=== PATIENT | male | born 1950 | race Caucasian/White ===

== ENCOUNTER 2016-06-14 18:08 | Emergency (ER) | payer OTHER ==
[~2016-06-14] VITALS: Ht 165.1 cm; Wt 97.0 kg
[~2016-06-14 18:08] MED LIST: ASPI-435 PO; ATOR-24 PO; CHOL100027 PO; DULO60CA44 PO; LINA1TAB PO; LIRA18IN SQ; LOSA100T65 PO; LVMIPEN SQ; METF-384 PO; PANT40TA PO
[2016-06-14 18:10] VITALS: TEMP 36.6; Ht 165.1 cm; Wt 97.0 kg
[2016-06-14] MEDS ORDERED: DIPHTHERIA/TETANUS/PERTUSSIS 0.5 ML SYR/VIAL IM. ONE (18:45)
[2016-06-14] MEDS ORDERED: XYLOCAINE 1%/SOD BICARB 20 ML VIAL INFIL ONE (18:45)
--- NOTE | 2016-06-14 19:03 | DIAGNOSTIC IMAGING REPORT ---
LEFT SECOND FINGER 3 VIEWS. CLINICAL HISTORY: Left second finger injury. FINDINGS: 3 views of the left second finger are obtained. No prior studies are available for comparison at the time of dictation. The skeletal structures appear osteopenic. No fracture is identified. Soft tissue calcification is noted posterior to the head of the second proximal phalanx. Mild arthritic change is noted involving the interphalangeal joints of the second and third digits. Mild soft tissue sinus present in both fingers. Arthritic changes also seen at the first carpometacarpal articulation. No radiodense foreign body is identified. IMPRESSION: 1. Soft tissue swelling with no fracture identified. 2. Osteopenia and arthritic change as above. Electronically signed by: Sarath Polanco M.D. 06/14/2016 7:02 PM Dictated Date/Time: 06/14/2016 6:59 PM
--- NOTE | 2016-06-14 20:09 | EMERGENCY ROOM VISIT NOTE ---
ED Visit Note First contact with patient: 18:26 I saw this patient in conjunction with Gloria Johnson PA-C. I agree with her decision-making and treatment plan.
[2016-06-14] MEDS ORDERED: CEPH500C PO (20:13)
--- NOTE | 2016-06-14 20:13 | EMERGENCY ROOM VISIT NOTE ---
ED Visit Note First contact with patient: 18:26 CHIEF COMPLAINT: Hand laceration HISTORY OF PRESENT ILLNESS: This 65-year-old male patient presents to the emergency department ambulatory after cutting the left hand when he was using a hatchet and holding a piece of wood but he missed the wood and hit his hand. He sustained a laceration in the area of the MCP of the left second finger. The bleeding has stopped. Denies weakness or numbness of the hand or fingers. in. The patient denies any other injuries. The patient's Tetanus shot is not up to date. REVIEW OF SYSTEMS: A 6 system review of systems was completed with positives and pertinent negatives listed in the HPI. ALLERGIES: No known drug allergies MEDICATIONS: See nursing notes PMH: Hyperlipidemia, diabetes, hypertension SOCIAL HISTORY: The patient is a smoker. He lives locally PHYSICAL EXAM: Vital Signs: Reviewed Nurse's notes, vital signs stable. GENERAL : This is a 65-year-old male, in no acute distress, well-developed, well- nourished. SKIN: There is a 3 cm long laceration on the dorsal aspect of the left second finger in the area of the second MCP. The edges gape apart with traction. There is no foreign material in the wound and it looks clean. There is mild bleeding. No deep structures such as tendons, bones, or nerves are seen in the base of the wound on initial inspection. The patient does seem to have some weakness with extension of the left second finger. Capillary refill less than 2 seconds. Normal sensation to light and sharp touch. EMERGENCY DEPARTMENT COURSE: I examined the patient. Using sterile technique the wound was cleaned with Betadine. The area was sterilely draped. 3 ml of 1% buffered lidocaine was used to anesthetize the laceration on the hand. Once the patient was numb, the wound was copiously irrigated under pressure with sterile saline. The wound was explored in a bloodless field after tourniquet was applied. There does appear to be extensor tendon laceration. I cannot see into the joint capsule but cannot confirm that there is no joint involvement. The laceration was repaired using 3 simple interrupted 5-0 nylon sutures with the wound edges being well approximated. The patient tolerated the procedure well. The bleeding stopped. The area was cleaned with sterile saline and dressed with bacitracin ointment and bandage. The patient was given Td immunization. The patient was discharged home in good condition. An x-ray was obtained initially and did not reveal any bony abnormality or foreign body The laceration was repaired as above The patient was placed in a splint He will be placed on Keflex I discussed the case with and he recommends follow-up in the office and agrees with the above treatment The patient should return with any worsening symptoms The patient was also seen and examined by who agrees with the assessment and treatment plan. LEFT SECOND FINGER 3 VIEWS. CLINICAL HISTORY: Left second finger injury. FINDINGS: 3 views of the left second finger are obtained. No prior studies are available for comparison at the time of dictation. The skeletal structures appear osteopenic. No fracture is identified. Soft tissue calcification is noted posterior to the head of the second proximal phalanx. Mild arthritic change is noted involving the interphalangeal joints of the second and third digits. Mild soft tissue sinus present in both fingers. Arthritic changes also seen at the first carpometacarpal articulation. No radiodense foreign body is identified. IMPRESSION: 1. Soft tissue swelling with no fracture identified. 2. Osteopenia and arthritic change as above. DISCHARGE INSTRUCTIONS & TREATMENT: Keep wound clean and dry. Do not allow any crusting or dried blood to accumulate on sutures. If this occurs, use a 1:1 solution of hydrogen peroxide/water on a Q-tip to clean the wound. Use an antibiotic ointment for 3-4 days, then let wound dry. Suture removal in 10-12 days. Return sooner for any signs of infection (increasing redness, swelling, drainage). Ice and elevate for swelling and pain. Keep covered when in sun until sutures removed then SPF 50 or higher for one year. Vitamin E oil if desired two weeks after suture removal for reduction of scar. Keflex every 4 hours for 7 days to help prevent infection Wear the splint until seen by orthopedics Contact orthopedics first thing in the morning to schedule a follow-up appointment for further evaluation and management of the tendon injury Return with any worsening symptoms Problem List Medical Problems: (1) Dizziness Status: Resolved (2) Esophageal Reflux Status: Chronic (3) Hyperlipidemia Nec/Nos Status: Chronic (4) Hypertension Nos Status: Chronic (5) Injury of great toe of left foot Status: Resolved (6) Nausea Status: Resolved (7) Obstructive Sleep Apnea (Adult) (Pediatric) Status: Chronic Surgical Problems: (1) Knee Joint Replacement Status Status: Resolved Current/Historical Medications Scheduled Aspirin (Aspirin 81), 81 MG PO DAILY Atorvastatin (Lipitor), 40 MG PO DAILY Cephalexin Monohydrate (Keflex), 500 MG PO QID Cholecalciferol (Vitamin D 1000 Unit), 2,000 INTER.UNIT PO DAILY Duloxetine Hcl (Cymbalta), 60 MG PO DAILY Insulin Detemir (Levemir Flextouch), Unknown Dose SQ HS Linagliptin (Tradjenta), 5 MG PO DAILY Liraglutide (Victoza), 80 UNITS SQ BID Losartan Potassium (Cozaar), 100 MG PO DAILY Metformin Hcl (Glucophage), 1,000 MG PO BID Pantoprazole Sodium (Protonix), 40 MG PO DAILY Allergies Coded Allergies: No Known Allergies (Verified , 10/18/15) Vital Signs Date Time Temp Pulse Resp B/P Pulse Ox O2 Delivery O2 Flow Rate FiO2 06/14/16 20:25 85 18 152/82 95 06/14/16 18:10 36.6 101 20 173/74 95 Medications Administered Medications (Trade) Dose Ordered Sig/Kun Route Start Time Stop Time Status Last Admin Dose Admin Diphtheria/ Pertussis/Tetanus Vacc (Adacel Inj) 0.5 ml ONCE ONCE IM. 06/14/16 18:45 06/14/16 18:46 DC 06/14/16 18:46 0.5 ML Cephalexin Monohydrate (Keflex 500MG Home Pack) 1 homepack NOW ONCE PO 06/14/16 20:15 06/14/16 20:16 DC 06/14/16 20:15 1 HOMEPACK Departure Information Impression Primary Impression: Finger laceration involving tendon Dispostion Home / Self-Care Condition GOOD Prescriptions Cephalexin Monohydrate (Keflex) 500 Mg Cap 500 MG PO QID for 7 Days, #28 CAP Prov: Nataly Johnson PA-C 06/14/16 Referrals Amarilys Ledesma M.D. (PCP) Mickey Madrid MD Patient Instructions ED Laceration Tendon, My [facility] Additional Instructions Keep wound clean and dry. Do not allow any crusting or dried blood to accumulate on sutures. If this occurs, use a 1:1 solution of hydrogen peroxide/ water on a Q-tip to clean the wound. Use an antibiotic ointment for 3-4 days, then let wound dry. Suture removal in 10-12 days. Return sooner for any signs of infection (increasing redness, swelling, drainage). Ice and elevate for swelling and pain. Keep covered when in sun until sutures removed then SPF 50 or higher for one year. Vitamin E oil if desired two weeks after suture removal for reduction of scar. Keflex every 4 hours for 7 days to help prevent infection Wear the splint until seen by orthopedics Contact orthopedics first thing in the morning to schedule a follow-up appointment for further evaluation and management of the tendon injury Return with any worsening symptoms
[2016-06-14] MEDS ORDERED: CEPHALEXIN 500MG HOME PACK 1 EA BTL PO ONE (20:15)
[2016-06-14 20:25] VITALS: BP 152/82; PULSE 85; O2SAT 95
== END 2016-06-14 20:27 | disposition home or self-care (01) ==
LOC: C.EDB 18:09 → C.EDD 20:27
DX: S66.321A Laceration of extensor muscle, fascia and tendon of left index finger at wrist and hand level, initial encounter (principal); W26.8XXA Contact with other sharp object(s), not elsewhere classified, initial encounter; I10 Essential (primary) hypertension; E11.9 Type 2 diabetes mellitus without complications; E78.5 Hyperlipidemia, unspecified; K21.9 Gastro-esophageal reflux disease without esophagitis; Z23 Encounter for immunization; Z96.659 Presence of unspecified artificial knee joint; Z79.82 Long term (current) use of aspirin; Z79.84 Long term (current) use of oral hypoglycemic drugs; Z79.899 Other long term (current) drug therapy

== ENCOUNTER 2016-07-31 18:50 | Emergency (ER) | payer OTHER ==
[2016-07-31 18:57] VITALS: Ht 165.1 cm
[2016-07-31] MEDS ORDERED: NVLNI SC (20:29)
--- NOTE | 2016-07-31 20:36 | DIAGNOSTIC IMAGING REPORT ---
LEFT HAND MIN 3 VIEWS ROUTINE, LEFT FOREARM 2 VIEWS ROUTINE CLINICAL HISTORY: left hand/arm injury COMPARISON STUDY: None. FINDINGS: Diffuse soft tissue swelling within the left hand. Posterior soft tissues swelling within the forearm. No fracture or dislocation within the visualized osseous structures. Moderate osteoarthritis at the first carpometacarpal joint. Mild osteoarthritis within the DIP and PIP joints. IMPRESSION: Soft tissue swelling within the left hand and left forearm. No acute fracture or dislocation. Electronically signed by: José Luis Ferraro M.D. 07/31/2016 8:35 PM Dictated Date/Time: 07/31/2016 8:31 PM
[2016-07-31] MEDS ORDERED: SEPTRA DS HOME PACK 1 EA VIAL PO ONE (21:00)
[2016-07-31] MEDS ORDERED: CEPHALEXIN 500MG HOME PACK 1 EA BTL PO ONE (21:00)
[2016-07-31] MEDS ORDERED: CEPH500C PO (21:12)
[2016-07-31] MEDS ORDERED: SULF800T23 PO (21:12)
--- NOTE | 2016-07-31 21:12 | EMERGENCY ROOM VISIT NOTE ---
History First contact with patient: 19:46 Chief Complaint: WRIST PAIN Stated Complaint: FALL, L HAND AND WRIST INJURY History of Present Illness The patient is a 65 year old male who presents to the Emergency Room with complaints of left hand and wrist pain after a fall 2 days ago. The patient states that he had a mechanical fall and injured his left arm. He states that he has swelling of the hand and wrist. He also has abrasions to the elbow and wrist. He rates his discomfort a 10/10. He has full range of motion of the elbow and wrist. He denies any weakness or numbness of the left upper extremity. He denies any previous injuries to the wrist, forearm or hand. Review of Systems A complete 10 point review of systems was reviewed with the patient with pertinent positives and negatives as per history of present illness. All else were negative. Past Medical/Surgical History Medical Problems: (1) Dizziness (2) Esophageal Reflux (3) Hyperlipidemia Nec/Nos (4) Hypertension Nos (5) Injury of great toe of left foot (6) Nausea (7) Obstructive Sleep Apnea (Adult) (Pediatric) Surgical Problems: (1) Knee Joint Replacement Status Social History Smoking Status: Current Every Day Smoker Alcohol Use: none Marital Status: Current/Historical Medications Scheduled Aspirin (Aspirin 81), 81 MG PO DAILY Atorvastatin (Lipitor), 40 MG PO DAILY Cephalexin Monohydrate (Keflex), 500 MG PO QID Cholecalciferol (Vitamin D 1000 Unit), 2,000 INTER.UNIT PO DAILY Insulin Human NPH (Novolin N), 120 UNITS SC BID Pantoprazole Sodium (Protonix), 40 MG PO DAILY Sulfa/Trimethoprim (Bactrim Ds 800MG/160MG), 1 TAB PO BID Scheduled PRN Hydrocodone/Acetaminophen 5MG/325MG ([place] 5MG/325MG), 1-2 TABLET PO Q4H PRN for Pain Allergies Coded Allergies: No Known Allergies (Verified , 10/18/15) Physical Exam Vital Signs Date Time Temp Pulse Resp B/P (MAP) Pulse Ox O2 Delivery O2 Flow Rate FiO2 07/31/16 21:45 36.8 107 20 163/96 92 Room Air 07/31/16 21:15 107 163/96 07/31/16 18:57 36.8 117 20 92 Room Air Physical Exam VITALS: Vitals are noted on the nurse's note and reviewed by myself. Vital signs stable. GENERAL: This is a 65-year-old male, in no acute distress, nondiaphoretic, well- developed well-nourished. HEART: Regular rate and rhythm without murmurs gallops or rubs. LUNGS: Clear to auscultation bilaterally without wheezes, rales or rhonchi. MUSCULOSKELETAL: There are abrasions over the left elbow and left wrist. There is moderate edema over the left hand and wrist. There is tenderness to palpation of the left distal wrist and hand. There is mild tenderness to palpation of the left proximal forearm. Full range of motion of the left wrist and elbow. NEURO: Patient was alert and oriented to person place and time. Normal sensation to light and sharp touch. Medical Decision & Procedures ER Provider Diagnostic Interpretation: LEFT HAND MIN 3 VIEWS ROUTINE, LEFT FOREARM 2 VIEWS ROUTINE FINDINGS: Diffuse soft tissue swelling within the left hand. Posterior soft tissues swelling within the forearm. No fracture or dislocation within the visualized osseous structures. Moderate osteoarthritis at the first carpometacarpal joint. Mild osteoarthritis within the DIP and PIP joints. IMPRESSION: Soft tissue swelling within the left hand and left forearm. No acute fracture or dislocation. LEFT HAND MIN 3 VIEWS ROUTINE, LEFT FOREARM 2 VIEWS ROUTINE FINDINGS: Diffuse soft tissue swelling within the left hand. Posterior soft tissues swelling within the forearm. No fracture or dislocation within the visualized osseous structures. Moderate osteoarthritis at the first carpometacarpal joint. Mild osteoarthritis within the DIP and PIP joints. IMPRESSION: Soft tissue swelling within the left hand and left forearm. No acute fracture or dislocation. Medications Administered Medications (Trade) Dose Ordered Sig/Kun Route Start Time Stop Time Status Last Admin Dose Admin Trimethoprim/ Sulfamethoxazole (Sulfameth/ Trimeth Ds 800/ 160MG Home Pack) 1 homepack UD ONCE PO 07/31/16 21:00 07/31/16 21:01 DC 07/31/16 21:09 1 HOMEPACK Cephalexin Monohydrate (Keflex 500MG Home Pack) 1 homepack NOW ONCE PO 07/31/16 21:00 07/31/16 21:01 DC 07/31/16 21:09 1 HOMEPACK Acetaminophen/ Hydrocodone Bitart ([place] 5/325mg Home Pack) 1 homepack UD ONCE PO 07/31/16 21:45 07/31/16 21:46 DC 07/31/16 21:48 1 HOMEPACK Medical Decision Differential diagnosis includes fracture, contusion, sprain, dislocation, cellulitis, among others. The patient is a 65-year-old male who presents today complaining of left wrist swelling and pain after an injury 2 days ago. X-rays were performed of the forearm and hand did not show any acute fractures. The patient does have moderate edema and mild erythema which may be secondary to injury but could represent an early cellulitis. He will be placed on Bactrim and Keflex and was instructed to follow-up with his primary care provider this week for a recheck. He was given a home pack and prescription of [place]. He was instructed to return here for worsening symptoms. The patient was independently evaluated by Dr. Soni, ED attending physician, who agreed with my assessment and treatment plan. Medication reconciliation: I attest that I have personally reviewed the patient 's current medication list. Blood pressure screening: Patient was found to have an elevated blood pressure and was referred to their primary care provider for recheck and further treatment. [place] Drug Monitoring Program Search Results: patient reviewed within database, no issues identified Impression Primary Impression: Cellulitis of upper extremity Departure Information Dispostion Home / Self-Care Condition GOOD Prescriptions Hydrocodone/Acetaminophen 5MG/325MG ([place] 5MG/325MG) Tab 1-2 TABLET PO Q4H Y for Pain, #10 TAB For Initial Treatment Prov: Nadia Mccain PA-C 07/31/16 Sulfa/Trimethoprim (Bactrim Ds 800MG/160MG) Tab 1 TAB PO BID for 9 Days, #18 TAB Prov: Nadia Mccain PA-C 07/31/16 Cephalexin Monohydrate (Keflex) 500 Mg Cap 500 MG PO QID for 9 Days, #36 CAP Prov: Nadia Mccain PA-C 07/31/16 Referrals Amarilys Ledesma M.D. (PCP) Patient Instructions My [facility] Additional Instructions You were prescribed Bactrim to be taken twice daily as prescribed. This is an antibiotic. All antibiotics have the potential to cause diarrhea. Stop this medication and contact a medical provider if you were to develop any significant adverse side effects including: wheezing, shortness of breath, passing out, vomiting, or a diffuse rash. Always take antibiotics as directed and COMPLETE the ENTIRE course regardless of the improvement of your symptoms. You were prescribed Keflex to be taken 4 times daily as prescribed. This is an antibiotic. All antibiotics have the potential to cause diarrhea. Stop this medication and contact a medical provider if you were to develop any significant adverse side effects including: wheezing, shortness of breath, passing out, vomiting, or a diffuse rash. Always take antibiotics as directed and COMPLETE the ENTIRE course regardless of the improvement of your symptoms. For pain control, you can use the following [id number] medicines (if >12 yo): - Regular strength (325mg/tab) Tylenol (acetaminophen) 2 tabs every 4-6 hours as needed. Do not exceed 12 tablets in a 24 hour period. Avoid taking more than 4 grams (4000 mg) of Tylenol per day. This includes any other sources of acetaminophen you may take on a regular basis. - Regular strength (200 mg/tab) Advil (ibuprofen) 1-2 tabs every 4-6 hours as needed. Do not exceed a dose of 3200 mg per day. You should be rechecked by your primary care provider in 2-3 days. Return to the emergency department with worsening swelling, worsening redness, fevers or any other new/concerning symptoms. Problem Qualifiers Primary Impression: Cellulitis of upper extremity Laterality: left Qualified Codes: L03.114 - Cellulitis of left upper limb
--- NOTE | 2016-07-31 21:14 | EMERGENCY ROOM VISIT NOTE ---
ED Visit Note First contact with patient: 19:46 I have personally seen and evaluated the patient with the physician professional nursing assistant. I agree with the diagnostic/management decisions and have personally been involved in these decisions and agree with the diagnosis.
[2016-07-31] MEDS ORDERED: HYDR-5688 PO (21:41)
[2016-07-31 21:45] VITALS: BP 163/96; PULSE 107; TEMP 36.8; O2SAT 92
[2016-07-31] MEDS ORDERED: NORCO 5/325MG HOME PACK PO ONE (21:45)
== END 2016-07-31 21:58 | disposition home or self-care (01) ==
LOC: C.EDB 18:52 → C.EDD 21:58
DX: S69.92XA Unspecified injury of left wrist, hand and finger(s), initial encounter (principal); S50.312A Abrasion of left elbow, initial encounter; S60.812A Abrasion of left wrist, initial encounter; W19.XXXA Unspecified fall, initial encounter; G47.33 Obstructive sleep apnea (adult) (pediatric); F17.210 Nicotine dependence, cigarettes, uncomplicated; M79.89 Other specified soft tissue disorders; M19.042 Primary osteoarthritis, left hand; Z79.899 Other long term (current) drug therapy

== ENCOUNTER 2017-10-22 19:25 | Emergency (ER) | payer OTHER ==
[~2017-10-22] VITALS: Ht 165.1 cm; Wt 104.0 kg
[~2017-10-22 19:25] MED LIST changes: +ADVIN25/60 INH; -DULO60CA44 PO; +EFF/375 PO; +HYZ/10015 PO; +IPRA1AER2 INH; -LINA1TAB PO; -LIRA18IN SQ; -LOSA100T65 PO; -LVMIPEN SQ; +NRN600 PO; +NVLNI SC; +TRMO2580 TOP; +VENL150C2 PO
[2017-10-22 19:33] VITALS: Ht 165.1 cm; Wt 104.0 kg
--- NOTE | 2017-10-22 21:27 | EMERGENCY ROOM VISIT NOTE ---
ED Visit Note First contact with patient: 19:50 The patient was seen and examined with aCrlos Garcias PA-C. I agree with the history, physical and findings. Please see the note for disposition and details.
[2017-10-22] MEDS ORDERED: SEPTRA DS HOME PACK 1 EA VIAL PO ONE (21:30)
[2017-10-22] MEDS ORDERED: FLUC150T PO (21:34)
[2017-10-22] MEDS ORDERED: SULF800T23 PO (21:34)
--- NOTE | 2017-10-22 21:37 | EMERGENCY ROOM VISIT NOTE ---
ED Visit Note First contact with patient: 19:50 CHIEF COMPLAINT: Urinary frequency and burning HISTORY OF PRESENT ILLNESS: This 67-year-old white male has had increased frequency of urination, burning pain with urination, and a feeling of incomplete voiding for the last 2 days. He denies any hematuria. He is passing a small volume of urine with each episode of voiding. He denies back pain, fever, or difficulty moving his bowels at this time. No fevers, chills, sweats , nausea, or vomiting. No treatment yet. He previously had similar symptoms a few weeks ago and was seen by his PCP. His urine was reportedly normal at that time. His symptoms resolved on their own at that time. His accompanies him today. REVIEW OF SYSTEM: HEENT: No dizziness, visual problems, hearing loss, or tinnitus. There is no difficulty swallowing and no oral lesions are present. PULMONARY: No cough, shortness of breath, sputum production or hemoptysis. CARDIOVASCULAR: No chest pain, palpitations, shortness of breath or peripheral edema. GASTROINTESTINAL: No diarrhea, constipation, nausea, vomiting, or abdominal pain. GENITOURINARY: Positive dysuria, frequency, urgency and hematuria. NEUROLOGIC: No weakness, muscle tenderness, epilepsy or history of neurological problems. MUSCULOSKELETAL: No history of joint tenderness/swelling. Positive history of arthralgias. SKIN: No rashes. History of cellulitis. PSYCHIATRIC: Positive history of depression. ENDOCRINE: No history of thyroid disorders, or abnormal hair growth. Positive history of diabetes. Supplemental sheet was reviewed and signed. Previous surgeries: Left total knee arthroplasty, right knee tendon repair Medical history: Significant for diabetes, GERD, cellulitis, elevated lipids, hypertension, depression, and arthritis. Current medications: Reviewed and filed in patient's chart Allergies: NKDA SOCIAL HISTORY: Patient lives at home with his . No tobacco use, no EtOH use. PHYSICAL EXAM: Vital Signs: Temperature 36.4. General: Well-developed, well- nourished, elderly white male, in no acute distress. No obvious discomfort. He is sitting on the bed. Alert and oriented. Skin: Warm and dry with good turgor. No rashes or lesions. No ecchymosis or erythema. The patient is not diaphoretic. No abrasions. Heart: Heart RRR. No MGR. Peripheral pulses are 2 +. lungs: Lungs are clear to auscultation. No crackles rhonchi or wheezing. Good air movement. The patient is able to take a deep breath. Abdomen: Abdomen was inspected, auscultated, and palpated. Obese. Bowel sounds present x 4. Soft, suprapubic discomfort to palpation. No hepato-splenomegaly. No masses noted. No rebound. No CVA tenderness EMERGENCY DEPARTMENT COURSE: UA obtained today shows 3+ glucose, positive protein, positive leukocyte esterase, 3+ blood, epithelials, and yeast. Cultures are pending. DIAGNOSIS: UTI in male patient DISCHARGE INSTRUCTIONS & TREATMENT: Patient was educated regarding today's findings. Conservative care measures were discussed. Maintain hydration. Tylenol and Motrin every 6 hours as needed for discomfort. Patient was prescribed Diflucan 150 mg mg 1 dose, and Bactrim DS b.i.d. x10 days. Home pack was provided. Return to the ED or followup with his PCP if symptoms are not improving over the next 3 days. Return sooner for any fevers or worsening back pain/vomiting. UTI handout was provided. Antibiotics can be tailored once the cultures are known. Patient was seen in conjunction with Dr. Mcclure, who also evaluated the patient and concurred with today's diagnosis and treatment plan. Problem List Medical Problems: (1) Dizziness Status: Resolved (2) Esophageal Reflux Status: Chronic (3) Hyperlipidemia Nec/Nos Status: Chronic (4) Hypertension Nos Status: Chronic (5) Injury of great toe of left foot Status: Resolved (6) Nausea Status: Resolved (7) Obstructive Sleep Apnea (Adult) (Pediatric) Status: Chronic Surgical Problems: (1) Knee Joint Replacement Status Status: Resolved Current/Historical Medications Scheduled Aspirin (Aspirin 81), 81 MG PO DAILY Atorvastatin (Lipitor), 40 MG PO DAILY Cholecalciferol (Vitamin D 1000 Unit), 2,000 INTER.UNIT PO DAILY Fluconazole (Diflucan), 150 MG PO DAILY Gabapentin (Gabapentin), 1 TAB PO DAILY Hctz/Losartan (Hyzaar 25MG/100MG), 1 TAB PO DAILY Insulin Human NPH (Novolin N), 88 UNITS SC QPM Metformin Hcl (Glucophage), 4 TABS PO QPM Pantoprazole Sodium (Protonix), 40 MG PO DAILY Sulfa/Trimethoprim (Bactrim Ds 800MG/160MG), 1 TAB PO BID Triamcinolone Acetonide (Topic (Triamcinolone Acet 0.025%), 1 APPLN TOP BID Venlafaxine Hcl (Effexor), 1 TAB PO BID Venlafaxine Hcl (Effexor Xr), 1 CAP PO DAILY Scheduled PRN Ipratropium-Albuterol (Combivent Respimat), 1 PUFFS INH QID PRN for SOB/Wheezing Allergies Coded Allergies: No Known Allergies (Verified , 10/22/17) Vital Signs Date Time Temp Pulse Resp B/P (MAP) Pulse Ox O2 Delivery O2 Flow Rate FiO2 10/22/17 19:33 36.4 123 18 122/69 97 Room Air Laboratory Results Test 10/22/17 20:00 Urine Color YELLOW Urine Appearance TURBID (CLEAR) Urine pH 5.0 (4.5-7.5) Urine Specific [place] 1.038 (1.000-1.030) Urine Protein 2+ (NEG) Urine Glucose (UA) 3+ (NEG) Urine Ketones NEG (NEG) Urine Occult Blood 3+ (NEG) Urine Nitrite NEG (NEG) Urine Bilirubin NEG (NEG) Urine Urobilinogen NEG (NEG) Urine Leukocyte Esterase MODERATE (NEG) Urine WBC (Auto) >30 /hpf (0-5) Urine Hyaline Casts (Auto) 1-5 /lpf (0-5) Urine Epithelial Cells (Auto) >30 /lpf (0-5) Urine Bacteria (Auto) NEG (NEG) Urine Yeast (Auto) BUDDING (NONE PRSENT) Departure Information Prescriptions Sulfa/Trimethoprim (Bactrim Ds 800MG/160MG) Tab 1 TAB PO BID, #18 TAB Prov: Carlos Garcias,P.A. 10/22/17 Fluconazole (DIFLUCAN) 150 Mg Tab 150 MG PO DAILY, #1 TAB Prov: Carlos Garcias,P.A. 10/22/17 Referrals Amarilys Ledesma MD (PCP) Patient Instructions [facility]
[2017-10-22 21:43] VITALS: BP 122/70; PULSE 99; TEMP 36.4; O2SAT 97
== END 2017-10-22 21:44 | disposition home or self-care (01) ==
LOC: C.EDB 19:27 → C.EDD 21:44
DX: N39.0 Urinary tract infection, site not specified (principal); E11.9 Type 2 diabetes mellitus without complications; I10 Essential (primary) hypertension; E78.5 Hyperlipidemia, unspecified; F32.9 Major depressive disorder, single episode, unspecified; Z79.82 Long term (current) use of aspirin; Z79.84 Long term (current) use of oral hypoglycemic drugs; Z79.4 Long term (current) use of insulin; Z79.899 Other long term (current) drug therapy

== ENCOUNTER 2018-10-05 09:47 | Inpatient (IN) ==
[2018-10-05] MEDS ORDERED: VANCOMYCIN CONSULT ACTIVE PRN (12:12)
[2018-10-05] MEDS ORDERED: PIPERACILL/TAZOBAC CONSULT ACTIVE PRN (12:12)
[2018-10-05] MEDS ORDERED: ALBUTEROL 0.083% NEBU SOLN 3 ML VIAL INH PRN (12:17)
[2018-10-05] MEDS ORDERED: DEXTROSE 50% 50 ML SYRINGE IV PRN (12:26)
[2018-10-05] MEDS ORDERED: GLUCAGON FOR INJ 1 MG VIAL SQ PRN (12:26)
[2018-10-05] MEDS ORDERED: GLUCOSE 40% GEL 15 GM TUBE PO PRN (12:26)
[2018-10-05] MEDS ORDERED: CARBOHYDRATES FOR HYPOGLYCEMIA PO PRN (12:26)
[2018-10-05] MEDS ORDERED: GLUCOSE 10 TABS/TUBE PO PRN (12:26)
[2018-10-05 12:29] LABS: Basophils # (auto) 0.03 K/uL (0-0.2); Basophils % (auto) 0.3 %; Eosinophils # (auto) 0.11 K/uL (0-0.5); Eosinophils % (auto) 1.2 %; Hematocrit (blood only) 37.8 % (42-52); Hemoglobin 12.3 g/dL (14.0-18.0); Immature Granulocytes # (auto) 0.02 K/uL (0.00-0.02); Immature Granulocytes % (auto) 0.2 %; Lymphocytes # (auto) 1.91 K/uL (1.2-3.4); Mean Corpuscular Hemoglobin 24.6 pg (25-34); Mean Corpuscular Hgb Conc 32.5 g/dL (32-36); Mean Corpuscular Volume 75.4 fL (80-100); Mean Platelet Volume 9.4 fL (7.4-10.4); Monocytes # (auto) 0.83 K/uL (0.11-0.59); Monocytes % (auto) 9.1 %; Neutrophils % (auto) 68.2 %; Platelet Count 226 K/uL (130-400); RDW Coefficient of Variation 14.7 % (11.5-14.5); RDW Standard Deviation 40.2 fL (36.4-46.3); Red Blood Count 5.01 M/uL (4.7-6.1)
[2018-10-05 12:37] LABS: Prothrombin Time 10.3 Seconds (9.0-12.0)
[2018-10-05 12:54] LABS: Albumin Level 3.1 gm/dl (3.4-5.0); BUN Creatinine Ratio 16.1 (10-20); Calcium 9.4 mg/dl (8.5-10.1); Creatinine Clr Calc Pharmacy 66.6 ml/min; Est GFR (African American) 113.1; Est GFR (Non-African American) 97.5; Magnesium 1.6 mg/dl (1.8-2.4); Potassium 3.5 mmol/L (3.5-5.1)
[2018-10-05 12:57] LABS: Albumin Globulin Ratio 0.9 (0.9-2); Bilirubin,Total 0.3 mg/dl (0.2-1); Globulin 3.5 gm/dl (2.5-4.0); Total Protein 6.6 gm/dl (6.4-8.2)
[2018-10-05] MEDS: NICOTINE 21 MG/24 HR TDSY TD SCH (13:15)
[2018-10-05] MEDS: INSULIN ASPART 100 UNITS/ML 3 ML PEN SC SCH ×3 (13:18→20:56)
[2018-10-05] MEDS ORDERED: PIPERACILLIN/TAZOBACTAM 4.5 GM in DEXTROSE 5% 100 ML IV ONE (13:30)
[2018-10-05] MEDS ORDERED: VANCOMYCIN HCL 2,000 MG in SODIUM CHLORIDE 0.9% 500 ML IV ONE (13:30)
--- NOTE | 2018-10-05 13:38 | History & Physical Report ---
Date of Service October 05, 2018 Assessment & Plan (1) Infected stasis ulcer of left lower extremity: -Patient directly admitted to [facility] from the wound center -Has chronic left posterior ankle wound for the past 2 years; had revascularization done with some improvement -Follows closely with the wound center, at today's appointment patient was found to have significant erythema of the left lower extremity so was referred for direct admission -Patient does not appear septic -Previous cultures have grown MSSA and Proteus -We will place patient on Vanco and Zosyn for now, adjust per culture results -No signs of osteomyelitis on ankle x-ray -Wound and blood cultures obtained -Wound care consult -ID consult -Noted that patient has been following with Dr. Zayas for possible revascularization; no signs of need for acute intervention at this time, will need to continue close outpatient follow-up (2) DM type 2 (diabetes mellitus, type 2): -Hgb A1c 6.7 09/2018 -Hold home metformin, Tresiba, and Victoza; utilize Lantus and NovoLog per protocol while hospitalized (3) PAD (peripheral artery disease): -Continue aspirin, Plavix, statin (4) Hypertension: -BP controlled, continue losartan/HCTZ (5) ELIZABETH (obstructive sleep apnea): -CPAP as per home settings (6) Tobacco abuse: -Patient counseled regarding tobacco cessation -Agreeable to nicotine patch (7) DVT prophylaxis: -SQ heparin History of Present Illness Chief Complaint: Left ankle wound Primary Care Provider: Amarilys Ledesma MD 68-year-old male who presents as a direct admission from the wound clinic for management of a suspected infected left ankle wound. Patient has had this wound for the past 2 years. Underwent revascularization 05/2017 and has had some improvement in the wound. Patient follows closely with the wound center. Over the past couple of days, patient notes increased burning sensation around the wound. Today he was noted to have erythema extending up to just below the knee. Patient denies fevers and chills. He has not been on antibiotics recently for this wound. He denies chest pain or shortness of breath. No lightheadedness, dizziness, diaphoresis, syncopal events. No abdominal pain, nausea, vomiting, diarrhea. He denies any urinary symptoms. At the time my exam, patient is resting in bed no acute distress. Allergies Allergy/AdvReac Type Severity Reaction Status Date / Time No Known Allergies Allergy Verified 10/05/18 09:16 Home Medications Home Medications Medication Instructions Recorded Confirmed Type aspirin 81 mg tablet,delayed 81 mg PO DAILY 10/26/17 10/05/18 History release atorvastatin 40 mg tablet 40 mg PO DAILY 10/26/17 10/05/18 History cholecalciferol (vitamin D3) 1,000 2,000 units PO DAILY cap 10/26/17 10/05/18 History unit capsule losartan 100 1 tab PO DAILY 10/26/17 10/05/18 History mg-hydrochlorothiazide 25 mg tablet venlafaxine ER 150 mg 150 mg PO DAILY 10/26/17 10/05/18 History capsule,extended release 24 hr albuterol sulfate 2 puff INHALATION Q4H PRN 07/16/18 10/05/18 History albuterol sulfate 2.5 mg INHALATION Q4H PRN 07/16/18 10/05/18 History clopidogrel 75 mg PO DAILY 07/16/18 10/05/18 History gabapentin 1,200 mg PO QPM 07/16/18 10/05/18 History gabapentin 600 mg PO QAM 07/16/18 10/05/18 History insulin degludec [Tresiba 80 unit SUBCUT QPM 07/16/18 10/05/18 History FlexTouch U-200] liraglutide [Victoza 3-Dorian] 1.8 mg SUBCUT DAILY 07/16/18 10/05/18 History metformin 1,000 mg PO BIDM 07/16/18 10/05/18 History omeprazole 40 mg PO QAM 07/16/18 10/05/18 History umeclidinium-vilanterol [Anoro 1 inh INHALATION DAILY 07/16/18 10/05/18 History Ellipta] clotrimazole-betamethasone 1 applic TOPICAL DAILY 10/05/18 10/05/18 History [Lotrisone] finasteride [Proscar] 5 mg PO DAILY 10/05/18 10/05/18 History Past Med/Surg History Medical History Tobacco abuse (Chronic) ELIZABETH (obstructive sleep apnea) (Chronic) Hypertension (Chronic) PAD (peripheral artery disease) (Chronic) DM type 2 (diabetes mellitus, type 2) (Chronic) Surgical History History of total left knee replacement (Chronic) Family History Mother Colon cancer Social History Preferred Language: [place]orese Communication Ability: Effective 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: No Beliefs That Will Affect Care: None Current Living Situation: Spouse current occupational status: disabled Other Information That Helps Us Care for You: No Feels Safe at Home: Yes Safety Concerns: Feels Safe At This Time Smoking Status: Current every day smoker Tobacco Type: cigarettes ; Cigarettes Per Day: 2 packs a day ; Do You Dip or Chew Tobacco: No ; Hx Alcohol Use: No Hx Substance Use: No Review of Systems Review of Systems: ROS per HPI, all other systems reviewed and negative Physical Exam Constitutional: WD/WN, vitals as above Eyes: PERRL, conjunctivae normal, anicteric sclerae ENMT: external ear and nose normal, oropharynx normal Respiratory: normal respiratory effort, lungs clear to auscultation Cardiovascular: Rate/Rhythm: regular rate and regular rhythm Vessels: + abnormal peripheral pulses (Pedal pulses obtained by Doppler) Extremities: no edema Gastrointestinal (Abdomen): normal bowel sounds, soft, nontender, no hepatosplenomegaly Musculoskeletal: no cyanosis or clubbing, extremities motor strength 5/5 Skin: no rashes, warm and dry Wound noted to the left posterior ankle ~ 2- 3cm with yellow slough wound bed; serous seepage noted from left medial ankle; significant erythema involving most of the left lower leg, stopping just below the knee which has been outlined with skin marker Neurologic: PERRL, EOMI, accommodation nl, no face palsy, no dysarthria Psychiatric: A+Ox3, euthymic affect Results & Data Vital Signs (Past 12 Hours) Vital Signs Temp Pulse Resp BP Pulse Ox 10/05/18 11:07 37.1 C 92 H 15 150/76 H 95 Laboratory Results Short CBC 10/05/18 Range/Units 12:04 WBC 9.10 (4.8-10.8) K/uL Hgb 12.3 L (14.0-18.0) g/dL Hct 37.8 L (42-52) % Plt Count 226 (130-400) K/uL BMP 10/05/18 12:04 Sodium 141 Potassium 3.5 Chloride 106 Carbon Dioxide 28 BUN 11 Creatinine 0.69 Glucose 91 Calcium 9.4 Liver Function 10/05/18 Range/Units 12:04 Total Bilirubin 0.3 (0.2-1) mg/dl AST 14 L (15-37) U/L ALT 21 (12-78) U/L Alkaline Phosphatase 113 (45-117) U/L Albumin 3.1 L (3.4-5.0) gm/dl Diagnostic Findings ANKLE X-RAY IMPRESSION: 1. A 3 cm focal skin ulceration along the posterior aspect of the distal lower leg. 2. No evidence for osteomyelitis within the left ankle. 3. Diffuse soft tissue swelling. 4. Postoperative and arthritic changes are again noted. Code Status & VTE Plan Code Status Patient is a full code as per my discussion with him. VTE Prophylaxis Plan VTE Prophylaxis will be ordered: Yes Supervising Physician Co-Signing Physician Notes Attending addendum: Patient is seen and examined, care coordinated with Christie ESTEBAN This 68-year-old male with poorly controlled diabetes, admitted with infected status diabetic ulcer of left lower extremity Wound culture obtained, . antibiotic with IV vancomycin and Zosyn ID eval requested Continue wound care Please refer to further documentation by Christie ESTEBAN for discussion of other chronic issues Denisa Khan MD
--- NOTE | 2018-10-05 14:20 | XRay Report ---
XR ankle LT min 3V routine CLINICAL HISTORY: Left ankle wound and swelling. COMPARISON STUDY: Left tibia/fibula 03/21/2018. FINDINGS: Postoperative changes consistent with tibiotalar and subtalar fusion with orthopedic hardwa re. The hardware appears intact. No erosive/destructive changes to suggest osteomyelitis. No abnormal periprostatic lucency. Advanced degenerative changes within the midfoot. Mild diffuse soft tissue sw elling. There is a 3 cm focal skin ulceration along the posterior aspect of the distal lower leg. Mil d vascular calcifications are present. No acute fracture or dislocation. IMPRESSION: 1. A 3 cm focal skin ulceration along the posterior aspect of the distal lower leg. 2. No evidence for osteomyelitis within the left ankle. 3. Diffuse soft tissue swelling. 4. Postoperative and arthritic changes are again noted. Electronically signed by: José Luis Ferraro M.D. 10/05/2018 2:18 PM
[2018-10-05] MEDS: HEPARIN SOD 5,000 UNIT/0.5 ML VIAL SQ SCH ×2 (14:29→21:13)
--- NOTE | 2018-10-05 14:48 | Pharmacy Report ---
Pharmacy Abx Initial Consult - Date of Service October 05, 2018 - Pharmacy Dosing Scope Date of Consult: 10/05/18 Consultation requested by: Christie Andre Pharmacy is consulted to initiate vancomycin and Zosyn IV dosing therapy, order appropriate labs and adjust drug dose/frequency. - Subjective The patient is a 68 year old M admitted on 10/05/18 10:46 admitted with worsening L ankle infection. - Objective Height: 5 ft 5 in Weight: 101.6 kg Vital Signs (Past 12hrs): Vital Signs Temp Pulse Resp BP Pulse Ox 10/05/18 11:07 37.1 C 92 H 15 150/76 H 95 Lab Results (24hrs): Laboratory Tests (24 Hours) 10/05/18 10/05/18 12:04 12:04 WBC 9.10 Neut # (Auto) 6.20 Creatinine 0.69 Est Cr Clr Drug Dosing 66.6 Micro Results: 10/05/18 12:00 Gram Stain - Pending Leg,Left Wound Culture - Pending 10/05/18 12:13 Aerobic Blood Culture - Pending Blood Anaerobic Blood Culture - Pending 10/05/18 12:04 Aerobic Blood Culture - Pending Blood Anaerobic Blood Culture - Pending - Risk Factors for Resistance * Follows with wound clinic * Antimicrobial use within the last 90 days (per patient he has been on 4-5 recently) - Assessment & Plan Assessment 68 year old M admitted with L ankle wound. Plan vancomycin/Zosyn for treatment of L ankle wound Vancomycin IV * Estimated PK Parameters: Vd 0.65 L/kg, Timbo 0.0874 hr-1, t1/2 7.9 hr * Average concentration (steady state) expected around 12.5 mcg/mL (D/(CL x kaushik)) ... with obesity will probably accumulate to around 15-17 mcg/mL * Loading dose: 2000 mg (20 mg/kg) * Maintenance dose: 1250 mg IV (12.3 mg/kg) every 8 hours * Goal trough level for cellulitis : ~15 mcg/mL * Trough ordered for 10/06/18 prior to third dose... by no means represents steady state HOWEVER do not want accumulation and potential kidney injury. This is just to test where patient's trough will be trending. * A less than traditional dose has been selected due to likelihood of drug accumulation in obese patient. Piperacillin/tazobactam * 4.5 g bolus administered over 30 minutes, then 4.5 g IV extended infusion every 8 hours for CrCl greater than 20 mL/min. * Aggressive dosing selected due to BMI 35 or more. Pharmacy will continue to follow and will adjust dose/frequency as necessary. Thank you.
--- NOTE | 2018-10-05 16:32 | Infectious Disease Consult ---
Date of Consultation October 05, 2018 Assessment & Plan (1) Infected stasis ulcer of left lower extremity: Patient with infected ulceration left lateral ankle, in the setting of severe peripheral arterial disease, cultures pending. For now, vancomycin and Zosyn should provide adequate coverage, will be adjusted once final culture results are available. Would consider further vascular studies and consultation with vascular surgery to help in further management. History of Present Illness Reason for Consultation: Chronic infected left leg wound Attending Physician: Denisa Khan MD History of Present Illness 68-year-old male well-known to me from follow-up at the wound care center, who has had poorly healing left leg wound, previously with positive cultures for methicillin sensitive staph aureus, treated with antibiotics and wound care with apparent healing, last seen in mid August, now presents with several days of progressively worsening pain, swelling, and erythema surrounding left lateral leg ulceration. Was seen in wound care center and referred for admission for further management. Patient complaining of pain in his leg, currently 3 out of 10 in intensity. No fever or chills reported by patient. Has been started empirically on IV vancomycin and Zosyn. Cultures are pending. Allergies Allergy/AdvReac Type Severity Reaction Status Date / Time No Known Allergies Allergy Verified 10/05/18 09:16 Home Medications Home Medications Medication Instructions Recorded Confirmed Type aspirin 81 mg tablet,delayed 81 mg PO DAILY 10/26/17 10/05/18 History release atorvastatin 40 mg tablet 40 mg PO DAILY 10/26/17 10/05/18 History cholecalciferol (vitamin D3) 1,000 2,000 units PO DAILY cap 10/26/17 10/05/18 History unit capsule losartan 100 1 tab PO DAILY 10/26/17 10/05/18 History mg-hydrochlorothiazide 25 mg tablet venlafaxine ER 150 mg 150 mg PO DAILY 10/26/17 10/05/18 History capsule,extended release 24 hr albuterol sulfate 2 puff INHALATION Q4H PRN 07/16/18 10/05/18 History albuterol sulfate 2.5 mg INHALATION Q4H PRN 07/16/18 10/05/18 History clopidogrel 75 mg PO DAILY 07/16/18 10/05/18 History gabapentin 1,200 mg PO QPM 07/16/18 10/05/18 History gabapentin 600 mg PO QAM 07/16/18 10/05/18 History insulin degludec [Tresiba 80 unit SUBCUT QPM 07/16/18 10/05/18 History FlexTouch U-200] liraglutide [Victoza 3-Dorian] 1.8 mg SUBCUT DAILY 07/16/18 10/05/18 History metformin 1,000 mg PO BIDM 07/16/18 10/05/18 History omeprazole 40 mg PO QAM 07/16/18 10/05/18 History umeclidinium-vilanterol [Anoro 1 inh INHALATION DAILY 07/16/18 10/05/18 History Ellipta] clotrimazole-betamethasone 1 applic TOPICAL DAILY 10/05/18 10/05/18 History [Lotrisone] finasteride [Proscar] 5 mg PO DAILY 10/05/18 10/05/18 History Patient History Medical History Tobacco abuse (Chronic) ELIZABETH (obstructive sleep apnea) (Chronic) Hypertension (Chronic) PAD (peripheral artery disease) (Chronic) DM type 2 (diabetes mellitus, type 2) (Chronic) Surgical History History of total left knee replacement (Chronic) Family History Mother Colon cancer Social History Preferred Language: Estonian Communication Ability: Effective Java Architect Required: No Beliefs That Will Affect Care: None Current Living Situation: Spouse current occupational status: disabled Other Information That Helps Us Care for You: No Feels Safe at Home: Yes Safety Concerns: Feels Safe At This Time Smoking Status: Current every day smoker Tobacco Type: cigarettes ; Cigarettes Per Day: 2 packs a day ; Do You Dip or Chew Tobacco: No ; Hx Alcohol Use: No Hx Substance Use: No Review of Systems Review of Systems: All systems reviewed & are unremarkable except as noted in HPI & below Physical Exam Constitutional: WD/WN, vitals as above comfortable; no acute distress Eyes: PERRL, conjunctivae normal, anicteric sclerae ENMT: external ear and nose normal, oropharynx normal Neck: trachea midline, no thyromegaly neck nontender Respiratory: normal respiratory effort, lungs clear to auscultation normal percussion; does not use accessory muscles Cardiovascular: Rate/Rhythm: regular rate and regular rhythm Heart Sounds: normal S1 and normal S2; no gallop, no murmur and no cardiac rub Vessels: no JVD Possible left pedal pulse Gastrointestinal (Abdomen): normal bowel sounds, soft, nontender, no hepatosplenomegaly Musculoskeletal: no cyanosis or clubbing, extremities motor strength 5/5 Spine: thoracic spine normal to inspection and lumbar spine normal to inspection; no cervical spinal tenderness Skin: no rashes, warm and dry + wound (Left lateral leg with surrounding erythema and slight tenderness) Neurologic: patellar DTR's 2+ bilat, sensation intact no focal motor deficits Psychiatric: A+Ox3, euthymic affect Orientation: cooperative Lymphatic: no cervical or axillary lymphadenopathy no inguinal lymphadenopathy Results & Data Vital Signs (Past 12 Hours) Vital Signs Temp Pulse Resp BP BP Pulse Ox 10/05/18 15:04 36.9 C 78 20 134/67 97 10/05/18 11:07 37.1 C 92 H 15 150/76 H 95 Laboratory Results Short CBC 10/05/18 Range/Units 12:04 WBC 9.10 (4.8-10.8) K/uL Hgb 12.3 L (14.0-18.0) g/dL Hct 37.8 L (42-52) % Plt Count 226 (130-400) K/uL BMP 10/05/18 12:04 Sodium 141 Potassium 3.5 Chloride 106 Carbon Dioxide 28 BUN 11 Creatinine 0.69 Glucose 91 Calcium 9.4 Liver Function 10/05/18 Range/Units 12:04 Total Bilirubin 0.3 (0.2-1) mg/dl AST 14 L (15-37) U/L ALT 21 (12-78) U/L Alkaline Phosphatase 113 (45-117) U/L Albumin 3.1 L (3.4-5.0) gm/dl Diagnostic Findings XR ankle LT min 3V routine CLINICAL HISTORY: Left ankle wound and swelling. COMPARISON STUDY: Left tibia/fibula 03/21/2018. FINDINGS: Postoperative changes consistent with tibiotalar and subtalar fusion with orthopedic hardware. The hardware appears intact. No erosive/destructive changes to suggest osteomyelitis. No abnormal periprostatic lucency. Advanced degenerative changes within the midfoot. Mild diffuse soft tissue swelling. There is a 3 cm focal skin ulceration along the posterior aspect of the distal lower leg. Mild vascular calcifications are present. No acute fracture or dislocation. IMPRESSION: 1. A 3 cm focal skin ulceration along the posterior aspect of the distal lower leg. 2. No evidence for osteomyelitis within the left ankle. 3. Diffuse soft tissue swelling. 4. Postoperative and arthritic changes are again noted. PG Care Time/CCT Total # of Minutes Spent Total Time Spent with Patient: Total time spent is greater than 50% in coordination of care (as documented) at patient's floor/unit and/or counseling patient:
[2018-10-05] MEDS: ACETAMINOPHEN 325 MG TAB PO PRN ×2 (17:26→21:13)
[2018-10-05] MEDS: PIPERACILLIN/TAZOBACTAM 4.5 GM in DEXTROSE 5% 100 ML IV SCH (17:52)
[2018-10-05] MEDS ORDERED: INSULIN GLARGINE SOLOSTAR 100 UNITS/ML 3 ML PEN SC SCH (21:00)
[2018-10-05] MEDS: GABAPENTIN 600 MG TAB PO SCH (21:12)
[2018-10-05] MEDS: VANCOMYCIN HCL 1,250 MG in SODIUM CHLORIDE 0.9% 250 ML IV SCH (21:13)
[2018-10-06] MEDS ORDERED: COUGH DROP (SUGAR FREE) LOZ 24 LOZ/1 BOX BUCCAL ONE (00:43)
[2018-10-06] MEDS ORDERED: SODIUM CHLORIDE 0.65% NA SOLN 45 ML (OCEAN) ONE (00:44)
[2018-10-06] MEDS: PIPERACILLIN/TAZOBACTAM 4.5 GM in DEXTROSE 5% 100 ML IV SCH ×3 (02:49→18:10)
[2018-10-06] MEDS ORDERED: VANCOMYCIN TROUGH ONE (05:30)
[2018-10-06] MEDS: VANCOMYCIN HCL 1,250 MG in SODIUM CHLORIDE 0.9% 250 ML IV SCH ×2 (05:45→15:50)
[2018-10-06] MEDS: HEPARIN SOD 5,000 UNIT/0.5 ML VIAL SQ SCH ×3 (05:47→21:41)
[2018-10-06 06:12] LABS: Creatinine Clr Calc Pharmacy 107.7 ml/min; Est GFR (African American) 111.1; Est GFR (Non-African American) 95.9
--- NOTE | 2018-10-06 08:48 | Pharmacy Report ---
Pharmacy Abx Dose Short Note - Date of Service October 06, 2018 - Assessment & Plan Assessment 68 year old M receiving vancomycin and Zosyn for treatment of L ankle wound Day # 2 of antimicrobial therapy. ID consulted and follows with wound clinic as an outpatient as well SCr stable. Blood and leg cultures currently pending. Last wound culture grew MSSA. Plan Vancomycin * Trough level of 13.7 mcg/mL is therapeutic; however, this is prior to steady state so dose will need adjusted * Change to 1250 mg IV every 10 hours * Goal trough level for skin/skin structure infection : 10 to 15 mcg/mL * Recheck of trough level ordered for: 10/07/18 prior to the 1200 dose to monitor closely for accumulation in the setting of elevated BMI Pharmacy will continue to follow and will adjust dose/frequency as necessary. Thank you.
[2018-10-06] MEDS ORDERED: PNEUMOCOCCAL ADMINISTRATION CHARGE ONE (09:00)
[2018-10-06] MEDS ORDERED: PNEUMOCOCCAL POLYSACCHARIDES 25 MCG/0.5 ML VIAL/SYR IM ONE (09:00)
[2018-10-06] MEDS: INSULIN ASPART 100 UNITS/ML 3 ML PEN SC SCH ×4 (09:02→21:38)
[2018-10-06] MEDS: GABAPENTIN 600 MG TAB PO SCH ×2 (09:07→20:20)
[2018-10-06] MEDS: NICOTINE 21 MG/24 HR TDSY TD SCH (09:09)
[2018-10-06] MEDS: PANTOprazole 40 MG TAB PO SCH (09:09)
[2018-10-06] MEDS: LOSARTAN/HCTZ 50/12.5MG TAB PO SCH (09:09)
[2018-10-06] MEDS: ATORVASTATIN 40 MG TAB PO SCH (09:09)
[2018-10-06] MEDS: ASPIRIN 81 MG ECTAB PO SCH (09:09)
[2018-10-06] MEDS: VENLAFAXINE HCL XR 150 MG CAPXR PO SCH (09:09)
[2018-10-06] MEDS: FINASTERIDE 5 MG TAB PO SCH (09:09)
[2018-10-06] MEDS: CHOLECALCIFEROL 1,000 UNITS TAB PO SCH (09:09)
[2018-10-06] MEDS: CLOPIDOGREL BISULFATE 75 MG TAB PO SCH (09:10)
[2018-10-06] MEDS: ACETAMINOPHEN 325 MG TAB PO PRN (09:27)
--- NOTE | 2018-10-06 19:23 | Hospitalist Progress Note ---
Date of Service October 06, 2018 Assessment & Plan (1) Infected stasis ulcer of left lower extremity: -History of chronic left posterior ankle wound for the past 2 years; had revascularization done with some improvement -Care center: Patient was found to have significant erythema of the left lower extremity - -Previous cultures have grown MSSA and Proteus -Continue to Vanco and Zosyn -No signs of osteomyelitis on ankle x-ray -Wound and blood cultures obtained -ID and wound care consulted (2) DM type 2 (diabetes mellitus, type 2): -Hgb A1c 6.7 09/2018 -Hold home metformin, Tresiba, and Victoza; utilize Lantus and NovoLog per pr otocol while hospitalized (3) PAD (peripheral artery disease): -Continue aspirin, Plavix, statin (4) Hypertension: -BP controlled, continue losartan/HCTZ (5) ELIZABETH (obstructive sleep apnea): -CPAP as per home settings (6) Tobacco abuse: -Patient counseled regarding tobacco cessation -Agreeable to nicotine patch (7) DVT prophylaxis: -SQ heparin Subjective No fever or chills, has minimum pain on left lower extreme Physical Exam Constitutional: WD/WN, vitals as above comfortable; no acute distress Eyes: PERRL, conjunctivae normal, anicteric sclerae ENMT: external ear and nose normal, oropharynx normal Neck: trachea midline, no thyromegaly neck nontender Respiratory: normal respiratory effort, lungs clear to auscultation normal percussion; does not use accessory muscles Cardiovascular: Rate/Rhythm: regular rate and regular rhythm Heart Sounds: normal S1 and normal S2; no gallop, no murmur and no cardiac rub Vessels: no JVD and + abnormal peripheral pulses (Pedal pulses obtained by Doppler) Extremities: no edema Gastrointestinal (Abdomen): normal bowel sounds, soft, nontender, no hepatosplenomegaly Musculoskeletal: no cyanosis or clubbing, extremities motor strength 5/5 Spine: thoracic spine normal to inspection and lumbar spine normal to inspection; no cervical spinal tenderness Skin: no rashes, warm and dry + wound (Left lateral leg with surrounding erythema and slight tenderness) Neurologic: patellar DTR's 2+ bilat, sensation intact and PERRL, EOMI, accommodation nl, no face palsy, no dysarthria no focal motor deficits Psychiatric: A+Ox3, euthymic affect Orientation: cooperative Lymphatic: no cervical or axillary lymphadenopathy no inguinal lymphadenopathy Results & Data Vital Signs (Past 12 Hours) Vital Signs Temp Pulse Resp BP Pulse Ox 10/06/18 15:12 36.6 C 67 16 123/71 98 10/06/18 09:28 135/63
[2018-10-07] MEDS: PIPERACILLIN/TAZOBACTAM 4.5 GM in DEXTROSE 5% 100 ML IV SCH ×3 (02:03→18:13)
[2018-10-07] MEDS: VANCOMYCIN HCL 1,250 MG in SODIUM CHLORIDE 0.9% 250 ML IV SCH (02:04)
[2018-10-07] MEDS: HEPARIN SOD 5,000 UNIT/0.5 ML VIAL SQ SCH ×3 (05:51→20:46)
[2018-10-07 06:45] LABS: Creatinine Clr Calc Pharmacy 95.7 ml/min; Est GFR (African American) 105.8; Est GFR (Non-African American) 91.3
[2018-10-07] MEDS: VENLAFAXINE HCL XR 150 MG CAPXR PO SCH (09:23)
[2018-10-07] MEDS: ATORVASTATIN 40 MG TAB PO SCH (09:23)
[2018-10-07] MEDS: PANTOprazole 40 MG TAB PO SCH (09:23)
[2018-10-07] MEDS: ASPIRIN 81 MG ECTAB PO SCH (09:23)
[2018-10-07] MEDS: FINASTERIDE 5 MG TAB PO SCH (09:23)
[2018-10-07] MEDS: GABAPENTIN 600 MG TAB PO SCH ×2 (09:23→20:40)
[2018-10-07] MEDS: CHOLECALCIFEROL 1,000 UNITS TAB PO SCH (09:23)
[2018-10-07] MEDS: NICOTINE 21 MG/24 HR TDSY TD SCH (09:24)
[2018-10-07] MEDS: INSULIN ASPART 100 UNITS/ML 3 ML PEN SC SCH ×4 (09:24→20:43)
[2018-10-07] MEDS: LOSARTAN/HCTZ 50/12.5MG TAB PO SCH (09:25)
[2018-10-07] MEDS: ANORO ELLIPTA PO SCH (09:25)
[2018-10-07] MEDS: CLOPIDOGREL BISULFATE 75 MG TAB PO SCH (09:29)
[2018-10-07] MEDS ORDERED: VANCOMYCIN TROUGH ONE (11:30)
--- NOTE | 2018-10-07 19:29 | Hospitalist Progress Note ---
Date of Service October 07, 2018 Assessment & Plan (1) Infected stasis ulcer of left lower extremity: -History of chronic left posterior ankle wound for the past 2 years; had revascularization done with some improvement -Care center: Patient was found to have significant erythema of the left lower extremity - -Wound culture showing staph aureus MSSA -Discussed with Dr. Meadows Patient will be changed to a p.o. Keflex 500 mg twice daily tomorrow Need follow-up with wound clinic after discharge - (2) DM type 2 (diabetes mellitus, type 2): -Hgb A1c 6.7 09/2018 -Hold home metformin, Tresiba, and Victoza; utilize Lantus and NovoLog per protocol while hospitalized Outpatient antidiabetic meds will be resumed on discharge (3) PAD (peripheral artery disease): -Continue aspirin, Plavix, statin She will need follow-up with vascular surgery as an outpatient for assessment left lower extremity circulation (4) Hypertension: -BP controlled, continue losartan/HCTZ (5) ELIZABETH (obstructive sleep apnea): -CPAP as per home settings (6) Tobacco abuse: -Patient counseled regarding tobacco cessation -Agreeable to nicotine patch (7) DVT prophylaxis: -SQ heparin Disposition: Possible discharge home tomorrow Subjective Feels fine, no pain or discomfort in left lower extremity, no fever or chills Months to know when he can be discharged Discussed with Dr. Meadows infectious disease, patient will be continued 24 hours of IV antibiotic We will change to p.o. Keflex tomorrow prior to discharge Physical Exam Constitutional: WD/WN, vitals as above comfortable; no acute distress Eyes: PERRL, conjunctivae normal, anicteric sclerae ENMT: external ear and nose normal, oropharynx normal Neck: trachea midline, no thyromegaly neck nontender Respiratory: normal respiratory effort, lungs clear to auscultation normal percussion; does not use accessory muscles Cardiovascular: Rate/Rhythm: regular rate and regular rhythm Heart Sounds: normal S1 and normal S2; no gallop, no murmur and no cardiac rub Vessels: no JVD and + abnormal peripheral pulses (Pedal pulses obtained by Doppler) Extremities: no edema Gastrointestinal (Abdomen): normal bowel sounds, soft, nontender, no hepatosplenomegaly Musculoskeletal: no cyanosis or clubbing, extremities motor strength 5/5 Spine: thoracic spine normal to inspection and lumbar spine normal to inspection; no cervical spinal tenderness Skin: no rashes, warm and dry + wound (Left lateral leg with surrounding erythema and slight tenderness) Neurologic: patellar DTR's 2+ bilat, sensation intact and PERRL, EOMI, accommodation nl, no face palsy, no dysarthria no focal motor deficits Psychiatric: A+Ox3, euthymic affect Orientation: cooperative Lymphatic: no cervical or axillary lymphadenopathy no inguinal lymphadenopathy Results & Data Vital Signs (Past 12 Hours) Vital Signs Temp Pulse Resp BP Pulse Ox 10/07/18 15:31 36.8 C 74 18 137/67 93
[2018-10-07] MEDS: ACETAMINOPHEN 325 MG TAB PO PRN (20:49)
[2018-10-08] MEDS: PIPERACILLIN/TAZOBACTAM 4.5 GM in DEXTROSE 5% 100 ML IV SCH ×2 (02:15→09:24)
[2018-10-08] MEDS: HEPARIN SOD 5,000 UNIT/0.5 ML VIAL SQ SCH ×2 (05:53→13:36)
[2018-10-08 06:18] LABS: Hematocrit (blood only) 38.8 % (42-52); Hemoglobin 12.5 g/dL (14.0-18.0); Mean Corpuscular Hemoglobin 24.4 pg (25-34); Mean Corpuscular Hgb Conc 32.2 g/dL (32-36); Mean Corpuscular Volume 75.8 fL (80-100); Mean Platelet Volume 9.8 fL (7.4-10.4); Platelet Count 208 K/uL (130-400); RDW Coefficient of Variation 14.3 % (11.5-14.5); RDW Standard Deviation 39.9 fL (36.4-46.3); Red Blood Count 5.12 M/uL (4.7-6.1)
[2018-10-08 06:47] LABS: Est GFR (African American) 108.7; Est GFR (Non-African American) 93.7
[2018-10-08] MEDS: CHOLECALCIFEROL 1,000 UNITS TAB PO SCH (09:20)
[2018-10-08] MEDS: NICOTINE 21 MG/24 HR TDSY TD SCH (09:20)
[2018-10-08] MEDS: VENLAFAXINE HCL XR 150 MG CAPXR PO SCH (09:20)
[2018-10-08] MEDS: GABAPENTIN 600 MG TAB PO SCH (09:20)
[2018-10-08] MEDS: FINASTERIDE 5 MG TAB PO SCH (09:20)
[2018-10-08] MEDS: PANTOprazole 40 MG TAB PO SCH (09:20)
[2018-10-08] MEDS: ANORO ELLIPTA PO SCH (09:20)
[2018-10-08] MEDS: ATORVASTATIN 40 MG TAB PO SCH (09:20)
[2018-10-08] MEDS: ASPIRIN 81 MG ECTAB PO SCH (09:20)
[2018-10-08] MEDS: CLOPIDOGREL BISULFATE 75 MG TAB PO SCH (09:21)
[2018-10-08] MEDS: LOSARTAN/HCTZ 50/12.5MG TAB PO SCH (09:21)
[2018-10-08] MEDS: INSULIN ASPART 100 UNITS/ML 3 ML PEN SC SCH ×2 (09:22→13:36)
--- NOTE | 2018-10-08 11:43 | Infectious Disease Progress Nt ---
Date of Service October 08, 2018 Assessment & Plan (1) Infected stasis ulcer of left lower extremity: Patient with infected ulceration left lateral ankle, in the setting of severe peripheral arterial disease, cultures again growing MSSA. on zosyn, vanco d/c. will change to rocephin for now while hospitalized, can change to po kelfex 500mg po bid for min 21 days upon d/c from hospital. Would consider further vascular studies and consultation with vascular surgery to help in further management. pt ok for d/c when otherwise stable on po abx with plans to resume care with Dr. Meadows at [facility] center upon d/c. will need ongoing wound care followup as well. Subjective pt admitted from wound center with worsening ulcers. Follows with Dr. Meadows at [facility], has been off of abx since mid August. repeat wound cultures grew MSSA (h/o MSSA in the past as well). on zosyn, tolerating well. afebrile. wbc 6.4, x ray negative for osteo. blood cultures remain negative. Results & Data Vital Signs (Past 12 Hours) Vital Signs Temp Pulse Pulse Resp BP Pulse Ox 10/08/18 08:06 36.6 C 70 16 157/77 H 95 10/07/18 23:46 36.6 C 62 18 133/61 96 Laboratory Results Microbiology 10/05/18 12:04 Blood Aerobic Blood Culture - Preliminary No growth in Aerobic bottle after 48 hours. 10/05/18 12:04 Blood Anaerobic Blood Culture - Preliminary No growth in Anaerobic bottle after 48 hours. 10/05/18 12:13 Blood Aerobic Blood Culture - Preliminary No growth in Aerobic bottle after 48 hours. 10/05/18 12:13 Blood Anaerobic Blood Culture - Preliminary No growth in Anaerobic bottle after 48 hours. 10/05/18 12:00 Leg,Left Gram Stain - Final 10/05/18 12:00 Leg,Left Wound Culture - Final Staphylococcus aureus PG Care Time/CCT Total # of Minutes Spent Total Time Spent with Patient: Total time spent is greater than 50% in coordination of care (as documented) at patient's floor/unit and/or counseling patient:
[2018-10-08] MEDS ORDERED: cefTRIAXone SODIUM 2,000 MG in DEXTROSE 5% 50 ML IV SCH (16:00)
[2018-10-08] MEDS: ACETAMINOPHEN 325 MG TAB PO PRN (16:01)
--- NOTE | 2018-10-08 16:16 | Hospitalist Progress Note ---
Date of Service October 08, 2018 Assessment & Plan (1) Infected stasis ulcer of left lower extremity: -History of 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 Meadows Antibiotic changed to a p.o. Keflex 500 mg twice daily -will need 21 days of treatment Appreciate input from wound care nurse Wound care instruction added on discharge papers [facility] wound clinic follow-up scheduled for next Monday Able to be discharged home today (2) DM type 2 (diabetes mellitus, type 2): -Hgb A1c 6.7 09/2018 -Outpatient antidiabetic medications metformin, Tresiba, and Victoza; will be resumed on discharge (3) PAD (peripheral artery disease): -Continue aspirin, Plavix, statin pt will need follow-up with vascular surgery as an outpatient for assessment left lower extremity circulation (4) Hypertension: -BP controlled, continue losartan/HCTZ (5) ELIZABETH (obstructive sleep apnea): -CPAP as per home settings (6) Tobacco abuse: -Patient counseled regarding tobacco cessation -Agreeable to nicotine patch (7) DVT prophylaxis: -SQ heparin Disposition: discharge home today Subjective Patient has been stable, no increased left lower extremity pain discomfort no fever chills Will be discharged today with p.o. Keflex for 3 weeks, outpatient follow-up with wound clinic Physical Exam Constitutional: WD/WN, vitals as above comfortable; no acute distress Eyes: PERRL, conjunctivae normal, anicteric sclerae ENMT: external ear and nose normal, oropharynx normal Neck: trachea midline, no thyromegaly neck nontender Respiratory: normal respiratory effort, lungs clear to auscultation normal percussion; does not use accessory muscles Cardiovascular: Rate/Rhythm: regular rate and regular rhythm Heart Sounds: normal S1 and normal S2; no gallop, no murmur and no cardiac rub Vessels: no JVD and + abnormal peripheral pulses (Pedal pulses obtained by Doppler) Extremities: no edema Gastrointestinal (Abdomen): normal bowel sounds, soft, nontender, no hepatosplenomegaly Musculoskeletal: no cyanosis or clubbing, extremities motor strength 5/5 Spine: thoracic spine normal to inspection and lumbar spine normal to inspection; no cervical spinal tenderness Skin: no rashes, warm and dry + wound (Left lateral leg with surrounding erythema and slight tenderness) Neurologic: patellar DTR's 2+ bilat, sensation intact and PERRL, EOMI, accommodation nl, no face palsy, no dysarthria no focal motor deficits Psychiatric: A+Ox3, euthymic affect Orientation: cooperative Lymphatic: no cervical or axillary lymphadenopathy no inguinal lymphadenopathy Results & Data Vital Signs (Past 12 Hours) Vital Signs Temp Pulse Pulse Resp BP BP Pulse Ox 10/08/18 14:58 37.4 C 77 18 143/63 H 95 10/08/18 08:06 36.6 C 70 16 157/77 H 95
--- NOTE | 2018-10-08 16:37 | Discharge Summary ---
Date of Service October 08, 2018 Admission HPI Per Admitting Provider 68-year-old male who presents as a direct admission from the wound clinic for management of a suspected infected left ankle wound. Patient has had this wound for the past 2 years. Underwent revascularization 05/2017 and has had some improvement in the wound. Patient follows closely with the wound center. Over the past couple of days, patient notes increased burning sensation around the wound. Today he was noted to have erythema extending up to just below the knee. Patient denies fevers and chills. He has not been on antibiotics recently for this wound. He denies chest pain or shortness of breath. No lightheadedness, dizziness, diaphoresis, syncopal events. No abdominal pain, nausea, vomiting, diarrhea. He denies any urinary symptoms. At the time my exam, patient is resting in bed no acute distress. Principal Diagnosis Left Ankle Infected Diabetic Wound Discharge Exam Constitutional WD/WN, vitals as above comfortable; no acute distress Eyes PERRL, conjunctivae normal, anicteric sclerae ENMT external ear and nose normal, oropharynx normal Neck trachea midline, no thyromegaly neck nontender Respiratory normal respiratory effort, lungs clear to auscultation normal percussion; does not use accessory muscles Cardiovascular Rate/Rhythm: regular rate and regular rhythm Heart Sounds: normal S1 and normal S2; no gallop, no murmur and no cardiac rub Vessels: no JVD and + abnormal peripheral pulses (Pedal pulses obtained by Doppler) Extremities: no edema Gastrointestinal (Abdomen) normal bowel sounds, soft, nontender, no hepatosplenomegaly Musculoskeletal no cyanosis or clubbing, extremities motor strength 5/5 Spine: thoracic spine normal to inspection and lumbar spine normal to inspection; no cervical spinal tenderness Skin no rashes, warm and dry + wound (Left lateral leg with surrounding erythema and slight tenderness) Neurologic patellar DTR's 2+ bilat, sensation intact and PERRL, EOMI, accommodation nl, no face palsy, no dysarthria no focal motor deficits Psychiatric A+Ox3, euthymic affect Orientation: cooperative Lymphatic no cervical or axillary lymphadenopathy no inguinal lymphadenopathy Discharge Data Allergies Allergy/AdvReac Type Severity Reaction Status Date / Time No Known Allergies Allergy Verified 10/05/18 09:16 Consultations 10/05/18 11:43 Consult Wound Care Provider Routine 10/05/18 14:44 Consult Infectious Diseases Routine Hospital Course (1) Infected stasis ulcer of left lower extremity: -History of 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 Meadows Antibiotic changed to a p.o. Keflex 500 mg twice daily -will need 21 days of treatment Appreciate input from wound care nurse Wound care instruction added on discharge papers [facility] [address] wound clinic follow-up scheduled for next Monday Able to be discharged home today (2) DM type 2 (diabetes mellitus, type 2): -Hgb A1c 6.7 09/2018 -Outpatient antidiabetic medications metformin, Tresiba, and Victoza; will be resumed on discharge (3) PAD (peripheral artery disease): -Continue aspirin, Plavix, statin pt will need follow-up with vascular surgery as an outpatient for assessment left lower extremity circulation (4) Hypertension: -BP controlled, continue losartan/HCTZ (5) ELIZABETH (obstructive sleep apnea): -CPAP as per home settings (6) Tobacco abuse: -Patient counseled regarding tobacco cessation -Agreeable to nicotine patch (7) DVT prophylaxis: -SQ heparin Disposition: discharge home today Total Time Total Time Spent Total Time Spent (In Minutes): approx 35 mins Total Time Includes: Examination of the Patient, Discharge Planning and Medica tion Reconciliation Discharge Plan Discharge Items Patient Disposition: Home - Self-Care Reason For Visit: LEFT ANKLE WOUND Discharge Diagnosis: Left Ankle Infected Diabetic Wound Discharge Goals: Diagnostic testing and Therapeutic intervention Activity: As commented below Activity Comment: As tolerated Non-emergency contact: Primary Care Provider Call non-emergency contact if: you have any medication questions Follow-up/Referrals: Amarilys Ledesma MD [Primary Care Provider] - 10/16/18 11:05 am Diet: Carb Consistent or DM2 Addtl Provider Instructions: Hospital follow-up:Dr Ledesma on Monday10/16/2018 @ 11:05am Need to follow up with Dr Mickey Zayas for left lower ext peripheral vascular disease Wound clinic follow-up: In a week, office will call with appointment [facility] [address], [address] [place] [address] UP [address] MEADOWS IN 2 WEEKS PLEASE TAKE OVER THE COUNTER PROBIOTICS WHEN TAKING ANTIBIOTIC TO PREVENT DIARRHEA /GI INFECTION ( C DIFF ) Prescriptions: New cephalexin [Keflex] 500 mg capsule 500 mg PO BID 21 Days Qty: 42 RF: 0 Continued aspirin [Adult Low Dose Aspirin] 81 mg tablet,delayed release (DR/EC) 81 mg PO DAILY RF: 0 atorvastatin [Lipitor] 40 mg tablet 40 mg PO DAILY RF: 0 cholecalciferol (vitamin D3) 1,000 unit capsule 2,000 units PO DAILY RF: 0 losartan-hydrochlorothiazide [Hyzaar] 100-25 mg tablet 1 tab PO DAILY RF: 0 venlafaxine [Effexor XR] 150 mg capsule,extended release 24hr 150 mg PO DAILY RF: 0 gabapentin 600 mg tablet 1,200 mg PO QPM RF: 0 gabapentin 600 mg tablet 600 mg PO QAM RF: 0 albuterol sulfate 2.5 mg /3 mL (0.083 %) solution for nebulization 2.5 mg inhalation Q4H PRN (Reason: Wheezing) RF: 0 clopidogrel 75 mg tablet 75 mg PO DAILY RF: 0 omeprazole 40 mg capsule,delayed release(DR/EC) 40 mg PO QAM RF: 0 albuterol sulfate 90 mcg/actuation HFA aerosol inhaler 2 puff inhalation Q4H PRN (Reason: Shortness Of Breath Or Wheezing) RF: 0 metformin 500 mg tablet extended release 24 hr 1,000 mg PO BIDM RF: 0 Victoza 3-Dorian 0.6 mg/0.1 mL (18 mg/3 mL) pen injector 1.8 mg subcut DAILY RF: 0 Tresiba FlexTouch U-200 200 unit/mL (3 mL) insulin pen 80 unit subcut QPM RF: 0 Anoro Ellipta 62.5-25 mcg/actuation blister with device 1 inh inhalation DAILY RF: 0 clotrimazole-betamethasone [Lotrisone] 1-0.05 % Cream 1 applic TOPICAL DAILY RF: 0 finasteride [Proscar] 5 mg Tablet 5 mg PO DAILY RF: 0 Stand-Alone Forms: [facility] Discharge Orders: Discharge Order (Routine); Ordered 10/08/18 Ordered By: Denisa Khan Admission Data Admit Date/Time: 10/05/18 10:46 Attending Provider: Denisa Khan Admit Provider: Denisa Khan Primary Care Provider: Amarilys Ledesma Other Providers: Marcell Wiley ; Augie Meadows Service: Medical
--- NOTE | 2018-10-08 18:02 | Wound Consultation ---
Date of Consultation October 08, 2018 Assessment & Plan (1) Infected stasis ulcer of left lower extremity: No debridement required. Wound will be dressed with aquacel ag . Continue antibiotics per ID. Will see in office in 1 week. Thank you for allowing me to participate in the care of this patient. History of Present Illness Attending Physician: Denisa Khan MD 68 y male known to wound clinic admitted with worsening cellulitis of left ankle in setting of chronic venous stasis ulcer. Patient seen in bed getting IV antibiotics. sitting by bedside. No new complaints. Allergies Allergy/AdvReac Type Severity Reaction Status Date / Time No Known Allergies Allergy Verified 10/05/18 09:16 Home Medications Home Medications Medication Instructions Recorded Confirmed Type aspirin 81 mg tablet,delayed 81 mg PO DAILY 10/26/17 10/05/18 History release atorvastatin 40 mg tablet 40 mg PO DAILY 10/26/17 10/05/18 History cholecalciferol (vitamin D3) 1,000 2,000 units PO DAILY cap 10/26/17 10/05/18 History unit capsule losartan 100 1 tab PO DAILY 10/26/17 10/05/18 History mg-hydrochlorothiazide 25 mg tablet venlafaxine ER 150 mg 150 mg PO DAILY 10/26/17 10/05/18 History capsule,extended release 24 hr Anoro Ellipta 1 inh INHALATION DAILY 07/16/18 10/05/18 History Tresiba FlexTouch U-200 80 unit SUBCUT QPM 07/16/18 10/05/18 History Victoza 3-Dorian 1.8 mg SUBCUT DAILY 07/16/18 10/05/18 History albuterol sulfate 2 puff INHALATION Q4H PRN 07/16/18 10/05/18 History albuterol sulfate 2.5 mg INHALATION Q4H PRN 07/16/18 10/05/18 History clopidogrel 75 mg PO DAILY 07/16/18 10/05/18 History gabapentin 1,200 mg PO QPM 07/16/18 10/05/18 History gabapentin 600 mg PO QAM 07/16/18 10/05/18 History metformin 1,000 mg PO BIDM 07/16/18 10/05/18 History omeprazole 40 mg PO QAM 07/16/18 10/05/18 History clotrimazole-betamethasone 1 applic TOPICAL DAILY 10/05/18 10/05/18 History [Lotrisone] finasteride [Proscar] 5 mg PO DAILY 10/05/18 10/05/18 History cephalexin [Keflex] 500 mg PO BID 21 Days #42 cap 10/08/18 Rx Patient History Medical History Tobacco abuse (Chronic) ELIZABETH (obstructive sleep apnea) (Chronic) Hypertension (Chronic) PAD (peripheral artery disease) (Chronic) DM type 2 (diabetes mellitus, type 2) (Chronic) Surgical History History of total left knee replacement (Chronic) Family History Mother Colon cancer Social History Preferred Language: Nigerian Communication Ability: Effective Mental Health Counselor Required: No Beliefs That Will Affect Care: None Current Living Situation: Spouse current occupational status: disabled Other Information That Helps Us Care for You: No Feels Safe at Home: Yes Safety Concerns: Feels Safe At This Time Smoking Status: Current every day smoker Tobacco Type: cigarettes ; Cigarettes Per Day: 2 packs a day ; Do You Dip or Chew Tobacco: No ; Hx Alcohol Use: No Hx Substance Use: No Review of Systems Review of Systems: All systems reviewed & are unremarkable except as noted in HPI & below Physical Exam Skin: Wound measuring as recorded in nursing documentation. Wound covered in fibrin and slough. Periwound erythema is improving. Neurologic: awake; not confused Psychiatric: A+Ox3, euthymic affect Results & Data Vital Signs (Past 12 Hours) Vital Signs Temp Pulse Pulse Resp BP BP Pulse Ox 10/08/18 16:53 37.4 C 70 77 18 143/63 H 157/77 H 95 10/08/18 14:58 37.4 C 77 18 143/63 H 95 10/08/18 08:06 36.6 C 70 16 157/77 H 95
== END 2018-10-08 18:53 | disposition home or self-care (01) | DRG 638 ==
LOC: SUATTDRO 10:46 → 3N 10:46

== ENCOUNTER 2018-11-16 18:05 | Inpatient (IN) ==
--- NOTE | 2018-11-16 19:01 | XRay Report ---
XR chest 1V portable CLINICAL HISTORY: 68 years-old Male presenting with Chest Pain, swelling and redness in the left lowe r leg. TECHNIQUE: Portable upright AP view of the chest was obtained. COMPARISON: 06/17/2015. FINDINGS: Atherosclerosis of the aortic arch. Cardiac silhouette mildly enlarged. Mild pulmonary vascular promi nence unchanged from prior exam. No focal opacity. No large effusion or pneumothorax. Osseous structu res normal. Upper abdomen normal. IMPRESSION: 1. Mild cardiomegaly. No other convincing evidence of acute cardiopulmonary disease. Electronically signed by: Rj Wills M.D. 11/16/2018 7:00 PM
[2018-11-16] MEDS ORDERED: VANCOMYCIN HCL 2,200 MG in SODIUM CHLORIDE 0.9% 500 ML IV ONE (20:24)
[2018-11-16] MEDS ORDERED: PIPERACILLIN/TAZOBACTAM 4.5 GM/120 ML BAG IV ONE (20:24)
[2018-11-16] MEDS ORDERED: VANCOMYCIN CONSULT ACTIVE PRN ×2 (20:24→22:29)
[2018-11-16 20:39] LABS: Basophils # (auto) 0.02 K/uL (0-0.2); Basophils % (auto) 0.2 %; Eosinophils % (auto) 2.7 %; Hematocrit (blood only) 37.7 % (42-52); Hemoglobin 12.1 g/dL (14.0-18.0); Immature Granulocytes # (auto) 0.04 K/uL (0.00-0.02); Immature Granulocytes % (auto) 0.4 %; Lymphocytes # (auto) 2.12 K/uL (1.2-3.4); Lymphocytes % (auto) 19.3 %; Mean Corpuscular Hemoglobin 24.5 pg (25-34); Mean Corpuscular Hgb Conc 32.1 g/dL (32-36); Mean Corpuscular Volume 76.3 fL (80-100); Mean Platelet Volume 9.4 fL (7.4-10.4); Monocytes # (auto) 1.04 K/uL (0.11-0.59); Monocytes % (auto) 9.5 %; Neutrophils # (auto) 7.46 K/uL (1.4-6.5); Neutrophils % (auto) 67.9 %; Platelet Count 238 K/uL (130-400); RDW Coefficient of Variation 15.4 % (11.5-14.5); RDW Standard Deviation 42.6 fL (36.4-46.3); Red Blood Count 4.94 M/uL (4.7-6.1); White Blood Count 10.98 K/uL (4.8-10.8)
[2018-11-16 20:51] LABS: Prothrombin Time 10.3 Seconds (9.0-12.0)
[2018-11-16 21:06] LABS: Albumin Level 3.2 gm/dl (3.4-5.0); Aspartate Aminotransferase 19 U/L (15-37); BUN Creatinine Ratio 13.5 (10-20); Blood Urea Nitrogen 10 mg/dl (7-18); Carbon Dioxide 28 mmol/L (21-32); Chloride 104 mmol/L (98-107); Est GFR (African American) 109.8; Est GFR (Non-African American) 94.8; Glucose 136 mg/dl (70-99); Lipase 142 U/L (73-393); Potassium 3.3 mmol/L (3.5-5.1); Sodium 139 mmol/L (136-145)
[2018-11-16] MEDS ORDERED: VANCOMYCIN HCL 2,250 MG in SODIUM CHLORIDE 0.9% 500 ML IV STA (21:06)
--- NOTE | 2018-11-16 21:07 | Emergency Department Note ---
Entered by Jess Vasquez acting as a scribe for History of Present Illness General Chief complaint: Swelling/Edema to Extremity Stated complaint: BOTH LEGS SWOLLEN RED AND HOT Time Seen by Provider: 11/16/18 18:10 Source: patient History of Present Illness Onset (ago): day(s) (today) Location: lower extremity (left) Pain Consistency: + other (episode) Quality: + other (swelling) Associated symptoms: + other (left leg redness) The patient is a 68 year old male who presents to the Emergency Room with complaints of an episode of left leg swelling starting today. The patient states that he has been dealing with these scratches on his legs. He states that they have had redness and he has been following his wound care as well as his PCP for them. He states that he saw his PCP today who thought they were healing well. He reports that she placed antibiotic cream on them and sent him home with new bandages. The patient states that this evening he noticed that his legs were starting to swell. He reports that he was concerned so he came to the ED. The patient notes that he had a stent replaced in his leg 3 days ago. He notes that he was told if his leg loses pulses again, that it would have to be removed. Home Medications Home Medications Medication Instructions Recorded Confirmed Type aspirin 81 mg tablet,delayed 81 mg PO DAILY 10/26/17 11/16/18 History release atorvastatin 40 mg tablet 40 mg PO DAILY 10/26/17 11/16/18 History cholecalciferol (vitamin D3) 1,000 2,000 units PO DAILY cap 10/26/17 11/16/18 History unit capsule losartan 100 1 tab PO DAILY 10/26/17 11/16/18 History mg-hydrochlorothiazide 25 mg tablet venlafaxine ER 150 mg 150 mg PO DAILY 10/26/17 11/16/18 History capsule,extended release 24 hr Anoro Ellipta 1 inh INHALATION DAILY 07/16/18 11/16/18 History Tresiba FlexTouch U-200 84 unit SUBCUT QPM 07/16/18 11/16/18 History Victoza 3-Dorian 1.8 mg SUBCUT DAILY 07/16/18 11/16/18 History albuterol sulfate 2 puff INHALATION Q4H PRN 07/16/18 11/16/18 History albuterol sulfate 2.5 mg INHALATION Q4H PRN 07/16/18 11/16/18 History clopidogrel 75 mg PO DAILY 07/16/18 11/16/18 History gabapentin 1,200 mg PO QPM 07/16/18 11/16/18 History gabapentin 600 mg PO QAM 07/16/18 11/16/18 History metformin 1,000 mg PO BIDM 07/16/18 11/16/18 History omeprazole 40 mg PO QAM 07/16/18 11/16/18 History finasteride [Proscar] 5 mg PO DAILY 10/05/18 11/16/18 History cephalexin 500 mg capsule 500 mg PO BID 11/15/18 11/16/18 History acetaminophen [Tylenol Extra 1,000 mg PO Q6H PRN 11/16/18 11/16/18 History Strength] nicotine [Nicoderm CQ] 1 patch TRANSDERMAL DAILY 11/16/18 11/16/18 History oxycodone [Roxicodone] 5 mg PO Q8 PRN 11/16/18 11/16/18 History Allergies Allergy/AdvReac Type Severity Reaction Status Date / Time No Known Allergies Allergy Verified 11/15/18 13:48 Past Med/Surg History Medical History Arterial leg ulcer (Acute) left leg Traumatic wound (Acute) Cellulitis (Resolved) Infected stasis ulcer of left lower extremity Tobacco abuse (Chronic) ELIZABETH (obstructive sleep apnea) (Chronic) Hypertension (Chronic) PAD (peripheral artery disease) (Chronic) DM type 2 (diabetes mellitus, type 2) (Chronic) Surgical History History of total left knee replacement (Chronic) Family History Mother Colon cancer Social History Preferred Language: Thai Communication Ability: Effective Secondary Teacher Required: Yes and No Beliefs That Will Affect Care: None Current Living Situation: Spouse current occupational status: disabled Other Information That Helps Us Care for You: No Feels Safe at Home: Yes Smoking Status: Current every day smoker Tobacco Type: cigarettes ; Cigarettes Per Day: 2 packs a day ; Hx Alcohol Use: No Hx Substance Use: No Review of Systems See HPI for pertinent positives & negatives. and A total of 10 systems reviewed and were otherwise negative Physical Exam Vital Signs Vital Signs - 24 hr 11/16/18 18:07 11/16/18 18:48 Temperature 37.1 C Temperature Source Oral Sepsis Recent Fever Within 48 Hours No Sepsis New/Unexplained Change in Mental Status No Sepsis Action Taken by Nursing No Action Required Pulse Rate 95 H Respiratory Rate 18 Blood Pressure 155/72 H Blood Pressure Mean 99 Pulse Oximetry 92 Oxygen Delivery Method Room Air Room Air GENERAL: Awake, alert, in no distress HENT: Normocephalic, atraumatic. Oropharynx with dry mucous membranes and otherwise unremarkable. EYES: Normal conjunctiva. Sclera non-icteric. NECK: Supple. No nuchal rigidity. FROM. No JVD. RESPIRATORY: Clear to auscultation bilaterally. CARDIAC: Regular rate, normal rhythm. Extremities warm and well perfused. Triphasic dopplerable left DP pulse. ABDOMEN: Soft, non-distended. No tenderness to palpation. No rebound or guardi ng. No masses. RECTAL: Deferred. MUSCULOSKELETAL: Chest examination reveals no tenderness. The back is symmetrical on inspection without obvious abnormality. There is no CVA tenderness to palpation. No joint edema. LOWER EXTREMITIES: Calves are equal size bilaterally and non-tender. Mild edema, erythema, and warmth to the left lower leg with superficial arterial ulcers. No crepitus. Mild edema involving left upper leg without erythema. NEURO: Normal sensorium. No sensory or motor deficits noted. SKIN: No rash or jaundice noted. Course 1830: Past medical records reviewed. The patient was evaluated in room B10. A complete history and physical exam was performed. 1910: I reviewed the patient's records at this time and he had a stent placed in his left popliteal. 2013: I reevaluated the patient and preformed a Doppler of his left foot at this time. He has strong Doppler pedal pulse and triphasic signal. I discussed the test results and the treatment plan with the patient. He verbally agrees and understands. 2026: I discussed the patient's case with Dr. Fernanda Paulson. He will evaluate the patient for further management. Consultations Consultation #1: I discussed the patient's case with Dr. Fernanda Paulson. He will evaluate the patient for further management. Time: 20:27 Administered Medications Heparin Sodium (Porcine) (Heparin Sodium (Porcine)) 5,000 units SQ Q8 PASCUAL Stop: 12/16/18 22:28 Last Admin: 11/17/18 00:39 Dose: 5,000 units Documented by: [id number] Cosigned by: [id number] Insulin Aspart (Novolog Flexpen) 0 units SC ACHS PASCUAL Stop: 12/16/18 22:44 Last Admin: 11/17/18 00:37 Dose: Not Given Documented by: [id number] Cosigned by: [id number] Miscellaneous (Order Awaiting Action) 1 ea N/A QS PASCUAL Stop: 12/17/18 00:00 Last Admin: 11/17/18 00:42 Dose: Not Given Documented by: [id number] Miscellaneous (Remove Nicoderm Patch) 1 ea N/A HS PASCUAL Stop: 12/16/18 22:28 Last Admin: 11/17/18 00:37 Dose: Not Given Documented by: [id number] Pantoprazole Sodium (Protonix) 40 mg PO QAM PASCUAL Stop: 12/17/18 08:59 Last Admin: 11/17/18 00:40 Dose: 40 mg Documented by: [id number] Discontinued Medications Piperacillin Sod/Tazobactam Sod (Zosyn) 4.5 gm in 120 mls @ 235 mls/hr IV NOW ONE Stop: 11/16/18 20:54 Last Admin: 11/16/18 22:19 Dose: 30 mls/hr Documented by: [id number] Vancomycin HCl 2,250 mg/ (Sodium Chloride) 545 mls @ 200 mls/hr IV NOW STA Stop: 11/16/18 23:49 Last Infusion: 11/17/18 01:10 Dose: 0 mls/hr Documented by: [id number] Admin: 11/16/18 22:19 Dose: 200 mls/hr Documented by: [id number] Insulin Glargine (Lantus Solostar Pen) 17 units SC ONE ONE Stop: 11/16/18 23:01 Last Admin: 11/17/18 00:41 Dose: 17 units Documented by: [id number] Cosigned by: [id number] Potassium Chloride (Klor-Con M20) 20 meq PO NOW STA Stop: 11/16/18 22:30 Last Admin: 11/17/18 00:41 Dose: 20 meq Documented by: [id number] Medical Decision Making Differential Diagnosis Differential diagnosis includes etiologies such as cellulitis, abscess, MRSA infection, DVT, necrotizing fasciitis, dermatitis, drug eruption, as well as others were entertained. Medical Records Attestation: I reviewed the patient's medical records. Home Medications Current Medication List: was personally reviewed by me Laboratory Data Attestation: I reviewed the patient's lab results. Result diagrams: 11/16/18 20:07 11/16/18 20:07 Lab Results 11/16/18 11/16/18 11/16/18 Range/Units 20:07 20:07 20:07 WBC 10.98 H (4.8-10.8) K/uL RBC 4.94 (4.7-6.1) M/uL Hgb 12.1 L (14.0-18.0) g/dL Hct 37.7 L (42-52) % MCV 76.3 L (80-100) fL MCH 24.5 L (25-34) pg MCHC 32.1 (32-36) g/dL RDW Std Deviation 42.6 (36.4-46.3) fL RDW Coeff of Carine 15.4 H (11.5-14.5) % Plt Count 238 (130-400) K/uL MPV 9.4 (7.4-10.4) fL Immature Gran % (Auto) 0.4 % Neut % (Auto) 67.9 % Lymph % (Auto) 19.3 % Ralls % (Auto) 9.5 % Eos % (Auto) 2.7 % Baso % (Auto) 0.2 % Immature Gran # (Auto) 0.04 H (0.00-0.02) K/uL Neut # (Auto) 7.46 H (1.4-6.5) K/uL Lymph # (Auto) 2.12 (1.2-3.4) K/uL Ralls # (Auto) 1.04 H (0.11-0.59) K/uL Eos # (Auto) 0.30 (0-0.5) K/uL Baso # (Auto) 0.02 (0-0.2) K/uL PT 10.3 (9.0-12.0) Seconds INR 1.0 (0.9-1.1) Sodium 139 (136-145) mmol/L Potassium 3.3 L (3.5-5.1) mmol/L Chloride 104 (98-107) mmol/L Carbon Dioxide 28 (21-32) mmol/L Anion Gap 7.0 (3-11) BUN 10 (7-18) mg/dl Creatinine 0.74 (0.6-1.4) mg/dl Est Cr Clr Drug Dosing Not Reportable Est GFR ( Amer) 109.8 Est GFR (Non-Af Amer) 94.8 BUN/Creatinine Ratio 13.5 (10-20) Glucose 136 H (70-99) mg/dl Calcium 9.0 (8.5-10.1) mg/dl Total Bilirubin 0.5 (0.2-1) mg/dl AST 19 (15-37) U/L ALT 27 (12-78) U/L Alkaline Phosphatase 107 (45-117) U/L Troponin I < 0.015 (0-0.045) ng/ml Total Protein 6.9 (6.4-8.2) gm/dl Albumin 3.2 L (3.4-5.0) gm/dl Globulin 3.7 (2.5-4.0) gm/dl Albumin/Globulin Ratio 0.9 (0.9-2) Lipase 142 (73-393) U/L Imaging Data Radiologist's Impression: Radiology results as stated below per my review and the radiologist's interpretation: XR chest 1V portable CLINICAL HISTORY: 68 years-old Male presenting with Chest Pain, swelling and redness in the left lower leg. TECHNIQUE: Portable upright AP view of the chest was obtained. COMPARISON: 06/17/2015. FINDINGS: Atherosclerosis of the aortic arch. Cardiac silhouette mildly enlarged. Mild pulmonary vascular prominence unchanged from prior exam. No focal opacity. No large effusion or pneumothorax. Osseous structures normal. Upper abdomen normal. IMPRESSION: 1. Mild cardiomegaly. No other convincing evidence of acute cardiopulmonary disease. Electronically signed by: Rj Wills M.D. 11/16/2018 7:00 PM ECG Data Attestation: I personally reviewed and interpreted this ECG as follows: Indication: other (leg swelling) Rate (beats per minute): 86 Rhythm: normal sinus Findings: + other (left anterior fasicular block, LVH) and + RBBB Comparison ECG Date: from (06/17/2015) Change: no significant change Blood Pressure Blood Pressure Findings: Elevated blood pressure Blood Pressure Disposition: further management by hospitalist MDM Narrative The patient is a pleasant 68 y/o gentleman with a pmhx of PAD, IDDM2, ELIZABETH, HTN, lower extremity arterial ulcers s/p left popliteal stent at [facility] [place] on Monday who presents to the emergency department with worsening left leg swelling this evening after intially having continued improved after his stent and course of Keflex having been seen several times outpatient this week per HPI. On arrival the patient is in NAD, AFVSS. On exam he has mild edema of LLE with mild erythema and warmth of left lower leg, which the patient reports is worse. EKG without overt acute ischemia. CXR negative for acute process. WBC 10.9, nonspecific. H/H 12.1/37.7 approximate to recent values. Platelets wnl. Chemistry without acidosis. LFTs and electrolytes unremarkable. Doppler ordered and pending. Given patient's worsening cellulitis while on antibiotics in the setting of multiple comorbidities, reasonable to admit for IV ABX. Patient is agreeable. Blood cultures drawn prior to Vancomycin and Zosyn. Case was discussed with Dr. Hanson, [facility] hospitalist, who will evaluate the patient for admission. Duplex negative for DVT. Impression & Plan Cellulitis of left leg, Arterial leg ulcer Discharge Plan Visit Data *Final* Discharge Date/Time: 11/16/18 21:58 Chief Complaint: Swelling/Edema to Extremity Stated Complaint: BOTH LEGS SWOLLEN RED AND HOT ED Provider: Lance Montenegro Discharge Problem: Cellulitis of left leg, Arterial leg ulcer Patient Disposition: Admitted As Inpatient Discharge Instructions Interventions: ED Discharge Assessment Last Done: 11/16/18 21:58 The scribe's documentation has been prepared under my direction and personally reviewed by me in its entirety. I confirm that the note above accurately r eflects all work, treatment, procedures, and medical decision making performed by me.
[2018-11-16 21:11] LABS: Alanine Aminotransferase 27 U/L (12-78); Albumin Globulin Ratio 0.9 (0.9-2); Alkaline Phosphatase 107 U/L (45-117); Bilirubin,Total 0.5 mg/dl (0.2-1); Globulin 3.7 gm/dl (2.5-4.0); Total Protein 6.9 gm/dl (6.4-8.2); Troponin I < 0.015 ng/ml (0-0.045)
--- NOTE | 2018-11-16 21:41 | Ultrasound Report ---
US venous doppler LE LT CLINICAL HISTORY: 68 years-old Male presenting with pain swelling recent L popliteal pulse. TECHNIQUE: Real-time grayscale and color and spectral Doppler ultrasound imaging of the veins of the left lower extremity was performed. Compression and augmentation were also utilized. COMPARISON: None. FINDINGS: LEFT: Common femoral vein: Patent. Greater saphenous vein (superficial): Patent. Deep femoral vein: Patent. Femoral vein: Patent. Popliteal vein: Patent. Calf veins: Grossly patent. Limited visualization secondary to subcutaneous edema. Other: None. IMPRESSION: No evidence of deep venous thrombosis. Electronically signed by: Rj Wills M.D. 11/16/2018 9:40 PM
[2018-11-16] MEDS ORDERED: PIPERACILL/TAZOBAC CONSULT ACTIVE PRN (22:29)
[2018-11-16] MEDS ORDERED: VANCOMYCIN HCL 1,000 MG in SODIUM CHLORIDE 0.9% 250 ML IV SCH (22:29)
[2018-11-16] MEDS ORDERED: POLYETHYLENE (MIRALAX) 17 GM PACK PO PRN (22:29)
[2018-11-16] MEDS ORDERED: POTASSIUM CHLORIDE 20 MEQ TABCR PO STA (22:29)
[2018-11-16] MEDS ORDERED: OXYCODONE HCL IR 5 MG TAB (IMMEDIATE RELEASE) PO PRN (22:29)
[2018-11-16] MEDS ORDERED: ONDANSETRON INJ 2 MG/ML 2 ML VIAL IV PRN (22:29)
[2018-11-16] MEDS ORDERED: ACETAMINOPHEN 325 MG TAB PO PRN (22:29)
[2018-11-16] MEDS ORDERED: ALBUTEROL 0.083% NEBU SOLN 3 ML VIAL INH PRN (22:29)
[2018-11-16] MEDS ORDERED: ALBUTEROL HFA 8 GM INHALER INH PRN (22:29)
[2018-11-16] MEDS ORDERED: PHARMACY GLYCEMIC MGMT CONSULT PRN (22:40)
[2018-11-16] MEDS ORDERED: GLUCOSE 40% GEL 15 GM TUBE PO PRN (22:45)
[2018-11-16] MEDS ORDERED: CARBOHYDRATES FOR HYPOGLYCEMIA PO PRN (22:45)
[2018-11-16] MEDS ORDERED: DEXTROSE 50% 50 ML SYRINGE IV PRN (22:45)
[2018-11-16] MEDS ORDERED: GLUCOSE 10 TABS/TUBE PO PRN (22:45)
[2018-11-16] MEDS ORDERED: GLUCAGON FOR INJ 1 MG VIAL SQ PRN (22:45)
[2018-11-16] MEDS ORDERED: INSULIN GLARGINE SOLOSTAR 100 UNITS/ML 3 ML PEN SC ONE (23:00)
--- NOTE | 2018-11-16 23:29 | History and Physical Report ---
DATE OF ADMISSION: 11/16/2018 CHIEF COMPLAINT: Right lower extremity swelling and erythema. HISTORY OF PRESENT ILLNESS: This 68-year-old male with past medical history significant for type 2 diabetes, hyperlipidemia, COPD, lung nodule, obstructive sleep apnea, peripheral artery disease, hypertension, tobacco use disorder, stasis ulcer of left ankle, obesity, comes with left lower extremity swelling and erythema. The patient was here in September with infected stasis ulcer of left lower extremity. At that time, cultures grew MSSA and proteus. He was initially started on vancomycin and Zosyn, seen by ID and they recommended p.o. Keflex for 21 days and he is also following with Vascular Surgery for possible revascularization. He was seen recently at [facility] and had intervention with left SFA and popliteal mechanical thrombectomy, angioplasty and stent placement and had good Doppler signals postoperatively and his pain was improved in left lower extremity and was discharged, but the patient says since today again developed erythema in left lower extremity and also swelling and also having burning sensation in the legs, so he came to the ER. Lower extremity Doppler in the ER had good pulses. His white count was 10.98. Denies any fever, chills. No chest pain. Has some chronic cough, started using nicotine patch now. He gets short of breath when he gets cough. No nausea, no vomiting, no sweating. Has some mild headache, no dizziness, no blurred vision, no earache, no runny nose, no sore throat, no difficulty swallowing. Appetite is good. Sleeps okay. No recent weight gain or weight loss. No abdominal pain. Normal bowel and bladder movements. No black stools or blood in the stools, no hematuria. Ambulates with help of cane. The patient also had left EIA stent and left SFA stents in the past. ALLERGIES: No known drug allergies. PAST MEDICAL HISTORY: As mentioned above. PAST SURGICAL HISTORY: Colonoscopy, femoral-popliteal artery revascularization with stent placement, angioplasty on the left side in May 2017 and 11/13/2018, also in the iliac artery in May 2017 and October 2018, and mechanical thrombectomy on the left lower extremity in 10/2018. MEDICATIONS: The patient is on Tylenol p.r.n., oxycodone 5 mg p.o. q. 8 hours p.r.n., omeprazole 40 mg p.o. daily, Keflex 500 mg p.o. b.i.d., nicotine patch 21 mg daily, Proscar 5 mg p.o. daily, insulin Tresiba 18 units daily, Victoza 1.8mg under the skin daily, vitamin D 2000 units p.o. daily, Lipitor 40 mg p.o. daily, albuterol 1 nebulization every 4 hours p.r.n., Anoro Ellipta 1 puff daily, gabapentin 600 mg in a.m. and 200 mg at nighttime, Plavix 75 mg p.o. daily, losartan/hydrochlorothiazide 100/25 one tablet daily, Effexor XR 150 mg p.o. daily, albuterol 2 puffs every 4 hours p.r.n., metformin 1000 mg p.o. b.i.d., aspirin 81 mg p.o. daily. FAMILY HISTORY: Significant for, mother had colon cancer at age of 48. Uncle has diabetes. SOCIAL HISTORY: , lives with his . Smokes 1pack/day for 57 years. Currently, on nicotine patch. No alcohol use, no drug use. REVIEW OF SYMPTOMS: As per HPI. Rest of review of systems negative. PHYSICAL EXAMINATION: GENERAL: The patient is alert and oriented, not in acute distress, obese. VITAL SIGNS: Temperature 37.1, pulse 94, respiratory rate 18, blood pressure 155/72, oxygen 92% on room air. HEENT: No pallor, no icterus. Pupils equal, round, and reactive to light. Extraocular muscles intact. NECK: No JVD, no neck masses, no carotid bruits. CARDIOVASCULAR: S1, S2 heard, regular rate and rhythm, no murmur, no gallop. RESPIRATORY SYSTEM: Normal AP diameter. No accessory muscle use. No wheezing, no crackles. ABDOMEN: Soft, bowel sounds present, nontender. No distention seen. CENTRAL NERVOUS SYSTEM: Cranial nerves II-XII grossly intact. Nonfocal. EXTREMITIES: Left lower extremity is erythematous from below the knee to the ankle. Superficial ulcers seen on the love and ankle region of left lower extremity and love of right lower extremity. LABORATORY DATA: WBC 10.9, hemoglobin 12.1, hematocrit 37.7, platelets 238. PT 10.3, INR 1.0 Sodium 139, potassium 3.3, chloride 104, bicarbonate 28, BUN 10, creatinine 0.7, serum glucose 136, calcium 9, total bilirubin 0.5, AST 19, ALT 27, alkaline phosphatase 107. Troponin I less than 0.015. Lipase 142. Chest x-ray, mild cardiomegaly, no acute findings seen. EKG: Normal sinus rhythm with a rate of 86, right bundle-branch block, left anterior fascicular block. No significant change from previous EKG. ASSESSMENT AND PLAN: This is a 68-year-old male who presents with recurrent left lower extremity cellulitis. 1. Recurrent left lower extremity cellulitis and infected stasis of the left lower extremity. He was recently in the hospital in September, and discharged on October 15.Cultures grew MSSA, discharged on Keflex 500 mg twice a day for 21 days, still on Keflex now. On 11/13/2018, he again had vascular procedure at [place] with left SFA and popliteal mechanical thrombectomy, angioplasty and stent placement. In the ER, currently, his pulses were okay. Will Follow Doppler to rule out DV. Patient was started on IV Zosyn and IV vancomycin. Follow the cultures. We will consult ID, follow recommendations. If any concern, we will get arterial ultrasound. Monitor on the medical floor. 2. Diabetes. Hold metformin and Victoza. We will continue home insulin degludec and place on insulin sliding scale and consult pharmacy. Follow HbA1c levels. 3. Peripheral artery disease. Continue aspirin, Plavix and statin. recent vascular procedure done as above. Needs followup. 4. Hypertension. Continue losartan/hydrochlorothiazide. We will monitor the blood pressure. 5. Obstructive sleep apnea, on CPAP. 6. Tobacco use. Currently on nicotine patch. 7. Chronic obstructive pulmonary disease. Continue home inhalers, currently stable. 8. Deep venous thrombosis prophylaxis. Heparin subcutaneously. DISPOSITION: Admit to medical floor. Expect to discharge home and follow with family doctor and Vascular Surgery. PT and OT per discharge. Social Service to help with discharge planning. Code status level 1 full code. MTDD
[2018-11-17] MEDS: INSULIN ASPART 100 UNITS/ML 3 ML PEN SC SCH ×6 (00:37→20:39)
[2018-11-17] MEDS: HEPARIN SOD 5,000 UNIT/0.5 ML VIAL SQ SCH ×4 (00:39→20:39)
[2018-11-17] MEDS: PANTOprazole 40 MG TAB PO SCH ×2 (00:40→08:31)
[2018-11-17] MEDS: ANORO ELLIPTA~ORDER AWAITING ACTION SCH ×4 (00:42→22:49)
[2018-11-17] MEDS ORDERED: INSULIN ASPART 100 UNITS/ML 3 ML PEN SC SCH ×2 (02:00→07:30)
[2018-11-17] MEDS: PIPERACILLIN/TAZOBACTAM 4.5 GM in DEXTROSE 5% 100 ML IV SCH ×3 (04:26→20:33)
[2018-11-17 05:52] LABS: Basophils # (auto) 0.03 K/uL (0-0.2); Basophils % (auto) 0.4 %; Eosinophils # (auto) 0.23 K/uL (0-0.5); Eosinophils % (auto) 2.8 %; Hematocrit (blood only) 34.8 % (42-52); Hemoglobin 11.1 g/dL (14.0-18.0); Immature Granulocytes # (auto) 0.03 K/uL (0.00-0.02); Immature Granulocytes % (auto) 0.4 %; Lymphocytes # (auto) 1.51 K/uL (1.2-3.4); Lymphocytes % (auto) 18.2 %; Mean Corpuscular Hemoglobin 24.3 pg (25-34); Mean Corpuscular Hgb Conc 31.9 g/dL (32-36); Mean Corpuscular Volume 76.1 fL (80-100); Mean Platelet Volume 9.6 fL (7.4-10.4); Monocytes % (auto) 10.8 %; Neutrophils # (auto) 5.61 K/uL (1.4-6.5); Neutrophils % (auto) 67.4 %; Platelet Count 204 K/uL (130-400); RDW Coefficient of Variation 15.3 % (11.5-14.5); RDW Standard Deviation 42.3 fL (36.4-46.3); Red Blood Count 4.57 M/uL (4.7-6.1); White Blood Count 8.31 K/uL (4.8-10.8)
[2018-11-17 06:22] LABS: BUN Creatinine Ratio 12.6 (10-20); Creatinine Clr Calc Pharmacy 104.9 ml/min; Est GFR (African American) 109.8; Est GFR (Non-African American) 94.8; Magnesium 1.5 mg/dl (1.8-2.4); Potassium 3.2 mmol/L (3.5-5.1)
--- NOTE | 2018-11-17 07:23 | Hospitalist Progress Note ---
Date of Service November 17, 2018 Assessment & Plan (1) Cellulitis of left leg: (2) Cellulitis: (3) Arterial leg ulcer: (4) Infected stasis ulcer of left lower extremity: (5) PAD (peripheral artery disease): (6) Hypertension: (7) ELIZABETH (obstructive sleep apnea): (8) DM type 2 (diabetes mellitus, type 2): (9) Tobacco abuse: (10) DVT prophylaxis: ASSESSMENT AND PLAN: This is a 68-year-old male who presents with recurrent left lower extremity cellulitis. 1. Recurrent left lower extremity cellulitis and infected stasis of the left lower extremity. He was recently in the hospital in September, but discharged, cultures grew MSSA, discharged on Keflex 500 mg twice a day for 21 days, still on Keflex HIM TECH. On 11/03/2018, he again had vascular procedure at [facility] with left SFA and popliteal mechanical thrombectomy, angioplasty and stent placement. In the ER, currently, his pulses were okay. Doppler to rule out DVT, Patient started on IV Zosyn and IV vancomycin. Follow the cultures. ID to see. 2. Diabetes. Hold metformin and Victoza. insulin sliding scale 3. Peripheral artery disease. Continue aspirin, Plavix and statin. 4. Hypertension. Continue losartan/hydrochlorothiazide. 5. Obstructive sleep apnea, on CPAP. 6. Tobacco use. Currently on nicotine patch. 7. Chronic obstructive pulmonary disease. Continue home inhalers, currently stable. 8. Deep venous thrombosis prophylaxis. Heparin subcutaneously. 9. Obese BMI 37 DISPOSITION: Expect to discharge home and follow with family doctor and Vascular Surgery. PT and OT per discharge. Social Service to help with discharge planning. Code status level 1 full code. ROS-No Headache, No Visual Changes, No Nausea, No Vomiting, No Fever, No Chills, No Neck Pain or Stiffness, No Chest Pain, No Palpitations, No SOB, No SRIVASTAVA, No Cough, No Sputum, No Wheezing, No Abdominal Pain, No Diarrhea, No Hematemesis, No Hemoptysis, No Unexpected Weight Loss, No Flank pain, No Melena, No Hematochezia, No Frequency, No Urgency, No Burning, No Hematuria, No Rashes, No Diaphoresis. Appetite is Normal, c/o sore LLE, notes less swelling, less red Physical Exam Gen-AAO x 3, NAD, Afebrile, obese Head-NCAT, EOMI, PERRLA, Anicteric Sclera, No Posterior Pharyngeal Erythema Neck-Supple, No JVD, No Thyromegaly, No Masses, No LAD, No Bruits Lungs-Clear to Auscultation Bilaterally, No Rales, No Rhonchi, No Wheezing, No Crepitus Chest-No S4, +S1, +S2, No S3, No Murmurs, No Rubs, No Gallops, No Ectopy Abdomen-Soft, Bowel Sounds Present, Non Tender, Non Distended, No Hepatomegaly, No Splenomegaly, No Palpable Masses, No Rebound, No Rigidity, No Guarding Musculoskeletal-Full Range of Motion Bilaterally, No CVAT Extremities-No Cyanosis, No Clubbing, No Edema, +Erythema and ulcers Nuero-Cranial Nerves II-XII grossly intact, Motor WNL, DTRs WNL, Strength WNL, Non Focal Psych-Normal Mood Results & Data Vital Signs (Past 12 Hours) Vital Signs Temp Pulse Resp BP BP Pulse Ox 11/17/18 06:56 37.1 C 77 16 127/57 L 96 11/16/18 22:15 37.1 C 91 H 21 167/75 H 96 11/16/18 21:51 83 138/69 95
[2018-11-17 07:45] LABS: Estimated Average Glucose 154 mg/dl
[2018-11-17] MEDS: VENLAFAXINE HCL XR 150 MG CAPXR PO SCH (08:31)
[2018-11-17] MEDS: FINASTERIDE 5 MG TAB PO SCH (08:31)
[2018-11-17] MEDS: NICOTINE 21 MG/24 HR TDSY TD SCH (08:31)
[2018-11-17] MEDS: LOSARTAN/HCTZ 50/12.5MG TAB PO SCH (08:31)
[2018-11-17] MEDS: CHOLECALCIFEROL 1,000 UNITS TAB PO SCH (08:32)
[2018-11-17] MEDS: ATORVASTATIN 40 MG TAB PO SCH (08:33)
[2018-11-17] MEDS: GABAPENTIN 600 MG TAB PO SCH ×2 (08:33→20:38)
[2018-11-17] MEDS: CLOPIDOGREL BISULFATE 75 MG TAB PO SCH (08:33)
[2018-11-17] MEDS: ASPIRIN 81 MG ECTAB PO SCH (08:33)
--- NOTE | 2018-11-17 08:45 | Pharmacy Report ---
Pharmacy Abx Initial Consult - Date of Service November 17, 2018 - Pharmacy Dosing Scope Date of Consult: 11/16/18 Consultation requested by: Dr. Hanson Pharmacy is consulted to initiate VANCOMYCIN / ZOSYN IV dosing therapy, order appropriate labs and adjust drug dose/frequency. - Subjective The patient is a 68 year old M admitted on 11/16/18 21:13. - Objective Height: 5 ft 5 in Weight: 101.9 kg Vital Signs (Past 12hrs): Vital Signs Temp Pulse Resp BP BP Pulse Ox 11/17/18 06:56 37.1 C 77 16 127/57 L 96 11/16/18 22:15 37.1 C 91 H 21 167/75 H 96 11/16/18 21:51 83 138/69 95 Lab Results (24hrs): Laboratory Tests (24 Hours) 11/17/18 11/17/18 11/16/18 05:03 05:03 20:07 WBC 8.31 Neut # (Auto) 5.61 Creatinine 0.74 0.74 Est Cr Clr Drug Dosing 104.9 Not Reportable 11/16/18 20:07 WBC 10.98 H Neut # (Auto) 7.46 H Creatinine Est Cr Clr Drug Dosing Micro Results: 11/16/18 20:19 Aerobic Blood Culture - Pending Blood Anaerobic Blood Culture - Pending 11/16/18 20:07 Aerobic Blood Culture - Pending Blood Anaerobic Blood Culture - Pending - Risk Factors for Resistance * Hospitalization for 48 hours or more within the past 90 days * Antimicrobial use within the last 90 days: Cephalexin SIGN ARTIST for MSSA from [facility] September admission. - Assessment & Plan Assessment 68 year old M ordered VANCOMYCIN / ZOSYN for recurrent LLE cellulitis. Plan VANCOMYCIN / ZOSYN for treatment of Recurrent LLE cellulitis Vancomycin IV * Estimated PK Parameters: Vd 0.61 L/kg, Timbo 0.091 hr-1, t1/2 ~8 hr * Loading dose: 2250mg (22 mg/kg) * Maintenance dose: 1500mg IV (14 mg/kg) every 10 hours * Goal trough level for SST : 15 to 20 mcg/mL * Trough level ordered for 11/18/18 @ 0500. * Will monitor closely due to obesity (BMI 37.4) Piperacillin/tazobactam * 4.5g bolus administered over 30 minutes, then 4.5g IV extended infusion every 8 hours for CrCl greater than 20 mL/min. * Aggressive dosing selected due to BMI 37.4. Pharmacy will continue to follow and will adjust dose/frequency as necessary. Thank you.
[2018-11-17] MEDS: VANCOMYCIN HCL 1,500 MG in SODIUM CHLORIDE 0.9% 500 ML IV SCH ×2 (08:46→19:04)
--- NOTE | 2018-11-17 10:56 | Pharmacy Report ---
Glycemic Control Consultation - Date of Service November 17, 2018 - Scope Scope: Glycemic Pharmacist consulted by Dr Hanson on 11/16/18 for glycemic control and to write orders per [facility] inpatient glycemic control protocol - Objective Weight: 101.9 kg Accuchecks BSG (last 24hrs): 11/16/18 11/17/18 11/17/18 20:07 00:21 02:07 Glucose 136 H POC Glucose 150 H 156 H 11/17/18 11/17/18 05:03 07:59 Glucose 132 H POC Glucose 135 H Laboratory Data (last 24hrs): 11/16/18 11/17/18 20:07 05:03 Potassium 3.3 L 3.2 L Carbon Dioxide 28 29 Anion Gap 7.0 5.0 Creatinine 0.74 0.74 Est Cr Clr Drug Dosing Not Reportable 104.9 HbA1c: Hemoglobin A1c 7.0 % (4.5-5.6) H 11/17/18 05:03 - Recent Pertinent Medications Outpatient Anti-diabetic Regimen: * Tresiba 80 units nightly + Victoza 1.8 mg SQ daily The patient is currently receiving: * Basal insulin: Lantus 17 units x 1 yesterday evening * Correctional Insulin: Novolog Correction per scale ACHS Goal Range: Low 120 mg/dL - High 150 mg/dL Correction Factor: 25 mg/dL/unit * Prandial insulin: Per carb ratio of 1 unit per 10 grams CHO consumed Risk Factors for Insulin Resistance: * Infection: cellulitis on vancomycin and Zosyn * Diet: heart healthy/T2DM - Assessment & Plan Assessment & Plan: ASSESSMENT: * Mr Braun is a 68 y/o M with a PMH of type 2 diabetes with relatively good control. He is admitted with a LLE cellulitis. He is on vancomycin and Zosyn. While inpatient a couple of weeks ago, the patient went several days without basal insulin and required loose Novolog coverage (CF 60 and CR of 20). * Will start once daily Lantus dosing weight-based as Tresiba 80 units is most likely too aggressive. 80 units is probably not even his TDD while inpatient. Will utilized weight-based stress of 2-3 Novolog at the beginning here and see how this works. This may be too much at this point - may require loosening. * ADA & AACE recommend a goal blood sugar range 140-180 mg/dl for the majority of critically ill & non-critically ill patients. However, more stringent targets may be selected in individual cases. Will utilize more stringent goal of 110-140mg/dl based on patient age & comorbidities. Additionally, tighter glycemic control is warranted to facilitate wound/infection healing. PLAN FOR INPATIENT GLYCEMIC CONTROL: * Basal insulin * Lantus 10-20 units SQ HS * Lantus 10 units if blood sugar less than 120 mg/dL * Lantus 15 units if blood sugar 120-180 mg/L * Lantus 20 units if blood sugar greater than 180 mg/dL * Bolus insulin * NovoLog per scale ACHS or Q6hrs while NPO * Goal Range: Low 110 mg/dL - High 140 mg/dL * Correction Factor: 20 mg/dL/unit * Nutritional / Prandial insulin per carb ratio of 1 unit per 7 grams CHO consumed * Please note that the plan above was derived based on current level of insulin resistance and hospital stress. These recommendations are appropriate for inpatient admission only. Plan of care upon discharge will need to be reassessed to avoid potential outpatient hypo/hyperglycemia. Thank you.
--- NOTE | 2018-11-17 13:46 | Infectious Disease Consult ---
Date of Consultation November 17, 2018 Assessment & Plan (1) Cellulitis of left le yo male with diabetes and PAD with recurrent LLE cellulitis. Appears to be responding to current abx, so would continue with length of IV Rx to be determined by clinical response. Will follow. (2) Arterial leg ulcer: History of Present Illness Reason for Consultation: Recurrent LLE cellulitis Attending Physician: Etienne Lynn DO History of Present Illness Patient well-known to the infectious service for follow-up care center. 68-year-old male with history of diabetes mellitus, peripheral arterial disease, venous stasis disease and recurrent lower extremity cellulitis, has been recently followed for nonhealing ischemic ulcer of his left ankle, being treated with cephalexin. He was seen on at the wound care center and was doing well with no evidence of recurrent infection, but within 24 hours developed progressively worsening left leg swelling, redness, and pain. Associated with low-grade fever. Was admitted to the hospital for left lower extremity cellulitis, and has been started on vancomycin and Zosyn. Blood cultures are negative to date. Patient has shown initial improvement with some decrease and regression of the left leg erythema. Ultrasound without evidence of DVT. Allergies Allergy/AdvReac Type Severity Reaction Status Date / Time No Known Allergies Allergy Verified 11/15/18 13:48 Home Medications Home Medications Medication Instructions Recorded Confirmed Type aspirin 81 mg tablet,delayed 81 mg PO DAILY 10/26/17 11/16/18 History release atorvastatin 40 mg tablet 40 mg PO DAILY 10/26/17 11/16/18 History cholecalciferol (vitamin D3) 1,000 2,000 units PO DAILY cap 10/26/17 11/16/18 History unit capsule losartan 100 1 tab PO DAILY 10/26/17 11/16/18 History mg-hydrochlorothiazide 25 mg tablet venlafaxine ER 150 mg 150 mg PO DAILY 10/26/17 11/16/18 History capsule,extended release 24 hr Anoro Ellipta 1 inh INHALATION DAILY 07/16/18 11/16/18 History Tresiba FlexTouch U-200 84 unit SUBCUT QPM 07/16/18 11/16/18 History Victoza 3-Dorian 1.8 mg SUBCUT DAILY 07/16/18 11/16/18 History albuterol sulfate 2 puff INHALATION Q4H PRN 07/16/18 11/16/18 History albuterol sulfate 2.5 mg INHALATION Q4H PRN 07/16/18 11/16/18 History clopidogrel 75 mg PO DAILY 07/16/18 11/16/18 History gabapentin 1,200 mg PO QPM 07/16/18 11/16/18 History gabapentin 600 mg PO QAM 07/16/18 11/16/18 History metformin 1,000 mg PO BIDM 07/16/18 11/16/18 History omeprazole 40 mg PO QAM 07/16/18 11/16/18 History finasteride [Proscar] 5 mg PO DAILY 10/05/18 11/16/18 History cephalexin 500 mg capsule 500 mg PO BID 11/15/18 11/16/18 History acetaminophen [Tylenol Extra 1,000 mg PO Q6H PRN 11/16/18 11/16/18 History Strength] nicotine [Nicoderm CQ] 1 patch TRANSDERMAL DAILY 11/16/18 11/16/18 History oxycodone [Roxicodone] 5 mg PO Q8 PRN 11/16/18 11/16/18 History Patient History Medical History Arterial leg ulcer (Acute) left leg Traumatic wound (Acute) Cellulitis (Resolved) Infected stasis ulcer of left lower extremity Tobacco abuse (Chronic) ELIZABETH (obstructive sleep apnea) (Chronic) Hypertension (Chronic) PAD (peripheral artery disease) (Chronic) DM type 2 (diabetes mellitus, type 2) (Chronic) Surgical History History of total left knee replacement (Chronic) Family History Mother Colon cancer Social History Preferred Language: Albanian Communication Ability: Effective 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 Beliefs That Will Affect Care: None marital status: Current Living Situation: Spouse current occupational status: disabled Other Information That Helps Us Care for You: No Feels Safe at Home: Yes Smoking Status: Current every day smoker Tobacco Type: cigarettes ; Cigarettes Per Day: 2 packs a day ; Hx Alcohol Use: No Hx Substance Use: No Review of Systems Review of Systems: All systems reviewed & are unremarkable except as noted in HPI & below Physical Exam Constitutional: WD/WN, vitals as above + obese and comfortable; no acute distress Eyes: PERRL, conjunctivae normal, anicteric sclerae ENMT: external ear and nose normal, oropharynx normal Neck: trachea midline, no thyromegaly neck nontender Respiratory: normal respiratory effort, lungs clear to auscultation normal percussion; does not use accessory muscles Cardiovascular: Rate/Rhythm: regular rate and regular rhythm Heart Sounds: normal S1 and normal S2; no gallop, no murmur and no cardiac rub Vessels: normal peripheral pulses; no JVD Gastrointestinal (Abdomen): normal bowel sounds, soft, nontender, no hepatosplenomegaly Musculoskeletal: no cyanosis or clubbing, extremities motor strength 5/5 Spine: thoracic spine normal to inspection and lumbar spine normal to inspection; no cervical spinal tenderness Skin: no rashes, warm and dry normal turgor, + ulcer (left post. ankle) and + erythema (LLE below knee) Neurologic: patellar DTR's 2+ bilat, sensation intact no focal motor deficits Psychiatric: A+Ox3, euthymic affect Orientation: cooperative Lymphatic: no cervical or axillary lymphadenopathy no inguinal lymphadenopathy Results & Data Vital Signs (Past 12 Hours) Vital Signs Temp Pulse Resp BP Pulse Ox 11/17/18 06:56 37.1 C 77 16 127/57 L 96 Laboratory Results Short CBC 11/16/18 11/17/18 Range/Units 20:07 05:03 WBC 10.98 H 8.31 (4.8-10.8) K/uL Hgb 12.1 L 11.1 L (14.0-18.0) g/dL Hct 37.7 L 34.8 L (42-52) % Plt Count 238 204 (130-400) K/uL BMP 11/16/18 11/17/18 20:07 05:03 Sodium 139 141 Potassium 3.3 L 3.2 L Chloride 104 107 Carbon Dioxide 28 29 BUN 10 9 Creatinine 0.74 0.74 Glucose 136 H 132 H Calcium 9.0 8.0 L Cardiac Enzymes 11/16/18 Range/Units 20:07 Troponin I < 0.015 (0-0.045) ng/ml Liver Function 11/16/18 Range/Units 20:07 Total Bilirubin 0.5 (0.2-1) mg/dl AST 19 (15-37) U/L ALT 27 (12-78) U/L Alkaline Phosphatase 107 (45-117) U/L Albumin 3.2 L (3.4-5.0) gm/dl Diagnostic Findings US venous doppler LE LT CLINICAL HISTORY: 68 years-old Male presenting with pain swelling recent L popliteal pulse. TECHNIQUE: Real-time grayscale and color and spectral Doppler ultrasound imaging of the veins of the left lower extremity was performed. Compression and augmentation were also utilized. COMPARISON: None. FINDINGS: LEFT: Common femoral vein: Patent. Greater saphenous vein (superficial): Patent. Deep femoral vein: Patent. Femoral vein: Patent. Popliteal vein: Patent. Calf veins: Grossly patent. Limited visualization secondary to subcutaneous edema. Other: None. IMPRESSION: No evidence of deep venous thrombosis. Electronically signed by: Rj Wills M.D. 11/16/2018 9:40 PM Dictated: 11/16/18 2139 PG Care Time/CCT Total # of Minutes Spent Total Time Spent with Patient: Total time spent is greater than 50% in coordination of care (as documented) at patient's floor/unit and/or counseling patient:
[2018-11-17] MEDS ORDERED: INSULIN DEGLUDEC 80 UNIT SQ SCH (21:00)
[2018-11-17] MEDS ORDERED: INSULIN GLARGINE SOLOSTAR 100 UNITS/ML 3 ML PEN SC SCH (21:00)
[2018-11-18] MEDS ORDERED: VANCOMYCIN TROUGH ONE (04:30)
[2018-11-18] MEDS: PIPERACILLIN/TAZOBACTAM 4.5 GM in DEXTROSE 5% 100 ML IV SCH ×3 (04:32→19:30)
[2018-11-18 04:43] LABS: Hematocrit (blood only) 35.1 % (42-52); Hemoglobin 11.2 g/dL (14.0-18.0); Mean Corpuscular Hemoglobin 24.5 pg (25-34); Mean Corpuscular Hgb Conc 31.9 g/dL (32-36); Mean Corpuscular Volume 76.6 fL (80-100); Mean Platelet Volume 9.2 fL (7.4-10.4); Platelet Count 216 K/uL (130-400); RDW Coefficient of Variation 15.4 % (11.5-14.5); RDW Standard Deviation 42.8 fL (36.4-46.3); Red Blood Count 4.58 M/uL (4.7-6.1); White Blood Count 7.51 K/uL (4.8-10.8)
[2018-11-18 05:15] LABS: Albumin Level 2.7 gm/dl (3.4-5.0); Calcium 8.3 mg/dl (8.5-10.1); Creatinine Clr Calc Pharmacy 103.5 ml/min; Est GFR (African American) 109.2; Est GFR (Non-African American) 94.3; Potassium 3.3 mmol/L (3.5-5.1)
[2018-11-18 05:18] LABS: Albumin Globulin Ratio 0.8 (0.9-2); Bilirubin,Total 0.5 mg/dl (0.2-1); Globulin 3.5 gm/dl (2.5-4.0); Total Protein 6.2 gm/dl (6.4-8.2)
[2018-11-18] MEDS: VANCOMYCIN HCL 1,500 MG in SODIUM CHLORIDE 0.9% 500 ML IV SCH ×2 (05:48→16:45)
[2018-11-18] MEDS: HEPARIN SOD 5,000 UNIT/0.5 ML VIAL SQ SCH ×3 (05:49→20:41)
--- NOTE | 2018-11-18 08:09 | Hospitalist Progress Note ---
Date of Service November 18, 2018 Assessment & Plan (1) Cellulitis of left leg: (2) Cellulitis: (3) Arterial leg ulcer: (4) Infected stasis ulcer of left lower extremity: (5) PAD (peripheral artery disease): (6) Hypertension: (7) ELIZABETH (obstructive sleep apnea): (8) DM type 2 (diabetes mellitus, type 2): (9) Tobacco abuse: (10) DVT prophylaxis: ASSESSMENT AND PLAN: This is a 68-year-old male who presents with recurrent left lower extremity cellulitis. 1. Recurrent left lower extremity cellulitis and infected stasis of the left lower extremity. 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 On 11/03/2018, he again had vascular procedure at [place] with left SFA and popliteal mechanical thrombectomy, angioplasty and stent placement. In the ER, currently, his pulses were okay. Doppler to rule out DVT, Patient on IV Zosyn and IV vancomycin. Follow the cultures. ID on case. 2. Diabetes. Hold metformin and Victoza. insulin sliding scale 3. Peripheral artery disease. Continue aspirin, Plavix and statin. 4. Hypertension. Continue losartan/hydrochlorothiazide. 5. Obstructive sleep apnea, on CPAP. 6. Tobacco use. Currently on nicotine patch. 7. Chronic obstructive pulmonary disease. Continue home inhalers, currently stable. 8. Deep venous thrombosis prophylaxis. Heparin subcutaneously. 9. Obese BMI 37 DISPOSITION: Expect to discharge home and follow with family doctor and Vascular Surgery. PT and OT. Social Service to help with discharge planning. Code status level 1 full code. ROS-No Headache, No Visual Changes, No Nausea, No Vomiting, No Fever, No Chills, No Neck Pain or Stiffness, No Chest Pain, No Palpitations, No SOB, No SRIVASTAVA, No Cough, No Sputum, No Wheezing, No Abdominal Pain, No Diarrhea, No Hematemesis, No Hemoptysis, No Unexpected Weight Loss, No Flank pain, No Melena, No Hematochezia, No Frequency, No Urgency, No Burning, No Hematuria, No Rashes, No Diaphoresis. Appetite is Normal, c/o sore LLE, notes less swelling, less red Physical Exam Gen-AAO x 3, NAD, Afebrile, obese Head-NCAT, EOMI, PERRLA, Anicteric Sclera, No Posterior Pharyngeal Erythema Neck-Supple, No JVD, No Thyromegaly, No Masses, No LAD, No Bruits Lungs-Clear to Auscultation Bilaterally, No Rales, No Rhonchi, No Wheezing, No Crepitus Chest-No S4, +S1, +S2, No S3, No Murmurs, No Rubs, No Gallops, No Ectopy Abdomen-Soft, Bowel Sounds Present, Non Tender, Non Distended, No Hepatomegaly, No Splenomegaly, No Palpable Masses, No Rebound, No Rigidity, No Guarding Musculoskeletal-Full Range of Motion Bilaterally, No CVAT Extremities-No Cyanosis, No Clubbing, No Edema, +Erythema and ulcers, still very red LLE Nuero-Cranial Nerves II-XII grossly intact, Motor WNL, DTRs WNL, Strength WNL, N on Focal Psych-Normal Mood Results & Data Vital Signs (Past 12 Hours) Vital Signs Temp Pulse Resp BP BP Pulse Ox 11/18/18 07:13 37.0 C 68 20 143/64 H 99 11/17/18 23:18 36.7 C 79 20 150/66 H 91 Current Diagnoses Type 2 diabetes mellitus without complications (11/16/18) Obstructive sleep apnea (adult) (pediatric) (11/16/18) Essential (primary) hypertension (11/16/18) Peripheral vascular disease, unspecified (11/16/18) 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 of unspecified site and inflammation (11/16/18) Cellulitis of left lower limb (11/16/18) Cellulitis, unspecified (11/16/18) Non-pressure chronic ulcer of unspecified part of unspecified lower leg with unspecified severity (11/16/18) Non-pressure chronic ulcer of unspecified part of left lower leg with unspecified severity (11/16/18) Encounter for prophylactic measures, unspecified (11/16/18) Tobacco use (11/16/18) Allergies No Known Allergies Allergy (Verified 11/15/18 13:48) Height/Weight/Isolation Height 5 ft 5 in Weight 101.9 kg Chemistry 11/16/18 11/17/18 11/18/18 20:07 05:03 04:33 Sodium 139 141 142 Potassium 3.3 L 3.2 L 3.3 L Chloride 104 107 108 H Carbon Dioxide 28 29 29 Anion Gap 7.0 5.0 5.0 BUN 10 9 9 Creatinine 0.74 0.74 0.75 Glucose 136 H 132 H 118 H Microbiology 11/16/18 20:07 Blood Aerobic Blood Culture - Preliminary No growth in Aerobic bottle after 24 hours. 11/16/18 20:07 Blood Anaerobic Blood Culture - Preliminary No growth in Anaerobic bottle after 24 hours. 11/16/18 20:19 Blood Aerobic Blood Culture - Preliminary No growth in Aerobic bottle after 24 hours. 11/16/18 20:19 Blood Anaerobic Blood Culture - Preliminary No growth in Anaerobic bottle after 24 hours.
[2018-11-18] MEDS: INSULIN ASPART 100 UNITS/ML 3 ML PEN SC SCH ×4 (09:21→20:40)
[2018-11-18] MEDS: ANORO ELLIPTA~ORDER AWAITING ACTION SCH ×2 (09:25→16:45)
[2018-11-18] MEDS: ATORVASTATIN 40 MG TAB PO SCH (09:26)
[2018-11-18] MEDS: VENLAFAXINE HCL XR 150 MG CAPXR PO SCH (09:26)
[2018-11-18] MEDS: CHOLECALCIFEROL 1,000 UNITS TAB PO SCH (09:26)
[2018-11-18] MEDS: CLOPIDOGREL BISULFATE 75 MG TAB PO SCH (09:26)
[2018-11-18] MEDS: FINASTERIDE 5 MG TAB PO SCH (09:27)
[2018-11-18] MEDS: NICOTINE 21 MG/24 HR TDSY TD SCH (09:27)
[2018-11-18] MEDS: GABAPENTIN 600 MG TAB PO SCH ×2 (09:27→20:34)
[2018-11-18] MEDS: LOSARTAN/HCTZ 50/12.5MG TAB PO SCH (09:27)
[2018-11-18] MEDS: ASPIRIN 81 MG ECTAB PO SCH (09:27)
--- NOTE | 2018-11-18 10:52 | Pharmacy Report ---
Pharmacy Abx Dose Short Note - Date of Service November 18, 2018 - Assessment & Plan Assessment 68 year old M receiving Vancomycin/Zosyn for treatment of cellulitis Day # 3 of antimicrobial therapy. * Patient responding to antibiotics per ID note. They will follow. Plan Laboratory Tests 11/18/18 04:33 Vancomycin Trough 12.9 Vancomycin * Trough level of 12.9 mcg/mL is subtherapeutic but will continue with current treatment regimen due to potential of accumulation. * Continue dose of 1500 mg IV every 10 hours * Goal trough level for cellulitis : ~15 mcg/mL * Trough level ordered for: 11/19/18 @ 1030 Pharmacy will continue to follow and will adjust dose/frequency as necessary. Thank you.
--- NOTE | 2018-11-18 19:40 | Infectious Disease Progress Nt ---
Date of Service November 18, 2018 Assessment & Plan (1) Cellulitis of left le yo male with diabetes and PAD with recurrent LLE cellulitis. Appears to be responding to current abx, so would continue with length of IV Rx to be determined by clinical response. Will follow. (2) Arterial leg ulcer: Subjective Patient seen for recurrent left lower extremity cellulitis. Suggest remains afebrile, blood cultures are negative. Left leg slowly improving. No fever. No other new complaints. Review of Systems Review of Systems: All systems reviewed & are unremarkable except as noted in HPI & below Physical Exam Constitutional: WD/WN, vitals as above + obese and comfortable; no acute distress Eyes: PERRL, conjunctivae normal, anicteric sclerae ENMT: external ear and nose normal, oropharynx normal Neck: trachea midline, no thyromegaly neck nontender Respiratory: normal respiratory effort, lungs clear to auscultation normal percussion; does not use accessory muscles Cardiovascular: Rate/Rhythm: regular rate and regular rhythm Heart Sounds: normal S1 and normal S2; no gallop, no murmur and no cardiac rub Vessels: normal peripheral pulses; no JVD Gastrointestinal (Abdomen): normal bowel sounds, soft, nontender, no hepatosplenomegaly Musculoskeletal: no cyanosis or clubbing, extremities motor strength 5/5 Spine: thoracic spine normal to inspection and lumbar spine normal to inspection; no cervical spinal tenderness Skin: no rashes, warm and dry normal turgor, + ulcer (left post. ankle) and + erythema (LLE below knee) Neurologic: patellar DTR's 2+ bilat, sensation intact no focal motor deficits Psychiatric: A+Ox3, euthymic affect Orientation: cooperative Lymphatic: no cervical or axillary lymphadenopathy no inguinal lym phadenopathy Results & Data Vital Signs (Past 12 Hours) Vital Signs Temp Pulse Resp BP Pulse Ox 11/18/18 17:34 37.1 C 84 19 150/64 H 93 Laboratory Results Short CBC 11/18/18 Range/Units 04:33 WBC 7.51 (4.8-10.8) K/uL Hgb 11.2 L (14.0-18.0) g/dL Hct 35.1 L (42-52) % Plt Count 216 (130-400) K/uL BMP 11/18/18 04:33 Sodium 142 Potassium 3.3 L Chloride 108 H Carbon Dioxide 29 BUN 9 Creatinine 0.75 Glucose 118 H Calcium 8.3 L Liver Function 11/18/18 Range/Units 04:33 Total Bilirubin 0.5 (0.2-1) mg/dl AST 18 (15-37) U/L ALT 26 (12-78) U/L Alkaline Phosphatase 95 (45-117) U/L Albumin 2.7 L (3.4-5.0) gm/dl Diagnostic Findings Microbiology 11/16/18 20:07 Blood Aerobic Blood Culture - Preliminary No growth in Aerobic bottle after 24 hours. 11/16/18 20:07 Blood Anaerobic Blood Culture - Preliminary No growth in Anaerobic bottle after 24 hours. 11/16/18 20:19 Blood Aerobic Blood Culture - Preliminary No growth in Aerobic bottle after 24 hours. 11/16/18 20:19 Blood Anaerobic Blood Culture - Preliminary No growth in Anaerobic bottle after 24 hours. PG Care Time/CCT Total # of Minutes Spent Total Time Spent with Patient: Total time spent is greater than 50% in coordination of care (as documented) at patient's floor/unit and/or counseling patient:
[2018-11-18] MEDS: INSULIN GLARGINE SOLOSTAR 100 UNITS/ML 3 ML PEN SC SCH (20:39)
[2018-11-19] MEDS: ANORO ELLIPTA~ORDER AWAITING ACTION SCH ×3 (00:14→16:11)
[2018-11-19] MEDS: VANCOMYCIN HCL 1,500 MG in SODIUM CHLORIDE 0.9% 500 ML IV SCH ×2 (00:40→11:33)
[2018-11-19] MEDS: PIPERACILLIN/TAZOBACTAM 4.5 GM in DEXTROSE 5% 100 ML IV SCH ×2 (03:41→12:40)
[2018-11-19] MEDS: HEPARIN SOD 5,000 UNIT/0.5 ML VIAL SQ SCH ×3 (06:14→22:21)
[2018-11-19 07:01] LABS: Hematocrit (blood only) 37.9 % (42-52); Hemoglobin 11.8 g/dL (14.0-18.0); Mean Corpuscular Hemoglobin 24.2 pg (25-34); Mean Corpuscular Hgb Conc 31.1 g/dL (32-36); Mean Corpuscular Volume 77.7 fL (80-100); Mean Platelet Volume 9.6 fL (7.4-10.4); Platelet Count 241 K/uL (130-400); RDW Coefficient of Variation 15.4 % (11.5-14.5); RDW Standard Deviation 43.2 fL (36.4-46.3); Red Blood Count 4.88 M/uL (4.7-6.1); White Blood Count 6.65 K/uL (4.8-10.8)
[2018-11-19 07:21] LABS: Albumin Level 2.8 gm/dl (3.4-5.0); BUN Creatinine Ratio 13.2 (10-20); Calcium 8.7 mg/dl (8.5-10.1); Creatinine Clr Calc Pharmacy 95.9 ml/min; Est GFR (African American) 105.8; Est GFR (Non-African American) 91.3; Potassium 3.4 mmol/L (3.5-5.1)
[2018-11-19 07:24] LABS: Albumin Globulin Ratio 0.7 (0.9-2); Bilirubin,Total 0.5 mg/dl (0.2-1); Globulin 3.8 gm/dl (2.5-4.0); Total Protein 6.6 gm/dl (6.4-8.2)
--- NOTE | 2018-11-19 08:01 | Hospitalist Progress Note ---
Date of Service November 19, 2018 Assessment & Plan (1) Cellulitis of left leg: (2) Cellulitis: (3) Arterial leg ulcer: (4) Infected stasis ulcer of left lower extremity: (5) PAD (peripheral artery disease): (6) Hypertension: (7) ELIZABETH (obstructive sleep apnea): (8) DM type 2 (diabetes mellitus, type 2): (9) Tobacco abuse: (10) DVT prophylaxis: ASSESSMENT AND PLAN: This is a 68-year-old male who presents with recurrent left lower extremity cellulitis. 1. Recurrent left lower extremity cellulitis and infected stasis of the left lower extremity. 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 On 11/03/2018, he again had vascular procedure at [facility] with left SFA and popliteal mechanical thrombectomy, angioplasty and stent placement. In the ER, currently, his pulses were okay. Doppler to rule out DVT, Patient on IV Zosyn and IV vancomycin. Follow the cultures. ID on case. 2. Diabetes. Hold metformin and Victoza. insulin sliding scale 3. Peripheral artery disease. Continue aspirin, Plavix and statin. 4. Hypertension. Add Norvasc Continue Losartan/HCTZ 5. Obstructive sleep apnea, on CPAP. 6. Tobacco use. Currently on nicotine patch. 7. Chronic obstructive pulmonary disease. Continue home inhalers, currently stable. 8. Deep venous thrombosis prophylaxis. Heparin subcutaneously. 9. Obese BMI 37 DISPOSITION: Expect to discharge home and follow with family doctor and Vascular Surgery. PT and OT. Social Service to help with discharge planning. Code status level 1 full code. US guided peripheral ordered, DC on Abx per ID recommendations Labs checked ROS-No Headache, No Visual Changes, No Nausea, No Vomiting, No Fever, No Chills, No Neck Pain or Stiffness, No Chest Pain, No Palpitations, No SOB, No SRIVASTAVA, No Cough, No Sputum, No Wheezing, No Abdominal Pain, No Diarrhea, No Hematemesis, No Hemoptysis, No Unexpected Weight Loss, No Flank pain, No Melena, No Hematochezia, No Frequency, No Urgency, No Burning, No Hematuria, No Rashes, No Diaphoresis. Appetite is Normal, c/o sore LLE, notes less swelling, less red Physical Exam Gen-AAO x 3, NAD, Afebrile, obese Head-NCAT, EOMI, PERRLA, Anicteric Sclera, No Posterior Pharyngeal Erythema Neck-Supple, No JVD, No Thyromegaly, No Masses, No LAD, No Bruits Lungs-Clear to Auscultation Bilaterally, No Rales, No Rhonchi, No Wheezing, No Crepitus Chest-No S4, +S1, +S2, No S3, No Murmurs, No Rubs, No Gallops, No Ectopy Abdomen-Soft, Bowel Sounds Present, Non Tender, Non Distended, No Hepatomegaly, No Splenomegaly, No Palpable Masses, No Rebound, No Rigidity, No Guarding Musculoskeletal-Full Range of Motion Bilaterally, No CVAT Extremities-No Cyanosis, No Clubbing, No Edema, Less Erythema, vastly improved today Nuero-Cranial Nerves II-XII grossly intact, Motor WNL, DTRs WNL, Strength WNL, Non Focal Psych-Normal Mood Results & Data Vital Signs (Past 12 Hours) Vital Signs Temp Pulse Resp BP BP Pulse Ox 11/19/18 07:33 36.7 C 79 16 170/75 H 95 11/18/18 23:41 36.9 C 69 18 164/68 H 96 Current Diagnoses Type 2 diabetes mellitus without complications (11/16/18) Obstructive sleep apnea (adult) (pediatric) (11/16/18) Essential (primary) hypertension (11/16/18) Peripheral vascular disease, unspecified (11/16/18) 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 of unspecified site and inflammation (11/16/18) Cellulitis of left lower limb (11/16/18) Cellulitis, unspecified (11/16/18) Non-pressure chronic ulcer of unspecified part of unspecified lower leg with unspecified severity (11/16/18) Non-pressure chronic ulcer of unspecified part of left lower leg with unspecified severity (11/16/18) Encounter for prophylactic measures, unspecified (11/16/18) Tobacco use (11/16/18) Allergies No Known Allergies Allergy (Verified 11/15/18 13:48) Height/Weight/Isolation Height 5 ft 5 in Weight 101.9 kg Chemistry 11/18/18 11/19/18 04:33 06:24 Sodium 142 144 Potassium 3.3 L 3.4 L Chloride 108 H 108 H Carbon Dioxide 29 30 Anion Gap 5.0 6.0 BUN 9 11 Creatinine 0.75 0.81 Glucose 118 H 105 H Microbiology 11/16/18 20:07 Blood Aerobic Blood Culture - Preliminary No growth in Aerobic bottle after 48 hours. 11/16/18 20:07 Blood Anaerobic Blood Culture - Preliminary No growth in Anaerobic bottle after 48 hours. 11/16/18 20:19 Blood Aerobic Blood Culture - Preliminary No growth in Aerobic bottle after 48 hours. 11/16/18 20:19 Blood Anaerobic Blood Culture - Preliminary No growth in Anaerobic bottle after 48 hours.
[2018-11-19] MEDS: CHOLECALCIFEROL 1,000 UNITS TAB PO SCH (08:27)
[2018-11-19] MEDS: ASPIRIN 81 MG ECTAB PO SCH (08:27)
[2018-11-19] MEDS: ATORVASTATIN 40 MG TAB PO SCH (08:27)
[2018-11-19] MEDS: PANTOprazole 40 MG TAB PO SCH (08:27)
[2018-11-19] MEDS: VENLAFAXINE HCL XR 150 MG CAPXR PO SCH (08:28)
[2018-11-19] MEDS: FINASTERIDE 5 MG TAB PO SCH (08:28)
[2018-11-19] MEDS: CLOPIDOGREL BISULFATE 75 MG TAB PO SCH (08:28)
[2018-11-19] MEDS: NICOTINE 21 MG/24 HR TDSY TD SCH (08:29)
[2018-11-19] MEDS: GABAPENTIN 600 MG TAB PO SCH ×2 (08:29→20:30)
[2018-11-19] MEDS: INSULIN ASPART 100 UNITS/ML 3 ML PEN SC SCH ×4 (08:33→20:32)
[2018-11-19] MEDS ORDERED: LISINOPRIL 10 MG TAB PO SCH (09:00)
--- NOTE | 2018-11-19 09:16 | Pharmacy Report ---
Pharmacy Glycemic Short Note 2 - Date of Service November 19, 2018 - Glycemic Short BSG Results (Last 24 hours): 11/18/18 11/18/18 11/18/18 11:53 17:28 20:32 Glucose POC Glucose 122 H 127 H 164 H 11/19/18 11/19/18 06:24 08:01 Glucose 105 H POC Glucose 131 H OUTPATIENT ANTIDIABETIC REGIMEN: * Tresiba 80 units nightly * Victoza 1.8 mg SQ daily * Metformin 1000 mg PO BIDM * HbA1c: 7.0% (11/17/18) ASSESSMENT: * Patient continues on Zosyn and vancomycin for treatment of cellulitis * Will continue stringent glycemic targets to facilitate wound healing * BSGs ranging 118-164 mg/dL yesterday * Fasting BSG this AM is 131 mg/dL PLAN FOR INPATIENT GLYCEMIC CONTROL: * Hold outpatient oral diabetes medications * Patient requiring significantly less insulin than outpatient regimen * Basal insulin -fasting BSGs are well-controlled (continue current Lantus regimen) * Lantus 13 units SQ hs * Bolus insulin - will loosen CR slightly * NovoLog per scale ACHS or Q6hrs while NPO * Goal Range: Low 110 mg/dL - High 140 mg/dL * Correction Factor: 20 mg/dL/unit * Nutritional / Prandial insulin per carb ratio of 1 unit per 7 grams CHO consumed - closer to weight/stress of 2 PLAN FOR DISCHARGE: * Home dose of Tresiba is 80 units qpm * Patient requiring significantly less insulin than this while inpatient * Will reassess closer to time of discharge * Appears to have good glycemic control based on A1c of 7%
[2018-11-19] MEDS ORDERED: VANCOMYCIN TROUGH ONE (10:30)
[2018-11-19] MEDS: LOSARTAN/HCTZ 50/12.5MG TAB PO SCH (11:29)
[2018-11-19] MEDS: AMLODIPINE BESYLATE 5 MG TAB PO SCH (11:29)
--- NOTE | 2018-11-19 11:39 | Pharmacy Report ---
Pharmacy Abx Dose Short Note - Date of Service November 19, 2018 - Assessment & Plan Assessment 68 year old M receiving Vancomycin/Zosyn for treatment of cellulitis Day # 4 of antimicrobial therapy. Plan Vancomycin * Trough level came back therapeutic at ~16 mcg/ml (goal ~15 mcg/ml for cellulitis). * Per ID, patient responding to abx's, have not seen patient yet today to evaluate. Case management had documented possible IV abx on discharge, however ID has not made recommendations yet for further antibiotic treatment. Will continue to follow and if plan is to d/c home on vancomycin would consider changing interval to Q12 hr dosing * Renal function remains stable at this time, will continue current vancomycin regimen. Previous level of 12.9 drawn slightly before steady state, expected trough at that time to be slightly higher. Patient does have elevated BMI, therefore increased risk of accumulation with vancomycin. Therefore, will monitor closely and if plan is to continue with vancomycin would consider adjusting to Q12 and rechecking trough Zosyn * 4.5 gm iv q 8 hrs - appropriate for CrCl >20 ml/min - no change Pharmacy will continue to follow and will adjust dose/frequency as necessary. Thank you.
--- NOTE | 2018-11-19 15:24 | Infectious Disease Progress Nt ---
Date of Service November 19, 2018 Assessment & Plan (1) Cellulitis of left le yo male with diabetes and PAD with recurrent LLE cellulitis. Appears to be responding to abx. Will change to IV daptomycin to allow easier outpatient therapy, likely 5-7 more days. Will follow. (2) Arterial leg ulcer: Subjective Patient seen for recurrent left lower extremity cellulitis. Suggest remains afebrile, blood cultures are negative. Left leg slowly improving. No fever. No other new complaints. Review of Systems Review of Systems: All systems reviewed & are unremarkable except as noted in HPI & below Physical Exam Constitutional: WD/WN, vitals as above comfortable; no acute distress Eyes: PERRL, conjunctivae normal, anicteric sclerae ENMT: external ear and nose normal, oropharynx normal Neck: trachea midline, no thyromegaly neck nontender Respiratory: normal respiratory effort, lungs clear to auscultation normal percussion; does not use accessory muscles Cardiovascular: Rate/Rhythm: regular rate and regular rhythm Heart Sounds: normal S1 and normal S2; no gallop, no murmur and no cardiac rub Vessels: normal peripheral pulses; no JVD Gastrointestinal (Abdomen): normal bowel sounds, soft, nontender, no hepatosplenomegaly Musculoskeletal: no cyanosis or clubbing, extremities motor strength 5/5 Spine: thoracic spine normal to inspection and lumbar spine normal to inspection; no cervical spinal tenderness Skin: normal turgor and + erythema (Left leg erythema improving) Neurologic: patellar DTR's 2+ bilat, sensation intact no focal motor deficits Psychiatric: A+Ox3, euthymic affect Orientation: cooperative Lymphatic: no cervical or axillary lymphadenopathy no inguinal lymphadenopathy Results & Data Vital Signs (Past 12 Hours) Vital Signs Temp Pulse Resp BP Pulse Ox 11/19/18 07:33 36.7 C 79 16 170/75 H 95 PG Care Time/CCT Total # of Minutes Spent Total Time Spent with Patient: Total time spent is greater than 50% in coordinat ion of care (as documented) at patient's floor/unit and/or counseling patient:
[2018-11-19] MEDS ORDERED: DAPTOmycin 500 MG VIAL IV SCH (15:30)
[2018-11-19] MEDS: DAPTOmycin 400 MG in SYRINGE 0 ML IV SCH (16:10)
[2018-11-19] MEDS: INSULIN GLARGINE SOLOSTAR 100 UNITS/ML 3 ML PEN SC SCH (20:30)
[2018-11-20] MEDS: ANORO ELLIPTA~ORDER AWAITING ACTION SCH ×2 (00:20→08:24)
[2018-11-20] MEDS: HEPARIN SOD 5,000 UNIT/0.5 ML VIAL SQ SCH ×2 (05:50→13:06)
[2018-11-20 06:23] LABS: Hematocrit (blood only) 35.8 % (42-52); Hemoglobin 11.3 g/dL (14.0-18.0); Mean Corpuscular Hemoglobin 24.1 pg (25-34); Mean Corpuscular Hgb Conc 31.6 g/dL (32-36); Mean Corpuscular Volume 76.3 fL (80-100); Mean Platelet Volume 9.6 fL (7.4-10.4); Platelet Count 229 K/uL (130-400); RDW Coefficient of Variation 15.4 % (11.5-14.5); RDW Standard Deviation 42.5 fL (36.4-46.3); Red Blood Count 4.69 M/uL (4.7-6.1); White Blood Count 6.31 K/uL (4.8-10.8)
[2018-11-20 06:56] LABS: BUN Creatinine Ratio 12.3 (10-20); Calcium 8.9 mg/dl (8.5-10.1); Creatinine Clr Calc Pharmacy 102.2 ml/min; Est GFR (African American) 108.7; Est GFR (Non-African American) 93.7; Potassium 3.4 mmol/L (3.5-5.1)
[2018-11-20] MEDS: LOSARTAN/HCTZ 50/12.5MG TAB PO SCH (08:22)
[2018-11-20] MEDS: FINASTERIDE 5 MG TAB PO SCH (08:22)
[2018-11-20] MEDS: AMLODIPINE BESYLATE 5 MG TAB PO SCH (08:22)
[2018-11-20] MEDS: ASPIRIN 81 MG ECTAB PO SCH (08:23)
[2018-11-20] MEDS: CLOPIDOGREL BISULFATE 75 MG TAB PO SCH (08:23)
[2018-11-20] MEDS: PANTOprazole 40 MG TAB PO SCH (08:23)
[2018-11-20] MEDS: VENLAFAXINE HCL XR 150 MG CAPXR PO SCH (08:23)
[2018-11-20] MEDS: CHOLECALCIFEROL 1,000 UNITS TAB PO SCH (08:23)
[2018-11-20] MEDS: GABAPENTIN 600 MG TAB PO SCH (08:23)
[2018-11-20] MEDS: INSULIN ASPART 100 UNITS/ML 3 ML PEN SC SCH ×2 (08:27→13:06)
[2018-11-20] MEDS: NICOTINE 21 MG/24 HR TDSY TD SCH (08:28)
--- NOTE | 2018-11-20 09:50 | Discharge Summary ---
Date of Service November 20, 2018 Admission HPI Per Admitting Provider 68-year-old male with past medical history significant for type 2 diabetes, hyperlipidemia, COPD, lung nodule, obstructive sleep apnea, peripheral artery disease, hypertension, tobacco use disorder, stasis ulcer of left ankle, obesity, comes with left lower extremity swelling and erythema. The patient was here in September with infected stasis ulcer of left lower extremity. At that time, cultures grew MSSA and proteus. He was initially started on vancomycin and Zosyn, seen by ID and they recommended p.o. Keflex for 21 days and he is also following with Vascular Surgery for possible revascularization. He was seen recently at [facility] and had intervention with left SFA and popliteal mechanical thrombectomy, angioplasty and stent placement and had good Doppler signals postoperatively and his pain was improved in left lower extremity and was discharged, but the patient says since today again developed erythema in left lower extremity and also swelling and also having burning sensation in the legs, so he came to the ER. Lower extremity Doppler in the ER had good pulses. His white count was 10.98. Denies any fever, chills. No chest pain. Has some chronic cough, started using nicotine patch now. He gets short of breath when he gets cough. No nausea, no vomiting, no sweating. Has some mild headache, no dizziness, no blurred vision, no earache, no runny nose, no sore throat, no difficulty swallowing. Appetite is good. Sleeps okay. No recent weight gain or weight loss. No abdominal pain. Normal bowel and bladder movements. No black stools or blood in the stools, no hematuria. Ambulates with help of cane. The patient also had left EIA stent and left SFA stents in the past. Admission Exam Per Admitting Provider 68-year-old male with past medical history significant for type 2 diabetes, hyperlipidemia, COPD, lung nodule, obstructive sleep apnea, peripheral artery disease, hypertension, tobacco use disorder, stasis ulcer of left ankle, obesity, comes with left lower extremity swelling and erythema. The patient was here in September with infected stasis ulcer of left lower extremity. At that time, cultures grew MSSA and proteus. He was initially started on vancomycin and Zosyn, seen by ID and they recommended p.o. Keflex for 21 days and he is also following with Vascular Surgery for possible revascularization. He was seen recently at [facility] and had intervention with left SFA and popliteal mechanical thrombectomy, angioplasty and stent placement and had good Doppler signals postoperatively and his pain was improved in left lower extremity and was discharged, but the patient says since today again developed erythema in left lower extremity and also swelling and also having burning sensation in the legs, so he came to the ER. Lower extremity Doppler in the ER had good pulses. His white count was 10.98. Denies any fever, chills. No chest pain. Has some chronic cough, started using nicotine patch now. He gets short of breath when he gets cough. No nausea, no vomiting, no sweating. Has some mild headache, no dizziness, no blurred vision, no earache, no runny nose, no sore throat, no difficulty swallowing. Appetite is good. Sleeps okay. No recent weight gain or weight loss. No abdominal pain. Normal bowel and bladder movements. No black stools or blood in the stools, no hematuria. Ambulates with help of cane. The patient also had left EIA stent and left SFA stents in the past. Principal Diagnosis (1) Cellulitis of left leg: (2) Cellulitis: (3) Arterial leg ulcer: (4) Infected stasis ulcer of left lower extremity: (5) PAD (peripheral artery disease): (6) Hypertension: (7) ELIZABETH (obstructive sleep apnea): (8) DM type 2 (diabetes mellitus, type 2): (9) Tobacco abuse: Discharge Exam ROS-No Headache, No Visual Changes, No Nausea, No Vomiting, No Fever, No Chills, No Neck Pain or Stiffness, No Chest Pain, No Palpitations, No SOB, No SRIVASTAVA, No Cough, No Sputum, No Wheezing, No Abdominal Pain, No Diarrhea, No Hematemesis, No Hemoptysis, No Unexpected Weight Loss, No Flank pain, No Melena, No Hematochezia, No Frequency, No Urgency, No Burning, No Hematuria, No Rashes, No Diaphoresis. Appetite is Normal, c/o sore LLE, notes less swelling, less red Physical Exam Gen-AAO x 3, NAD, Afebrile, obese Head-NCAT, EOMI, PERRLA, Anicteric Sclera, No Posterior Pharyngeal Erythema Neck-Supple, No JVD, No Thyromegaly, No Masses, No LAD, No Bruits Lungs-Clear to Auscultation Bilaterally, No Rales, No Rhonchi, No Wheezing, No Crepitus Chest-No S4, +S1, +S2, No S3, No Murmurs, No Rubs, No Gallops, No Ectopy Abdomen-Soft, Bowel Sounds Present, Non Tender, Non Distended, No Hepatomegaly, No Splenomegaly, No Palpable Masses, No Rebound, No Rigidity, No Guarding Musculoskeletal-Full Range of Motion Bilaterally, No CVAT Extremities-No Cyanosis, No Clubbing, No Edema, Less Erythema, vastly improved today Nuero-Cranial Nerves II-XII grossly intact, Motor WNL, DTRs WNL, Strength WNL, Non Focal Psych-Normal Mood Discharge Data Allergies Allergy/AdvReac Type Severity Reaction Status Date / Time No Known Allergies Allergy Verified 11/15/18 13:48 Consultations 11/16/18 20:24 ED Decision to Admit Stat 11/16/18 22:29 Consult Case Management - Discharge Planning Routine 11/17/18 08:00 Consult Infectious Diseases Routine Ordered Studies 11/16/18 20:22 US venous doppler LE LT Stat Current Diagnoses Type 2 diabetes mellitus without complications (11/16/18) Obstructive sleep apnea (adult) (pediatric) (11/16/18) Essential (primary) hypertension (11/16/18) Peripheral vascular disease, unspecified (11/16/18) 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 of unspecified site and inflammation (11/16/18) Cellulitis of left lower limb (11/16/18) Cellulitis, unspecified (11/16/18) Non-pressure chronic ulcer of unspecified part of unspecified lower leg with unspecified severity (11/16/18) Non-pressure chronic ulcer of unspecified part of left lower leg with unspecified severity (11/16/18) Encounter for prophylactic measures, unspecified (11/16/18) Tobacco use (11/16/18) Allergies No Known Allergies Allergy (Verified 11/15/18 13:48) Height/Weight/Isolation Height 5 ft 5 in Weight 101.9 kg Chemistry 11/19/18 11/20/18 06:24 06:05 Sodium 144 144 Potassium 3.4 L 3.4 L Chloride 108 H 108 H Carbon Dioxide 30 29 Anion Gap 6.0 7.0 BUN 11 9 Creatinine 0.81 0.76 Glucose 105 H 128 H Microbiology 11/16/18 20:07 Blood Aerobic Blood Culture - Preliminary No growth in Aerobic bottle after 48 hours. 11/16/18 20:07 Blood Anaerobic Blood Culture - Preliminary No growth in Anaerobic bottle after 48 hours. 11/16/18 20:19 Blood Aerobic Blood Culture - Preliminary No growth in Aerobic bottle after 48 hours. 11/16/18 20:19 Blood Anaerobic Blood Culture - Preliminary No growth in Anaerobic bottle after 48 hours. Hospital Course (1) Cellulitis of left leg: (2) Cellulitis: (3) Arterial leg ulcer: (4) Infected stasis ulcer of left lower extremity: (5) PAD (peripheral artery disease): (6) Hypertension: (7) ELIZABETH (obstructive sleep apnea): (8) DM type 2 (diabetes mellitus, type 2): (9) Tobacco abuse: (10) DVT prophylaxis: ASSESSMENT AND PLAN: This is a 68-year-old male who presents with recurrent left lower extremity cellulitis. 1. Recurrent left lower extremity cellulitis and infected stasis of the left lower extremity. 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 On 11/03/2018, he again had vascular procedure at [facility] with left SFA and popliteal mechanical thrombectomy, angioplasty and stent placement. In the ER, currently, his pulses were okay. Doppler to rule out DVT, Patient on IV Zosyn and IV vancomycin. Follow the cultures. ID on case. 2. Diabetes. Hold metformin and Victoza. insulin sliding scale 3. Peripheral artery disease. Continue aspirin, Plavix and statin. 4. Hypertension. Add Norvasc Continue Losartan/HCTZ 5. Obstructive sleep apnea, on CPAP. 6. Tobacco use. Currently on nicotine patch. 7. Chronic obstructive pulmonary disease. Continue home inhalers, currently stable. 8. Obese BMI 37 DISPOSITION: DC home and follow with family doctor and Vascular Surgery. IV Dapto x 7 days at home. US guided peripheral Total Time Total Time Spent Total Time Spent (In Minutes): 45 mins Total Time Includes: Examination of the Patient, Discharge Planning, Medication Reconciliation and Communication With Other Providers Discharge Plan Discharge Items Patient Disposition: Home - Home Health Services Reason For Visit: LEFT LOWER EXTREMITY ERYTHEMA AND SWELLING Discharge Diagnosis: (1) Cellulitis of left leg: (2) Cellulitis: (3) Arterial leg ulcer: (4) Infected stasis ulcer of left lower extremity: (5) PAD (peripheral artery disease): (6) Hypertension: (7) ELIZABETH (obstructive sleep apnea): (8) DM type 2 (diabetes mellitus, type 2): (9) Tobacco abuse: Condition on Discharge: Good Activity: Resume your previous activity Lifting: Gradually increase as tolerated Bathing: No limitations Sexual Activity: When tolerated Exercise/Sports: Gradually increase as tolerated Driving/Machine Use: No limitations Weightbearing: Full weightbearing Non-emergency contact: Primary Care Provider and Surgeon Call non-emergency contact if: you have any medication questions Follow-up/Referrals: Amarilys Ledesma MD [Primary Care Provider] - Augie Meadows MD [Physician] - (call office for appt) Diet: Carb Consistent or DM2 and Heart Healthy Addtl Attending Provider Instructions: Follow up on clinical improvement Follow up with Vascular-[facility] opening Pending Studies at Discharge: No Stand-Alone Forms: My [facility] [id number] Medications and DC Order Prescriptions: New daptomycin 500 mg recon soln 500 mg IV DAILY Qty: 6 RF: 0 amlodipine [Norvasc] 5 mg Tablet 5 mg PO QAM Qty: 30 RF: 0 Continued aspirin [Adult Low Dose Aspirin] 81 mg tablet,delayed release (DR/EC) 81 mg PO DAILY RF: 0 atorvastatin [Lipitor] 40 mg tablet 40 mg PO DAILY RF: 0 cholecalciferol (vitamin D3) 1,000 unit capsule 2,000 units PO DAILY RF: 0 losartan-hydrochlorothiazide [Hyzaar] 100-25 mg tablet 1 tab PO DAILY RF: 0 venlafaxine [Effexor XR] 150 mg capsule,extended release 24hr 150 mg PO DAILY RF: 0 gabapentin 600 mg tablet 1,200 mg PO QPM RF: 0 gabapentin 600 mg tablet 600 mg PO QAM RF: 0 albuterol sulfate 2.5 mg /3 mL (0.083 %) solution for nebulization 2.5 mg inhalation Q4H PRN (Reason: Wheezing) RF: 0 clopidogrel 75 mg tablet 75 mg PO DAILY RF: 0 omeprazole 40 mg capsule,delayed release(DR/EC) 40 mg PO QAM RF: 0 albuterol sulfate 90 mcg/actuation HFA aerosol inhaler 2 puff inhalation Q4H PRN (Reason: Shortness Of Breath Or Wheezing) RF: 0 metformin 500 mg tablet extended release 24 hr 1,000 mg PO BIDM RF: 0 Victoza 3-Dorian 0.6 mg/0.1 mL (18 mg/3 mL) pen injector 1.8 mg subcut DAILY RF: 0 Tresiba FlexTouch U-200 200 unit/mL (3 mL) insulin pen 84 unit subcut QPM RF: 0 Anoro Ellipta 62.5-25 mcg/actuation blister with device 1 inh inhalation DAILY RF: 0 finasteride [Proscar] 5 mg Tablet 5 mg PO DAILY RF: 0 nicotine [Nicoderm CQ] 21 mg/24 hr Patch 24 Hour 1 patch TRANSDERMAL DAILY RF: 0 oxycodone [Roxicodone] 5 mg tablet 5 mg PO Q8 PRN (Reason: Pain) RF: 0 acetaminophen [Tylenol Extra Strength] 500 mg Tablet 1,000 mg PO Q6H PRN (Reason: Pain) RF: 0 Discontinued cephalexin [Keflex] 500 mg capsule 500 mg PO BID RF: 0 Discharge Orders: Discharge Order (Routine); Ordered 11/20/18 Ordered By: Etienne Lynn Admission Data Admit Date/Time: 11/16/18 21:13 Attending Provider: Etienne Lynn Admit Provider: Madan Hanson Primary Care Provider: Amarilys Ledesma Other Providers: Madan Hanson ; Augie Meadows
[2018-11-20] MEDS ORDERED: DAPTOmycin 500 MG in SYRINGE 0 ML IV SCH (12:00)
[2018-11-20] MEDS: DAPTOmycin 400 MG in SYRINGE 0 ML IV SCH (13:56)
--- NOTE | 2018-11-20 15:06 | Infectious Disease Progress Nt ---
Date of Service November 20, 2018 Assessment & Plan (1) Cellulitis of left le yo male with diabetes and PAD with recurrent LLE cellulitis, response to IV antibiotics. To continue IV daptomycin for 7 more days. Will follow as outpatient. (2) Arterial leg ulcer: Subjective Patient seen for recurrent left lower extremity cellulitis. Suggest remains afebrile, blood cultures are negative. Left leg slowly improving. No fever. No other new complaints. Review of Systems Review of Systems: All systems reviewed & are unremarkable except as noted in HPI & below Physical Exam Constitutional: WD/WN, vitals as above + obese and comfortable; no acute distress Eyes: PERRL, conjunctivae normal, anicteric sclerae ENMT: external ear and nose normal, oropharynx normal Neck: trachea midline, no thyromegaly neck nontender Respiratory: normal respiratory effort, lungs clear to auscultation normal percussion; does not use accessory muscles Cardiovascular: Rate/Rhythm: regular rate and regular rhythm Heart Sounds: normal S1 and normal S2; no gallop, no murmur and no cardiac rub Vessels: normal peripheral pulses; no JVD Gastrointestinal (Abdomen): normal bowel sounds, soft, nontender, no hepatosplenomegaly Musculoskeletal: no cyanosis or clubbing, extremities motor strength 5/5 Spine: thoracic spine normal to inspection and lumbar spine normal to inspection; no cervical spinal tenderness Skin: no rashes, warm and dry normal turgor, + ulcer (left post. ankle) and + erythema (Left leg erythema improving) Neurologic: patellar DTR's 2+ bilat, sensation intact no focal motor deficits Psychiatric: A+Ox3, euthymic affect Orientation: cooperative Lymphatic: no cervical or axillary lymphadenopathy no inguinal lymphadenopathy Results & Data Vital Signs (Past 12 Hours) Vital Signs Temp Pulse Resp BP Pulse Ox 11/20/18 14:25 36.8 C 71 18 164/66 H 94 11/20/18 08:26 36.8 C 71 18 164/66 H 94 Laboratory Results Short CBC 11/20/18 Range/Units 06:05 WBC 6.31 (4.8-10.8) K/uL Hgb 11.3 L (14.0-18.0) g/dL Hct 35.8 L (42-52) % Plt Count 229 (130-400) K/uL BMP 11/20/18 06:05 Sodium 144 Potassium 3.4 L Chloride 108 H Carbon Dioxide 29 BUN 9 Creatinine 0.76 Glucose 128 H Calcium 8.9 Cardiac Enzymes 11/20/18 Range/Units 13:49 Total Creatine Kinase 53 (39-308) U/L Diagnostic Findings Microbiology 11/16/18 20:07 Blood Aerobic Blood Culture - Preliminary No growth in Aerobic bottle after 48 hours. 11/16/18 20:07 Blood Anaerobic Blood Culture - Preliminary No growth in Anaerobic bottle after 48 hours. 11/16/18 20:19 Blood Aerobic Blood Culture - Preliminary No growth in Aerobic bottle after 48 hours. 11/16/18 20:19 Blood Anaerobic Blood Culture - Preliminary No growth in Anaerobic bottle after 48 hours. PG Care Time/CCT Total # of Minutes Spent Total Time Spent with Patient: Total time spent is greater than 50% in coordination of care (as documented) at patient's floor/unit and/or counseling patient:
== END 2018-11-20 16:53 | disposition home health service (06) | DRG 300 ==
LOC: ED 18:05 → 4W 21:13

== ENCOUNTER 2021-04-22 07:10 | Observation (INO) ==
[2021-04-22] MEDS ORDERED: ALBUT/IPRATROP 3MG/0.5MG NEB 3 ML VIAL NEB STA (07:27)
[2021-04-22] MEDS ORDERED: SODIUM CHLORIDE 0.9% 500 ML IV ONE ×2 (07:28→08:25)
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
[2021-04-22 07:54] LABS: Basophils # (auto) 0.03 K/uL (0-0.2); Basophils % (auto) 0.4 %; Eosinophils # (auto) 0.15 K/uL (0-0.5); Eosinophils % (auto) 1.8 %; Hematocrit (blood only) 39.3 % (42-52); Hemoglobin 12.9 g/dL (14.0-18.0); Immature Granulocytes # (auto) 0.02 K/uL (0.00-0.02); Immature Granulocytes % (auto) 0.2 %; Lymphocytes # (auto) 1.29 K/uL (1.2-3.4); Lymphocytes % (auto) 15.2 %; Mean Corpuscular Hemoglobin 24.7 pg (25-34); Mean Corpuscular Hgb Conc 32.8 g/dL (32-36); Mean Corpuscular Volume 75.3 fL (80-100); Mean Platelet Volume 9.6 fL (7.4-10.4); Monocytes # (auto) 0.82 K/uL (0.11-0.59); Monocytes % (auto) 9.7 %; Neutrophils # (auto) 6.15 K/uL (1.4-6.5); Neutrophils % (auto) 72.7 %; Platelet Count 294 K/uL (130-400); RDW Coefficient of Variation 14.3 % (11.5-14.5); RDW Standard Deviation 39.7 fL (36.4-46.3); Red Blood Count 5.22 M/uL (4.7-6.1); White Blood Count 8.46 K/uL (4.8-10.8)
--- NOTE | 2021-04-22 08:09 | XRay Report ---
XR chest 1V portable HISTORY: 70 years-old Male Chest Pain . Chest pain COMPARISON: Chest radiograph 11/16/2018 TECHNIQUE: Portable AP view of the chest FINDINGS: Cardiac silhouette is enlarged. Calcified plaque of the thoracic aorta. No pneumothorax or large pleu ral effusion. Pulmonary vascular congestion with mild reticular interstitial coarsening. Progressed f rom prior. Degenerative changes of the shoulders and spine. IMPRESSION: Cardiomegaly with nonspecific interstitial coarsening, likely chronic. Mild pulmonary jose cruz ma or interstitial pneumonitis would be difficult to exclude. ACT 112: Negative or not required by law. The above report was generated using voice recognition software. It may contain grammatical, syntax o r spelling errors. Electronically signed by: Shay Hearn M.D. 04/22/2021 8:07 AM
[2021-04-22 08:17] LABS: Albumin Globulin Ratio 1.4 (0.9-2); Albumin Level 3.8 gm/dl (3.4-5.0); BUN Creatinine Ratio 13.4 (10-20); Bilirubin,Total 0.7 mg/dl (0.2-1.0); Calcium 9.4 mg/dl (8.5-10.1); Creatinine Clr Calc Pharmacy 114.9 ml/min; Est GFR (African American) 112.8 ml/min; Est GFR (Non-African American) 97.4 ml/min; Globulin 2.7 gm/dl (2.5-4.0); Potassium 3.4 mmol/L (3.5-5.1); Total Protein 6.5 gm/dl (6.0-8.3)
[2021-04-22 08:19] LABS: Troponin I 0.04 ng/ml (0-0.04)
[2021-04-22] MEDS ORDERED: ASPIRIN CHEW 324 MG PO STA (10:54)
[2021-04-22] MEDS ORDERED: POTASSIUM CHLORIDE CRTAB 20 MEQ TABCR PO STA (11:13)
--- NOTE | 2021-04-22 11:26 | Electrocardiogram Report ---
Test Reason : Blood Pressure : / mmHG Vent. Rate : 105 BPM Atrial Rate : 105 BPM P-R Int : 162 ms QRS Dur : 144 ms QT Int : 404 ms P-R-T Axes : 047 -68 084 degrees QTc Int : 533 ms Sinus tachycardia with Premature atrial complexes Left axis deviation Right bundle branch block Left ventricular hypertrophy with repolarization abnormality Abnormal ECG When compared with ECG of 16-NOV-2018 20:26, Premature atrial complexes are now Present Confirmed by Mickey Jacinto ([id number]) on 04/22/2021 11:26:32 AM Referred By: REFERRED SELF Confirmed By:Mason Jacinto
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
[2021-04-22] MEDS ORDERED: ONDANSETRON INJ 2 MG/ML 2 ML VIAL IV PRN (13:18)
[2021-04-22] MEDS ORDERED: GLUCOSE 40% GEL 15 GM TUBE PO PRN (13:18)
[2021-04-22] MEDS ORDERED: GLUCOSE 10 TABS/TUBE PO PRN (13:18)
[2021-04-22] MEDS ORDERED: GLUCAGON FOR INJ 1 MG VIAL SQ PRN (13:18)
[2021-04-22] MEDS ORDERED: cefTRIAXone SODIUM 1,000 MG in DEXTROSE 5% 50 ML IV SCH (13:18)
[2021-04-22] MEDS ORDERED: CARBOHYDRATES FOR HYPOGLYCEMIA PO PRN (13:18)
[2021-04-22] MEDS ORDERED: ALBUTEROL 0.083% NEBU SOLN 3 ML VIAL INH PRN (13:18)
[2021-04-22] MEDS ORDERED: ACETAMINOPHEN 325 MG TAB PO PRN (13:18)
[2021-04-22] MEDS ORDERED: DEXTROSE 50% 50 ML SYRINGE IV PRN (13:18)
[2021-04-22] MEDS ORDERED: ALBUTEROL HFA 8 GM INHALER INH PRN (13:18)
[2021-04-22] MEDS ORDERED: cefTRIAXone SODIUM 2,000 MG in DEXTROSE 5% 50 ML IV SCH (14:00)
[2021-04-22] MEDS: INSULIN ASPART PER UNIT SC SCH ×3 (14:27→20:38)
[2021-04-22] MEDS: ALBUT/IPRATROP 3MG/0.5MG NEB 3 ML VIAL NEB SCH ×3 (14:35→23:25)
[2021-04-22] MEDS ORDERED: metFORMIN HCL ER 500 MG TABCR PO SCH (17:00)
[2021-04-22] MEDS ORDERED: FUROSEMIDE 40 MG/4 ML VIAL IV ONE (17:00)
[2021-04-22] MEDS ORDERED: POLYETHYLENE (MIRALAX) 17 GM PACK PO ONE (20:00)
[2021-04-23] MEDS: ALBUT/IPRATROP 3MG/0.5MG NEB 3 ML VIAL NEB SCH ×2 (02:18→07:24)
[2021-04-23] MEDS ORDERED: PANTOprazole 40 MG TAB PO SCH (06:30)
[2021-04-23 06:58] LABS: Basophils # (auto) 0.02 K/uL (0-0.2); Basophils % (auto) 0.2 %; Eosinophils # (auto) 0.06 K/uL (0-0.5); Eosinophils % (auto) 0.5 %; Hemoglobin 12.3 g/dL (14.0-18.0); Immature Granulocytes # (auto) 0.03 K/uL (0.00-0.02); Immature Granulocytes % (auto) 0.3 %; Lymphocytes # (auto) 1.76 K/uL (1.2-3.4); Lymphocytes % (auto) 14.7 %; Mean Corpuscular Hemoglobin 24.3 pg (25-34); Mean Corpuscular Hgb Conc 31.5 g/dL (32-36); Mean Corpuscular Volume 76.9 fL (80-100); Mean Platelet Volume 9.6 fL (7.4-10.4); Monocytes % (auto) 10.1 %; Neutrophils # (auto) 8.87 K/uL (1.4-6.5); Neutrophils % (auto) 74.2 %; Platelet Count 295 K/uL (130-400); RDW Coefficient of Variation 14.5 % (11.5-14.5); RDW Standard Deviation 40.7 fL (36.4-46.3); Red Blood Count 5.07 M/uL (4.7-6.1); White Blood Count 11.94 K/uL (4.8-10.8)
[2021-04-23 07:22] LABS: Albumin Globulin Ratio 1.5 (0.9-2); Albumin Level 3.7 gm/dl (3.4-5.0); BUN Creatinine Ratio 15.2 (10-20); Bilirubin,Total 0.6 mg/dl (0.2-1.0); Creatinine Clr Calc Pharmacy 114.3 ml/min; Est GFR (African American) 113.5 ml/min; Globulin 2.5 gm/dl (2.5-4.0); Magnesium 1.2 mg/dl (1.7-2.4); Potassium 3.6 mmol/L (3.5-5.1); Total Protein 6.2 gm/dl (6.0-8.3)
[2021-04-23] MEDS: INSULIN ASPART PER UNIT SC SCH ×3 (08:01→16:44)
[2021-04-23 08:40] LABS: Estimated Average Glucose 171 mg/dl; Hemoglobin A1C 7.6 % (4.5-5.6)
[2021-04-23] MEDS ORDERED: hydroCHLOROthiazide 25 MG TAB PO SCH (09:00)
[2021-04-23] MEDS ORDERED: ATORVASTATIN 40 MG TAB PO SCH (09:00)
[2021-04-23] MEDS ORDERED: CHOLECALCIFEROL 1,000 UNITS 25 MCG TAB PO SCH (09:00)
[2021-04-23] MEDS ORDERED: VENLAFAXINE HCL XR 150 MG CAPXR PO SCH (09:00)
[2021-04-23] MEDS ORDERED: CLOPIDOGREL BISULFATE 75 MG TAB PO SCH (09:00)
[2021-04-23] MEDS ORDERED: FINASTERIDE 5 MG TAB PO SCH (09:00)
[2021-04-23] MEDS ORDERED: ASPIRIN 81 MG ECTAB PO SCH (09:00)
[2021-04-23] MEDS ORDERED: LOSARTAN POTASSIUM 50 MG TAB PO SCH (09:00)
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
[2021-04-23] MEDS ORDERED: LIDOCAINE 2% 2 ML VIAL/AMP(20MG/ML) INFIL ONE (10:38)
[2021-04-23] MEDS ORDERED: fentaNYL citrate 100 MCG/2 ML VIAL ONE (10:38)
[2021-04-23] MEDS ORDERED: GLYCOPYRROLATE 0.2 MG/ML VIAL ONE (10:38)
[2021-04-23] MEDS ORDERED: PROPOFOL IV EMULSION 10 MG/ML 20 ML VIAL IV ONE ×2 (10:38→11:18)
--- NOTE | 2021-04-23 11:25 | Communication Note ---
Date of Service: April 23, 2021 The patient underwent upper endoscopy and colonoscopy today. The upper endoscopy was notable for a normal-appearing stomach esophagus and duodenum. Ra ndom biopsies taken from the duodenum. The patient also underwent colonoscopy notable for several colonic polyps which were removed, and internal hemorrhoids Recommendations Advance diet as tolerated Please call with any questions or concerns GI to sign off
--- NOTE | 2021-04-23 11:36 | GI REPORT ---
Patient Name: Etienne Braun Procedure Date: 04/23/2021 10:46 AM Date of : 1950 Admit Type: Inpatient Age: 70 Gender: Male Attending MD: Herman Gabriel DO Procedure: Upper GI endoscopy Providers: Herman Gabriel DO Referring MD: LUZ HORTA Indications: Iron deficiency anemia Medicines: Monitored Anesthesia Care Complications: No immediate complications. Estimated blood loss: Minimal. Estimated Blood Loss: Estimated blood loss was minimal. Procedure: Pre-Anesthesia Assessment: - Prior to the procedure, a History and Physical was performed, and patient medications, allergies and sensitivities were reviewed. The patient's tolerance of previous anesthesia was reviewed. - The risks and benefits of the procedure and the sedation options and risks were discussed with the patient. All questions were answered and informed consent was obtained. - Patient identification and proposed procedure were verified prior to the procedure by the physician, the nurse and the service operator. The procedure was verified in the procedure room. - Pre-procedure physical examination revealed no contraindications to sedation. - ASA Grade Assessment: III - A patient with severe systemic disease. - After reviewing the risks and benefits, the patient was deemed in satisfactory condition to undergo the procedure. - The anesthesia plan was to use monitored anesthesia care (MAC). - Immediately prior to administration of medications, the patient was re-assessed for adequacy to receive sedatives. - The heart rate, respiratory rate, oxygen saturations, blood pressure, adequacy of pulmonary ventilation, and response to care were monitored throughout the procedure. - The physical status of the patient was re-assessed after the procedure. After obtaining informed consent, the endoscope was passed under direct vision. Throughout the procedure, the patient's blood pressure, pulse, and oxygen saturations were monitored continuously. The Colonoscope was introduced through the mouth, and advanced to the third part of duodenum. The upper GI endoscopy was accomplished without difficulty. The patient tolerated the procedure well. Findings: The examined esophagus was normal. The Z-line was regular and was found 39 cm from the incisors. The entire examined stomach was normal. The examined duodenum was normal. Biopsies were taken with a cold forceps for histology. Impression: - Normal esophagus. - Z-line regular, 39 cm from the incisors. - Normal stomach. - Normal examined duodenum. Biopsied. Recommendation: - Perform a colonoscopy today. - Await pathology results. Herman Gabriel D.O. Herman Gabriel, 04/23/2021 11:36:02 AM This report has been signed electronically. Note Initiated On: 04/23/2021 10:46 AM Number of Addenda: 0 I attest to the content of the Intraoperative Record and orders documented therein, exceptions below {[id number]}
--- NOTE | 2021-04-23 11:40 | GI REPORT ---
Patient Name: Etienne Braun Procedure Date: 04/23/2021 10:44 AM Date of : 1950 Admit Type: Inpatient Age: 70 Gender: Male Attending MD: Herman Gabriel DO Procedure: Colonoscopy Providers: Herman Gabriel DO Referring MD: LUZ HORTA Indications: Iron deficiency anemia Medicines: Monitored Anesthesia Care Complications: No immediate complications. Estimated blood loss: Minimal. Estimated Blood Loss: Estimated blood loss was minimal. Procedure: Pre-Anesthesia Assessment: - Prior to the procedure, a History and Physical was performed, and patient medications, allergies and sensitivities were reviewed. The patient's tolerance of previous anesthesia was reviewed. - The risks and benefits of the procedure and the sedation options and risks were discussed with the patient. All questions were answered and informed consent was obtained. - Patient identification and proposed procedure were verified prior to the procedure by the physician, the nurse and the emergency medcl emt. The procedure was verified in the procedure room. - Pre-procedure physical examination revealed no contraindications to sedation. - ASA Grade Assessment: III - A patient with severe systemic disease. - After reviewing the risks and benefits, the patient was deemed in satisfactory condition to undergo the procedure. - The anesthesia plan was to use monitored anesthesia care (MAC). - Immediately prior to administration of medications, the patient was re-assessed for adequacy to receive sedatives. - The heart rate, respiratory rate, oxygen saturations, blood pressure, adequacy of pulmonary ventilation, and response to care were monitored throughout the procedure. - The physical status of the patient was re-assessed after the procedure. After I obtained informed consent, the scope was passed under direct vision. Throughout the procedure, the patient's blood pressure, pulse, and oxygen saturations were monitored continuously. The Colonoscope was introduced through the anus and advanced to the terminal ileum. The colonoscopy was performed without difficulty. The patient tolerated the procedure well. The quality of the bowel preparation was good. Findings: The perianal and digital rectal examinations were normal. Pertinent negatives include normal sphincter tone. The terminal ileum appeared normal. A 10 mm polyp was found in the transverse colon. The polyp was semi-sessile. The polyp was removed with a hot snare. Resection and retrieval were complete. To prevent bleeding after the polypectomy, one hemostatic clip was successfully placed (MR conditional). There was no bleeding at the end of the procedure. A 7 mm polyp was found in the descending colon. The polyp was semi-sessile. The polyp was removed with a hot snare. Resection and retrieval were complete. Estimated blood loss was minimal. Internal hemorrhoids were found during retroflexion. The hemorrhoids were mild. The exam was otherwise without abnormality. Impression: - The examined portion of the ileum was normal. - One 10 mm polyp in the transverse colon, removed with a hot snare. Resected and retrieved. Clip (MR conditional) was placed. - One 7 mm polyp in the descending colon, removed with a hot snare. Resected and retrieved. - Internal hemorrhoids. - The examination was otherwise normal. Recommendation: - Repeat colonoscopy in 3 - 5 years for surveillance. - Return to GI office PRN. Herman Gabriel D.O. Herman Gabriel, 04/23/2021 11:39:26 AM This report has been signed electronically. Note Initiated On: 04/23/2021 10:44 AM Number of Addenda: 0 I attest to the content of the Intraoperative Record and orders documented therein, exceptions below {[id number]}
--- NOTE | 2021-04-23 12:56 | Anesthesiology Progress Note ---
Date of Service April 23, 2021 Anesthesia Post Procedure Vital Signs Vital Signs: Temp Pulse Pulse Resp BP BP BP 04/23/21 12:06 36.5 C 102 H 18 133/68 04/23/21 11:53 103 H 18 155/84 H 04/23/21 11:38 95 H 18 100/52 L 04/23/21 11:26 100 H 18 112/62 04/23/21 10:23 36.6 C 105 H 18 168/82 H 04/23/21 07:22 97 H 26 H 04/23/21 07:10 36.7 C 99 H 18 166/79 H 04/23/21 04:16 36.6 C 97 H 20 154/65 H 04/22/21 23:48 37.1 C 87 18 119/62 04/22/21 23:00 85 04/22/21 19:38 36.5 C 90 20 121/53 L 04/22/21 19:04 89 18 04/22/21 15:35 37.0 C 108 H 17 160/72 H 04/22/21 14:36 101 H 18 04/22/21 13:54 111 H 04/22/21 13:19 36.6 C 110 H 22 165/89 H 04/22/21 13:18 36.8 C 104 H 22 155/105 H Pulse Ox 04/23/21 12:06 92 04/23/21 11:53 94 04/23/21 11:38 93 04/23/21 11:26 96 04/23/21 10:23 97 04/23/21 07:22 95 04/23/21 07:10 95 04/23/21 04:16 94 04/22/21 23:48 95 04/22/21 23:00 04/22/21 19:38 94 04/22/21 19:04 91 04/22/21 15:35 94 04/22/21 14:36 96 04/22/21 13:54 04/22/21 13:19 96 04/22/21 13:18 96 Transfer of Care Handoff Completed per policy Notes Mental Status: alert / awake / arousable and participated in evaluation Patient Amnestic to Procedure: Yes Nausea / Vomiting: adequately controlled Pain: adequately controlled Airway Patency, RR, SpO2: stable & adequate BP & HR: stable & adequate Hydration State: stable & adequate Anesthetic Complications: no major complications apparent and Pt Satisfied with anesthetic care
[2021-04-23] MEDS: MAGNESIUM SULFATE / D5W 1 GM/100 ML BAG IV SCH ×2 (15:19→16:19)
--- NOTE | 2021-04-23 15:51 | Discharge Summary ---
Date of Service April 23, 2021 Admission HPI Per Admitting Provider He is a 70-year-old male with significant past medical history of COPD, sleep apnea, type 2 diabetes, peripheral arterial disease, hypertension, history of lung nodule and hyperlipidemia apparently was a scheduled for a colonoscopy and EGD today as an outpatient. While here was coming through the main entrance he got very short of breath with wheezing and he was brought into the emergency room for further evaluation. He did not have these symptoms before and he has his preparation for the colonoscopy and EGD to be done today. He was noted to have wheezing and did not have any complaints of chest pain, palpitation, nausea and or vomiting, any numbness and or tingling in the extremities, and no visual symptoms. He received intravenous Solu-Medrol and nebulized bronchodilator in the emergency room and his condition improved a lot. He was admitted to medical telemetry unit for observation. Admission Exam Per Admitting Provider Physical Exam: Lying in bed comfortably Constitutional: well developed, well nourished and + obese; not ill appearing Eyes: PERRL, conjunctivae normal, anicteric sclerae ENMT: external ear and nose normal, oropharynx normal Neck: trachea midline, no thyromegaly Respiratory: no respiratory distress Auscultation: + diminished lung sounds and + crackles (Minimal crackles at the bases); no wheezes Gastrointestinal (Abdomen): Inspection/Auscultation: normal bowel sounds; abdomen not distended Percussion/Palpation: abdomen soft; abdomen nontender Musculoskeletal: No acute arthritis in any joint Neurologic: Alert, awake and oriented x3 Principal Diagnosis Shortness of breath Chronic obstructive pulmonary disease: ELIZABETH (obstructive sleep apnea): DM type 2 (diabetes mellitus, type 2): Hypertension: PAD (peripheral artery disease): Discharge Exam General- No acute distress Head- atraumatic Eyes- PERRL, EOMI, ENT- oropharynx clear Neck- supple, no JVD Lungs- +diminished BS Heart- regular rhythm; no murmur Abdomen- normal bowel sounds, soft, nontender Extremities- no calf tenderness Neuro- alert, oriented x 3; PERRL, EOMI; no facial palsy; no dysarthria Skin- warm & dry Discharge Data Allergies Allergy/AdvReac Type Severity Reaction Status Date / Time No Known Allergies Allergy Verified 04/23/21 10:22 Consultations 04/22/21 11:11 ED Decision to Admit Stat Procedures Performed Operation Date: 04/23/21 16:00 Actual Procedures p EGD Biopsy Cytology - Herman Gabriel DO s Colonoscopy Polypectomy - Herman Gabriel DO Ordered Studies XR chest 1V portable HISTORY: 70 years-old Male Chest Pain . Chest pain COMPARISON: Chest radiograph 11/16/2018 TECHNIQUE: Portable AP view of the chest FINDINGS: Cardiac silhouette is enlarged. Calcified plaque of the thoracic aorta. No pneumothorax or large pleural effusion. Pulmonary vascular congestion with mild reticular interstitial coarsening. Progressed from prior. Degenerative changes of the shoulders and spine. IMPRESSION: Cardiomegaly with nonspecific interstitial coarsening, likely chronic. Mild pulmonary edema or interstitial pneumonitis would be difficult to exclude. ACT 112: Negative or not required by law. The above report was generated using voice recognition software. It may contain grammatical, syntax or spelling errors. Electronically signed by: Shay Hearn M.D. 04/22/2021 8:07 AM Dictated:04/22/21805 Transcribed: 04/22/21805 Hospital Course (1) Shortness of breath: Has history of COPD He was noted to have shortness of breath with wheezing while he was coming into the hospital for EGD and colonoscopy this morning He was brought into the emergency room and the condition more or less resolved with intravenous Solu-Medrol and nebulized bronchodilator He will be admitted to the hospital for observation We will continue nebulized bronchodilator and his CPAP at nighttime for ELIZABETH No antibiotic and/or steroid needed CLasix given on admission Second set of troponin was minimally elevated at 0.06 but the third set came down to 0.05 and doubt any cardiac condition EGD and colonoscopy He was supposed to have EGD and colonoscopy today as an outpatient Got short of breath while he was entering to the main entrance and was brought in the emergency room He has had the preparation and will give him n.p.o. so that he can have it done tomorrow or as per GI instruction We will inform GI (2) Chronic obstructive pulmonary disease: Doubt any exacerbation at this time He had minimal shortness of breath may be contributed by anxiety and physical activity Doubt any infection and/or exacerbation (3) ELIZABETH (obstructive sleep apnea): Has been using CPAP at nighttime (4) DM type 2 (diabetes mellitus, type 2): We will hold any oral medications Put him on sliding scale insulin coverage (5) Hypertension: Continue outpatient med Continue monitor BP (6) PAD (peripheral artery disease): Has history of peripheral to disease Chronic skin change in the legs Do not think any infection Electrolytes Imbalance Electrolytes replaced Monitor BMP and Mg level in 1 week DVT prophylaxis subcu heparin CODE STATUS Full Disposition Will discharge home today Total Time Total Time Spent Total Time Spent (In Minutes): 35 minutes Discharge Plan Discharge Items Patient Disposition: Home - Self-Care Reason For Visit: SOB Discharge Diagnosis: Shortness of breath Chronic obstructive pulmonary disease: ELIZABETH (obstructive sleep apnea): DM type 2 (diabetes mellitus, type 2): Hypertension: PAD (peripheral artery disease): Activity: Resume your previous activity Non-emergency contact: Primary Care Provider Call non-emergency contact if: you have any medication questions Follow-up/Referrals: Casimiro Orantes MD [Primary Care Provider] - 04/28/21 11:00 am Diet: Carb Consistent or DM2 Addtl Attending Provider Instructions: Follow up with your primary care provider with 1 week Check Magnesium level and BMP with 1 week Increase potassium intake in your diet seek medically attention if you develop shortness of breath Counseling on smoking cessation fall precaution Pending Studies at Discharge: Yes Studies:: Colon biopsy Stand-Alone Forms: My [facility] Pervasip, Smoking Cessation Medications and DC Order Prescriptions: New magnesium oxide 400 mg magnesium tablet 400 mg PO BID Qty: 30 RF: 0 Continued aspirin [Adult Low Dose Aspirin] 81 mg tablet,delayed release (DR/EC) 81 mg PO QAM RF: 0 cholecalciferol (vitamin D3) 1,000 unit capsule 2,000 units PO QAM RF: 0 venlafaxine [Effexor XR] 150 mg capsule,extended release 24hr 150 mg PO QAM RF: 0 albuterol sulfate 2.5 mg /3 mL (0.083 %) solution for nebulization 2.5 mg inhalation Q4H PRN (Reason: Wheezing) RF: 0 clopidogrel 75 mg tablet 75 mg PO QAM RF: 0 omeprazole 40 mg capsule,delayed release(DR/EC) 40 mg PO QAM RF: 0 albuterol sulfate 90 mcg/actuation HFA aerosol inhaler 2 puff inhalation Q4H PRN (Reason: Shortness Of Breath Or Wheezing) RF: 0 metformin 500 mg tablet extended release 24 hr 1,000 mg PO BIDM RF: 0 finasteride [Proscar] 5 mg Tablet 5 mg PO QAM RF: 0 atorvastatin 40 mg Tablet 40 mg PO QAM RF: 0 hydrochlorothiazide 25 mg Tablet 25 mg PO QAM RF: 0 losartan 100 mg Tablet 100 mg PO QAM RF: 0 insulin NPH and regular human 100 unit/mL (70-30) Cartridge 65 unit SUBCUT BIDM RF: 0 Discharge Orders: Discharge Order (Routine); Ordered 04/23/21 Ordered By: Cedric Enriquez/Other Patient Handouts: Managing Type 2 Diabetes Admission Data Admit Date/Time: 04/22/21 11:33 Attending Provider: Cedric Puentes Admit Provider: Toni Olvera Primary Care Provider: Casimiro Orantes Other Providers: Rina Alicea ; Toni Olvera Other Interventions: Discharge Summary Assessment (RN) Last Done: 04/23/21 15:42
[2021-04-23] MEDS ORDERED: ALBUT/IPRATROP 3MG/0.5MG NEB 3 ML VIAL NEB SCH (19:00)
== END 2021-04-23 17:22 | disposition home or self-care (01) ==
LOC: ED 07:10 → 2S 07:10 → SUATTDRO 11:33 → 2S 13:18
DX: Z79.4 Long term (current) use of insulin; E11.9 Type 2 diabetes mellitus without complications; F17.210 Nicotine dependence, cigarettes, uncomplicated; J44.9 Chronic obstructive pulmonary disease, unspecified; K63.5 Polyp of colon; Z79.82 Long term (current) use of aspirin; K64.8 Other hemorrhoids; D50.9 Iron deficiency anemia, unspecified; Z79.899 Other long term (current) drug therapy; Z20.822 Contact with and (suspected) exposure to COVID-19; G47.33 Obstructive sleep apnea (adult) (pediatric); R06.02 Shortness of breath; Z80.0 Family history of malignant neoplasm of digestive organs; Z79.84 Long term (current) use of oral hypoglycemic drugs; Z79.01 Long term (current) use of anticoagulants; D12.3 Benign neoplasm of transverse colon; I10 Essential (primary) hypertension

== ENCOUNTER 2021-05-10 12:33 | Inpatient (IN) ==
[2021-05-10 13:26] LABS: Basophils # (auto) 0.01 K/uL (0-0.2); Basophils % (auto) 0.1 %; Hematocrit (blood only) 28.2 % (42-52); Hemoglobin 8.8 g/dL (14.0-18.0); Immature Granulocytes # (auto) 0.03 K/uL (0.00-0.02); Immature Granulocytes % (auto) 0.3 %; Lymphocytes # (auto) 0.61 K/uL (1.2-3.4); Lymphocytes % (auto) 6.3 %; Mean Corpuscular Hgb Conc 31.2 g/dL (32-36); Mean Corpuscular Volume 76.8 fL (80-100); Mean Platelet Volume 9.4 fL (7.4-10.4); Monocytes # (auto) 0.76 K/uL (0.11-0.59); Monocytes % (auto) 7.8 %; Neutrophils # (auto) 8.31 K/uL (1.4-6.5); Neutrophils % (auto) 85.5 %; Platelet Count 273 K/uL (130-400); RDW Coefficient of Variation 14.9 % (11.5-14.5); RDW Standard Deviation 42.3 fL (36.4-46.3); Red Blood Count 3.67 M/uL (4.7-6.1); White Blood Count 9.72 K/uL (4.8-10.8)
[2021-05-10] MEDS ORDERED: methylPREDNISolone 125 MG/2 ML VIAL IV STA (13:32)
[2021-05-10] MEDS ORDERED: ALBUT/IPRATROP 3MG/0.5MG NEB 3 ML VIAL NEB STA (13:32)
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
[2021-05-10 13:37] LABS: INR 1.1 (0.9-1.1); Partial Thromboplastin Ratio 0.8; Partial Thromboplastin Time 23.2 Seconds (21.0-31.0); Prothrombin Time 11.5 Seconds (9.0-12.0)
--- NOTE | 2021-05-10 13:39 | XRay Report ---
XR chest 1V portable CLINICAL HISTORY: Dyspnea. COMPARISON STUDY: Chest radiograph April 22, 2021. FINDINGS: There is no pneumothorax or pleural effusion. Moderate cardiomegaly is again noted. Interst itial thickening has progressed. No lobar consolidation is present. IMPRESSION: Progression of interstitial thickening since chest radiograph of April 22, 2021. Pulm onary edema is favored although an infectious process could appear similar. Radiographic follow-up is recommended. ACT 112: Negative or not required by law. Electronically signed by: Morgan Beckett M.D. 05/10/2021 1:38 PM
[2021-05-10 14:06] LABS: Albumin Globulin Ratio 1.5 (0.9-2); Albumin Level 3.8 gm/dl (3.4-5.0); BUN Creatinine Ratio 24.7 (10-20); Bilirubin,Total 0.8 mg/dl (0.2-1.0); Calcium 8.7 mg/dl (8.5-10.1); Creatinine Clr Calc Pharmacy 89.3 ml/min; Est GFR (African American) 100.4 ml/min; Est GFR (Non-African American) 86.6 ml/min; Globulin 2.5 gm/dl (2.5-4.0); Total Protein 6.3 gm/dl (6.0-8.3)
[2021-05-10 14:12] LABS: Oxygen Saturation VBG 82.8 %; pH VBG 7.43 (7.36-7.41)
[2021-05-10 14:37] LABS: Troponin I 0.09 ng/ml (0-0.04)
[2021-05-10] MEDS ORDERED: SODIUM CHLORIDE 0.9% 1000ML 500 ML IV ONE (14:42)
[2021-05-10 14:51] LABS: Influenza A virus by PCR Negative (Neg); Influenza B virus by PCR Negative (Neg); RSV by PCR Negative (Neg); SARS CoV2 RNA(COVID-19) InHosp NEGATIVE (Negative)
[2021-05-10] MEDS ORDERED: OPTIRAY 320 125ml IV ONE (15:39)
--- NOTE | 2021-05-10 16:00 | CT Scan Report ---
CT ANGIOGRAM OF THE CHEST CLINICAL HISTORY: Dyspnea. COMPARISON STUDY: Chest x-ray dated 05/10/2021. TECHNIQUE: Following the IV administration of 121 cc of Optiray 320, CT angiogram of the chest was pe rformed from the upper abdomen to the thoracic inlet utilizing the pulmonary embolus protocol. Images are reviewed in the axial, sagittal, and coronal planes. 3-D MIPS images are created and assessed. I V contrast was administered without complication. A dose lowering technique was utilized adhering to the principles of ALARA. CT DOSE: 893.93 mGy.cm FINDINGS: Thyroid: Imaged portions of the thyroid gland are normal in size and attenuation. Thoracic aorta: There is atherosclerotic calcification of the thoracic aorta, which is normal in génesis christiano and demonstrates 4-vessel variant arch anatomy. An aberrant right subclavian artery arises as a f ourth branch and courses posterior to the esophagus. No dissection is seen. Pulmonary vasculature: The pulmonary trunk is normal in caliber. There are no filling defects identif ied in main, lobar, or segmental pulmonary branches to suggest pulmonary embolus. Apparent filling de fects in the lower lobe pulmonary arteries is related to mixing artifact. Heart: The heart is enlarged and without pericardial effusion. The coronary arteries are densely calc ified. Lungs and pleural spaces: There are small to moderate pleural effusions with associated atelectasis. Intralobular septal thickening is seen throughout both lungs. Secretions are noted in the trachea. Sc attered calcified granulomas are incidentally noted. Mediastinum: There is no mediastinal lymphadenopathy. [place]: Clear. Axillae: There is no axillary lymphadenopathy. Upper abdomen: A 7.8 cm myelolipoma is partially visualized in the right adrenal gland. A left adrena l myelolipoma measures up to 3 cm. Partially visualized upper abdominal viscera is otherwise within n ormal limits. Skeletal structures: The skeletal structures are osteopenic. No lytic or blastic bony lesions are see n. Degenerative change is noted in the shoulders and thoracic spine. IMPRESSION: 1. There is no evidence of pulmonary embolus in the main, lobar, or segmental pulmonary arteries. 2. Cardiomegaly with evidence of congestive failure. 3. Layering pleural effusions. 4. Large adrenal myelolipomas as above. ACT 112: Negative or not required by law. Electronically signed by: Sarath Polanco M.D. 05/10/2021 3:59 PM
[2021-05-10] MEDS ORDERED: ASPIRIN CHEW 324 MG PO STA (16:16)
[2021-05-10 16:26] LABS: Appearance Urine Clear (Clear); Bacteria Urine Automated Negative (Negative); Blood Urine 1+ (Negative); Color Urine Dark Yellow; Epithelial Cell Urine Auto >30 /lpf (0-5); Glucose Urine UA Negative (Negative); Ketones Urine 1+ (Negative); Leukocyte Esterase Urine Negative (Negative); Nitrite Urine Negative (Negative); Protein Urine 2+ (Negative); Specific Gravity Urine 1.045 (1.000-1.030); Urobilinogen Urine Negative (Negative)
[2021-05-10 16:41] LABS: Bilirubin Urine 1+ (Negative)
[2021-05-10] MEDS ORDERED: TOBRAMYCIN SULF 0.3% OP SOLN 5 ML BTL OP ONE (16:42)
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
[2021-05-10] MEDS ORDERED: ALBUT/IPRATROP 3MG/0.5MG NEB 3 ML VIAL ONE (17:15)
[2021-05-10] MEDS ORDERED: FUROSEMIDE 40 MG/4 ML VIAL IV ONE ×2 (17:17→17:18)
[2021-05-10 18:49] LABS: HCO3 ABG 26 mmol/L (19-24); Oxygen Saturation ABG 97.4 % (90-95); PCO2 ABG 38 mmHg (35-46); PO2 ABG 93 mmHg (80-95); pH ABG 7.45 (7.35-7.45)
[2021-05-10 18:51] LABS: Allen Test Pos (Pos)
[2021-05-10] MEDS ORDERED: CARBOHYDRATES FOR HYPOGLYCEMIA PO PRN (19:09)
[2021-05-10] MEDS ORDERED: GLUCOSE 10 TABS/TUBE PO PRN (19:09)
[2021-05-10] MEDS ORDERED: GLUCAGON FOR INJ 1 MG VIAL SQ PRN (19:09)
[2021-05-10] MEDS ORDERED: ACETAMINOPHEN 325 MG TAB PO PRN ×2 (19:09)
[2021-05-10] MEDS ORDERED: ONDANSETRON INJ 2 MG/ML 2 ML VIAL IV PRN (19:09)
[2021-05-10] MEDS ORDERED: INSULIN HUMAN 70% NPH/30% REGULAR SQ SCH (19:09)
[2021-05-10] MEDS ORDERED: GLUCOSE 40% GEL 15 GM TUBE PO PRN (19:09)
[2021-05-10] MEDS ORDERED: DEXTROSE 50% 50 ML SYRINGE IV PRN (19:09)
[2021-05-10] MEDS ORDERED: LEVALBUTEROL 1.25MG/0.5ML NEB NEB PRN (19:28)
[2021-05-10] MEDS: BENZONATATE 100 MG CAPSULE PO SCH (20:44)
[2021-05-10] MEDS: guaiFENesin 600 MG TABCR PO SCH (20:44)
[2021-05-10] MEDS: INSULIN GLARGINE SOLOSTAR 100 UNITS/ML 3 ML PEN SC SCH (20:59)
--- NOTE | 2021-05-10 21:43 | Electrocardiogram Report ---
Test Reason : Blood Pressure : / mmHG Vent. Rate : 100 BPM Atrial Rate : 100 BPM P-R Int : 166 ms QRS Dur : 138 ms QT Int : 404 ms P-R-T Axes : 035 -63 083 degrees QTc Int : 521 ms Sinus rhythm with Premature atrial complexes Right bundle branch block Left anterior fascicular block Bifascicular block Abnormal ECG When compared with ECG of 22-APR-2021 07:33, No significant change Confirmed by Sujit Rodríguez ([id number]) on 05/10/2021 9:43:01 PM Referred By: Confirmed By:Sujit Rodríguez
[2021-05-10] MEDS: methylPREDNISolone 40 MG in SYRINGE 0 ML IV SCH (21:47)
[2021-05-10] MEDS: INSULIN ASPART PER UNIT SC SCH (22:19)
[2021-05-10] MEDS: LEVALBUTEROL 1.25MG/0.5ML NEB NEB SCH (23:57)
[2021-05-11] MEDS ORDERED: METOPROLOL TARTRATE 1 MG/ML VIAL IV STA (00:39)
[2021-05-11] MEDS ORDERED: DOXYCYCLINE HYCLATE 100 MG in DEXTROSE 5% 100 ML IV STA (00:41)
[2021-05-11] MEDS ORDERED: MAGNESIUM SULFATE / D5W 1 GM/100 ML BAG IV ONE ×2 (00:42→05:21)
--- NOTE | 2021-05-11 00:43 | Communication Note ---
Date of Service: May 11, 2021 Patient with productive junky cough symptoms. Initiate Doxycycline.
[2021-05-11] MEDS: guaiFENesin SUGAR FREE 200 MG/10 ML UDC PO PRN ×3 (01:19→20:46)
[2021-05-11] MEDS: MELATONIN 3 MG TAB PO PRN (01:36)
[2021-05-11] MEDS: methylPREDNISolone 40 MG in SYRINGE 0 ML IV SCH ×2 (06:13→13:10)
[2021-05-11] MEDS: PANTOprazole 40 MG TAB PO SCH (06:30)
[2021-05-11 06:35] LABS: Basophils # (auto) 0.01 K/uL (0-0.2); Basophils % (auto) 0.1 %; Hematocrit (blood only) 34.3 % (42-52); Hemoglobin 10.6 g/dL (14.0-18.0); Immature Granulocytes # (auto) 0.03 K/uL (0.00-0.02); Immature Granulocytes % (auto) 0.3 %; Lymphocytes # (auto) 0.66 K/uL (1.2-3.4); Lymphocytes % (auto) 5.8 %; Mean Corpuscular Hemoglobin 23.5 pg (25-34); Mean Corpuscular Hgb Conc 30.9 g/dL (32-36); Mean Corpuscular Volume 76.1 fL (80-100); Mean Platelet Volume 9.5 fL (7.4-10.4); Monocytes % (auto) 9.7 %; Neutrophils # (auto) 9.53 K/uL (1.4-6.5); Neutrophils % (auto) 84.1 %; Platelet Count 314 K/uL (130-400); RDW Coefficient of Variation 14.8 % (11.5-14.5); RDW Standard Deviation 41.4 fL (36.4-46.3); Red Blood Count 4.51 M/uL (4.7-6.1); White Blood Count 11.33 K/uL (4.8-10.8)
[2021-05-11 07:03] LABS: Est GFR (African American) 99.9 ml/min; Potassium 4.1 mmol/L (3.5-5.1)
[2021-05-11 07:04] LABS: Albumin Globulin Ratio 1.6 (0.9-2); Albumin Level 3.7 gm/dl (3.4-5.0); BUN Creatinine Ratio 32.2 (10-20); Bilirubin,Total 0.7 mg/dl (0.2-1.0); Calcium 9.3 mg/dl (8.5-10.1); Creatinine Clr Calc Pharmacy 88.3 ml/min; Est GFR (Non-African American) 86.2 ml/min; Globulin 2.3 gm/dl (2.5-4.0); Magnesium 1.9 mg/dl (1.7-2.4)
[2021-05-11 07:08] LABS: Troponin I 0.07 ng/ml (0-0.04)
[2021-05-11] MEDS: amLODIPine BESYLATE 5 MG TAB PO SCH (07:13)
[2021-05-11] MEDS: LEVALBUTEROL 1.25MG/0.5ML NEB NEB SCH ×3 (07:21→21:42)
[2021-05-11] MEDS: FLUTICASONE/VILANTEROL 100/25MCG 14 PUFFS/INHALER INH SCH (08:28)
[2021-05-11] MEDS: BENZONATATE 100 MG CAPSULE PO SCH ×3 (08:30→20:43)
[2021-05-11] MEDS: guaiFENesin 600 MG TABCR PO SCH ×2 (08:30→20:44)
[2021-05-11] MEDS: ASPIRIN 81 MG ECTAB PO SCH (08:31)
[2021-05-11] MEDS: INSULIN GLARGINE SOLOSTAR 100 UNITS/ML 3 ML PEN SC SCH ×2 (08:31→20:38)
[2021-05-11] MEDS: CHOLECALCIFEROL 1,000 UNITS 25 MCG TAB PO SCH (08:32)
[2021-05-11] MEDS: FINASTERIDE 5 MG TAB PO SCH (08:33)
[2021-05-11] MEDS: CLOPIDOGREL BISULFATE 75 MG TAB PO SCH (08:33)
[2021-05-11] MEDS: VENLAFAXINE HCL XR 150 MG CAPXR PO SCH (08:33)
[2021-05-11] MEDS: LOSARTAN POTASSIUM 50 MG TAB PO SCH (08:34)
[2021-05-11] MEDS: ATORVASTATIN 40 MG TAB PO SCH (08:34)
[2021-05-11] MEDS: hydroCHLOROthiazide 25 MG TAB PO SCH (08:34)
[2021-05-11] MEDS: INSULIN ASPART PER UNIT SC SCH ×4 (08:35→20:36)
[2021-05-11] MEDS ORDERED: INSULIN ISOPHANE SQ SCH (09:00)
[2021-05-11] MEDS ORDERED: [UNRECOGNIZED DRUG - OTHER] SQ SCH (09:00)
[2021-05-11] MEDS ORDERED: amLODIPine BESYLATE 5 MG TAB PO SCH (09:00)
[2021-05-11] MEDS ORDERED: FUROSEMIDE INJ 20 MG/2 ML VIAL IV ONE (16:33)
--- NOTE | 2021-05-11 20:40 | Hospitalist Progress Note ---
Date of Service May 11, 2021 Assessment & Plan (1) Shortness of breath: (2) COPD (chronic obstructive pulmonary disease): Plan: Present on admission with worsening SOB Possible related to COPD exacerbation vs pulmonary edema CXR showed no evidence of pulmonary embolus in the main, lobar, or segmental pulmonary arteries. Cardiomegaly with evidence of congestive failure. Negative COVID 19, RSV and flu Received solumedrol and IV lasix on admission On Solumedrol IV 40mg TID, will decrease to 40mg daily Will give an additional lasx 20mg IV x1 today Will consider to get an echo Doxycycline was started last night due to productive cough, doubt of pneumonia Will check procalcitonin, then if negative will d/c abx Continue oxygen supplement for now to keep oxygen sat btw 88 tp 92 % Continue neb treatment Flutter valve and incentive spirometry (3) Iron deficiency anemia: Plan: recent cscope on 04/23/[address] Gabriel - removed benign tubular adenoma polyp found in the colon where removed 2 polyps with hot snare, and no bleeding sites were found hgb stable at 10.6 (4) Elevated troponin: Plan: Mostly due to demand ischemia due to acute respiratory failure with hypoxia Trop 0.09 on admission, then trending down to 0.07 EKG showed no acute ischemic changes Continue asa, clopidogrel and statin Will get an echo Denies any chest pain currently (5) Tobacco abuse: Plan: Counseling on smoking cessation (6) DM type 2 (diabetes mellitus, type 2): Plan: Most recent hba1c 7.6 Continue holding metformin On Lantus and insulin sliding scale (7) ELIZABETH (obstructive sleep apnea): Plan: Continue Cpap for now (8) PAD (peripheral artery disease): Plan: Continue plavix, aspirin and statin Stable (9) Hypertension: Plan: Losartan, metoprolol and amlodipine BP stable (10) Morbid obesity with BMI of 40.0-44.9, adult: Plan: BMI of 41.2, diet and exercise to be encouraged Elevated liver enzymes Liver enzymes mildly elevated on admission with AST 67->63 an ALT 69 ->63 Continue monitor liver enzyme DVT ppx: teds, scds, no chemical ppx at this time in the setting of acute hgb drop in the past 3 weeks, continue plavix and asa for now CODE: Full code Disposition Continue monitor closely Admission and Anticipated Discharge Date Admission Date: May 10, 2021 Subjective Pt was seen and examined for follow up of SOB and cough Lying in bed with no acute distress Pt said that his breathing feels much better today He said last night he was able to urinate alot He said that he has been coughing yellowish phlegm Currently on 2 L NC with no discomfort Denies any chest pain, palpitation, dizziness and fever Review of Systems Review of Systems: All systems reviewed & are unremarkable except as noted in Subjective Physical Exam Physical Exam: General- No acute distress Head- atraumatic Eyes- PERRL, EOMI, ENT- oropharynx clear Neck- supple, no JVD Lungs- +coarse BS Heart- regular rhythm; no murmur Abdomen- normal bowel sounds, soft, nontender Extremities- no calf tenderness Neuro- alert, oriented x 3; PERRL, EOMI; no facial palsy; no dysarthria Skin- warm & dry Results & Data Results & Data ([facility]) Vital Signs (Past 12 Hours) Vital Signs Temp Pulse Pulse Resp BP BP Pulse Ox 05/11/21 19:34 36.5 C 99 H 19 134/75 92 05/11/21 15:23 36.7 C 114 H 20 113/69 92 05/11/21 14:50 97 H 05/11/21 12:48 74 20 96 05/11/21 11:16 36.5 C 101 H 22 129/67 95 05/11/21 10:25 94 (1) COPD (chronic obstructive pulmonary disease) COPD type: unspecified COPD Qualified Code(s): J44.9 - Chronic obstructive pulmonary disease, unspecified
[2021-05-11] MEDS: DOXYCYCLINE HYCLATE 100 MG CAP PO SCH (20:44)
[2021-05-12] MEDS: LEVALBUTEROL 1.25MG/0.5ML NEB NEB SCH ×4 (00:27→19:20)
[2021-05-12] MEDS: guaiFENesin SUGAR FREE 200 MG/10 ML UDC PO PRN ×2 (02:21→19:46)
[2021-05-12] MEDS: PANTOprazole 40 MG TAB PO SCH (06:03)
[2021-05-12] MEDS: NICOTINE 21 MG/24 HR TDSY TD SCH (06:21)
[2021-05-12 06:51] LABS: Albumin Globulin Ratio 1.6 (0.9-2); Albumin Level 3.7 gm/dl (3.4-5.0); Bilirubin,Total 0.7 mg/dl (0.2-1.0); Calcium 8.7 mg/dl (8.5-10.1); Creatinine Clr Calc Pharmacy 70.3 ml/min; Est GFR (Non-African American) 75.9 ml/min; Globulin 2.3 gm/dl (2.5-4.0); Potassium 3.7 mmol/L (3.5-5.1)
[2021-05-12] MEDS: INSULIN GLARGINE SOLOSTAR 100 UNITS/ML 3 ML PEN SC SCH ×2 (08:34→20:57)
[2021-05-12] MEDS: INSULIN ASPART PER UNIT SC SCH ×4 (08:34→20:57)
[2021-05-12] MEDS: methylPREDNISolone 40 MG in SYRINGE 0 ML IV SCH (08:35)
[2021-05-12] MEDS: ATORVASTATIN 40 MG TAB PO SCH (08:37)
[2021-05-12] MEDS: ASPIRIN 81 MG ECTAB PO SCH (08:37)
[2021-05-12] MEDS: FINASTERIDE 5 MG TAB PO SCH (08:38)
[2021-05-12] MEDS: hydroCHLOROthiazide 25 MG TAB PO SCH (08:38)
[2021-05-12] MEDS: VENLAFAXINE HCL XR 150 MG CAPXR PO SCH (08:38)
[2021-05-12] MEDS: CHOLECALCIFEROL 1,000 UNITS 25 MCG TAB PO SCH (08:39)
[2021-05-12] MEDS: LOSARTAN POTASSIUM 50 MG TAB PO SCH (08:39)
[2021-05-12] MEDS: CLOPIDOGREL BISULFATE 75 MG TAB PO SCH (08:40)
[2021-05-12] MEDS: amLODIPine BESYLATE 5 MG TAB PO SCH (08:40)
[2021-05-12] MEDS: guaiFENesin 600 MG TABCR PO SCH ×2 (08:40→20:56)
[2021-05-12] MEDS: DOXYCYCLINE HYCLATE 100 MG CAP PO SCH ×2 (08:41→20:56)
[2021-05-12] MEDS: BENZONATATE 100 MG CAPSULE PO SCH ×3 (08:41→20:57)
[2021-05-12] MEDS: FLUTICASONE/VILANTEROL 100/25MCG 14 PUFFS/INHALER INH SCH (08:42)
[2021-05-12] MEDS: FUROSEMIDE 40 MG/4 ML VIAL IV SCH ×2 (09:07→20:56)
--- NOTE | 2021-05-12 14:28 | XRay Report ---
SINGLE VIEW CHEST CLINICAL HISTORY: Dyspnea. FINDINGS: An AP, portable, upright chest radiograph is compared to chest x-ray and chest CT dated 04/27. The examination is degraded by portable technique and apical lordotic positioning. The heart is enlarged noting atherosclerotic calcification of the thoracic aorta. Pulmonary vascular congestion and interstitial edema persist. Trace pleural effusions are suspected. No pneumothorax is seen. The skeletal structures are osteopenic. The bony thorax is grossly intact. Arthritic change is noted in t he shoulders. IMPRESSION: Cardiomegaly with evidence of congestive failure and pulmonary edema. This is similar to 05/10/2021. ACT 112: Negative or not required by law. Electronically signed by: Sarath Polanco M.D. 05/12/2021 2:27 PM
[2021-05-13] MEDS: LEVALBUTEROL 1.25MG/0.5ML NEB NEB SCH ×4 (00:34→19:24)
[2021-05-13] MEDS: guaiFENesin SUGAR FREE 200 MG/10 ML UDC PO PRN (05:04)
[2021-05-13] MEDS: PANTOprazole 40 MG TAB PO SCH (05:47)
[2021-05-13 06:53] LABS: Albumin Globulin Ratio 1.6 (0.9-2); Albumin Level 3.6 gm/dl (3.4-5.0); BUN Creatinine Ratio 35.2 (10-20); Bilirubin,Total 0.8 mg/dl (0.2-1.0); Calcium 8.7 mg/dl (8.5-10.1); Creatinine Clr Calc Pharmacy 82.7 ml/min; Est GFR (African American) 100.9 ml/min; Globulin 2.3 gm/dl (2.5-4.0); Potassium 3.3 mmol/L (3.5-5.1); Total Protein 5.9 gm/dl (6.0-8.3)
--- NOTE | 2021-05-13 09:00 | Hospitalist Progress Note ---
Date of Service May 13, 2021 delayed entry date of service 05/12/21 Assessment & Plan (1) Shortness of breath: (2) COPD (chronic obstructive pulmonary disease): Plan: COPD exacerbation, Possible Acute Diastolic CHF Exacerbation repeat CXR: persistent pulmonary edema pattern Echo: pending improving gradually continue Nebs, Solumedrol, Doxycycline, Breo continue Lasix 40mg IV BID (3) Iron deficiency anemia: Plan: recent cscope on 04/23/[address] Gabriel - removed benign tubular adenoma polyp found in the colon where removed 2 polyps with hot snare, and no bleeding sites were found hgb stable at 10.6 (4) Elevated troponin: Plan: likely due to demand ischemia due to acute respiratory failure with hypoxia Trop 0.09 on admission, then trending down to 0.07 EKG showed no acute ischemic changes Continue asa, clopidogrel and statin echo pending no chest pain (5) Tobacco abuse: Plan: Counseling on smoking cessation (6) DM type 2 (diabetes mellitus, type 2): Plan: Most recent hba1c 7.6 Continue holding metformin On Lantus and insulin sliding scale (7) ELIZABETH (obstructive sleep apnea): Plan: Continue Cpap for now (8) PAD (peripheral artery disease): Plan: Continue plavix, aspirin and statin Stable (9) Hypertension: Plan: Losartan, metoprolol and amlodipine BP stable (10) Morbid obesity with BMI of 40.0-44.9, adult: Plan: BMI of 41.2, diet and exercise to be encouraged Elevated liver enzymes improving DVT ppx: teds, scds, no chemical ppx at this time in the setting of acute hgb drop in the past 3 weeks, continue plavix and asa for now CODE: Full code Disposition Continue monitor closely plan of care discussed with patient in detail and at length all questions answered he is understanding, agreeable, comfortable with the plan of care Admission and Anticipated Discharge Date Admission Date: May 10, 2021 Subjective ff up for acute pulmonary edema, COPD exacerbation, etc seen resting in bed, comfortable not in distress on room air states he feels improved compared to yesterday breathing improving has occasional cough with clear sputum no sputum no fever/chills no other symptom Review of Systems Review of Systems: all noted and negative except for above Physical Exam Physical Exam: General- oriented x 3, not in distress, speaks in sentences with no effort or accessory muscle use Eyes- anicteric Neck- no JVD Lungs- mild rales at the bases intermittent wheezing Heart- normal rate, regular rhythm; no murmurs Abdomen- normal bowel sounds, nondistended, soft, nontender Extremities- mild pretibial edema, no calf tenderness Neuro- alert, oriented x 3; no gross focal neurologic deficits Skin- warm & dry Results & Data Results & Data ([facility]) Vital Signs (Past 12 Hours) Vital Signs Temp Pulse Pulse Resp BP Pulse Ox 05/13/21 07:25 103 H 24 91 05/13/21 03:42 36.6 C 94 H 20 126/67 91 05/13/21 00:35 72 20 91 05/12/21 23:22 36.9 C 102 H 24 133/71 93 05/12/21 22:20 105 H 05/12/21 22:15 98 H 18 95 all noted and reviewed including below (1) COPD (chronic obstructive pulmonary disease) COPD type: unspecified COPD Qualified Code(s): J44.9 - Chronic obstructive pulmonary disease, unspecified
[2021-05-13] MEDS: INSULIN GLARGINE SOLOSTAR 100 UNITS/ML 3 ML PEN SC SCH ×2 (09:06→22:00)
[2021-05-13] MEDS: INSULIN ASPART PER UNIT SC SCH ×4 (09:07→22:00)
[2021-05-13] MEDS: BENZONATATE 100 MG CAPSULE PO SCH ×3 (10:17→23:34)
[2021-05-13] MEDS: methylPREDNISolone 40 MG in SYRINGE 0 ML IV SCH (10:17)
[2021-05-13] MEDS: DOXYCYCLINE HYCLATE 100 MG CAP PO SCH ×2 (10:18→23:33)
[2021-05-13] MEDS: FUROSEMIDE 40 MG/4 ML VIAL IV SCH ×2 (10:18→22:01)
[2021-05-13] MEDS: LOSARTAN POTASSIUM 50 MG TAB PO SCH (10:18)
[2021-05-13] MEDS: ATORVASTATIN 40 MG TAB PO SCH (10:18)
[2021-05-13] MEDS: guaiFENesin 600 MG TABCR PO SCH ×2 (10:18→23:34)
[2021-05-13] MEDS: VENLAFAXINE HCL XR 150 MG CAPXR PO SCH (10:18)
[2021-05-13] MEDS: ASPIRIN 81 MG ECTAB PO SCH (10:19)
[2021-05-13] MEDS: amLODIPine BESYLATE 5 MG TAB PO SCH (10:19)
[2021-05-13] MEDS: FINASTERIDE 5 MG TAB PO SCH (10:19)
[2021-05-13] MEDS: CHOLECALCIFEROL 1,000 UNITS 25 MCG TAB PO SCH (10:19)
[2021-05-13] MEDS: CLOPIDOGREL BISULFATE 75 MG TAB PO SCH (10:19)
[2021-05-13] MEDS: FLUTICASONE/VILANTEROL 100/25MCG 14 PUFFS/INHALER INH SCH (10:20)
[2021-05-13] MEDS: NICOTINE 21 MG/24 HR TDSY TD SCH (10:20)
[2021-05-13] MEDS: POTASSIUM CHLORIDE CRTAB 20 MEQ TABCR PO SCH (10:24)
--- NOTE | 2021-05-13 13:37 | Hospitalist Progress Note ---
Date of Service May 13, 2021 Assessment & Plan (1) Acute systolic (congestive) heart failure: (2) Acute pulmonary edema: (3) COPD (chronic obstructive pulmonary disease): Plan: COPD exacerbation repeat CXR: persistent pulmonary edema pattern Echo: Left ventricular systolic function is low normal, ejection fraction 45 to 50% improving gradually Diuresing gradually Continue with Lasix 40 mg IV twice daily Cardiology service consulted continue Nebs, Solumedrol, Doxycycline, Breo (4) Iron deficiency anemia: Plan: recent cscope on 04/23/[address] Gabriel - removed benign tubular adenoma polyp found in the colon where removed 2 polyps with hot snare, and no bleeding sites were found hgb stable at 10.6 --We will check anemia panel (5) Elevated troponin: Plan: likely due to demand ischemia due to acute respiratory failure with hypoxia Trop 0.09 on admission, then trending down to 0.07 EKG showed no acute ischemic changes Continue asa, clopidogrel and statin echo as above no chest pain (6) Tobacco abuse: Plan: Counseling on smoking cessation (7) DM type 2 (diabetes mellitus, type 2): Plan: Most recent hba1c 7.6 Continue holding metformin On Lantus and insulin sliding scale (8) ELIZABETH (obstructive sleep apnea): Plan: Continue Cpap for now (9) PAD (peripheral artery disease): Plan: Continue plavix, aspirin and statin Stable (10) Hypertension: Plan: Losartan, metoprolol and amlodipine BP stable (11) Morbid obesity with BMI of 40.0-44.9, adult: Plan: BMI of 41.2, diet and exercise to be encouraged Elevated liver enzymes improving DVT ppx: teds, scds, no chemical ppx at this time in the setting of acute hgb drop in the past 3 weeks, continue plavix and asa for now CODE: Full code Disposition Continue monitor closely plan of care discussed with patient in detail and at length all questions answered he is understanding, agreeable, comfortable with the plan of care Admission and Anticipated Discharge Date Admission Date: May 10, 2021 Subjective Follow-up for acute pulmonary edema, CP exacerbation, etc. Seen resting in bed, sitting up, comfortable, on room air States he continues to feel improved Breathing is improving, less cough, nonproductive No chest pain, palpitations, dizziness No fevers or chills No other symptoms Review of Systems Review of Systems: all noted and negative except for above Physical Exam Physical Exam: General- oriented x 3, not in distress, speaks in sentences with no effort or accessory muscle use Eyes- anicteric Neck- no JVD Lungs-mild rales at the bases, no wheezing, good air entry bilaterally Heart- normal rate, regular rhythm; no murmurs Abdomen- normal bowel sounds, nondistended, soft, nontender Extremities- trace pretibial edema, no calf tenderness Neuro- alert, oriented x 3; no gross focal neurologic deficits Skin- warm & dry Results & Data Results & Data ([facility]) Vital Signs (Past 12 Hours) Vital Signs Temp Pulse Pulse Resp BP Pulse Ox 05/13/21 13:07 118 H 24 93 05/13/21 12:00 36.7 C 114 H 20 124/71 98 05/13/21 08:00 101 H 05/13/21 07:25 103 H 24 91 05/13/21 03:42 36.6 C 94 H 20 126/67 91 all noted and reviewed including below (1) COPD (chronic obstructive pulmonary disease) COPD type: unspecified COPD Qualified Code(s): J44.9 - Chronic obstructive pulmonary disease, unspecified
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
[2021-05-13] MEDS: HEPARIN SOD 5,000 UNIT/0.5 ML VIAL SQ SCH (23:32)
[2021-05-14] MEDS: LEVALBUTEROL 1.25MG/0.5ML NEB NEB SCH ×4 (00:04→19:46)
[2021-05-14] MEDS: MELATONIN 3 MG TAB PO PRN (02:04)
[2021-05-14] MEDS: PANTOprazole 40 MG TAB PO SCH ×2 (06:31→08:57)
[2021-05-14 06:45] LABS: Basophils # (auto) 0.02 K/uL (0-0.2); Basophils % (auto) 0.2 %; Eosinophils # (auto) 0.12 K/uL (0-0.5); Hematocrit (blood only) 40.9 % (42-52); Immature Granulocytes # (auto) 0.01 K/uL (0.00-0.02); Immature Granulocytes % (auto) 0.1 %; Lymphocytes # (auto) 2.11 K/uL (1.2-3.4); Lymphocytes % (auto) 16.9 %; Mean Corpuscular Hemoglobin 23.9 pg (25-34); Mean Corpuscular Hgb Conc 31.8 g/dL (32-36); Mean Corpuscular Volume 75.3 fL (80-100); Mean Platelet Volume 9.1 fL (7.4-10.4); Monocytes # (auto) 1.87 K/uL (0.11-0.59); Monocytes % (auto) 14.9 %; Neutrophils # (auto) 8.39 K/uL (1.4-6.5); Neutrophils % (auto) 66.9 %; Platelet Count 386 K/uL (130-400); RDW Coefficient of Variation 14.7 % (11.5-14.5); RDW Standard Deviation 40.4 fL (36.4-46.3); Red Blood Count 5.43 M/uL (4.7-6.1); White Blood Count 12.52 K/uL (4.8-10.8)
[2021-05-14 07:24] LABS: Calcium 8.9 mg/dl (8.5-10.1); Creatinine Clr Calc Pharmacy 82.7 ml/min; Est GFR (African American) 100.9 ml/min; Potassium 3.4 mmol/L (3.5-5.1)
[2021-05-14 07:54] LABS: Folate (Folic Acid) 21.92 ng/ml (>5.38)
[2021-05-14 08:40] LABS: Ferritin 27.3 ng/ml (8-388)
[2021-05-14] MEDS: CHOLECALCIFEROL 1,000 UNITS 25 MCG TAB PO SCH (08:56)
[2021-05-14] MEDS: LOSARTAN POTASSIUM 50 MG TAB PO SCH (08:56)
[2021-05-14] MEDS: VENLAFAXINE HCL XR 150 MG CAPXR PO SCH (08:57)
[2021-05-14] MEDS: guaiFENesin 600 MG TABCR PO SCH ×2 (08:57→20:59)
[2021-05-14] MEDS: ATORVASTATIN 40 MG TAB PO SCH (08:57)
[2021-05-14] MEDS: ASPIRIN 81 MG ECTAB PO SCH (08:57)
[2021-05-14] MEDS: FUROSEMIDE 40 MG/4 ML VIAL IV SCH ×2 (08:58→20:59)
[2021-05-14] MEDS: FINASTERIDE 5 MG TAB PO SCH (08:58)
[2021-05-14] MEDS: CLOPIDOGREL BISULFATE 75 MG TAB PO SCH (08:58)
[2021-05-14] MEDS: POTASSIUM CHLORIDE CRTAB 20 MEQ TABCR PO SCH (08:58)
[2021-05-14] MEDS: DOXYCYCLINE HYCLATE 100 MG CAP PO SCH ×2 (08:59→20:59)
[2021-05-14] MEDS: NICOTINE 21 MG/24 HR TDSY TD SCH (08:59)
[2021-05-14] MEDS: amLODIPine BESYLATE 5 MG TAB PO SCH (08:59)
[2021-05-14] MEDS: BENZONATATE 100 MG CAPSULE PO SCH ×3 (08:59→20:58)
[2021-05-14] MEDS: FLUTICASONE/VILANTEROL 100/25MCG 14 PUFFS/INHALER INH SCH (09:00)
[2021-05-14] MEDS ORDERED: predniSONE 20 MG TAB PO SCH (09:00)
[2021-05-14] MEDS: INSULIN GLARGINE SOLOSTAR 100 UNITS/ML 3 ML PEN SC SCH ×2 (09:00→21:01)
[2021-05-14] MEDS: HEPARIN SOD 5,000 UNIT/0.5 ML VIAL SQ SCH ×2 (09:01→20:59)
[2021-05-14] MEDS: INSULIN ASPART PER UNIT SC SCH ×4 (09:04→21:00)
--- NOTE | 2021-05-14 11:33 | XRay Report ---
XR chest 1V portable CLINICAL HISTORY: Follow-up congestive heart failure. COMPARISON STUDY: Chest CT May 10, 2021. Chest radiograph May 12, 2021. FINDINGS: There is no pneumothorax. Small bilateral pleural effusions are again noted. Cardiomegaly i s unchanged. Pulmonary edema persists although has slightly improved. Left basilar opacity is unchang ed. IMPRESSION: 1. Persistent, but improved, pulmonary edema. 2. Small bilateral pleural effusions. ACT 112: Negative or not required by law. Electronically signed by: Morgan Beckett M.D. 05/14/2021 11:32 AM
--- NOTE | 2021-05-14 11:56 | Cardiology Progress Note ---
Date of Service May 14, 2021 Assessment & Plan (1) Morbid obesity with BMI of 40.0-44.9, adult: (2) COPD (chronic obstructive pulmonary disease): (3) Iron deficiency anemia: (4) Tobacco abuse: Plan: The patient is clinically stable. On the monitor he is having very brief runs of PAT. I would continue with the Plavix and aspirin that he is on. I am concerned from a compliance as well as an intellectual ability for this patient to be started on anticoagulation long-term. Admission and Anticipated Discharge Date Admission Date: May 10, 2021 Subjective The patient is eating lunch and has no complaints. Review of Systems Review of Systems: Review of Systems: See HPI for pertinent positives. All other 10 point review of systems are negative. Physical Exam Physical Exam: General: no acute distress and stated age Head: normocephalic, no masses, lesions, tenderness or abnormalities Eyes: conjunctiva are pink and non-injected, sclera clear Neck: supple, no adenopathy, no bruits, normal jugular venous pulse, no hepatojugular reflux Chest: normal shape and normal respiratory effort Lungs: clear to auscultation and percussion Cardiac Exam: - regular rate & rhythm, no murmurs gallops or rubs - normal S1, normal S2 Pulses: 2(+) throughout Abdomen: abdomen soft, non-tender, no abnormal masses and no hepatosplenomegaly Musculoskeletal: no gait disturbance, no joint inflammation, no deforming arthritis Extremities: no edema and no cyanosis Neuro: grossly normal exam Results & Data ([facility]) Vital Signs (Past 12 Hours) Vital Signs Temp Pulse Pulse Pulse Resp BP Pulse Ox 05/14/21 11:31 36.4 C L 99 H 16 139/76 90 05/14/21 09:53 100 H 05/14/21 07:47 36.5 C 98 H 15 143/73 H 90 05/14/21 07:18 101 H 20 96 05/14/21 04:07 96 H 18 157/80 H 96 05/14/21 00:05 88 20 91 Laboratory Results Laboratory Results - last 24 hr 05/13/21 05/13/21 05/13/21 16:17 20:04 20:05 WBC RBC Hgb Hct MCV MCH MCHC RDW Std Deviation RDW Coeff of Carine Plt Count MPV Immature Gran % (Auto) Neut % (Auto) Lymph % (Auto) Coles % (Auto) Eos % (Auto) Baso % (Auto) Neut # (Auto) Lymph # (Auto) Coles # (Auto) Eos # (Auto) Baso # (Auto) Immature Gran # (Auto) Sodium Potassium Chloride Carbon Dioxide Anion Gap BUN Creatinine Est Cr Clr Drug Dosing Est GFR ( Amer) Est GFR (Non-Af Amer) BUN/Creatinine Ratio Glucose POC Glucose 70 363 H* 347 H* Calcium Iron Transferrin Ferritin Vitamin B12 Folate 05/14/21 05/14/21 05/14/21 06:28 06:28 06:28 WBC 12.52 H RBC 5.43 Hgb 13.0 L Hct 40.9 L MCV 75.3 L MCH 23.9 L MCHC 31.8 L RDW Std Deviation 40.4 RDW Coeff of Carine 14.7 H Plt Count 386 MPV 9.1 Immature Gran % (Auto) 0.1 Neut % (Auto) 66.9 Lymph % (Auto) 16.9 Coles % (Auto) 14.9 Eos % (Auto) 1.0 Baso % (Auto) 0.2 Neut # (Auto) 8.39 H Lymph # (Auto) 2.11 Coles # (Auto) 1.87 H Eos # (Auto) 0.12 Baso # (Auto) 0.02 Immature Gran # (Auto) 0.01 Sodium 139 Potassium 3.4 L Chloride 98 Carbon Dioxide 33 H Anion Gap 8 BUN 22 Creatinine 0.88 Est Cr Clr Drug Dosing 82.7 Est GFR ( Amer) 100.9 Est GFR (Non-Af Amer) 87.0 BUN/Creatinine Ratio 25.0 H Glucose 115 H POC Glucose Calcium 8.9 Iron 32 L Transferrin 358 Ferritin 27.3 Vitamin B12 613 Folate 21.92 05/14/21 05/14/21 07:06 10:59 WBC RBC Hgb Hct MCV MCH MCHC RDW Std Deviation RDW Coeff of Carine Plt Count MPV Immature Gran % (Auto) Neut % (Auto) Lymph % (Auto) Coles % (Auto) Eos % (Auto) Baso % (Auto) Neut # (Auto) Lymph # (Auto) Coles # (Auto) Eos # (Auto) Baso # (Auto) Immature Gran # (Auto) Sodium Potassium Chloride Carbon Dioxide Anion Gap BUN Creatinine Est Cr Clr Drug Dosing Est GFR ( Amer) Est GFR (Non-Af Amer) BUN/Creatinine Ratio Glucose POC Glucose 142 H 222 H Calcium Iron Transferrin Ferritin Vitamin B12 Folate Medications Administered Current Inpatient Medications Acetaminophen (Acetaminophen 325 Mg Tab) 650 mg PO Q4H PRN PRN Reason: Moderate Pain Stop: 06/09/21 19:08 Amlodipine Besylate (Amlodipine Besylate 5 Mg Tab) 10 mg PO DAILY [facility] Stop: 06/10/21 05:29 Last Admin: 05/14/21 08:59 Dose: 10 mg Documented by: Aspirin (Aspirin 81 Mg Ectab) 81 mg PO QAM [facility] Stop: 06/10/21 08:59 Last Admin: 05/14/21 08:57 Dose: 81 mg Documented by: Atorvastatin Calcium (Atorvastatin 40 Mg Tab) 40 mg PO QAM [facility] Stop: 06/10/21 08:59 Last Admin: 05/14/21 08:57 Dose: 40 mg Documented by: Benzonatate (Benzonatate 100 Mg Capsule) 100 mg PO TID [facility] Stop: 06/09/21 20:59 Last Admin: 05/14/21 08:59 Dose: 100 mg Documented by: Clopidogrel Bisulfate (Clopidogrel Bisulfate 75 Mg Tab) 75 mg PO QAM [facility] Stop: 06/10/21 08:59 Last Admin: 05/14/21 08:58 Dose: 75 mg Documented by: Dextrose (Dextrose 50% 50 Ml Syringe) 25 - 50 ml IV UD PRN; Protocol PRN Reason: Hypoglycemia Protocol Stop: 06/09/21 19:08 Doxycycline Hyclate (Doxycycline Hyclate 100 Mg Cap) 100 mg PO BID [facility] Stop: 05/18/21 20:59 Last Admin: 05/14/21 08:59 Dose: 100 mg Documented by: Finasteride (Finasteride 5 Mg Tab) 5 mg PO QAM [facility] Stop: 06/10/21 08:59 Last Admin: 05/14/21 08:58 Dose: 5 mg Documented by: Fluticasone/Vilanterol (Fluticasone/Vilanterol 100/25mcg 14 Puffs/Inhaler) 1 puffs INH DAILY [facility]; Protocol Stop: 06/10/21 08:59 Last Admin: 05/14/21 09:00 Dose: 1 puffs Documented by: Furosemide (Furosemide 40 Mg/4 Ml Vial) 40 mg IV BID [facility] Stop: 06/11/21 08:59 Last Admin: 03/18/22 08:58 Dose: 40 mg Documented by: Glucagon (Glucagon For Inj 1 Mg Vial) 1 mg SQ UD PRN; Protocol PRN Reason: Hypoglycemia Protocol Stop: 06/09/21 19:08 Glucose (Glucose 10 Tabs/Tube) 4 - 8 tabs PO UD PRN; Protocol PRN Reason: Hypoglycemia Protocol Stop: 06/09/21 19:08 Glucose (Glucose 40% Gel 15 Gm Tube) 15 - 30 gm PO UD PRN; Protocol PRN Reason: Hypoglycemia Protocol Stop: 06/09/21 19:08 Guaifenesin (Guaifenesin 600 Mg Tabcr) 1,200 mg PO Q12 [facility] Stop: 06/09/21 20:59 Last Admin: 05/14/21 08:57 Dose: 1,200 mg Documented by: Guaifenesin (Guaifenesin Sugar Free 200 Mg/10 Ml Udc) 200 mg PO Q6H PRN PRN Reason: Cough Stop: 06/10/21 00:38 Last Admin: 05/13/21 05:04 Dose: 200 mg Documented by: Heparin Sodium (Porcine) (Heparin Sod 5,000 Unit/0.5 Ml Vial) 5,000 units SQ Q12 [facility] Stop: 06/12/21 20:59 Last Admin: 05/14/21 09:01 Dose: 5,000 units Documented by: Insulin Aspart (Insulin Aspart Per Unit) 0 units SC ACHS [facility] Stop: 06/09/21 20:59 Last Admin: 05/14/21 09:04 Dose: 8 units Documented by: Insulin Glargine (Insulin Glargine Solostar 100 Units/Ml 3 Ml Pen) 25 units SC BID [facility] Stop: 06/09/21 20:59 Last Admin: 05/14/21 09:00 Dose: 25 units Documented by: Levalbuterol HCl (Levalbuterol 1.25mg/0.5ml Neb) 1.25 mg NEB Q6R [facility]; Protocol Stop: 06/10/21 00:59 Last Admin: 05/14/21 07:17 Dose: 1.25 mg Documented by: Levalbuterol HCl (Levalbuterol 1.25mg/0.5ml Neb) 1.25 mg NEB Q2H PRN; Protocol PRN Reason: Shortness Of Breath Stop: 06/09/21 19:27 Last Admin: 05/11/21 21:57 Dose: 1.25 mg Documented by: Losartan Potassium (Losartan Potassium 50 Mg Tab) 100 mg PO [facility] Stop: 06/10/21 08:59 Last Admin: 05/14/21 08:56 Dose: 100 mg Documented by: Melatonin (Melatonin 3 Mg Tab) 3 mg PO HS PRN PRN Reason: Sleep Stop: 06/10/21 00:38 Last Admin: 05/14/21 02:04 Dose: 3 mg Documented by: Miscellaneous (Carbohydrates For Hypoglycemia ) 15 - 30 gm PO UD PRN PRN Reason: Hypoglycemia Protocol Stop: 06/09/21 19:08 Miscellaneous (Remove Nicoderm Patch) 1 ea N/A DAILY@0859 [facility] Stop: 06/11/21 08:58 Last Admin: 05/14/21 08:56 Dose: 1 ea Documented by: Nicotine (Nicotine 21 Mg/24 Hr Tdsy) 21 mg TD [facility] Stop: 06/11/21 05:19 Last Admin: 05/14/21 08:59 Dose: 21 mg Documented by: Ondansetron HCl (Ondansetron Inj 2 Mg/Ml 2 Ml Vial) 4 mg IV Q4H PRN PRN Reason: Nausea And Vomiting Stop: 06/09/21 19:08 Pantoprazole Sodium (Pantoprazole 40 Mg Tab) 40 mg PO DAILY@0630 [facility]; Protocol Stop: 06/10/21 06:29 Last Admin: 05/14/21 08:57 Dose: 40 mg Documented by: Potassium Chloride (Potassium Chloride Crtab 20 Meq Tabcr) 40 meq PO [facility] Stop: 06/12/21 08:59 Last Admin: 05/14/21 08:58 Dose: 40 meq Documented by: Prednisone (Prednisone 20 Mg Tab) 40 mg PO DAILY [facility] Stop: 06/13/21 08:59 Last Admin: 05/14/21 08:59 Dose: 40 mg Documented by: Venlafaxine HCl (Venlafaxine Hcl Xr 150 Mg Capxr) 150 mg PO [facility] Stop: 06/10/21 08:59 Last Admin: 05/14/21 08:57 Dose: 150 mg Documented by: Vitamin D (Cholecalciferol 1,000 Units 25 Mcg Tab) 2,000 units PO [facility] Stop: 06/10/21 08:59 Last Admin: 05/14/21 08:56 Dose: 2,000 units Documented by: (1) COPD (chronic obstructive pulmonary disease) COPD type: unspecified COPD Qualified Code(s): J44.9 - Chronic obstructive pulmonary disease, unspecified
--- NOTE | 2021-05-14 17:21 | Hospitalist Progress Note ---
Date of Service May 14, 2021 Assessment & Plan (1) Acute systolic (congestive) heart failure: (2) Acute pulmonary edema: (3) COPD (chronic obstructive pulmonary disease): Plan: COPD exacerbation repeat CXR: Improving but persistent pulmonary edema pattern Echo: Left ventricular systolic function is low normal, ejection fraction 45 to 50% Patient clinically improving gradually Continue with Lasix 40 mg IV twice daily Cardiology service consulted, appreciate the recommendations continue Nebs, Solumedrol, Doxycycline, Breo (4) Iron deficiency anemia: Plan: recent cscope on 04/23/[address] Gabriel - removed benign tubular adenoma polyp found in the colon where removed 2 polyps with hot snare, and no bleeding sites were found hgb stable at 10.6 --Iron level 32, vitamin B12 and folate normal Start ferrous sulfate (5) Elevated troponin: Plan: likely due to demand ischemia due to acute respiratory failure with hypoxia Trop 0.09 on admission, then trending down to 0.07 EKG showed no acute ischemic changes Continue asa, clopidogrel and statin echo as above no chest pain (6) Tobacco abuse: Plan: Counseling on smoking cessation (7) DM type 2 (diabetes mellitus, type 2): Plan: Most recent hba1c 7.6 Continue holding metformin On Lantus and insulin sliding scale (8) ELIZABETH (obstructive sleep apnea): Plan: Continue Cpap for now (9) PAD (peripheral artery disease): Plan: Continue plavix, aspirin and statin Stable (10) Hypertension: Plan: Losartan, metoprolol and amlodipine BP stable (11) Morbid obesity with BMI of 40.0-44.9, adult: Plan: BMI of 41.2, diet and exercise to be encouraged Elevated liver enzymes improving DVT ppx: Heparin CODE: Full code Disposition will need inpatient rehab plan of care discussed with patient and his at bedside in detail and at length all questions answered they are understanding, agreeable, comfortable with the plan of care Admission and Anticipated Discharge Date Admission Date: May 10, 2021 Subjective Follow-up for acute CHF systolic type, CP exacerbation, etc. Seen sitting up in bed, comfortable, not in distress On room air States he continues to feel improved Wheezing improving Has occasional dry cough No chest pain, palpitations, dizziness, nausea vomiting No fevers or chills No other symptoms Review of Systems Review of Systems: all noted and negative except for above Physical Exam Physical Exam: General- oriented x 3, not in distress, speaks in sentences with no effort or accessory muscle use Eyes- anicteric Neck- no JVD Lungs-diminished breath sounds bilaterally, mild rales at the bases, no wheezing Heart- normal rate, regular rhythm; no murmurs Abdomen- normal bowel sounds, nondistended, soft, nontender Extremities- trace pretibial edema, no calf tenderness Neuro- alert, oriented x 3; no gross focal neurologic deficits Skin- warm & dry Results & Data Results & Data ([facility]) Vital Signs (Past 12 Hours) Vital Signs Temp Pulse Pulse Resp BP Pulse Ox 05/14/21 15:00 36.4 C L 102 H 16 132/68 90 05/14/21 14:50 114 H 05/14/21 13:18 97 H 18 94 05/14/21 11:31 36.4 C L 99 H 16 139/76 90 05/14/21 09:53 100 H 05/14/21 07:47 36.5 C 98 H 15 143/73 H 90 05/14/21 07:18 101 H 20 96 all noted and reviewed including below (1) COPD (chronic obstructive pulmonary disease) COPD type: unspecified COPD Qualified Code(s): J44.9 - Chronic obstructive pulmonary disease, unspecified
[2021-05-14] MEDS ORDERED: POLYETHYLENE (MIRALAX) 17 GM PACK PO STA (22:46)
[2021-05-15] MEDS: LEVALBUTEROL 1.25MG/0.5ML NEB NEB SCH ×4 (00:10→18:46)
[2021-05-15] MEDS ORDERED: COUGH DROP (SUGAR FREE) LOZ 24 LOZ/1 BOX BUCCAL PRN (04:49)
[2021-05-15] MEDS ORDERED: PANTOprazole 40 MG TAB PO ONE (06:30)
[2021-05-15 07:46] LABS: BUN Creatinine Ratio 26.8 (10-20); Calcium 8.9 mg/dl (8.5-10.1); Creatinine Clr Calc Pharmacy 88.8 ml/min; Est GFR (African American) 103.8 ml/min; Est GFR (Non-African American) 89.6 ml/min; Potassium 3.8 mmol/L (3.5-5.1)
[2021-05-15] MEDS: amLODIPine BESYLATE 5 MG TAB PO SCH (08:11)
[2021-05-15] MEDS: HEPARIN SOD 5,000 UNIT/0.5 ML VIAL SQ SCH ×3 (08:14→22:16)
[2021-05-15] MEDS: guaiFENesin 600 MG TABCR PO SCH ×2 (08:14→21:54)
[2021-05-15] MEDS: predniSONE 10 MG TABLET PO SCH (08:15)
[2021-05-15] MEDS: NICOTINE 21 MG/24 HR TDSY TD SCH (08:16)
[2021-05-15] MEDS: CHOLECALCIFEROL 1,000 UNITS 25 MCG TAB PO SCH (08:17)
[2021-05-15] MEDS: DOXYCYCLINE HYCLATE 100 MG CAP PO SCH ×2 (08:17→21:53)
[2021-05-15] MEDS: CLOPIDOGREL BISULFATE 75 MG TAB PO SCH (08:18)
[2021-05-15] MEDS: ASPIRIN 81 MG ECTAB PO SCH (08:18)
[2021-05-15] MEDS: BENZONATATE 100 MG CAPSULE PO SCH ×3 (08:18→21:52)
[2021-05-15] MEDS: ATORVASTATIN 40 MG TAB PO SCH (08:19)
[2021-05-15] MEDS: FINASTERIDE 5 MG TAB PO SCH (08:19)
[2021-05-15] MEDS: VENLAFAXINE HCL XR 150 MG CAPXR PO SCH (08:19)
[2021-05-15] MEDS: FUROSEMIDE 40 MG/4 ML VIAL IV SCH (08:20)
[2021-05-15] MEDS: POTASSIUM CHLORIDE CRTAB 20 MEQ TABCR PO SCH (08:20)
[2021-05-15] MEDS: FLUTICASONE/VILANTEROL 100/25MCG 14 PUFFS/INHALER INH SCH (08:21)
[2021-05-15] MEDS: LOSARTAN POTASSIUM 50 MG TAB PO SCH (08:22)
[2021-05-15] MEDS: INSULIN GLARGINE SOLOSTAR 100 UNITS/ML 3 ML PEN SC SCH ×2 (08:29→21:55)
[2021-05-15] MEDS: INSULIN ASPART PER UNIT SC SCH ×4 (08:35→21:59)
--- NOTE | 2021-05-15 15:16 | Hospitalist Progress Note ---
Date of Service May 15, 2021 Assessment & Plan (1) Acute systolic (congestive) heart failure: (2) Acute pulmonary edema: (3) COPD (chronic obstructive pulmonary disease): Plan: COPD exacerbation repeat CXR: Improving but persistent pulmonary edema pattern Echo: Left ventricular systolic function is low normal, ejection fraction 45 to 50% Patient clinically improving gradually Diuresing well given Lasix 40 mg IV twice daily--> transition to Lasix 40mg po daily Cardiology service consulted, appreciate the recommendations continue Nebs, Solumedrol, Doxycycline, Breo (4) Iron deficiency anemia: Plan: recent cscope on 04/23/[address] Gabriel - removed benign tubular adenoma polyp found in the colon where removed 2 polyps with hot snare, and no bleeding sites were found hgb stable at 10.6 --Iron level 32, vitamin B12 and folate normal Start ferrous sulfate (5) Elevated troponin: Plan: likely due to demand ischemia due to acute respiratory failure with hypoxia Trop 0.09 on admission, then trending down to 0.07 EKG showed no acute ischemic changes Continue asa, clopidogrel and statin echo as above no chest pain (6) Tobacco abuse: Plan: Counseling on smoking cessation (7) DM type 2 (diabetes mellitus, type 2): Plan: Most recent hba1c 7.6 Continue holding metformin On Lantus and insulin sliding scale (8) ELIZABETH (obstructive sleep apnea): Plan: Continue Cpap for now (9) PAD (peripheral artery disease): Plan: Continue plavix, aspirin and statin Stable (10) Hypertension: Plan: Losartan, metoprolol and amlodipine monitor (11) Morbid obesity with BMI of 40.0-44.9, adult: Plan: BMI of 41.2, diet and exercise to be encouraged Elevated liver enzymes improving DVT ppx: Heparin CODE: Full code Disposition will need inpatient rehab Admission and Anticipated Discharge Date Admission Date: May 10, 2021 Subjective ff up for acute CHF, COPD exacerbation, etc seen resting in chair, comfortable states he feels improved overall no dyspnea, chest pain less cough no fever/chills no other symptoms Review of Systems Review of Systems: all noted and negative except for above Physical Exam Physical Exam: General- oriented x 3, not in distress, speaks in sentences with no effort or accessory muscle use Eyes- anicteric Neck- no JVD Lungs- diminished breath sounds BL, less rales at the bases no wheezing Heart- normal rate, regular rhythm; no murmurs Abdomen- normal bowel sounds, nondistended, soft, nontender Extremities- no pretibial edema, no calf tenderness Neuro- alert, oriented x 3; no gross focal neurologic deficits Skin- warm & dry Results & Data Results & Data ([facility]) Vital Signs (Past 12 Hours) Vital Signs Temp Pulse Pulse Pulse Resp BP BP 05/15/21 12:55 24 05/15/21 11:10 36.4 C L 97 H 24 170/80 H 05/15/21 08:00 100 H 05/15/21 07:34 36.5 C 98 H 24 158/60 H 05/15/21 07:33 90 24 Pulse Ox 05/15/21 12:55 92 05/15/21 11:10 94 05/15/21 08:00 05/15/21 07:34 94 05/15/21 07:33 92 all noted and reviewed including below (1) COPD (chronic obstructive pulmonary disease) COPD type: unspecified COPD Qualified Code(s): J44.9 - Chronic obstructive pulmonary disease, unspecified
[2021-05-16] MEDS: LEVALBUTEROL 1.25MG/0.5ML NEB NEB SCH ×4 (00:10→19:17)
[2021-05-16] MEDS ORDERED: ZOLPIDEM TARTRATE 5 MG TAB PO STA (04:26)
[2021-05-16] MEDS: PANTOprazole 40 MG TAB PO SCH (06:44)
[2021-05-16 07:54] LABS: Hemoglobin 12.3 g/dL (14.0-18.0); Mean Corpuscular Hgb Conc 30.8 g/dL (32-36); Mean Corpuscular Volume 74.9 fL (80-100); Mean Platelet Volume 9.4 fL (7.4-10.4); Platelet Count 356 K/uL (130-400); RDW Coefficient of Variation 14.5 % (11.5-14.5); RDW Standard Deviation 39.4 fL (36.4-46.3); Red Blood Count 5.34 M/uL (4.7-6.1); White Blood Count 12.39 K/uL (4.8-10.8)
[2021-05-16] MEDS: INSULIN ASPART PER UNIT SC SCH ×4 (08:00→20:21)
[2021-05-16 08:17] LABS: BUN Creatinine Ratio 27.8 (10-20); Calcium 8.8 mg/dl (8.5-10.1); Creatinine Clr Calc Pharmacy 92.2 ml/min; Est GFR (African American) 105.4 ml/min; Potassium 3.6 mmol/L (3.5-5.1)
[2021-05-16] MEDS: NICOTINE 21 MG/24 HR TDSY TD SCH (08:34)
[2021-05-16] MEDS: amLODIPine BESYLATE 5 MG TAB PO SCH (08:35)
[2021-05-16] MEDS: guaiFENesin 600 MG TABCR PO SCH ×2 (08:36→20:27)
[2021-05-16] MEDS: BENZONATATE 100 MG CAPSULE PO SCH ×3 (08:36→20:27)
[2021-05-16] MEDS: FLUTICASONE/VILANTEROL 100/25MCG 14 PUFFS/INHALER INH SCH (08:37)
[2021-05-16] MEDS: ATORVASTATIN 40 MG TAB PO SCH (08:37)
[2021-05-16] MEDS: VENLAFAXINE HCL XR 150 MG CAPXR PO SCH (08:38)
[2021-05-16] MEDS: CHOLECALCIFEROL 1,000 UNITS 25 MCG TAB PO SCH (08:38)
[2021-05-16] MEDS: LOSARTAN POTASSIUM 50 MG TAB PO SCH (08:38)
[2021-05-16] MEDS: CLOPIDOGREL BISULFATE 75 MG TAB PO SCH (08:38)
[2021-05-16] MEDS: DOXYCYCLINE HYCLATE 100 MG CAP PO SCH ×2 (08:39→20:27)
[2021-05-16] MEDS: FINASTERIDE 5 MG TAB PO SCH (08:39)
[2021-05-16] MEDS: ASPIRIN 81 MG ECTAB PO SCH (08:40)
[2021-05-16] MEDS: POTASSIUM CHLORIDE CRTAB 20 MEQ TABCR PO SCH (08:41)
[2021-05-16] MEDS: HEPARIN SOD 5,000 UNIT/0.5 ML VIAL SQ SCH ×2 (08:41→20:28)
[2021-05-16] MEDS: predniSONE 10 MG TABLET PO SCH (08:41)
[2021-05-16] MEDS: INSULIN GLARGINE SOLOSTAR 100 UNITS/ML 3 ML PEN SC SCH ×2 (08:50→20:26)
[2021-05-16] MEDS: FUROSEMIDE 40 MG TAB PO SCH (11:13)
[2021-05-16] MEDS ORDERED: PHARMACY GLYCEMIC MGMT CONSULT PRN ×2 (17:40→17:51)
--- NOTE | 2021-05-16 18:26 | Hospitalist Progress Note ---
Date of Service May 16, 2021 Assessment & Plan (1) Acute systolic (congestive) heart failure: (2) Acute pulmonary edema: (3) COPD (chronic obstructive pulmonary disease): Plan: COPD exacerbation repeat CXR: Improving but persistent pulmonary edema pattern Echo: Left ventricular systolic function is low normal, ejection fraction 45 to 50% Patient clinically improving gradually Diuresing well given Lasix 40 mg IV twice daily--> transition to Lasix 40mg po daily Cardiology service consulted, appreciate the recommendations continue Nebs, prednisone taper, Doxycycline, Breo (4) Iron deficiency anemia: Plan: recent cscope on 04/23/[address] Gabriel - removed benign tubular adenoma polyp found in the colon where removed 2 polyps with hot snare, and no bleeding sites were found hgb stable at 10.6 --Iron level 32, vitamin B12 and folate normal Started ferrous sulfate (5) Elevated troponin: Plan: likely due to demand ischemia due to acute respiratory failure with hypoxia Trop 0.09 on admission, then trending down to 0.07 EKG showed no acute ischemic changes Continue asa, clopidogrel and statin echo as above no chest pain (6) Tobacco abuse: Plan: Counseling on smoking cessation (7) DM type 2 (diabetes mellitus, type 2): Plan: Most recent hba1c 7.6 Continue holding metformin On Lantus and insulin sliding scale will consult glycemic pharmacy service (8) ELIZABETH (obstructive sleep apnea): Plan: Continue Cpap for now (9) PAD (peripheral artery disease): Plan: Continue plavix, aspirin and statin Stable (10) Hypertension: Plan: Losartan, metoprolol and amlodipine monitor (11) Morbid obesity with BMI of 40.0-44.9, adult: Plan: BMI of 41.2, diet and exercise to be encouraged Elevated liver enzymes improving DVT ppx: Heparin CODE: Full code Disposition will need inpatient rehab Admission and Anticipated Discharge Date Admission Date: May 10, 2021 Subjective Follow-up for CHF, COPD exacerbation, Seen resting in bed, comfortable, not in distress States he feels fine overall Off oxygen supplementation Breathing continues to improve No cough, sputum production No other symptoms Review of Systems Review of Systems: all noted and negative except for above Physical Exam Physical Exam: General- oriented x 3, not in distress, speaks in sentences with no effort or accessory muscle use Eyes- anicteric Neck- no JVD Lungs-somewhat diminished but clear breath sounds bilaterally Heart- normal rate, regular rhythm; no murmurs Abdomen- normal bowel sounds, nondistended, soft, nontender Extremities- no pretibial edema, no calf tenderness Neuro- alert, oriented x 3; no gross focal neurologic deficits Skin- warm & dry Results & Data Results & Data ([facility]) Vital Signs (Past 12 Hours) Vital Signs Temp Pulse Pulse Pulse Resp BP Pulse Ox 05/16/21 15:39 36.8 C 92 H 18 148/78 H 94 05/16/21 13:33 97 H 24 97 05/16/21 11:59 36.7 C 94 H 19 128/52 L 96 05/16/21 08:05 36.7 C 95 H 19 149/78 H 99 05/16/21 08:00 105 H 05/16/21 07:25 100 H 24 93 all noted and reviewed including below (1) COPD (chronic obstructive pulmonary disease) COPD type: unspecified COPD Qualified Code(s): J44.9 - Chronic obstructive pulmonary disease, unspecified
[2021-05-16 18:35] LABS: BUN Creatinine Ratio 26.5 (10-20); Calcium 8.8 mg/dl (8.5-10.1); Creatinine Clr Calc Pharmacy 71.4 ml/min; Est GFR (African American) 85.9 ml/min; Est GFR (Non-African American) 74.1 ml/min; Potassium 4.6 mmol/L (3.5-5.1)
[2021-05-16] MEDS ORDERED: INSULIN HUMAN REGULAR PER UNIT 10 UNITS in SYRINGE 9.9 ML IV ONE (20:30)
[2021-05-17] MEDS: INSULIN ASPART PER UNIT SC SCH ×6 (00:12→20:42)
[2021-05-17] MEDS: LEVALBUTEROL 1.25MG/0.5ML NEB NEB SCH ×4 (00:37→19:30)
[2021-05-17] MEDS ORDERED: diphenhydrAMINE Capsule 25 MG CAP PO ONE (00:55)
[2021-05-17] MEDS: PANTOprazole 40 MG TAB PO SCH (06:06)
[2021-05-17 07:53] LABS: BUN Creatinine Ratio 27.5 (10-20); Calcium 9.3 mg/dl (8.5-10.1); Est GFR (African American) 104.9 ml/min; Est GFR (Non-African American) 90.5 ml/min; Potassium 3.8 mmol/L (3.5-5.1)
[2021-05-17] MEDS ORDERED: INSULIN HUMAN NPH SC ONE (09:00)
[2021-05-17] MEDS: INSULIN GLARGINE SOLOSTAR 100 UNITS/ML 3 ML PEN SC SCH ×2 (09:40→20:43)
[2021-05-17] MEDS: HEPARIN SOD 5,000 UNIT/0.5 ML VIAL SQ SCH ×2 (09:44→20:44)
[2021-05-17] MEDS: guaiFENesin 600 MG TABCR PO SCH ×2 (09:47→20:42)
[2021-05-17] MEDS: POTASSIUM CHLORIDE CRTAB 20 MEQ TABCR PO SCH (09:47)
[2021-05-17] MEDS: DOXYCYCLINE HYCLATE 100 MG CAP PO SCH ×2 (09:48→20:42)
[2021-05-17] MEDS: BENZONATATE 100 MG CAPSULE PO SCH ×3 (09:48→20:41)
[2021-05-17] MEDS: FLUTICASONE/VILANTEROL 100/25MCG 14 PUFFS/INHALER INH SCH (09:49)
[2021-05-17] MEDS: ASPIRIN 81 MG ECTAB PO SCH (09:53)
[2021-05-17] MEDS: VENLAFAXINE HCL XR 150 MG CAPXR PO SCH (09:53)
[2021-05-17] MEDS: LOSARTAN POTASSIUM 50 MG TAB PO SCH (09:53)
[2021-05-17] MEDS: NICOTINE 21 MG/24 HR TDSY TD SCH (09:53)
[2021-05-17] MEDS: CLOPIDOGREL BISULFATE 75 MG TAB PO SCH (09:54)
[2021-05-17] MEDS: FINASTERIDE 5 MG TAB PO SCH (09:54)
[2021-05-17] MEDS: ATORVASTATIN 40 MG TAB PO SCH (09:54)
[2021-05-17] MEDS: CHOLECALCIFEROL 1,000 UNITS 25 MCG TAB PO SCH (09:54)
[2021-05-17] MEDS: predniSONE 10 MG TABLET PO SCH (10:39)
--- NOTE | 2021-05-17 11:00 | Pharmacy Report ---
Pharmacy Glycemic Short Note 2 - Date of Service May 17, 2021 - Glycemic Short BSG Results (Last 24 hours): 05/16/21 05/16/21 05/16/21 11:03 17:07 17:08 Glucose POC Glucose 102 H 382 H* 389 H* 05/16/21 05/16/21 05/17/21 18:00 20:09 00:00 Glucose 391 H* POC Glucose 318 H* 66 L* 05/17/21 05/17/21 05/17/21 00:02 00:29 04:13 Glucose POC Glucose 53 L* 82 100 H 05/17/21 05/17/21 06:03 08:06 Glucose 91 POC Glucose 116 H OUTPATIENT ANTIDIABETIC REGIMEN: * Novolin 70/30 65 units SC qAM, 60 units SC qPM * Metformin 1 g PO BIDM * HbA1c: 7.6% (04/23/21) ASSESSMENT: * MIREYA is a 70 year old male admitted on 05/10/21 with COPD exacerbation * Patient has been on varying doses of steroids since admission, BSGs poorly controlled over past several days * Pharmacy consulted for glycemic management at dinnertime yesterday for BSG of 391 mg/dL * Elevated dinnertime BSG likely related to PO prednisone * Has been receiving 50 units of Lantus per day, will plan to continue * Will initiate NPH today with prednisone and tighten carb coverage to hopefully limit hyperglycemia this evening PLAN FOR INPATIENT GLYCEMIC CONTROL: * Hold outpatient oral diabetes medications * Basal insulin * Lantus 25 units SC this morning, 15-25 units SC HS (see EHR for details) * NPH 25 units SC daily with prednisone 30 mg (~0.25-3 unit/kg) * Bolus insulin * NovoLog per scale ACHS or Q6hrs while NPO * Goal Range: Low 110 mg/dL - High 140 mg/dL * Correction Factor: 15 mg/dL/unit * Nutritional / Prandial insulin per carb ratio of 1 unit per 4 grams CHO consumed
[2021-05-17] MEDS: amLODIPine BESYLATE 5 MG TAB PO SCH (11:23)
[2021-05-17] MEDS: FUROSEMIDE 40 MG TAB PO SCH (11:39)
--- NOTE | 2021-05-17 15:17 | Hospitalist Progress Note ---
Date of Service May 17, 2021 Assessment & Plan (1) Acute systolic (congestive) heart failure: (2) Acute pulmonary edema: (3) COPD (chronic obstructive pulmonary disease): Plan: COPD exacerbation repeat CXR: Improving but persistent pulmonary edema pattern Echo: Left ventricular systolic function is low normal, ejection fraction 45 to 50% Patient clinically improving gradually Diuresed well given Lasix 40 mg IV twice daily--> transition to Lasix 40mg po daily Cardiology service consulted, appreciate the recommendations continue Nebs, prednisone taper, Doxycycline, Breo (4) Iron deficiency anemia: Plan: recent cscope on 04/23/[address] Gabriel - removed benign tubular adenoma polyp found in the colon where removed 2 polyps with hot snare, and no bleeding sites were found hgb stable at 10.6 --Iron level 32, vitamin B12 and folate normal Started ferrous sulfate (5) Elevated troponin: Plan: likely due to demand ischemia due to acute respiratory failure with hypoxia Trop 0.09 on admission, then trending down to 0.07 EKG showed no acute ischemic changes Continue asa, clopidogrel and statin echo as above no chest pain (6) Tobacco abuse: Plan: Counseling on smoking cessation (7) DM type 2 (diabetes mellitus, type 2): Plan: Most recent hba1c 7.6 Continue holding metformin On Lantus and insulin sliding scale consulted glycemic pharmacy service (8) ELIZABETH (obstructive sleep apnea): Plan: Continue Cpap for now (9) PAD (peripheral artery disease): Plan: Continue plavix, aspirin and statin Stable (10) Hypertension: Plan: Losartan, metoprolol and amlodipine monitor (11) Morbid obesity with BMI of 40.0-44.9, adult: Plan: BMI of 41.2, diet and exercise to be encouraged Elevated liver enzymes improving DVT ppx: Heparin CODE: Full code Disposition will need inpatient rehab Admission and Anticipated Discharge Date Admission Date: May 10, 2021 Subjective ff up for CHF exacerbation, COPD exacerbation, etc seen resting in bed, comfortable states he feels fine overall breathing is better less cough no chest pain no other symptoms ready to go to Rehab Review of Systems Review of Systems: all noted and negative except for above Physical Exam Physical Exam: General- oriented x 3, not in distress, speaks in sentences with no effort or accessory muscle use Eyes- anicteric Neck- no JVD Lungs- clear BS BL no rales/wheezing Heart- normal rate, regular rhythm; no murmurs Abdomen- normal bowel sounds, nondistended, soft, nontender Extremities- no pretibial edema, no calf tenderness Neuro- alert, oriented x 3; no gross focal neurologic deficits Skin- warm & dry Results & Data Results & Data ([facility]) Vital Signs (Past 12 Hours) Vital Signs Temp Pulse Pulse Resp BP BP Pulse Ox 05/17/21 14:35 36.4 C L 111 H 18 124/72 94 05/17/21 13:13 106 H 16 94 05/17/21 07:59 37 C 84 14 132/53 L 94 05/17/21 07:31 94 H 18 96 all noted and reviewed including below (1) COPD (chronic obstructive pulmonary disease) COPD type: unspecified COPD Qualified Code(s): J44.9 - Chronic obstructive pulmonary disease, unspecified
[2021-05-17] MEDS ORDERED: CETIRIZINE HCL 10 MG TABLET PO PRN (16:07)
[2021-05-18] MEDS: LEVALBUTEROL 1.25MG/0.5ML NEB NEB SCH ×3 (00:13→14:02)
[2021-05-18] MEDS: PANTOprazole 40 MG TAB PO SCH (06:08)
[2021-05-18 08:19] LABS: Calcium 9.1 mg/dl (8.5-10.1); Creatinine Clr Calc Pharmacy 95.8 ml/min; Est GFR (African American) 107.1 ml/min; Est GFR (Non-African American) 92.4 ml/min; Potassium 3.7 mmol/L (3.5-5.1)
[2021-05-18] MEDS ORDERED: INSULIN GLARGINE SOLOSTAR 100 UNITS/ML 3 ML PEN SC ONE (09:00)
[2021-05-18] MEDS: INSULIN ASPART PER UNIT SC SCH ×4 (09:00→21:43)
[2021-05-18] MEDS ORDERED: INSULIN HUMAN NPH SC ONE (09:00)
[2021-05-18] MEDS: FUROSEMIDE 40 MG TAB PO SCH (09:03)
[2021-05-18] MEDS: FINASTERIDE 5 MG TAB PO SCH (09:03)
[2021-05-18] MEDS: VENLAFAXINE HCL XR 150 MG CAPXR PO SCH (09:03)
[2021-05-18] MEDS: LOSARTAN POTASSIUM 50 MG TAB PO SCH (09:03)
[2021-05-18] MEDS: ATORVASTATIN 40 MG TAB PO SCH (09:03)
[2021-05-18] MEDS: CHOLECALCIFEROL 1,000 UNITS 25 MCG TAB PO SCH (09:04)
[2021-05-18] MEDS: DOXYCYCLINE HYCLATE 100 MG CAP PO SCH (09:04)
[2021-05-18] MEDS: predniSONE 20 MG TAB PO SCH (09:04)
[2021-05-18] MEDS: ASPIRIN 81 MG ECTAB PO SCH (09:04)
[2021-05-18] MEDS: CLOPIDOGREL BISULFATE 75 MG TAB PO SCH (09:04)
[2021-05-18] MEDS: guaiFENesin 600 MG TABCR PO SCH ×2 (09:04→21:45)
[2021-05-18] MEDS: POTASSIUM CHLORIDE CRTAB 20 MEQ TABCR PO SCH (09:04)
[2021-05-18] MEDS: amLODIPine BESYLATE 5 MG TAB PO SCH (09:05)
[2021-05-18] MEDS: NICOTINE 21 MG/24 HR TDSY TD SCH (09:05)
[2021-05-18] MEDS: FLUTICASONE/VILANTEROL 100/25MCG 14 PUFFS/INHALER INH SCH (09:05)
[2021-05-18] MEDS: HEPARIN SOD 5,000 UNIT/0.5 ML VIAL SQ SCH ×2 (09:06→21:45)
[2021-05-18] MEDS: BENZONATATE 100 MG CAPSULE PO SCH ×3 (09:06→21:44)
--- NOTE | 2021-05-18 15:04 | Pharmacy Report ---
Pharmacy Glycemic Short Note 2 - Date of Service May 18, 2021 - Glycemic Short BSG Results (Last 24 hours): 05/17/21 05/17/21 05/18/21 16:40 20:26 07:17 Glucose 138 H POC Glucose 231 H 275 H 05/18/21 05/18/21 08:03 11:56 Glucose POC Glucose 144 H 195 H OUTPATIENT ANTIDIABETIC REGIMEN: * Novolin 70/30 65 units SC qAM, 60 units SC qPM * Metformin 1 g PO BIDM * HbA1c: 7.6% (04/23/21) ASSESSMENT: 05/18: * Patient received total 125 units of insulin yesterday; 50 units basal Lantus + 25 units basal NPH + 50 units bolus * Fasting BSG today was 144 mg/dl. Post prandial BSGs yesterday were 97-231-275 mg/dl at lunch, dinner and HS. * Basal Lantus insulin AM dose continued the same, Lantus PM dose scale ordered based on BSG. * Prednisone dose decreased to 20 mg daily today, NPH dose was not decreased today since yesterday BSGs were above 200 mg/dl. Anticipate same dose will help result in better BSG control tonight with lower steroid dose. * Novolog parameters continued the same. Background 05/17/21: * GM is a 70 year old male admitted on 05/10/21 with COPD exacerbation * Patient has been on varying doses of steroids since admission, BSGs poorly controlled over past several days * Pharmacy consulted for glycemic management at dinnertime yesterday for BSG of 391 mg/dL * Elevated dinnertime BSG likely related to PO prednisone * Has been receiving 50 units of Lantus per day, will plan to continue * Will initiate NPH today with prednisone and tighten carb coverage to hopefully limit hyperglycemia this evening PLAN FOR INPATIENT GLYCEMIC CONTROL: * Hold outpatient oral diabetes medications * Basal insulin * Lantus 25 units SC this morning, 20-25 units SC HS based on BSG (see EHR for details) * NPH 25 units SC daily with prednisone 20 mg (~0.25-3 unit/kg) * Bolus insulin * NovoLog per scale ACHS or Q6hrs while NPO * Goal Range: Low 110 mg/dL - High 140 mg/dL * Correction Factor: 15 mg/dL/unit * Nutritional / Prandial insulin per carb ratio of 1 unit per 4 grams CHO consumed
--- NOTE | 2021-05-18 19:31 | Hospitalist Progress Note ---
Date of Service May 18, 2021 Assessment & Plan (1) COPD (chronic obstructive pulmonary disease): Plan: repeat CXR: Improving but persistent pulmonary edema pattern Echo: Left ventricular systolic function is low normal, ejection fraction 45 to 50% Patient clinically improving gradually Diuresed well given Lasix 40 mg IV twice daily--> transition to Lasix 20mg po daily May need to increase p.o. Lasix as an outpatient while at [facility] facility based on volume status Cardiology service consulted, appreciate the recommendations continue Nebs, prednisone taper, Doxycycline, Breo (4) Iron deficiency anemia: Plan: recent cscope on 04/23/[address] Gabriel - removed benign tubular adenoma polyp found in the colon where removed 2 polyps with hot snare, and no bleeding sites were found hgb stable at 10.6 --Iron level 32, vitamin B12 and folate normal Started ferrous sulfate (5) Elevated troponin: Plan: likely due to demand ischemia due to acute respiratory failure with hypoxia Trop 0.09 on admission, then trending down to 0.07 EKG showed no acute ischemic changes Continue asa, clopidogrel and statin echo as above no chest pain (6) Tobacco abuse: Plan: Counseling on smoking cessation (7) DM type 2 (diabetes mellitus, type 2): Plan: Most recent hba1c 7.6 Continue holding metformin On Lantus and insulin sliding scale consulted glycemic pharmacy service (8) ELIZABETH (obstructive sleep apnea): Plan: Continue Cpap for now (9) PAD (peripheral artery disease): Plan: Continue plavix, aspirin and statin Stable (10) Hypertension: Plan: Losartan, metoprolol and amlodipine monitor (11) Morbid obesity with BMI of 40.0-44.9, adult: Plan: BMI of 41.2, diet and exercise to be encouraged Elevated liver enzymes improving DVT ppx: Heparin CODE: Full code Disposition will need inpatient rehab (2) Iron deficiency anemia: (3) Elevated troponin: (4) Tobacco abuse: (5) DM type 2 (diabetes mellitus, type 2): (6) ELIZABETH (obstructive sleep apnea): (7) PAD (peripheral artery disease): (8) Hypertension: (9) Morbid obesity with BMI of 40.0-44.9, adult: Admission and Anticipated Discharge Date Admission Date: May 10, 2021 Subjective Follow-up for CHF exacerbation, COPD exacerbation, etc. Seen resting in bed, sitting up, not in distress States he feels fine overall Breathing is improved, no cough, shortness of breath Denies any other symptoms Review of Systems Review of Systems: all noted and negative except for above Physical Exam Physical Exam: General- oriented x 3, not in distress, speaks in sentences with no effort or accessory muscle use Eyes- anicteric Neck- no JVD Lungs- clear breath sounds, no wheezing or crackles bilaterally Heart- normal rate, regular rhythm; no murmurs Abdomen- normal bowel sounds, nondistended, soft, nontender Extremities- no pretibial edema, no calf tenderness Neuro- alert, oriented x 3; no gross focal neurologic deficits Skin- warm & dry Results & Data Results & Data ([facility]) Vital Signs (Past 12 Hours) Vital Signs Temp Pulse Resp BP Pulse Ox 05/18/21 14:56 36.8 C 72 18 121/64 96 05/18/21 07:50 97 H 18 93 all noted and reviewed including below (1) COPD (chronic obstructive pulmonary disease) COPD type: unspecified COPD Qualified Code(s): J44.9 - Chronic obstructive pulmonary disease, unspecified
[2021-05-18] MEDS: INSULIN GLARGINE SOLOSTAR 100 UNITS/ML 3 ML PEN SC SCH (21:44)
[2021-05-19] MEDS: PANTOprazole 40 MG TAB PO SCH (06:18)
[2021-05-19] MEDS: FUROSEMIDE 40 MG TAB PO SCH (07:53)
[2021-05-19] MEDS: amLODIPine BESYLATE 5 MG TAB PO SCH (07:53)
[2021-05-19] MEDS: guaiFENesin 600 MG TABCR PO SCH (07:53)
[2021-05-19] MEDS: ATORVASTATIN 40 MG TAB PO SCH (07:54)
[2021-05-19] MEDS: CLOPIDOGREL BISULFATE 75 MG TAB PO SCH (07:54)
[2021-05-19] MEDS: CHOLECALCIFEROL 1,000 UNITS 25 MCG TAB PO SCH (07:54)
[2021-05-19] MEDS: VENLAFAXINE HCL XR 150 MG CAPXR PO SCH (07:54)
[2021-05-19] MEDS: FINASTERIDE 5 MG TAB PO SCH (07:54)
[2021-05-19] MEDS: ASPIRIN 81 MG ECTAB PO SCH (07:54)
[2021-05-19] MEDS: predniSONE 20 MG TAB PO SCH (07:54)
[2021-05-19] MEDS: POTASSIUM CHLORIDE CRTAB 20 MEQ TABCR PO SCH (07:55)
[2021-05-19] MEDS: FLUTICASONE/VILANTEROL 100/25MCG 14 PUFFS/INHALER INH SCH (07:55)
[2021-05-19] MEDS: LOSARTAN POTASSIUM 50 MG TAB PO SCH (07:55)
[2021-05-19] MEDS: NICOTINE 21 MG/24 HR TDSY TD SCH (07:56)
[2021-05-19] MEDS: BENZONATATE 100 MG CAPSULE PO SCH ×2 (07:56→14:31)
[2021-05-19] MEDS: HEPARIN SOD 5,000 UNIT/0.5 ML VIAL SQ SCH (07:56)
[2021-05-19 08:17] LABS: Hematocrit (blood only) 44.9 % (42-52); Hemoglobin 13.7 g/dL (14.0-18.0); Mean Corpuscular Hemoglobin 23.1 pg (25-34); Mean Corpuscular Hgb Conc 30.5 g/dL (32-36); Mean Corpuscular Volume 75.6 fL (80-100); Mean Platelet Volume 9.6 fL (7.4-10.4); Platelet Count 357 K/uL (130-400); RDW Coefficient of Variation 14.7 % (11.5-14.5); RDW Standard Deviation 40.5 fL (36.4-46.3); Red Blood Count 5.94 M/uL (4.7-6.1); White Blood Count 11.85 K/uL (4.8-10.8)
[2021-05-19 08:42] LABS: BUN Creatinine Ratio 23.3 (10-20); Calcium 9.4 mg/dl (8.5-10.1); Creatinine Clr Calc Pharmacy 84.7 ml/min; Est GFR (African American) 101.8 ml/min; Est GFR (Non-African American) 87.9 ml/min; Potassium 4.2 mmol/L (3.5-5.1)
[2021-05-19] MEDS: INSULIN ASPART PER UNIT SC SCH ×2 (08:44→12:25)
[2021-05-19] MEDS ORDERED: INSULIN GLARGINE SOLOSTAR 100 UNITS/ML 3 ML PEN SC SCH (09:00)
[2021-05-19] MEDS ORDERED: INSULIN HUMAN NPH SC SCH (09:00)
--- NOTE | 2021-05-19 11:17 | Hospitalist Progress Note ---
Date of Service May 19, 2021 Assessment & Plan (1) COPD (chronic obstructive pulmonary disease): Plan: repeat CXR: Improving but persistent pulmonary edema pattern Echo: Left ventricular systolic function is low normal, ejection fraction 45 to 50% given Lasix 40 mg IV twice daily--> transition to Lasix 40mg po daily Cardiology service consulted, appreciate the recommendations given Nebs, prednisone taper, Doxycycline x 7 days, Breo Patient clinically improving gradually Diuresed well discharge plan: Lasix 40mg po daily Prednisone 20mg x 3 days, then 10mg x 2 days, then STOP Breo inhaler Nebs PRN (4) Iron deficiency anemia: Plan: recent cscope on 04/23/[address] Gabriel - removed benign tubular adenoma polyp found in the colon where removed 2 polyps with hot snare, and no bleeding sites were found hgb stable at 10.6 --Iron level 32, vitamin B12 and folate normal Started ferrous sulfate (5) Elevated troponin: Plan: likely due to demand ischemia due to acute respiratory failure with hypoxia Trop 0.09 on admission, then trending down to 0.07 EKG showed no acute ischemic changes Continue asa, clopidogrel and statin echo as above no chest pain (6) Tobacco abuse: Plan: Counseling on smoking cessation (7) DM type 2 (diabetes mellitus, type 2): Plan: Most recent hba1c 7.6 given Lantus and insulin sliding scale continue Metformin (8) ELIZABETH (obstructive sleep apnea): Plan: Continue Cpap for now (9) PAD (peripheral artery disease): Plan: Continue plavix, aspirin and statin Stable (10) Hypertension: Plan: Losartan, metoprolol and amlodipine monitor (11) Morbid obesity with BMI of 40.0-44.9, adult: Plan: BMI of 41.2, diet and exercise to be encouraged (12) Elevated liver enzymes improving DVT ppx: Heparin CODE: Full code Disposition d/c to Rehab/SNF ff up with PCP in 1 week (2) Iron deficiency anemia: (3) Elevated troponin: (4) Tobacco abuse: (5) DM type 2 (diabetes mellitus, type 2): (6) ELIZABETH (obstructive sleep apnea): (7) PAD (peripheral artery disease): (8) Hypertension: (9) Morbid obesity with BMI of 40.0-44.9, adult: Admission and Anticipated Discharge Date Admission Date: May 10, 2021 Subjective ff up for CHF and COPD exacerbation, etc seen resting in chair, comfortable states he feels much better overall no dyspnea, cough no chest pain no other symptoms states he is ready and would like to be discharged today Review of Systems Review of Systems: all noted and negative except for above Physical Exam Physical Exam: General- oriented x 3, not in distress, speaks in sentences with no effort or accessory muscle use Eyes- anicteric Neck- no JVD Lungs- clear breath sounds bilaterally, no rales/wheezes Heart- normal rate, regular rhythm; no murmurs Abdomen- normal bowel sounds, nondistended, soft, nontender Extremities- no pretibial edema, no calf tenderness Neuro- alert, oriented x 3; no gross focal neurologic deficits Skin- warm & dry Results & Data Results & Data ([facility]) Vital Signs (Past 12 Hours) Vital Signs Temp Pulse Pulse Resp BP BP Pulse Ox 05/19/21 11:08 36.5 C 92 H 83 18 149/84 H 132/53 L 98 05/19/21 07:45 36.5 C 83 18 149/84 H 98 all noted and reviewed including below (1) COPD (chronic obstructive pulmonary disease) COPD type: unspecified COPD Qualified Code(s): J44.9 - Chronic obstructive pulmonary disease, unspecified
--- NOTE | 2021-05-19 11:36 | Discharge Summary ---
Date of Service May 19, 2021 Admission HPI Per Admitting Provider This is a 70 yo M with PMhx of COPD, sleep apnea, type 2 diabetes, peripheral arterial disease, hypertension, history of lung nodule and hyperlipidemia, and recent c-scope where 2 polyps were removed with hot snare. He presents today with worsening shortness of breath. He was found to have worsening cough and symptoms ongoing for the past few days, also with complaints of being more wheezy. He is hypoxic upon presentation to the ER at 89% on room air. He wears CPAP at bedtime. Upon walking into the room the patient is in acute distress and is calling out that he just "cannot take it anymore "and feels as if he cannot breathe. Getting nebulizer treatment stat, ABG, Lasix 40 mg IV, will place a [place]. Send the patient to the ICU for overnight monitoring. Admission Exam Per Admitting Provider General: awake, alert, +obvious aspect distress, smells of tobacco smoke, obese BMI of 41.2 Head: Normocephalic, atraumatic ENT: PERRL, EOMI, no pharyngeal exudate, mucous membranes moist Chest: Coarse breath sounds throughout with wheeze, on 2L via NC, nebulizer being placed, + cough, no sputum production Cardiac: Regular rate and rhythm, no murmur, no JVD, normal peripheral pulses, good capillary refill Abdominal: NABS x 4 quadrants, soft, + distended, nontender to palpation, no rebound or guarding Extremities: Multiple healing ulcerations over BLE, no peripheral edema or erythema, calfs nontender to palpation Psych: Normal mood and affect Neuro: AAO x 3, strength intact bilaterally and rated 5/5, no motor deficits, speech is clear, no peripheral sensory deficits Principal Diagnosis ACUTE SYSTOLIC CHF EXACERBATION ACUTE COPD EXACERBATION Discharge Exam General- oriented x 3, not in distress, speaks in sentences with no effort or accessory muscle use Eyes- anicteric Neck- no JVD Lungs- clear breath sounds bilaterally, no rales/wheezes Heart- normal rate, regular rhythm; no murmurs Abdomen- normal bowel sounds, nondistended, soft, nontender Extremities- no pretibial edema, no calf tenderness Neuro- alert, oriented x 3; no gross focal neurologic deficits Skin- warm & dry Discharge Data Allergies Allergy/AdvReac Type Severity Reaction Status Date / Time No Known Allergies Allergy Verified 05/10/21 16:25 Consultations 05/10/21 16:41 ED Decision to Admit Stat 05/13/21 08:49 Consult Cardiology Routine Ordered Studies 05/10/21 14:41 CT angio chest PE protocol Stat CT ANGIOGRAM OF THE CHEST CLINICAL HISTORY: Dyspnea. COMPARISON STUDY: Chest x-ray dated 05/10/2021. TECHNIQUE: Following the IV administration of 121 cc of Optiray 320, CT a ngiogram of the chest was performed from the upper abdomen to the thoracic inlet utilizing the pulmonary embolus protocol. Images are reviewed in the axial, sagittal, and coronal planes. 3-D MIPS images are created and assessed. IV contrast was administered without complication. A dose lowering technique was utilized adhering to the principles of ALARA. CT DOSE: 893.93 mGy.cm FINDINGS: Thyroid: Imaged portions of the thyroid gland are normal in size and attenuation. Thoracic aorta: There is atherosclerotic calcification of the thoracic aorta, which is normal in caliber and demonstrates 4-vessel variant arch anatomy. 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 No dissection is seen. Pulmonary vasculature: The pulmonary trunk is normal in caliber. There are no filling defects identified in main, lobar, or segmental pulmonary branches to suggest pulmonary embolus. Apparent filling defects in the lower lobe pulmonary arteries is related to mixing artifact. Heart: The heart is enlarged and without pericardial effusion. The coronary arteries are densely calcified. Lungs and pleural spaces: There are small to moderate pleural effusions with associated atelectasis. Intralobular septal thickening is seen throughout both lungs. Secretions are noted in the trachea. Scattered calcified granulomas are incidentally noted. Mediastinum: There is no mediastinal lymphadenopathy. Moraima: Clear. Axillae: There is no axillary lymphadenopathy. Upper abdomen: A 7.8 cm myelolipoma is partially visualized in the right adrenal gland. A left adrenal myelolipoma measures up to 3 cm. Partially visualized upper abdominal viscera is otherwise within normal limits. Skeletal structures: The skeletal structures are osteopenic. No lytic or blastic bony lesions are seen. Degenerative change is noted in the shoulders and thoracic spine. IMPRESSION: 1. There is no evidence of pulmonary embolus in the main, lobar, or segmental pulmonary arteries. 2. Cardiomegaly with evidence of congestive failure. 3. Layering pleural effusions. 4. Large adrenal myelolipomas as above. ACT 112: Negative or not required by law. Electronically signed by: Sarath Polanco M.D. 05/10/2021 3:59 PM Dictated:05/10/[id number] Transcribed: 05/10/211545 Hospital Course (1) COPD (chronic obstructive pulmonary disease): repeat CXR: Improving but persistent pulmonary edema pattern Echo: Left ventricular systolic function is low normal, ejection fraction 45 to 50% given Lasix 40 mg IV twice daily--> transition to Lasix 40mg po daily Cardiology service consulted, appreciate the recommendations given Nebs, prednisone taper, Doxycycline x 7 days, Breo Patient clinically improving gradually Diuresed well discharge plan: Lasix 40mg po daily Prednisone 20mg x 3 days, then 10mg x 2 days, then STOP Breo inhaler Nebs PRN Abnormal CT finding: Large adrenal myelolipomas as above. Please refer to full report in the Ordered Studies section above Further work up, management, and ff up as outpatient (4) Iron deficiency anemia: Plan: recent cscope on 04/23/[address] Gabriel - removed benign tubular adenoma polyp found in the colon where removed 2 polyps with hot snare, and no bleeding sites were found hgb stable at 10.6 --Iron level 32, vitamin B12 and folate normal Started ferrous sulfate (5) Elevated troponin: Plan: likely due to demand ischemia due to acute respiratory failure with hypoxia Trop 0.09 on admission, then trending down to 0.07 EKG showed no acute ischemic changes Continue asa, clopidogrel and statin echo as above no chest pain (6) Tobacco abuse: Plan: Counseling on smoking cessation (7) DM type 2 (diabetes mellitus, type 2): Plan: Most recent hba1c 7.6 given Lantus and insulin sliding scale continue Metformin, Lantus, Insulin 70/30 (8) ELIZABETH (obstructive sleep apnea): Plan: Continue CPAP for now (9) PAD (peripheral artery disease): Plan: Continue plavix, aspirin and statin Stable (10) Hypertension: Plan: Losartan, metoprolol and amlodipine monitor (11) Morbid obesity with BMI of 40.0-44.9, adult: Plan: BMI of 41.2, diet and exercise to be encouraged (12) Elevated liver enzymes improving DVT ppx: Heparin CODE: Full code Disposition d/c to Rehab/SNF ff up with PCP in 1 week Total Time Total Time Spent Total Time Spent (In Minutes): > 30 minutes Discharge Plan Discharge Items Patient Disposition: Transfer Inpatient Rehab Fac Reason For Visit: COPD EXACERBATION Discharge Diagnosis: ACUTE SYSTOLIC CHF EXACERBATION ACUTE COPD EXACERBATION POSSIBLE PNEUMONIA Activity: As commented below Activity Comment: CONTINUE PT/OT, FALL PRECAUTIONS Lifting: Wait until after follow-up appointment Exercise/Sports: Wait until after follow-up appointment Non-emergency contact: Primary Care Provider Call non-emergency contact if: you have any medication questions, your symptoms worsen and you have a fever Follow-up/Referrals: Casimiro Orantes MD [Primary Care Provider] - Diet: Carb Consistent or DM2 and Heart Healthy Addtl Attending Provider Instructions: PLEASE REFER TO YOUR NEW MEDICATION LIST AND FOLLOW INSTRUCTIONS CAREFULLY. YOUR NEW MEDICATIONS INCLUDE: PREDNISONE TAPER BREO INHALER NEBULIZER TREATMENT NEEDED LASIX IRON SUPPLEMENT PLEASE CALL YOUR PRIMARY CARE PHYSICIAN OR RETURN TO THE ER IF WITH WORSENING OF SYMPTOMS, INCLUDING SHORTNESS OF BREATH, COUGH, FEVER/CHILLS, LEG SWELLING. FOLLOW UP WITH PRIMARY CARE PHYSICIAN IN 1 WEEK. Pending Studies at Discharge: No Stand-Alone Forms: My [facility] Skilled Items Patient informed of condition?: Yes DNR: No Discharge Level of Care: Acute rehab Communicable Disease: No Discharge Prognosis: Stable Lines: None Urinary Catheter: No Medications and DC Order Prescriptions: New levalbuterol HCl 1.25 mg/0.5 mL Solution For Nebulization 1.25 mg NEB Q2H PRN (Reason: shortness of breath or wheezing) Qty: 30 RF: 2 furosemide 40 mg Tablet 40 mg PO QAM 30 Days Qty: 30 RF: 2 prednisone 20 mg Tablet 20 mg PO DAILY Qty: 4 RF: 0 amlodipine [Norvasc] 5 mg Tablet 10 mg PO DAILY Qty: 30 RF: 0 potassium chloride 20 mEq Tablet,Er Particles/Crystals 20 meq PO QAM 30 Days Qty: 30 RF: 2 nicotine [Nicoderm CQ] 21 mg/24 hr Patch 24 Hour 21 mg transdermal QAM Qty: 7 RF: 0 Breo Ellipta 100-25 mcg/dose Blister With Device 1 puff inhalation DAILY 30 Days Qty: 1 RF: 2 guaifenesin [Mucinex] 600 mg Tablet Extended Release 12hr 1,200 mg PO Q12 5 Days Qty: 20 RF: 0 Continued aspirin [Adult Low Dose Aspirin] 81 mg tablet,delayed release (DR/EC) 81 mg PO QAM RF: 0 cholecalciferol (vitamin D3) 1,000 unit capsule 2,000 units PO QAM RF: 0 venlafaxine [Effexor XR] 150 mg capsule,extended release 24hr 150 mg PO QAM RF: 0 clopidogrel 75 mg tablet 75 mg PO QAM RF: 0 omeprazole 40 mg capsule,delayed release(DR/EC) 40 mg PO QAM RF: 0 metformin 500 mg tablet extended release 24 hr 1,000 mg PO BIDM RF: 0 finasteride [Proscar] 5 mg Tablet 5 mg PO QAM RF: 0 atorvastatin 40 mg Tablet 40 mg PO QAM RF: 0 losartan 100 mg Tablet 100 mg PO QAM RF: 0 insulin NPH and regular human 100 unit/mL (70-30) Cartridge 65 unit SUBCUT QAM RF: 0 acetaminophen [Tylenol] 325 mg Tablet 650 mg PO Q6 PRN (Reason: Pain) RF: 0 Novolin 70/30 U-100 Insulin 100 unit/mL (70-30) suspension 60 unit SUBCUT .QSUPPER RF: 0 Discontinued albuterol sulfate 2.5 mg /3 mL (0.083 %) solution for nebulization 2.5 mg inhalation Q4H PRN (Reason: Wheezing) RF: 0 albuterol sulfate 90 mcg/actuation HFA aerosol inhaler 2 puff inhalation Q4H PRN (Reason: Shortness Of Breath Or Wheezing) RF: 0 hydrochlorothiazide 25 mg Tablet 25 mg PO QAM RF: 0 amlodipine 5 mg Tablet 5 mg PO DAILY RF: 0 Dulera 50-5 mcg/actuation Hfa Aerosol Inhaler 2 puff INHALATION Q12H RF: 0 Discharge Orders: Discharge Order (Routine); Ordered 05/19/21 Ordered By: Curtis Levy Admission Data Admit Date/Time: 05/10/21 16:48 Attending Provider: Brenden Dykes Admit Provider: Cedric Puentes Primary Care Provider: Casimiro Orantes Other Providers: [facility] ; [place] ; Mildred Hay[facility] ; Cedric Puentes ; Tao Carrillo Other Interventions: Discharge Summary Assessment (RN) Last Done: 05/19/21 11:08
== END 2021-05-19 15:27 | DRG 190 ==
LOC: ED 12:33 → 2S 16:48 → SUATTDRO 16:48 → 2S 18:36 → 3W 05-16 16:20

== ENCOUNTER 2021-07-08 14:43 | Inpatient (IN) ==
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
[2021-07-08] MEDS ORDERED: ASPIRIN CHEW 324 MG PO STA (15:15)
[2021-07-08 15:16] LABS: Basophils # (auto) 0.03 K/uL (0-0.2); Basophils % (auto) 0.2 %; Eosinophils # (auto) 0.03 K/uL (0-0.5); Eosinophils % (auto) 0.2 %; Hemoglobin 12.6 g/dL (14.0-18.0); Immature Granulocytes # (auto) 0.02 K/uL (0.00-0.02); Immature Granulocytes % (auto) 0.2 %; Lymphocytes # (auto) 1.26 K/uL (1.2-3.4); Lymphocytes % (auto) 10.2 %; Mean Corpuscular Hgb Conc 31.5 g/dL (32-36); Mean Corpuscular Volume 72.9 fL (80-100); Mean Platelet Volume 9.7 fL (7.4-10.4); Monocytes # (auto) 0.85 K/uL (0.11-0.59); Monocytes % (auto) 6.9 %; Neutrophils # (auto) 10.16 K/uL (1.4-6.5); Neutrophils % (auto) 82.3 %; Platelet Count 328 K/uL (130-400); RDW Coefficient of Variation 17.4 % (11.5-14.5); RDW Standard Deviation 45.4 fL (36.4-46.3); Red Blood Count 5.49 M/uL (4.7-6.1); White Blood Count 12.35 K/uL (4.8-10.8)
[2021-07-08 15:17] LABS: iSTAT Hemoglobin 13.9 g/dl (14.0-18.0); iSTAT Ionized Calcium 1.22 mmol/l (1.12-1.32); iSTAT Potassium 4.6 mmol/L (3.3-5.0)
--- NOTE | 2021-07-08 15:29 | XRay Report ---
XR chest 1V portable HISTORY: 70 years-old Male Chest Pain acute atypical chest pain COMPARISON: Chest radiograph 06/19/2021, CT chest 05/10/2021 TECHNIQUE: AP view of the chest FINDINGS: The cardiac silhouette is enlarged. Pulmonary vascular congestion with interstitial coarsening, mildl y improved from prior. Atherosclerosis of the aorta. No pneumothorax. Probable trace pleural effusion s. No lobar airspace consolidation. Degenerative changes of the shoulders and spine. IMPRESSION: Cardiomegaly with pulmonary vascular congestion and interstitial coarsening suggestive of mild pulmon belem edema, improved from 06/19/2021. ACT 112: Negative or not required by law. The above report was generated using voice recognition software. It may contain grammatical, syntax o r spelling errors. Electronically signed by: Shay Hearn M.D. 07/08/2021 3:26 PM
[2021-07-08 15:50] LABS: Albumin Globulin Ratio 1.3 (0.9-2); Albumin Level 3.7 gm/dl (3.4-5.0); BUN Creatinine Ratio 20.6 (10-20); Bilirubin,Total 0.6 mg/dl (0.2-1.0); Calcium 9.4 mg/dl (8.5-10.1); Creatinine Clr Calc Pharmacy 69.5 ml/min; Est GFR (African American) 81.1 ml/min; Globulin 2.8 gm/dl (2.5-4.0); Potassium 4.5 mmol/L (3.5-5.1); Total Protein 6.5 gm/dl (6.0-8.3)
[2021-07-08] MEDS ORDERED: niCARdipine HCL INJ 2.5 MG/ML 10 ML AMP ONE (15:57)
[2021-07-08] MEDS ORDERED: HEPARIN (PORCINE) 1000 UNIT/ML 10 ML (CATH LAB USE ONLY) ONE ×2 (15:57→17:19)
[2021-07-08] MEDS ORDERED: MIDAZOLAM HCL 1 MG/ML 2ML VIAL ONE (15:57)
[2021-07-08] MEDS ORDERED: fentaNYL citrate 100 MCG/2 ML VIAL ONE (15:57)
[2021-07-08] MEDS ORDERED: NITROGLYCERIN/D5W 100MCG/ML 20ML SYR ONE (15:58)
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
[2021-07-08] MEDS ORDERED: ADENOSINE IV SOLN 3 MG/ML 20 ML VIAL IV ONE (16:55)
[2021-07-08 16:59] LABS: Lyme Ab IgG w/WB Rflx Negative (Negative); Lyme Ab IgM w/WB Rflx Negative (Negative)
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
[2021-07-08] MEDS ORDERED: CLOPIDOGREL BISULFATE 300 MG TAB ONE (17:47)
--- NOTE | 2021-07-08 17:50 | Post Operative Brief Note ---
Cardiology Brief Post Op Date of Surgery July 08, 2021 Pre & Post Diagnosis Advanced heart block CAD Procedure Transvenous pacemaker placement PCI to mid RCA Ham Curer Mickey Zayas MD Kid Club Attendant Tyree Patel Estimated Blood Loss 10 Findings See Below 70% mid RCA, FFR 0.8 Successful PCI of RCA with single CHERIE (3.0 x 15 Gabriel) Successful Transvenous pacemaker placement via RT CFV Anesthesia Type RN Sedation Complications none Disposition Accompanied Patient To Recovery: No Disposition: Surgical ICU Overlapping Procedure I was present for: the critical portions of procedure. I was immediately available: during the entire case. Back up surgeon: was not required during procedure.
[2021-07-08 17:51] LABS: iSTAT Arterial Blood Gas HCO3 25 meg/L (19-24); iSTAT Arterial Blood Gas pCO2 46 mmHg (35-46); iSTAT Arterial Blood Gas pH 7.35 (7.35-7.45); iSTAT Arterial Blood Gas pO2 114 mmHg (80-95); iSTAT Carbon Dioxide 27 mmol/L (24-31)
[2021-07-08] MEDS ORDERED: POLYETHYLENE (MIRALAX) 17 GM PACK PO PRN (18:08)
[2021-07-08] MEDS ORDERED: MAGNESIUM HYDROXIDE SUSP 30 ML UDC PO PRN (18:08)
[2021-07-08] MEDS ORDERED: ONDANSETRON INJ 2 MG/ML 2 ML VIAL IV PRN (18:08)
[2021-07-08] MEDS ORDERED: PHARMACY GLYCEMIC MGMT CONSULT PRN ×2 (18:08→18:38)
[2021-07-08] MEDS ORDERED: DEXTROSE 50% 50 ML SYRINGE IV PRN (18:08)
[2021-07-08] MEDS ORDERED: CARBOHYDRATES FOR HYPOGLYCEMIA PO PRN (18:08)
[2021-07-08] MEDS ORDERED: GLUCOSE 10 TABS/TUBE PO PRN (18:08)
[2021-07-08] MEDS ORDERED: GLUCAGON FOR INJ 1 MG VIAL SQ PRN (18:08)
[2021-07-08] MEDS ORDERED: GLUCOSE 40% GEL 15 GM TUBE PO PRN (18:08)
[2021-07-08] MEDS ORDERED: ALUMINUM/MAGNESIUM SUSP 30 ML UDC PO PRN (18:08)
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
--- NOTE | 2021-07-08 19:30 | Communication Note ---
Date of Service: July 08, 2021 Patient has per multiple notes was taken to the cardiac catheterization lab and had temporary transvenous pacemaker insertion via right femoral vein. Underwent coronary angiography which demonstrated single-vessel obstructive disease with mid RCA stenosis and underwent drug-eluting stent implantation. The patient examined in the intensive care unit and recovering nicely post procedure. No chest pains or diaphoresis. Right leg immobilized Plans: Tentative arrangements for permanent pacemaker insertion tomorrow. Emphasized to the patient need to remain sedentary otherwise at risk for displacing needed transvenous pacemaker
[2021-07-08] MEDS: INSULIN ASPART PER UNIT SC SCH (20:49)
[2021-07-08] MEDS ORDERED: INSULIN GLARGINE SOLOSTAR 100 UNITS/ML 3 ML PEN SC SCH (21:00)
[2021-07-08] MEDS: FLUTICASONE/VILANTEROL 100/25MCG 14 PUFFS/INHALER INH SCH (21:37)
--- NOTE | 2021-07-08 22:01 | Post Anesthesia Assessment ---
Date of Service July 08, 2021 Post Sedation Assessment Vital Signs Temp Pulse Pulse Resp BP BP BP 07/08/21 20:00 97.7 F 80 25 H 116/92 07/08/21 19:30 80 22 150/98 H 07/08/21 19:15 80 25 H 137/74 07/08/21 19:00 80 14 126/79 07/08/21 18:45 80 18 130/66 07/08/21 18:16 98.4 F 80 22 122/61 07/08/21 18:15 80 22 122/61 07/08/21 18:08 07/08/21 18:00 98.4 F 80 19 140/66 07/08/21 16:22 40 L 16 124/80 07/08/21 14:55 07/08/21 14:48 43 L 24 129/56 L 07/08/21 14:43 98.8 F 44 L 16 129/56 L Pulse Ox Pulse Ox 07/08/21 20:00 95 07/08/21 19:30 95 07/08/21 19:15 96 07/08/21 19:00 96 07/08/21 18:45 96 07/08/21 18:16 96 07/08/21 18:15 94 07/08/21 18:08 95 07/08/21 18:00 95 07/08/21 16:22 98 07/08/21 14:55 89 L 07/08/21 14:48 94 07/08/21 14:43 85 L Recovery Score Activity: Moves 4 extremities Respiration: Deep Breath/Cough Circulation: +/-20% PreAnes Value Consciousness: Fully Awake Oxygen Saturation: O2 needed for >90% Discharge Sedation Level of Care: Fast Track Phase II Post Sedation Plan On clinical assessment, the patient appears to have tolerated the sedation without complications. Patient is recovering as anticipated. Patient will continue to be monitored by nursing and may be discharged when sedation discharge criteria are met per below protocol. Upon Completions of procedure up to 15 minutes continue every 5 minute vital signs and the P.A.R. score; then discharge to a Phase I or Fast Track to Phase II per the following guidelines: * Discharge Patient to appropriate Phase II area if PAR is 8 or greater or return to pre- procedure baseline. The post - procedure orders will be as directed. * If PAR score is less than 8 or not return to pre-procedure baseline then patient will follow Phase I monitoring till PAR is reached for Phase II. The Phase I may be done in procedure room or may call to secure a Phase I area. * If naloxone or flumazenil are used for reversal, hold in Phase I for continued monitoring from when last reversal dose was given for a minimum of 60 minutes or longer pending the nurse and/or physician discretion of patient condition before discharge to Phase II. Please call the Sedation Physician to re-evaluate and complete post-note for discharge to Phase II area. Do NOT discharge from procedure sedation or Phase 1 until post- sedation evaluation note is complete by procedure /sedation MD Sedation Discharge Instructions to be given to the patient at discharge to home.
--- NOTE | 2021-07-08 22:03 | Cardiac Catheterization ---
[facility] Data: Welder Setter Electron Beam Machine Cardiac Status Clinical evaluation leading to the procedure CAD Presenation: Non STEMI Diagnostic Physicians Name: Mickey Zayas MD Closure Device Recommendations: PCI without planned CABG Cardiac Cath Procedure Full Procedure Date July 08, 2021 Pre-Procedure Diagnosis Pre-Procedure Diagnosis: Non STEMI and Arrhythmia (Advanced heart block) AUC Score AUC Score: 8 Post-Procedure Diagnosis Post-Procedure Diagnosis: Severe CAD, Successful PCI and Normal Intracardiac Pressures Procedure(s) Performed Procedure(s) Performed: Coronary Angiography, Left Heart Cath, Drug Eluting Stent, Ultrasound Guided Vascular Access and Fractional Flow [employer] Auto Cleaner Mickey Zayas MD Business Operations Analyst(s) Tyree Patel Estimated Blood Loss Estimated Blood Loss: 15 Medication(s) Medication(s): Adenosine, Clopidogrel, Fentanyl, Heparin, Lidocaine 1%, Nicardipine, Nitroglycerin and Versed Summary of Findings Indication: NSTEMI, complete heart block Access: 6 Fr right radial artery, 6 Fr right common femoral vein under ultrasound guidance Catheters: Hilton, diagnostic JL 3.5, JR4 guide Transvenous pacemaker placement: Right CFV access under ultrasound guidance with placement of 6 Fr sheath Transvenous pacemaker navigated into RV under fluoroscopic guidance Appropriate pacing down to less than output of 1 mA Coronary angiography findings: LM -Long, medium caliber LAD -medium caliber, midsegment luminal irregularities, distal vessel wraps a round apex. D1 with 30% ostial disease. Ramusmedium caliber, proximal luminal irregularities Circumflex -medium caliber, midsegment luminal irregularities. RCA -dominant, medium caliber, focal 70% stenosis in mid segment at takeoff of acute marginal. Distal luminal irregularities. LVEDP -15 FFR of RCA: -RCA cannulated with JR4 guide guide -BMW wire placed into distal vessel -ACIST Catheter placed across stenosis -Pd/Pa 0.92 -FFR 0.80 -Decision to proceed with PCI -- PCI -- Antithrombotic therapy: Heparin, clopidogrel Procedure: With the aid of a guideliner 3.0 x 15 mm Kinney drug-eluting stent delivered across stenosis Stent post-dilated with stent balloon IC vasodilators administered for spasm Post procedure KENDALL 3 flow, stent well expanded with minimal residual stenosis and no apparent cardiac complications. Arterial Closure: TR band Summary: 1. Severe single vessel coronary artery disease -70% focal mid RCA (FFR 0.8) 2. Normal intracardiac filling pressure 3. Complete heart block 4. Successful placement of transvenous pacemaker (final settings VVI at 80 bpm, 5 mA output). 5. Successful PCI of mid RCA with single drug-eluting stent (3.0 x 15 mm Kinney). Recommendations: To ICU for continued monitoring Loaded with clopidogrel 600 mg in Wel[employer] Beam Machine Continue dual-antiplatelet therapy for at least 1 year Possible permanent pacemaker tomorrow Consult cardiac Rehab Hemodynamics Rest Ao:: 137/58/80 Final Ao: 127/59/83 LV: 127/15 Recommendations Recommendations: PCI without planned CABG Radiation Exposure (mGy) 2541 Contrast (mls) 120 Visipaque Anesthesia Moderate 7528-3568 Procedural Complication(s) None Disposition ICU I attest to the content of the Intraoperative Record and any orders documented therein. Any exceptions are noted below. [facility] Card Cath Procedure Codes Cardiac Catheterization Procedure 1: Cardiovascular Cath Procedures: 85872 Coronaries and LHC (+/-LV) Procedure 2: Cardiovascular Cath Procedures: 81925 (Doppler) Pressure Wire Therapeutic Services & Ancillary Proc Procedure 1: Cardiovascular Tx and Anc Procedures: 48654 Ultrasonic Guidance Vascular Access Procedure 2: Cardiovascular Tx and Anc Procedures: 36137 Temp Pacer Insert Moderate Sedation Procedure 1: Sedation/Anesthesia: 52792 Mod Sedation by the same physician;Init15 Min Child Age 5 & Up Procedure 2: Sedation/Anesthesia: 34914 Mod Sedation by the same physician; Ea [id number] Minutes Stenting Procedure 1: Cardiovascular Stent Procedures: 26492 Perc transcatheter placement of intracoronary stent(s), with ang PG Care Time/CCT Total # of Minutes Spent Total Time Spent with Patient: Total time spent is greater than 50% in coordination of care (as documented) at patient's floor/unit and/or counseling patient:
[2021-07-09] MEDS: ACETAMINOPHEN 325 MG TAB PO PRN (00:14)
[2021-07-09 02:45] LABS: Basophils # (auto) 0.03 K/uL (0-0.2); Basophils % (auto) 0.2 %; Eosinophils # (auto) 0.09 K/uL (0-0.5); Eosinophils % (auto) 0.7 %; Hematocrit (blood only) 39.5 % (42-52); Hemoglobin 12.3 g/dL (14.0-18.0); Immature Granulocytes # (auto) 0.03 K/uL (0.00-0.02); Immature Granulocytes % (auto) 0.2 %; Lymphocytes # (auto) 2.01 K/uL (1.2-3.4); Lymphocytes % (auto) 14.8 %; Mean Corpuscular Hemoglobin 23.1 pg (25-34); Mean Corpuscular Hgb Conc 31.1 g/dL (32-36); Mean Corpuscular Volume 74.2 fL (80-100); Monocytes # (auto) 1.14 K/uL (0.11-0.59); Monocytes % (auto) 8.4 %; Neutrophils # (auto) 10.26 K/uL (1.4-6.5); Neutrophils % (auto) 75.7 %; Platelet Count 334 K/uL (130-400); RDW Coefficient of Variation 17.7 % (11.5-14.5); RDW Standard Deviation 46.7 fL (36.4-46.3); Red Blood Count 5.32 M/uL (4.7-6.1); White Blood Count 13.56 K/uL (4.8-10.8)
[2021-07-09] MEDS ORDERED: fentaNYL citrate 100 MCG/2 ML VIAL ONE ×3 (02:50→15:47)
[2021-07-09] MEDS ORDERED: MIDAZOLAM HCL 1 MG/ML 2ML VIAL ONE ×2 (02:50→15:48)
[2021-07-09 03:03] LABS: Albumin Globulin Ratio 1.3 (0.9-2); Albumin Level 3.5 gm/dl (3.4-5.0); BUN Creatinine Ratio 25.3 (10-20); Bilirubin,Total 0.7 mg/dl (0.2-1.0); Calcium 9.3 mg/dl (8.5-10.1); Creatinine Clr Calc Pharmacy 80.8 ml/min; Est GFR (African American) 98.6 ml/min; Est GFR (Non-African American) 85.1 ml/min; Globulin 2.7 gm/dl (2.5-4.0); Magnesium 1.5 mg/dl (1.7-2.4); Phosphorus 4.1 mg/dl (2.5-4.9); Potassium 3.9 mmol/L (3.5-5.1); Total Protein 6.2 gm/dl (6.0-8.3)
--- NOTE | 2021-07-09 03:26 | Pre Anesthesia Assessment ---
Date of Service July 09, 2021 Pre Sedation Assessment Vital Signs Temp Pulse Pulse Resp BP BP BP 07/09/21 02:38 48 L 20 124/55 L 07/09/21 02:02 53 L 20 117/60 07/09/21 02:00 51 L 17 121/75 07/09/21 01:42 41 L 21 140/53 L 07/09/21 01:00 80 22 128/77 07/09/21 00:56 90 24 07/09/21 00:00 80 17 137/67 07/08/21 23:00 97.7 F 80 134/58 L 07/08/21 22:30 80 13 142/80 H 07/08/21 22:10 80 20 07/08/21 22:00 80 13 129/68 07/08/21 21:30 80 16 131/75 07/08/21 21:00 80 25 H 07/08/21 20:30 80 22 123/62 07/08/21 20:00 97.7 F 80 25 H 116/92 07/08/21 19:30 80 22 150/98 H 07/08/21 19:15 80 25 H 137/74 07/08/21 19:00 80 14 126/79 07/08/21 18:45 80 18 130/66 07/08/21 18:16 98.4 F 80 22 122/61 07/08/21 18:15 80 22 122/61 07/08/21 18:08 07/08/21 18:00 98.4 F 80 19 140/66 07/08/21 16:22 40 L 16 124/80 07/08/21 14:55 07/08/21 14:48 43 L 24 129/56 L 07/08/21 14:43 98.8 F 44 L 16 129/56 L Pulse Ox Pulse Ox 07/09/21 02:38 94 07/09/21 02:02 98 07/09/21 02:00 93 07/09/21 01:42 95 07/09/21 01:00 96 07/09/21 00:56 96 07/09/21 00:00 93 07/08/21 23:00 95 07/08/21 22:30 95 07/08/21 22:10 97 07/08/21 22:00 97 07/08/21 21:30 93 07/08/21 21:00 94 07/08/21 20:30 94 07/08/21 20:00 95 07/08/21 19:30 95 07/08/21 19:15 96 07/08/21 19:00 96 07/08/21 18:45 96 07/08/21 18:16 96 07/08/21 18:15 94 07/08/21 18:08 95 07/08/21 18:00 95 07/08/21 16:22 98 07/08/21 14:55 89 L 07/08/21 14:48 94 07/08/21 14:43 85 L Cardiovascular RRR, no murmur, no edema Respiratory normal respiratory effort, lungs clear to auscultation Pre-Sedation Airway Assessment Smoking Status: Current every day smoker Hx Sleep Apnea: No Hx Difficult Intubation: No Short, Thick Neck: No Thyromental Distance: > or= 3.5 Finger Breadths Oral Cavity: + Dental Abnormalities Mallampati Class: III ASA: ASA3 NPO Status Date of Last Intake of Fluids: 07/07/21 Time of Last Intake of Fluids: 20:00 Date of Last Intake of Solid Food: 07/07/21 Time of Last Intake of Solid Foods: 20:00 Procedure Planning Contraindications for Sedation: none Current Medications Reviewed: Yes Notes The planned sedation has been discussed with the patient. Informed Consent was obtained. I have identified the patient, determined the appropriateness of sedation and have assessed the patient immediately prior to the procedure. All medicine(s) and interventions are by my order.
--- NOTE | 2021-07-09 03:27 | Post Anesthesia Assessment ---
Date of Service July 09, 2021 Post Sedation Assessment Vital Signs Temp Pulse Pulse Resp BP BP BP 07/09/21 02:38 48 L 20 124/55 L 07/09/21 02:02 53 L 20 117/60 07/09/21 02:00 51 L 17 121/75 07/09/21 01:42 41 L 21 140/53 L 07/09/21 01:00 80 22 128/77 07/09/21 00:56 90 24 07/09/21 00:00 80 17 137/67 07/08/21 23:00 97.7 F 80 134/58 L 07/08/21 22:30 80 13 142/80 H 07/08/21 22:10 80 20 07/08/21 22:00 80 13 129/68 07/08/21 21:30 80 16 131/75 07/08/21 21:00 80 25 H 07/08/21 20:30 80 22 123/62 07/08/21 20:00 97.7 F 80 25 H 116/92 07/08/21 19:30 80 22 150/98 H 07/08/21 19:15 80 25 H 137/74 07/08/21 19:00 80 14 126/79 07/08/21 18:45 80 18 130/66 07/08/21 18:16 98.4 F 80 22 122/61 07/08/21 18:15 80 22 122/61 07/08/21 18:08 07/08/21 18:00 98.4 F 80 19 140/66 07/08/21 16:22 40 L 16 124/80 07/08/21 14:55 07/08/21 14:48 43 L 24 129/56 L 07/08/21 14:43 98.8 F 44 L 16 129/56 L Pulse Ox Pulse Ox 07/09/21 02:38 94 07/09/21 02:02 98 07/09/21 02:00 93 07/09/21 01:42 95 07/09/21 01:00 96 07/09/21 00:56 96 07/09/21 00:00 93 07/08/21 23:00 95 07/08/21 22:30 95 07/08/21 22:10 97 07/08/21 22:00 97 07/08/21 21:30 93 07/08/21 21:00 94 07/08/21 20:30 94 07/08/21 20:00 95 07/08/21 19:30 95 07/08/21 19:15 96 07/08/21 19:00 96 07/08/21 18:45 96 07/08/21 18:16 96 07/08/21 18:15 94 07/08/21 18:08 95 07/08/21 18:00 95 07/08/21 16:22 98 07/08/21 14:55 89 L 07/08/21 14:48 94 07/08/21 14:43 85 L Recovery Score Activity: Moves 4 extremities Respiration: Deep Breath/Cough Circulation: +/-20% PreAnes Value Consciousness: Fully Awake Oxygen Saturation: O2 needed for >90% Discharge Sedation Level of Care: Fast Track Phase II Post Sedation Plan On clinical assessment, the patient appears to have tolerated the sedation without complications. Patient is recovering as anticipated. Patient will continue to be monitored by nursing and may be discharged when sedation discharge criteria are met per below protocol. Upon Completions of procedure up to 15 minutes continue every 5 minute vital signs and the P.A.R. score; then discharge to a Phase I or Fast Track to Phase II per the following guidelines: * Discharge Patient to appropriate Phase II area if PAR is 8 or greater or return to pre- procedure baseline. The post - procedure orders will be as directed. * If PAR score is less than 8 or not return to pre-procedure baseline then patient will follow Phase I monitoring till PAR is reached for Phase II. The Phase I may be done in procedure room or may call to secure a Phase I area. * If naloxone or flumazenil are used for reversal, hold in Phase I for continued monitoring from when last reversal dose was given for a minimum of 60 minutes or longer pending the nurse and/or physician discretion of patient condition before discharge to Phase II. Please call the Sedation Physician to re-evaluate and complete post-note for discharge to Phase II area. Do NOT discharge from procedure sedation or Phase 1 until post- sedation evaluation note is complete by procedure /sedation MD Sedation Discharge Instructions to be given to the patient at discharge to home.
--- NOTE | 2021-07-09 03:36 | Cardiac Catheterization ---
[facility] Data: [employer] Professor Cardiac Status Clinical evaluation leading to the procedure CAD Presenation: Sx unlikely to be ischemic Diagnostic Physicians Name: Mickey Zayas MD Closure Device Recommendations: Management Recommendatons Cardiac Cath Procedure Full Procedure Date July 09, 2021 Pre-Procedure Diagnosis Pre-Procedure Diagnosis: Non STEMI and Arrhythmia (Advanced heart block) AUC Score AUC Score: 7 Post-Procedure Diagnosis Post-Procedure Diagnosis: Cardiothoracic Finding (complete heart block) Procedure(s) Performed Procedure(s) Performed: Temporary Pacemaker and Ultrasound Guided Vascular Access Exhibit Preparator Mickey Zayas MD Slot Shift Manager(s) Anthony Estimated Blood Loss Estimated Blood Loss: 15 Medication(s) Medication(s): Fentanyl, Lidocaine 1% and Versed Summary of Findings TRANSVENOUS PACEMAKER REPLACEMENT Indication: Complete heart block. Patient previously had a transvenous pacemaker placed via right common femoral vein yesterday evening. In that setting also had obstructive mid RCA disease stented with CHERIE. Overnight pacer moved and no longer capturing. Recurrent complete heart block with heart rates in the 40s. Procedure: Right IJ accessed under ultrasound guidance with micropuncture needle. 6 Fr sheath placed to right IJ Transvenous pacemaker wire navigated into RV under fluoroscopic guidance Appropriate pacing confirmed with outputs <1 mA Device sutured/secured in place. Previous transvenous pacemaker wire was noted on fluoroscopy to be back into IVC. Pacemaker wire from femoral vein removed. Final settings: VVI 80 bpm, 5 mA Summary: 1. Successful transvenous temporary pacemaker placement Recommendations: Evaluation by EP for permanent device Hemodynamics Rest Ao:: -- Final Ao: -- LV: -- Recommendations Recommendations: Management Recommendatons Specimens Specimens: None Radiation Exposure (mGy) 187 Contrast (mls) -- Anesthesia Moderate 5060-1533 Procedural Complication(s) None Disposition ICU I attest to the content of the Intraoperative Record and any orders documented therein. Any exceptions are noted below. [facility] Card Cath Procedure Codes Therapeutic Services & Ancillary Proc Procedure 1: Cardiovascular Tx and Anc Procedures: 26006 Temp Pacer Insert Procedure 2: Cardiovascular Tx and Anc Procedures: 28165 Ultrasonic Guidance Vascular Access Moderate Sedation Procedure 1: Sedation/Anesthesia: 96450 Mod Sedation by the same physician;Init15 Min Child Age 5 & Up PG Care Time/CCT Total # of Minutes Spent Total Time Spent with Patient: Total time spent is greater than 50% in coordination of care (as documented) at patient's floor/unit and/or counseling patient:
[2021-07-09] MEDS: ICU ELECTROLYTE REPLACEMENT PROTOCOL SCH ×2 (04:29→17:15)
[2021-07-09] MEDS: MAGNESIUM SULFATE / D5W 1 GM/100 ML BAG IV SCH ×4 (04:58→10:48)
[2021-07-09] MEDS: POTASSIUM CHLORIDE CRTAB 20 MEQ TABCR PO SCH ×3 (05:03→09:26)
[2021-07-09] MEDS: INSULIN ASPART PER UNIT SC SCH ×4 (07:18→21:34)
[2021-07-09 08:10] LABS: Estimated Average Glucose 157 mg/dl; Hemoglobin A1C 7.1 % (4.5-5.6)
[2021-07-09] MEDS: PANTOprazole 40 MG TAB PO SCH (08:52)
[2021-07-09] MEDS: FINASTERIDE 5 MG TAB PO SCH (08:52)
[2021-07-09] MEDS: VENLAFAXINE HCL XR 150 MG CAPXR PO SCH (08:52)
[2021-07-09] MEDS: ASPIRIN 81 MG ECTAB PO SCH (08:53)
[2021-07-09] MEDS: CLOPIDOGREL BISULFATE 75 MG TAB PO SCH (08:53)
[2021-07-09] MEDS: ATORVASTATIN 40 MG TAB PO SCH (08:53)
[2021-07-09] MEDS ORDERED: ATORVASTATIN 40 MG TAB PO SCH (09:00)
[2021-07-09] MEDS ORDERED: ASPIRIN 81 MG ECTAB PO SCH (09:00)
--- NOTE | 2021-07-09 09:21 | Cardiology Progress Note ---
Date of Service July 09, 2021 Assessment & Plan (1) Complete heart block: (2) Chest pain: (3) Morbid obesity with BMI of 40.0-44.9, adult: (4) COPD (chronic obstructive pulmonary disease): (5) Elevated troponin: (6) ELIZABETH (obstructive sleep apnea): Plan: Patient is a 70-year-old male with complex underlying medical issues including chronic obstructive lung disease, type 2 diabetes mellitus, peripheral vascular disease, bifascicular heart block on prior EKGs in past notable elevations in troponins during acute hospitalization with illness. He presented in third- degree heart block with chest pressure pain beginning approximately 1 PM this afternoon. Initial troponin mildly elevated but consistent with past hospitalization in April Patient appeared acutely ill and diaphoretic and patient was referred for emergent diagnostic cardiac catheterization and temporary transvenous pacemaker insertion Coronary angiography demonstrated single-vessel significant lesion undergoing drug-eluting stent to the mid right coronary artery. Temporary transvenous pacemaker placed via femoral vein but dislodged last night and reinserted via right IJ. Patient currently pacemaker dependent Plan: Permanent dual-chamber pacemaker today. Patient to remain n.p.o. high ris k for further pacer lead displacement and would not delay procedure Medical optimization after device in place. Currently on dual antiplatelet therapy, atorvastatin. Will need losartan resumed as blood pressure allows post procedure Admission and Anticipated Discharge Date Admission Date: July 08, 2021 Subjective Patient seen and examined, chart, medications, telemetry reviewed. Events of past evening noted with patient dislodging transvenous pacemaker undergoing misty nsertion right IJ. Patient without chest pain or discomfort. Mildly uncooperative at times. Pacer interrogation finds him completely device dependent with no underlying escape rhythm Review of Systems Review of Systems: All systems reviewed & are unremarkable except as noted in Subjective Physical Exam Constitutional: + obese; no acute distress Eyes: PERRL, conjunctivae normal, anicteric sclerae ENMT: external ear and nose normal, oropharynx normal Neck: trachea midline, no thyromegaly Respiratory: + labored breathing Cardiovascular: Rate/Rhythm: regular rate and + bradycardic Heart Sounds: normal S1 and normal S2; no gallop and no murmur Palpation: normal PMI Vessels: normal carotid upstroke and radial pulses present; no JVD and no carotid bruit Extremities: no edema Gastrointestinal (Abdomen): Percussion/Palpation: abdomen soft (Obese); abdomen nontender Neurologic: PERRL, EOMI, accommodation nl, no face palsy, no dysarthria Psychiatric: A+Ox3, euthymic affect Results & Data ([facility]) Vital Signs (Past 12 Hours) Vital Signs Temp Pulse Pulse Resp BP BP Pulse Ox 07/09/21 09:00 80 18 142/66 H 95 07/09/21 08:00 80 17 143/65 H 97 07/09/21 07:15 37.1 C 80 80 19 127/77 97 07/09/21 06:00 80 23 143/66 H 96 07/09/21 05:00 80 18 135/69 93 07/09/21 04:00 80 22 145/69 H 92 07/09/21 03:45 36.6 C 87 21 120/60 95 07/09/21 02:38 48 L 20 124/55 L 94 07/09/21 02:02 53 L 20 117/60 98 07/09/21 02:00 51 L 17 121/75 93 07/09/21 01:42 41 L 21 140/53 L 95 07/09/21 01:00 80 22 128/77 96 07/09/21 00:56 90 24 96 07/09/21 00:00 80 17 137/67 93 07/08/21 23:00 36.5 C 80 134/58 L 95 07/08/21 22:30 80 13 142/80 H 95 07/08/21 22:10 80 20 97 07/08/21 22:00 80 13 129/68 97 07/08/21 21:30 80 16 131/75 93 Laboratory Results Laboratory Results - last 24 hr 07/08/21 07/08/21 07/08/21 14:55 14:55 14:55 WBC 12.35 H RBC 5.49 Hgb 12.6 L POC Hgb Hct 40.0 L POC Hct MCV 72.9 L MCH 23.0 L MCHC 31.5 L RDW Std Deviation 45.4 RDW Coeff of Carine 17.4 H Plt Count 328 MPV 9.7 Immature Gran % (Auto) 0.2 Neut % (Auto) 82.3 Lymph % (Auto) 10.2 [place] % (Auto) 6.9 Eos % (Auto) 0.2 Baso % (Auto) 0.2 Neut # (Auto) 10.16 H Lymph # (Auto) 1.26 [place] # (Auto) 0.85 H Eos # (Auto) 0.03 Baso # (Auto) 0.03 Immature Gran # (Auto) 0.02 Activ Coag Time Kaolin POC pH POC pCO2 POC pO2 POC HCO3 POC Base Excess POC ABG O2 Sat POC Sodium Sodium 135 L POC Potassium Potassium 4.5 POC Chloride Chloride 103 Carbon Dioxide 23 POC Total CO2 Anion Gap 9 POC Anion Gap POC BUN BUN 22 Creatinine 1.07 POC Creatinine Est Cr Clr Drug Dosing 69.5 Est GFR ( Amer) 81.1 Est GFR (Non-Af Amer) 70.0 BUN/Creatinine Ratio 20.6 H Glucose 226 H POC Glucose POC Glucose (other) Estimat Average Glucose Hemoglobin A1c Calcium 9.4 POC Ioniz Calcium [place] Phosphorus Magnesium Total Bilirubin 0.6 AST 19 ALT 16 Alkaline Phosphatase 94 Troponin I High Sens 28.8 H D Total Protein 6.5 Albumin 3.7 Globulin 2.8 Albumin/Globulin Ratio 1.3 Lipase 7 L TSH Nasal Screen MRSA (PCR) Lyme Disease IgG Ab Lyme Disease IgM Ab Hepatitis C Ab (EIA) Hep C Ab Signal/Cutoff SARS-CoV-2, RNA, NAAT 07/08/21 07/08/21 07/08/21 14:55 14:55 15:01 WBC RBC Hgb POC Hgb Hct POC Hct MCV MCH MCHC RDW Std Deviation RDW Coeff of Carine Plt Count MPV Immature Gran % (Auto) Neut % (Auto) Lymph % (Auto) [place] % (Auto) Eos % (Auto) Baso % (Auto) Neut # (Auto) Lymph # (Auto) [place] # (Auto) Eos # (Auto) Baso # (Auto) Immature Gran # (Auto) Activ Coag Time Kaolin POC pH POC pCO2 POC pO2 POC HCO3 POC Base Excess POC ABG O2 Sat POC Sodium Sodium POC Potassium Potassium POC Chloride Chloride Carbon Dioxide POC Total CO2 Anion Gap POC Anion Gap POC BUN BUN Creatinine POC Creatinine Est Cr Clr Drug Dosing Est GFR ( Amer) Est GFR (Non-Af Amer) BUN/Creatinine Ratio Glucose POC Glucose POC Glucose (other) Estimat Average Glucose Hemoglobin A1c Calcium POC Ioniz Calcium [place] Phosphorus Magnesium Total Bilirubin AST ALT Alkaline Phosphatase Troponin I High Sens Total Protein Albumin Globulin Albumin/Globulin Ratio Lipase TSH 0.939 Nasal Screen MRSA (PCR) Lyme Disease IgG Ab Negative Lyme Disease IgM Ab Negative Hepatitis C Ab (EIA) Hep C Ab Signal/Cutoff SARS-CoV-2, RNA, NAAT NEGATIVE 07/08/21 07/08/21 07/08/21 15:03 17:16 17:36 WBC RBC Hgb POC Hgb 13.9 L Hct POC Hct 41 L MCV MCH MCHC RDW Std Deviation RDW Coeff of Carine Plt Count MPV Immature Gran % (Auto) Neut % (Auto) Lymph % (Auto) [place] % (Auto) Eos % (Auto) Baso % (Auto) Neut # (Auto) Lymph # (Auto) [place] # (Auto) Eos # (Auto) Baso # (Auto) Immature Gran # (Auto) Activ Coag Time Kaolin 232 H POC pH 7.35 POC pCO2 46 POC pO2 114 H POC HCO3 25 H POC Base Excess 0.0 POC ABG O2 Sat 98.0 H POC Sodium 136 Sodium POC Potassium 4.6 Potassium POC Chloride 103 Chloride Carbon Dioxide POC Total CO2 22 L 27 Anion Gap POC Anion Gap 16.0 POC BUN 22 H BUN Creatinine POC Creatinine 1.0 Est Cr Clr Drug Dosing Est GFR ( Amer) Est GFR (Non-Af Amer) BUN/Creatinine Ratio Glucose POC Glucose POC Glucose (other) 239 H Estimat Average Glucose Hemoglobin A1c Calcium POC Ioniz Calcium [place] 1.22 Phosphorus Magnesium Total Bilirubin AST ALT Alkaline Phosphatase Troponin I High Sens Total Protein Albumin Globulin Albumin/Globulin Ratio Lipase TSH Nasal Screen MRSA (PCR) Lyme Disease IgG Ab Lyme Disease IgM Ab Hepatitis C Ab (EIA) Hep C Ab Signal/Cutoff SARS-CoV-2, RNA, NAAT 07/08/21 07/09/21 07/09/21 19:17 00:00 02:13 WBC RBC Hgb POC Hgb Hct POC Hct MCV MCH MCHC RDW Std Deviation RDW Coeff of Carine Plt Count MPV Immature Gran % (Auto) Neut % (Auto) Lymph % (Auto) [place] % (Auto) Eos % (Auto) Baso % (Auto) Neut # (Auto) Lymph # (Auto) [place] # (Auto) Eos # (Auto) Baso # (Auto) Immature Gran # (Auto) Activ Coag Time Kaolin POC pH POC pCO2 POC pO2 POC HCO3 POC Base Excess POC ABG O2 Sat POC Sodium Sodium 137 POC Potassium Potassium 3.9 POC Chloride Chloride 104 Carbon Dioxide 24 POC Total CO2 Anion Gap 9 POC Anion Gap POC BUN BUN 23 Creatinine 0.91 POC Creatinine Est Cr Clr Drug Dosing 80.8 Est GFR ( Amer) 98.6 Est GFR (Non-Af Amer) 85.1 BUN/Creatinine Ratio 25.3 H Glucose 69 L POC Glucose 101 H POC Glucose (other) Estimat Average Glucose Hemoglobin A1c Calcium 9.3 POC Ioniz Calcium [place] Phosphorus 4.1 Magnesium 1.5 L Total Bilirubin 0.7 AST 21 ALT 15 Alkaline Phosphatase 83 Troponin I High Sens Total Protein 6.2 Albumin 3.5 Globulin 2.7 Albumin/Globulin Ratio 1.3 Lipase TSH Nasal Screen MRSA (PCR) Negative Lyme Disease IgG Ab Lyme Disease IgM Ab Hepatitis C Ab (EIA) Hep C Ab Signal/Cutoff SARS-CoV-2, RNA, NAAT 07/09/21 07/09/21 07/09/21 02:13 02:13 02:13 WBC 13.56 H RBC 5.32 Hgb 12.3 L POC Hgb Hct 39.5 L POC Hct MCV 74.2 L MCH 23.1 L MCHC 31.1 L RDW Std Deviation 46.7 H RDW Coeff of Carine 17.7 H Plt Count 334 MPV 10.0 Immature Gran % (Auto) 0.2 Neut % (Auto) 75.7 Lymph % (Auto) 14.8 [place] % (Auto) 8.4 Eos % (Auto) 0.7 Baso % (Auto) 0.2 Neut # (Auto) 10.26 H Lymph # (Auto) 2.01 [place] # (Auto) 1.14 H Eos # (Auto) 0.09 Baso # (Auto) 0.03 Immature Gran # (Auto) 0.03 H Activ Coag Time Kaolin POC pH POC pCO2 POC pO2 POC HCO3 POC Base Excess POC ABG O2 Sat POC Sodium Sodium POC Potassium Potassium POC Chloride Chloride Carbon Dioxide POC Total CO2 Anion Gap POC Anion Gap POC BUN BUN Creatinine POC Creatinine Est Cr Clr Drug Dosing Est GFR ( Amer) Est GFR (Non-Af Amer) BUN/Creatinine Ratio Glucose POC Glucose POC Glucose (other) Estimat Average Glucose 157 Hemoglobin A1c 7.1 H Calcium POC Ioniz Calcium [place] Phosphorus Magnesium Total Bilirubin AST ALT Alkaline Phosphatase Troponin I High Sens Total Protein Albumin Globulin Albumin/Globulin Ratio Lipase TSH Nasal Screen MRSA (PCR) Lyme Disease IgG Ab Lyme Disease IgM Ab Hepatitis C Ab (EIA) Pending Hep C Ab Signal/Cutoff Pending SARS-CoV-2, RNA, NAAT 07/09/21 07/09/21 02:40 07:14 WBC RBC Hgb POC Hgb Hct POC Hct MCV MCH MCHC RDW Std Deviation RDW Coeff of Carine Plt Count MPV Immature Gran % (Auto) Neut % (Auto) Lymph % (Auto) [place] % (Auto) Eos % (Auto) Baso % (Auto) Neut # (Auto) Lymph # (Auto) [place] # (Auto) Eos # (Auto) Baso # (Auto) Immature Gran # (Auto) Activ Coag Time Kaolin POC pH POC pCO2 POC pO2 POC HCO3 POC Base Excess POC ABG O2 Sat POC Sodium Sodium POC Potassium Potassium POC Chloride Chloride Carbon Dioxide POC Total CO2 Anion Gap POC Anion Gap POC BUN BUN Creatinine POC Creatinine Est Cr Clr Drug Dosing Est GFR ( Amer) Est GFR (Non-Af Amer) BUN/Creatinine Ratio Glucose POC Glucose 82 130 H POC Glucose (other) Estimat Average Glucose Hemoglobin A1c Calcium POC Ioniz Calcium [place] Phosphorus Magnesium Total Bilirubin AST ALT Alkaline Phosphatase Troponin I High Sens Total Protein Albumin Globulin Albumin/Globulin Ratio Lipase TSH Nasal Screen MRSA (PCR) Lyme Disease IgG Ab Lyme Disease IgM Ab Hepatitis C Ab (EIA) Hep C Ab Signal/Cutoff SARS-CoV-2, RNA, NAAT (1) COPD (chronic obstructive pulmonary disease) COPD type: unspecified COPD Qualified Code(s): J44.9 - Chronic obstructive pulmonary disease, unspecified
[2021-07-09] MEDS ORDERED: Nursing to Pharmacy Communication SCH (09:30)
--- NOTE | 2021-07-09 09:52 | Critical Care Progress Note ---
Date of Service July 09, 2021 Assessment & Plan (1) Complete heart block: (2) Coronary artery disease: (3) DM type 2 (diabetes mellitus, type 2): (4) Chronic obstructive pulmonary disease: Plan: 70-year-old male presenting to the hospital in complete heart block found to have an RCA blockage requiring drug-eluting stent. Currently in the ICU for post cardiac cath monitoring and monitoring while having a temporary transvenous pacemaker in place. Neurologic: No issues at present. Pulmonary: Patient does not appear to be in a COPD exacerbation. Continue Breo while inpatient. Chest x-ray with findings of cardiomegaly and interstitial pulmonary edema. No significant effusions or other infiltrate seen. Continue CPAP at night. Cardiovascular: Status post cardiac cath and transvenous pacemaker placement. CHB likely secondary to RCA ischemia. Will undergo PPM today. Continue close telemetry monitoring. Continue dual antiplatelet therapy as per cardiology. Continue statin therapy. Echo from 05/13/2021 reviewed with an LVEF of 45 to 50%. Moderate aortic valve sclerosis. Gastrointestinal: No significant issues at present. Renal: No issues. Monitor electrolytes. Maintain magnesium above 2 and potassium above 4. [place] catheter placed to monitor urine output. Infectious disease: Lyme antibody is negative. No signs of infectious etiology at this time. Hematologic: Monitor for signs of bleeding. Endocrine: History of type 2 diabetes mellitus. Glycemic consult placed. Lines and tubes: Peripheral IVs and right femoral transvenous pacemaker in place. [place] placed 07/08/21. VTE prophylaxis: SCDs. CODE STATUS: FULL Family at bedside: None available at bedside Disposition: ICU Admission and Anticipated Discharge Date Admission Date: July 08, 2021 Subjective Patient seen and examined. Overnight, his chance venous femoral pacemaker was dislodged. A new transvenous pacemaker was placed in the right IJ. Patient denies any complaint of chest pain. No chest pain. No shortness of breath. Review of Systems Review of Systems: All systems reviewed & are unremarkable except as noted in HPI & below Physical Exam Constitutional: + obese; not in distress Neck: normal visual inspection and + thick neck Respiratory: normal respiratory effort, lungs clear to auscultation Cardiovascular: RRR, no murmur, no edema TR band in place. Femoral pacemaker appears intact without evidence of hematoma. Gastrointestinal (Abdomen): normal bowel sounds, soft, nontender, no hepatosplenomegaly Musculoskeletal: no cyanosis or clubbing, extremities motor strength 5/5 Skin: no rashes, warm and dry Neurologic: PERRL, EOMI, accommodation nl, no face palsy, no dysarthria Psychiatric: A+Ox3, euthymic affect Results & Data Results & Data ([facility]) Vital Signs (Past 12 Hours) Vital Signs Temp Pulse Pulse Resp BP BP Pulse Ox 07/09/21 09:00 80 18 142/66 H 95 07/09/21 08:00 80 17 143/65 H 97 07/09/21 07:15 37.1 C 80 80 19 127/77 97 07/09/21 06:00 80 23 143/66 H 96 07/09/21 05:00 80 18 135/69 93 07/09/21 04:00 80 22 145/69 H 92 07/09/21 03:45 36.6 C 87 21 120/60 95 07/09/21 02:38 48 L 20 124/55 L 94 07/09/21 02:02 53 L 20 117/60 98 07/09/21 02:00 51 L 17 121/75 93 07/09/21 01:42 41 L 21 140/53 L 95 07/09/21 01:00 80 22 128/77 96 07/09/21 00:56 90 24 96 07/09/21 00:00 80 17 137/67 93 07/08/21 23:00 36.5 C 80 134/58 L 95 07/08/21 22:30 80 13 142/80 H 95 07/08/21 22:10 80 20 97 07/08/21 22:00 80 13 129/68 97 Coding Level of Care Code 56462 Subseq Hosp Care Lvl 2 Diagnoses Complete heart block I44.2 Coronary artery disease I25.10 DM type 2 (diabetes mellitus, type 2) E11.9 Chronic obstructive pulmonary disease J44.9
[2021-07-09] MEDS ORDERED: LIDOCAINE 1% LOCAL 20 ML VIAL ONE (13:24)
[2021-07-09] MEDS ORDERED: BUPIVACAINE 0.25% 30 ML VIAL ONE (13:25)
[2021-07-09] MEDS ORDERED: WATER, STERILE FOR INJ 10 ML VIAL ONE (13:25)
[2021-07-09] MEDS ORDERED: VANCOMYCIN HCL 1000MG/20ML VIAL ONE (13:25)
--- NOTE | 2021-07-09 13:25 | Pharmacy Report ---
Pharmacy Glycemic Short Note 2 - Date of Service July 09, 2021 - Glycemic Short BSG Results (Last 24 hours): 07/08/21 07/08/21 07/08/21 14:55 15:03 19:17 Glucose 226 H POC Glucose 101 H POC Glucose (other) 239 H 07/09/21 07/09/21 07/09/21 02:13 02:40 07:14 Glucose 69 L POC Glucose 82 130 H POC Glucose (other) 07/09/21 11:45 Glucose POC Glucose 174 H POC Glucose (other) OUTPATIENT ANTIDIABETIC REGIMEN: * Novolin 70/30: 65 units SQ w/ breakfast & 60 units SQ w/ dinner * Metformin 1000 mg PO BIDM * HbA1c = 7.1% (07/09/21) ASSESSMENT: * 70 yo M admitted yesterday secondary to third degree heart block. Pharmacy was consulted to assist with inpatient glycemic management. He received his home doses in the AM prior to admission yesterday. No other insulin received inpatient. * Fasting BSG was 130 mg/dL this AM. Patient was NPO so made decision to hold basal insulin. Lunch BSG trended up to 174 mg/dL today. * Patient remains NPO for a PPM placement scheduled for this afternoon. * Given patient will likely be basal deficient, will schedule a one time dose of 60 units Lantus for immediate post-op which is approximately his full daily basal dose given as a load. Can split BID going forward. Novolog tightened based on previous admission data. PLAN FOR INPATIENT GLYCEMIC CONTROL: * Hold outpatient oral diabetes medications * Basal insulin * Lantus 60 units SQ x 1 followed by 30 units SQ BID starting tomorrow AM * Bolus insulin * NovoLog per scale ACHS or Q6hrs while NPO * Goal Range: Low 110 mg/dL - High 140 mg/dL * Correction Factor: 15 mg/dL/unit * Nutritional / Prandial insulin per carb ratio of 1 unit per 5 grams CHO consumed
[2021-07-09] MEDS ORDERED: ceFAZolin 330 MG/ML 1 GM VIAL ONE (14:18)
[2021-07-09] MEDS ORDERED: MIDAZOLAM HCL 5 MG/ML 1 ML VIAL ONE (14:18)
--- NOTE | 2021-07-09 14:26 | Pre Anesthesia Assessment ---
Date of Service July 09, 2021 Pre Sedation Assessment Vital Signs Temp Pulse Pulse Resp BP BP BP 07/09/21 14:00 80 24 147/76 H 07/09/21 13:00 80 23 150/73 H 07/09/21 12:30 80 23 139/73 07/09/21 12:00 80 18 150/62 H 07/09/21 11:30 80 21 144/66 H 07/09/21 11:00 37.1 C 80 21 133/72 07/09/21 10:45 80 20 154/69 H 07/09/21 10:30 80 20 147/63 H 07/09/21 10:15 80 22 154/63 H 07/09/21 10:06 80 21 147/71 H 07/09/21 10:00 141/74 H 07/09/21 09:00 80 18 142/66 H 07/09/21 08:00 80 17 143/65 H 07/09/21 07:15 37.1 C 80 80 19 127/77 07/09/21 06:00 80 23 143/66 H 07/09/21 05:00 80 18 135/69 07/09/21 04:00 80 22 145/69 H 07/09/21 03:45 36.6 C 87 21 120/60 07/09/21 02:38 48 L 20 124/55 L 07/09/21 02:02 53 L 20 117/60 07/09/21 02:00 51 L 17 121/75 07/09/21 01:42 41 L 21 140/53 L 07/09/21 01:00 80 22 128/77 07/09/21 00:56 90 24 07/09/21 00:00 80 17 137/67 07/08/21 23:00 36.5 C 80 134/58 L 07/08/21 22:30 80 13 142/80 H 07/08/21 22:10 80 20 07/08/21 22:00 80 13 129/68 07/08/21 21:30 80 16 131/75 07/08/21 21:00 80 25 H 07/08/21 20:30 80 22 123/62 07/08/21 20:00 36.5 C 80 25 H 116/92 07/08/21 19:30 80 22 150/98 H 05/12/22 19:15 80 25 H 137/74 07/08/21 19:00 80 14 126/79 07/08/21 18:45 80 18 130/66 07/08/21 18:16 36.9 C 80 22 122/61 07/08/21 18:15 80 22 122/61 07/08/21 18:08 07/08/21 18:00 36.9 C 80 19 140/66 07/08/21 16:22 40 L 16 124/80 07/08/21 14:55 07/08/21 14:48 43 L 24 129/56 L 07/08/21 14:43 37.1 C 44 L 16 129/56 L Pulse Ox Pulse Ox 07/09/21 14:00 91 07/09/21 13:00 93 07/09/21 12:30 95 07/09/21 12:00 91 07/09/21 11:30 92 07/09/21 11:00 92 07/09/21 10:45 90 07/09/21 10:30 90 07/09/21 10:15 89 L 07/09/21 10:06 92 07/09/21 10:00 07/09/21 09:00 95 07/09/21 08:00 97 07/09/21 07:15 97 07/09/21 06:00 96 07/09/21 05:00 93 07/09/21 04:00 92 07/09/21 03:45 95 07/09/21 02:38 94 07/09/21 02:02 98 07/09/21 02:00 93 07/09/21 01:42 95 07/09/21 01:00 96 07/09/21 00:56 96 07/09/21 00:00 93 07/08/21 23:00 95 07/08/21 22:30 95 07/08/21 22:10 97 07/08/21 22:00 97 07/08/21 21:30 93 07/08/21 21:00 94 07/08/21 20:30 94 07/08/21 20:00 95 07/08/21 19:30 95 07/08/21 19:15 96 07/08/21 19:00 96 07/08/21 18:45 96 07/08/21 18:16 96 07/08/21 18:15 94 07/08/21 18:08 95 07/08/21 18:00 95 07/08/21 16:22 98 07/08/21 14:55 89 L 07/08/21 14:48 94 07/08/21 14:43 85 L Cardiovascular RRR, no murmur, no edema Respiratory normal respiratory effort, lungs clear to auscultation Pre-Sedation Airway Assessment Smoking Status: Current every day smoker Hx Sleep Apnea: No Hx Difficult Intubation: No Short, Thick Neck: No Thyromental Distance: > or= 3.5 Finger Breadths Oral Cavity: + Dental Abnormalities Mallampati Class: III ASA: ASA3 NPO Status Date of Last Intake of Fluids: 07/07/21 Time of Last Intake of Fluids: 20:00 Date of Last Intake of Solid Food: 07/07/21 Time of Last Intake of Solid Foods: 20:00 Procedure Planning Contraindications for Sedation: none Current Medications Reviewed: Yes Notes The planned sedation has been discussed with the patient. Informed Consent was obtained. I have identified the patient, determined the appropriateness of sedation and have assessed the patient immediately prior to the procedure. All medicine(s) and interventions are by my order.
--- NOTE | 2021-07-09 14:26 | History & Physical Bridge Note ---
Date of Service July 09, 2021 History & Physical Bridge Note I have examined the patient, reviewed the History & Physical and in the interval since the performance of the History & Physical I have noted the following changes of clinical significance: pt with CHB for a dual chamber ppm; discussed the risks and consents signed
--- NOTE | 2021-07-09 16:09 | Post Anesthesia Assessment ---
Date of Service July 09, 2021 Post Sedation Assessment Vital Signs Temp Pulse Pulse Resp BP BP BP 07/09/21 14:00 80 24 147/76 H 07/09/21 13:00 80 23 150/73 H 07/09/21 12:30 80 23 139/73 07/09/21 12:00 80 18 150/62 H 07/09/21 11:30 80 21 144/66 H 07/09/21 11:00 37.1 C 80 21 133/72 07/09/21 10:45 80 20 154/69 H 07/09/21 10:30 80 20 147/63 H 07/09/21 10:15 80 22 154/63 H 07/09/21 10:06 80 21 147/71 H 07/09/21 10:00 141/74 H 07/09/21 09:00 80 18 142/66 H 07/09/21 08:00 80 17 143/65 H 07/09/21 07:15 37.1 C 80 80 19 127/77 07/09/21 06:00 80 23 143/66 H 07/09/21 05:00 80 18 135/69 07/09/21 04:00 80 22 145/69 H 07/09/21 03:45 36.6 C 87 21 120/60 07/09/21 02:38 48 L 20 124/55 L 07/09/21 02:02 53 L 20 117/60 07/09/21 02:00 51 L 17 121/75 07/09/21 01:42 41 L 21 140/53 L 07/09/21 01:00 80 22 128/77 07/09/21 00:56 90 24 07/09/21 00:00 80 17 137/67 07/08/21 23:00 36.5 C 80 134/58 L 07/08/21 22:30 80 13 142/80 H 07/08/21 22:10 80 20 07/08/21 22:00 80 13 129/68 07/08/21 21:30 80 16 131/75 07/08/21 21:00 80 25 H 07/08/21 20:30 80 22 123/62 07/08/21 20:00 36.5 C 80 25 H 116/92 07/08/21 19:30 80 22 150/98 H 05/12/22 19:15 80 25 H 137/74 07/08/21 19:00 80 14 126/79 07/08/21 18:45 80 18 130/66 07/08/21 18:16 36.9 C 80 22 122/61 07/08/21 18:15 80 22 122/61 07/08/21 18:08 07/08/21 18:00 36.9 C 80 19 140/66 07/08/21 16:22 40 L 16 124/80 Pulse Ox Pulse Ox 07/09/21 14:00 91 07/09/21 13:00 93 07/09/21 12:30 95 07/09/21 12:00 91 07/09/21 11:30 92 07/09/21 11:00 92 07/09/21 10:45 90 07/09/21 10:30 90 07/09/21 10:15 89 L 07/09/21 10:06 92 07/09/21 10:00 07/09/21 09:00 95 07/09/21 08:00 97 07/09/21 07:15 97 07/09/21 06:00 96 07/09/21 05:00 93 07/09/21 04:00 92 07/09/21 03:45 95 07/09/21 02:38 94 07/09/21 02:02 98 07/09/21 02:00 93 07/09/21 01:42 95 07/09/21 01:00 96 07/09/21 00:56 96 07/09/21 00:00 93 07/08/21 23:00 95 07/08/21 22:30 95 07/08/21 22:10 97 07/08/21 22:00 97 07/08/21 21:30 93 07/08/21 21:00 94 07/08/21 20:30 94 07/08/21 20:00 95 07/08/21 19:30 95 07/08/21 19:15 96 07/08/21 19:00 96 07/08/21 18:45 96 07/08/21 18:16 96 07/08/21 18:15 94 07/08/21 18:08 95 07/08/21 18:00 95 07/08/21 16:22 98 Recovery Score Activity: Moves 4 extremities Respiration: Deep Breath/Cough Circulation: +/-20% PreAnes Value Consciousness: Fully Awake Oxygen Saturation: O2 needed for >90% Discharge Sedation Level of Care: Fast Track Phase II Post Sedation Plan On clinical assessment, the patient appears to have tolerated the sedation without complications. Patient is recovering as anticipated. Patient will continue to be monitored by nursing and may be discharged when sedation discharge criteria are met per below protocol. Upon Completions of procedure up to 15 minutes continue every 5 minute vital signs and the P.A.R. score; then discharge to a Phase I or Fast Track to Phase II per the following guidelines: * Discharge Patient to appropriate Phase II area if PAR is 8 or greater or return to pre- procedure baseline. The post - procedure orders will be as directed. * If PAR score is less than 8 or not return to pre-procedure baseline then patient will follow Phase I monitoring till PAR is reached for Phase II. The Phase I may be done in procedure room or may call to secure a Phase I area. * If naloxone or flumazenil are used for reversal, hold in Phase I for continued monitoring from when last reversal dose was given for a minimum of 60 minutes or longer pending the nurse and/or physician discretion of patient condition before discharge to Phase II. Please call the Sedation Physician to re-evaluate and complete post-note for discharge to Phase II area. Do NOT discharge from procedure sedation or Phase 1 until post- sedation evaluation note is complete by procedure /sedation MD Sedation Discharge Instructions to be given to the patient at discharge to home.
--- NOTE | 2021-07-09 16:10 | Operative Report ---
Post Operative Report Pre & Post Diagnosis CHB Operation Date: 07/08/21 16:30 <No data on this case meets the specified criteria> Operation Date: 07/09/21 02:30 <No data on this case meets the specified criteria> Operation Date: 07/09/21 13:00 <No data on this case meets the specified criteria> I identified the patient and participated in the time-out.: Yes Procedure Operation Date: 07/08/21 16:30 Actual Procedures s Cineradiography w/Routine Exam - Chaka Zayas MD p Cath, Left with Cors and Vent - Chaka Zayas MD s Fraction Flow [place] SGL Ves - Chaka Zayas MD s Ins/RemTemporary Transvenous Pacer - Chaka Zayas MD s Drug Eluting Stent SGl Vessel - Chaka Zayas MD s Ultrasound Vascular Access - Chaka Zayas MD Operation Date: 07/09/21 02:30 Actual Procedures p Temporary Transcutaneous Pacing - Chaka Zayas MD s Cineradiography w/Routine Exam - Chaka Zayas MD Operation Date: 07/09/21 13:00 Actual Procedures p Pacer with A/V Leads (Dual) - Tracy Nuñez DO Surgeon Tracy Nuñez, Switch Adjuster Tyree Patel Estimated Blood Loss 10 Findings Consistent with Post-Op Diagnosis none Specimens none Description of Procedure see official report I attest to the content of the Intraoperative Record and any orders documented therein. Any exceptions are noted below.
[2021-07-09] MEDS ORDERED: INSULIN GLARGINE SOLOSTAR 100 UNITS/ML 3 ML PEN SC SCH (16:30)
[2021-07-09] MEDS: NICOTINE 21 MG/24 HR TDSY TD SCH (17:13)
--- NOTE | 2021-07-09 19:32 | Electrocardiogram Report ---
Test Reason : Blood Pressure : / mmHG Vent. Rate : 044 BPM Atrial Rate : 117 BPM P-R Int : 000 ms QRS Dur : 136 ms QT Int : 584 ms P-R-T Axes : 049 -74 -51 degrees QTc Int : 499 ms Sinus tachycardia with A-V dissociation and junctional escape rhythm Right bundle branch block Left anterior fascicular block Bifascicular block Minimal voltage criteria for LVH, may be normal variant Possible Anterior infarct , age undetermined T wave abnormality, consider inferolateral ischemia Abnormal ECG When compared with ECG of 19-JUN-2021 07:58, Complete heart block is now present Vent. rate has decreased BY 62 BPM T wave inversion now evident in Inferolateral leads Confirmed by Sujit Rodríguez ([id number]) on 07/09/2021 7:32:22 PM Referred By: REFERRED SELF Confirmed By:Sujit Rodríguez
--- NOTE | 2021-07-09 20:42 | Hospitalist Progress Note ---
Date of Service July 09, 2021 Delayed entry Date of service above Assessment & Plan (1) Complete heart block: (2) Chest pain: (3) DM type 2 (diabetes mellitus, type 2): (4) Hypertension: (5) ELIZABETH (obstructive sleep apnea): Plan: Per admitting service notes with addendum: This is a 70-year-old male who has significant past medical history of T2DM, HTN, HLD, ELIZABETH on CPAP, chronic HFpEF, COPD, tobacco abuse, diabetic neuropathy, PAD, morbid obesity and depression who presents to ED secondary to shortness of breath and chest tightness prior to arrival. CHB Likely secondary to RCA occlusion Status post permanent pacemaker placement Repeat chest x-ray no pneumothorax CAD s/p CHERIE to RCA Continue dual antiplatelet, Lipitor COPD Not in exacerbation DM Insulin sliding scale Pharmacy glycemic control ELIZABETH on CPAP HTN Usually on amlodipine and losartan Admission and Anticipated Discharge Date Admission Date: July 08, 2021 Subjective Follow-up for complete heart block, etc. Seen resting in bed, comfortable, not in distress Status postcardiac cath, with CHERIE placement to RCA, status post permanent pacemaker placement States he feels fine overall just tired Some discomfort over the pacemaker site no chest pain, dyspnea, palpitations, dizziness No other symptoms Review of Systems Review of Systems: all noted and negative except for above Physical Exam Physical Exam: General- oriented x 3, not in distress, speaks in sentences with no effort or accessory muscle use Head- atraumatic Eyes- PERRL, EOMI, anicteric ENT- oropharynx clear Neck- supple, no JVD, no adenopathy, no thyromegaly; carotids +2/2, no bruits appreciated Lungs- clear to auscultation bilaterally, no rales/wheezes Heart- normal rate, regular rhythm; no murmur, no gallop, no rub appreciated Pacemaker site: No bleeding or discharge Abdomen- normal bowel sounds, nondistended, soft, nontender, no masses or hepatosplenomegaly Extremities- no pretibial edema, no calf tenderness; peripheral pulses intact Neuro- alert, oriented x 3; CN 2-12 grossly intact; motor 5/5 bilaterally;sensation 100% on all extremities; no other gross focal neurologic deficits Skin- warm & dry Results & Data Results & Data ([facility]) Vital Signs (Past 12 Hours) Vital Signs Temp Pulse Pulse Resp BP BP Pulse Ox 07/09/21 19:15 97 H 23 150/98 H 92 07/09/21 19:01 98 H 23 144/68 H 94 07/09/21 19:00 95 H 22 91 07/09/21 18:46 98 H 30 H 158/85 H 93 07/09/21 18:35 86 21 147/75 H 92 07/09/21 18:30 88 22 147/75 H 89 L 07/09/21 18:15 97 H 24 161/103 H 90 07/09/21 18:09 89 22 161/81 H 92 07/09/21 18:00 90 23 161/81 H 92 07/09/21 17:45 91 H 21 140/68 90 07/09/21 17:35 88 20 169/86 H 92 07/09/21 17:30 88 19 169/86 H 89 L 07/09/21 17:20 88 23 157/77 H 94 07/09/21 17:16 90 28 H 157/77 H 90 07/09/21 17:05 102 H 21 165/87 H 94 07/09/21 17:00 87 21 165/87 H 94 07/09/21 16:53 86 21 157/82 H 93 07/09/21 16:51 92 H 19 154/104 H 87 L 07/09/21 16:50 86 21 157/82 H 92 07/09/21 16:39 94 H 21 152/88 H 94 07/09/21 16:35 37.0 C 95 H 22 152/88 H 93 07/09/21 16:15 70 16 138/76 100 07/09/21 16:00 95 H 07/09/21 14:02 80 18 147/76 H 97 07/09/21 14:00 80 80 24 153/126 H 147/76 H 88 L 07/09/21 13:30 80 22 141/66 H 93 07/09/21 13:00 80 80 21 150/73 H 150/73 H 94 07/09/21 12:30 80 80 26 H 139/73 139/73 96 07/09/21 12:00 80 80 22 150/62 H 150/62 H 91 07/09/21 11:30 80 21 144/66 H 92 07/09/21 11:03 80 21 133/72 92 07/09/21 11:00 37.1 C 80 80 26 H 127/67 133/72 90 07/09/21 10:45 80 20 154/69 H 90 07/09/21 10:31 80 24 147/63 H 89 L 07/09/21 10:30 80 20 147/63 H 90 07/09/21 10:15 80 22 154/63 H 89 L 07/09/21 10:06 80 21 147/71 H 92 07/09/21 10:00 141/74 H 07/09/21 09:00 80 18 142/66 H 95 all noted and reviewed including below
[2021-07-09] MEDS: FLUTICASONE/VILANTEROL 100/25MCG 14 PUFFS/INHALER INH SCH (21:35)
--- NOTE | 2021-07-09 21:51 | Electrocardiogram Report ---
Test Reason : Blood Pressure : / mmHG Vent. Rate : 080 BPM Atrial Rate : 065 BPM P-R Int : 000 ms QRS Dur : 154 ms QT Int : 470 ms P-R-T Axes : 000 -40 -53 degrees QTc Int : 542 ms Poor data quality, interpretation may be adversely affected Ventricular-paced rhythm Abnormal ECG When compared with ECG of 08-JUL-2021 14:52, Electronic ventricular pacemaker is now Present Vent. rate has increased BY 36 BPM Confirmed by Sujit Rodríguez ([id number]) on 07/09/2021 9:50:36 PM Referred By: REFERRED SELF Confirmed By:Sujit Rodríguez
--- NOTE | 2021-07-09 21:59 | Electrocardiogram Report ---
Test Reason : Blood Pressure : / mmHG Vent. Rate : 050 BPM Atrial Rate : 050 BPM P-R Int : 000 ms QRS Dur : 148 ms QT Int : 602 ms P-R-T Axes : 071 103 -67 degrees QTc Int : 548 ms Suspect unspecified pacemaker failure Sinus rhythm with high grade AV block Pacemaker is not capturing Right bundle branch block Marked T-wave abnormality, consider inferolateral ischemia Prolonged QT Abnormal ECG When compared with ECG of 08-JUL-2021 17:58, Pacemaker is no longer capturing T wave inversion more evident in Inferolateral leads Confirmed by Sujit Rodríguez ([id number]) on 07/09/2021 9:59:04 PM Referred By: REFERRED SELF Confirmed By:Sujit Rodríguez
--- NOTE | 2021-07-09 22:02 | Electrocardiogram Report ---
Test Reason : Blood Pressure : / mmHG Vent. Rate : 080 BPM Atrial Rate : 088 BPM P-R Int : 000 ms QRS Dur : 160 ms QT Int : 468 ms P-R-T Axes : 000 001 -53 degrees QTc Int : 539 ms Sinus rhythm with complete heart block and Ventricular-paced rhythm Abnormal ECG When compared with ECG of 09-JUL-2021 01:54, Pacemaker capture is now present Confirmed by Sujit Rodríguez ([id number]) on 07/09/2021 10:01:42 PM Referred By: REFERRED SELF Confirmed By:Sujit Rodríguez
[2021-07-10] MEDS: ACETAMINOPHEN 325 MG TAB PO PRN ×2 (00:47→20:32)
[2021-07-10 06:15] LABS: BUN Creatinine Ratio 26.9 (10-20); Calcium 9.1 mg/dl (8.5-10.1); Creatinine Clr Calc Pharmacy 108.5 ml/min; Est GFR (African American) 112.8 ml/min; Est GFR (Non-African American) 97.4 ml/min; Magnesium 1.6 mg/dl (1.7-2.4); Phosphorus 3.4 mg/dl (2.5-4.9); Potassium 3.8 mmol/L (3.5-5.1)
[2021-07-10] MEDS: ICU ELECTROLYTE REPLACEMENT PROTOCOL SCH ×2 (06:36→17:32)
[2021-07-10] MEDS: INSULIN ASPART PER UNIT SC SCH ×4 (08:26→20:32)
[2021-07-10] MEDS: POTASSIUM CHLORIDE CRTAB 20 MEQ TABCR PO SCH ×2 (08:26→10:52)
[2021-07-10] MEDS: MAGNESIUM SULFATE / D5W 1 GM/100 ML BAG IV SCH ×4 (08:26→13:38)
[2021-07-10] MEDS: ASPIRIN 81 MG ECTAB PO SCH (08:27)
[2021-07-10] MEDS: CLOPIDOGREL BISULFATE 75 MG TAB PO SCH (08:27)
[2021-07-10] MEDS: ATORVASTATIN 40 MG TAB PO SCH (08:27)
[2021-07-10] MEDS: FINASTERIDE 5 MG TAB PO SCH (08:27)
[2021-07-10] MEDS: VENLAFAXINE HCL XR 150 MG CAPXR PO SCH (08:28)
[2021-07-10] MEDS: METOPROLOL SUCC 25MG EXT REL TAB PO SCH (08:28)
[2021-07-10] MEDS: NICOTINE 21 MG/24 HR TDSY TD SCH (08:28)
[2021-07-10] MEDS: PANTOprazole 40 MG TAB PO SCH (08:28)
[2021-07-10] MEDS ORDERED: INSULIN GLARGINE SOLOSTAR 100 UNITS/ML 3 ML PEN SC SCH ×3 (09:00→21:00)
[2021-07-10] MEDS ORDERED: LABETALOL HCL IV 5 MG/ML 20ML IV STA (09:44)
--- NOTE | 2021-07-10 09:46 | Critical Care Progress Note ---
Date of Service July 10, 2021 Assessment & Plan (1) Complete heart block: (2) Coronary artery disease: (3) DM type 2 (diabetes mellitus, type 2): (4) Chronic obstructive pulmonary disease: Plan: 70-year-old male presenting to the hospital in complete heart block found to have an RCA blockage requiring drug-eluting stent. Currently in the ICU for post cardiac cath monitoring and monitoring while having a temporary transvenous pacemaker in place. Neurologic: No issues at present. Pulmonary: Patient does not appear to be in a COPD exacerbation. Continue Breo while inpatient. Chest x-ray status post pacemaker placement ordered today. Continue CPAP while sleeping. Cardiovascular: Status post cardiac cath and transvenous pacemaker placement. CHB likely secondary to RCA ischemia. Status post permanent pacemaker placement 07/09/2021. Continue close telemetry monitoring. Continue dual antiplatelet therapy as per cardiology. Continue statin therapy. Echo from 05/13/2021 reviewed with an LVEF of 45 to 50%. Moderate aortic valve sclerosis. Restart antihypertensives as the patient is becoming more hypertensive. Gastrointestinal: No significant issues at present. Renal: No issues. Monitor electrolytes. Maintain magnesium above 2 and potassium ab ove 4. [place] catheter placed to monitor urine output. Infectious disease: Lyme antibody is negative. No signs of infectious etiology at this time. Hematologic: Monitor for signs of bleeding. Endocrine: History of type 2 diabetes mellitus. Glycemic consult placed. Lines and tubes: Peripheral IVs and right femoral transvenous pacemaker in place. [place] placed 07/08/21. VTE prophylaxis: SCDs. CODE STATUS: FULL Family at bedside: None available at bedside Disposition: Okay to downgrade out of the ICU today. Admission and Anticipated Discharge Date Admission Date: July 08, 2021 Subjective Patient seen and examined. Appears comfortable. Laying in bed. Did not tolerate CPAP yesterday evening. Complains of some soreness in his chest where the pacemaker is placed. Review of Systems Review of Systems: All systems reviewed & are unremarkable except as noted in HPI & below Physical Exam Constitutional: + obese; not in distress Neck: normal visual inspection and + thick neck Respiratory: normal respiratory effort, lungs clear to auscultation Cardiovascular: RRR, no murmur, no edema Gastrointestinal (Abdomen): normal bowel sounds, soft, nontender, no hepatosplenomegaly Musculoskeletal: no cyanosis or clubbing, extremities motor strength 5/5 Skin: no rashes, warm and dry Neurologic: PERRL, EOMI, accommodation nl, no face palsy, no dysarthria Psychiatric: A+Ox3, euthymic affect Results & Data Results & Data ([facility]) Vital Signs (Past 12 Hours) Vital Signs Temp Pulse Resp BP Pulse Ox 07/10/21 06:45 101 H 24 203/93 H 96 07/10/21 06:30 93 H 28 H 181/99 H 98 07/10/21 06:00 88 21 163/90 H 99 07/10/21 05:46 99 H 23 177/77 H 98 07/10/21 05:30 98 H 22 178/90 H 98 07/10/21 05:00 91 H 21 174/96 H 96 07/10/21 04:45 97 H 18 173/91 H 98 07/10/21 04:31 103 H 24 147/126 H 85 L 07/10/21 04:00 93 H 26 H 89 L 07/10/21 03:01 93 H 22 141/88 H 98 07/10/21 03:00 97 H 22 98 07/10/21 02:45 84 23 165/77 H 96 07/10/21 02:30 87 19 143/78 H 95 07/10/21 02:00 90 25 H 93 07/10/21 01:16 88 25 H 149/77 H 95 07/10/21 01:02 91 H 22 156/75 H 96 07/10/21 01:00 99 H 29 H 93 07/10/21 00:31 102 H 18 141/94 H 96 07/10/21 00:16 89 25 H 156/81 H 97 07/10/21 00:01 103 H 23 151/78 H 96 07/10/21 00:00 87 19 95 07/09/21 23:46 94 H 26 H 139/95 98 07/09/21 23:31 101 H 21 175/97 H 95 07/09/21 23:17 93 H 26 H 165/91 H 95 07/09/21 23:00 36.9 C 95 H 28 H 155/91 H 96 07/09/21 22:30 90 23 96 07/09/21 22:00 98 H 27 H 92 Coding Level of Care Code 22838 Subseq Hosp Care Lvl 2 Diagnoses Complete heart block I44.2 Coronary artery disease I25.10 DM type 2 (diabetes mellitus, type 2) E11.9 Chronic obstructive pulmonary disease J44.9
--- NOTE | 2021-07-10 10:09 | Electrocardiogram Report ---
Test Reason : Blood Pressure : / mmHG Vent. Rate : 093 BPM Atrial Rate : 093 BPM P-R Int : 144 ms QRS Dur : 154 ms QT Int : 444 ms P-R-T Axes : 048 142 -46 degrees QTc Int : 552 ms Suspect unspecified pacemaker failure Atrial-sensed ventricular-paced rhythm Abnormal ECG When compared with ECG of 09-JUL-2021 03:46, Sinus rhythm is no longer with complete heart block Vent. rate has increased BY 13 BPM Confirmed by Marcell Gallagher ([id number]) on 07/10/2021 10:08:39 AM Referred By: REFERRED SELF Confirmed By:Marcell Gallagher
--- NOTE | 2021-07-10 10:49 | XRay Report ---
XR chest 1V portable CLINICAL HISTORY: s/p ppm TECHNIQUE: Single frontal radiograph of the chest was obtained. Comparison: Comparison is made to chest radiograph 07/08/2021 FINDINGS: Dual lead pacemaker is seen. The cardiomediastinal silhouette is normal. The lungs are clear. No evid ence of pleural effusion or pneumothorax. IMPRESSION: No acute chest disease. ACT 112: Negative or not required by law. Electronically signed by: Wilson Canseco M.D. 07/10/2021 10:48 AM
[2021-07-10] MEDS: LOSARTAN POTASSIUM 50 MG TAB PO SCH (10:51)
[2021-07-10] MEDS: amLODIPine BESYLATE 5 MG TAB PO SCH (10:51)
--- NOTE | 2021-07-10 13:38 | Cardiology Progress Note ---
Date of Service July 10, 2021 Assessment & Plan (1) Complete heart block: (2) Chest pain: (3) Morbid obesity with BMI of 40.0-44.9, adult: (4) COPD (chronic obstructive pulmonary disease): (5) Elevated troponin: (6) ELIZABETH (obstructive sleep apnea): Plan: Patient is a 70-year-old male with complex underlying medical issues including chronic obstructive lung disease, type 2 diabetes mellitus, peripheral vascular disease, bifascicular heart block on prior EKGs in past notable elevations in troponins during acute hospitalization with illness. He presented in third- degree heart block with chest pressure pain beginning approximately 1 PM this afternoon. Initial troponin mildly elevated but consistent with past hospitalization in April Patient appeared acutely ill and diaphoretic and patient was referred for emergent diagnostic cardiac catheterization and temporary transvenous pacemaker insertion Coronary angiography demonstrated single-vessel significant lesion undergoing drug-eluting stent to the mid right coronary artery. Temporary transvenous pacemaker placed via femoral vein but dislodged last night and reinserted via right IJ. Patient currently pacemaker dependent Plan: Status post permanent dual-chamber pacemaker on 07/09/2021. Currently on dual antiplatelet therapy, atorvastatin. Amlodipine and losartan restarted today. Continue current dose of aspirin, atorvastatin and metoprolol. Okay to DC to home from a cardiac standpoint. Restrictions reviewed. My office will call to arrange pocket check and establish with device clinic. Admission and Anticipated Discharge Date Admission Date: July 08, 2021 Subjective Patient seen and examined, chart reviewed. States discomfort at the pacer pocket site otherwise feeling well. No events reported overnight. Telemetry reviewed: A sensed V paced rhythm Review of Systems Review of Systems: All systems reviewed & are unremarkable except as noted in HPI & below Physical Exam Physical Exam: General: Awake, alert and oriented x 3. No acute distress. HEENT: Normocephalic, atraumatic. Pupils equal, round and reactive to light and accommodation. Extraocular muscles are intact. Anicteric sclera. Moist mucous membranes. Neck: No JVD. No bruit. Cardiovascular: Regular. Positive S-4. Normal S-1 and S-2. No S-3. No murmurs or rubs. Pulmonary: Clear to auscultation B/L. No rales, rhonchi or wheezing Abdomen: Bowel sounds x 4, soft. No rebound, guarding or tenderness. No organomegaly. Extremities: No clubbing, cyanosis or edema. +2 pedal pulses bilaterally. Skin: Warm and dry. Results & Data ([facility]) Vital Signs (Past 12 Hours) Vital Signs Pulse Resp BP Pulse Ox 07/10/21 09:30 98 H 17 97 07/10/21 09:15 101 H 24 96 07/10/21 09:00 81 24 169/73 H 92 07/10/21 08:45 94 H 21 158/82 H 94 07/10/21 08:30 82 24 150/88 H 95 07/10/21 08:16 100 H 26 H 170/91 H 95 07/10/21 08:15 102 H 20 95 07/10/21 08:00 93 H 27 H 95 07/10/21 07:45 94 H 22 170/99 H 98 07/10/21 07:30 101 H 20 96 07/10/21 07:15 93 H 24 167/91 H 97 07/10/21 07:00 92 H 24 161/75 H 97 07/10/21 06:49 97 H 23 139/84 98 07/10/21 06:45 101 H 24 203/93 H 96 07/10/21 06:30 93 H 28 H 181/99 H 98 07/10/21 06:00 88 21 163/90 H 99 07/10/21 05:46 99 H 23 177/77 H 98 07/10/21 05:30 98 H 22 178/90 H 98 07/10/21 05:00 91 H 21 174/96 H 96 07/10/21 04:45 97 H 18 173/91 H 98 07/10/21 04:31 103 H 24 147/126 H 85 L 07/10/21 04:00 93 H 26 H 89 L 07/10/21 03:01 93 H 22 141/88 H 98 07/10/21 03:00 97 H 22 98 07/10/21 02:45 84 23 165/77 H 96 07/10/21 02:30 87 19 143/78 H 95 07/10/21 02:00 90 25 H 93 (1) COPD (chronic obstructive pulmonary disease) COPD type: unspecified COPD Qualified Code(s): J44.9 - Chronic obstructive pulmonary disease, unspecified
--- NOTE | 2021-07-10 17:02 | Hospitalist Progress Note ---
Date of Service July 10, 2021 Assessment & Plan (1) Complete heart block: (2) Chest pain: (3) DM type 2 (diabetes mellitus, type 2): (4) Hypertension: (5) ELIZABETH (obstructive sleep apnea): Plan: Per admitting service notes with addendum: This is a 70-year-old male who has significant past medical history of T2DM, HTN, HLD, ELIZABETH on CPAP, chronic HFpEF, COPD, tobacco abuse, diabetic neuropathy, PAD, morbid obesity and depression who presents to ED secondary to shortness of breath and chest tightness prior to arrival. CHB secondary to RCA occlusion Status post permanent pacemaker placement Repeat chest x-ray no pneumothorax CAD s/p CHERIE to RCA Continue dual antiplatelet, Lipitor Generalized Weakness PT re-eval tomorrow may need Rehab COPD Not in exacerbation DM Insulin sliding scale Pharmacy glycemic control ELIZABETH on CPAP HTN Usually on amlodipine and losartan plan of care discussed with patient in detail and at length all questions answered he is understanding, agreeable, comfortable with the plan of care Admission and Anticipated Discharge Date Admission Date: July 08, 2021 Subjective Follow-up for complete heart block, etc. Seen resting in chair, comfortable states he feels fine overall no chest pain, dyspnea, palpitations, dizziness reports he felt fine with PT session today has chronic R knee pain would like to go home today explained to patient PT evaluation recommendations willing to stay tonight and re-eval tomorrow no other symptoms Review of Systems Review of Systems: all noted and negative except for above Physical Exam Physical Exam: General- oriented x 3, not in distress, speaks in sentences with no effort or accessory muscle use Eyes- anicteric Neck- no JVD Lungs- clear breath sounds bilaterally, no rales/wheezes Heart- normal rate, regular rhythm; no murmurs pacemaker site: no bleeding or discharge Abdomen- normal bowel sounds, nondistended, soft, nontender Extremities- no pretibial edema, no calf tenderness L arm sling in place R knee: no edema, tenderness Neuro- alert, oriented x 3; no gross focal neurologic deficits Skin- warm & dry Results & Data Results & Data ([facility]) Vital Signs (Past 12 Hours) Vital Signs Temp Pulse Resp BP Pulse Ox 07/10/21 16:02 36.7 C 89 18 125/75 96 07/10/21 15:00 87 25 H 133/97 07/10/21 14:34 72 26 H 128/79 92 07/10/21 14:01 90 07/10/21 13:53 89 25 H 139/82 95 07/10/21 13:45 88 21 138/71 93 07/10/21 13:42 90 25 H 136/71 94 07/10/21 13:31 87 27 H 150/75 H 93 07/10/21 13:15 90 27 H 143/73 H 93 07/10/21 13:00 90 24 132/65 93 07/10/21 12:45 87 30 H 136/91 94 07/10/21 12:15 80 27 H 135/84 94 07/10/21 12:00 88 23 155/92 H 95 07/10/21 11:30 84 23 181/91 H 92 07/10/21 11:15 91 H 20 160/111 H 97 07/10/21 11:00 88 23 162/80 H 96 07/10/21 10:45 99 H 18 152/102 H 95 07/10/21 10:30 96 H 21 163/85 H 94 07/10/21 10:01 91 H 27 H 161/77 H 95 07/10/21 10:00 102 H 24 97 07/10/21 09:30 98 H 17 97 07/10/21 09:15 101 H 24 96 07/10/21 09:00 81 24 169/73 H 92 07/10/21 08:45 94 H 21 158/82 H 94 07/10/21 08:30 82 24 150/88 H 95 07/10/21 08:16 100 H 26 H 170/91 H 95 07/10/21 08:15 102 H 20 95 07/10/21 08:00 85 27 H 95 07/10/21 07:45 94 H 22 170/99 H 98 07/10/21 07:30 101 H 20 96 07/10/21 07:15 93 H 24 167/91 H 97 07/10/21 07:00 92 H 24 161/75 H 97 07/10/21 06:49 97 H 23 139/84 98 07/10/21 06:45 101 H 24 203/93 H 96 07/10/21 06:30 93 H 28 H 181/99 H 98 07/10/21 06:00 88 21 163/90 H 99 07/10/21 05:46 99 H 23 177/77 H 98 07/10/21 05:30 98 H 22 178/90 H 98 07/10/21 05:00 91 H 21 174/96 H 96 all noted and reviewed including below
[2021-07-10] MEDS: FLUTICASONE/VILANTEROL 100/25MCG 14 PUFFS/INHALER INH SCH (20:33)
[2021-07-11] MEDS ORDERED: Nursing to Pharmacy Communication SCH (01:45)
[2021-07-11 06:15] LABS: BUN Creatinine Ratio 24.6 (10-20); Calcium 8.7 mg/dl (8.5-10.1); Creatinine Clr Calc Pharmacy 119.5 ml/min; Est GFR (African American) 117.3 ml/min; Est GFR (Non-African American) 101.2 ml/min; Phosphorus 2.5 mg/dl (2.5-4.9); Potassium 4.1 mmol/L (3.5-5.1)
[2021-07-11] MEDS: CLOPIDOGREL BISULFATE 75 MG TAB PO SCH (07:54)
[2021-07-11] MEDS: amLODIPine BESYLATE 5 MG TAB PO SCH (07:54)
[2021-07-11] MEDS: LOSARTAN POTASSIUM 50 MG TAB PO SCH (07:54)
[2021-07-11] MEDS: FINASTERIDE 5 MG TAB PO SCH (07:55)
[2021-07-11] MEDS: PANTOprazole 40 MG TAB PO SCH (07:55)
[2021-07-11] MEDS: ATORVASTATIN 40 MG TAB PO SCH (07:55)
[2021-07-11] MEDS: VENLAFAXINE HCL XR 150 MG CAPXR PO SCH (07:55)
[2021-07-11] MEDS: ASPIRIN 81 MG ECTAB PO SCH (07:55)
[2021-07-11] MEDS: METOPROLOL SUCC 25MG EXT REL TAB PO SCH (07:55)
[2021-07-11] MEDS: NICOTINE 21 MG/24 HR TDSY TD SCH (07:56)
[2021-07-11] MEDS: INSULIN ASPART PER UNIT SC SCH ×4 (08:36→20:30)
[2021-07-11] MEDS: NovoLIN-N (NPH) PER UNIT CHARGE SQ SCH ×2 (08:37→17:42)
--- NOTE | 2021-07-11 14:22 | Pharmacy Report ---
Pharmacy Glycemic Short Note 2 - Date of Service July 11, 2021 - Glycemic Short BSG Results (Last 24 hours): 07/10/21 07/10/21 07/11/21 16:47 20:20 05:27 Glucose 142 H POC Glucose 176 H 142 H 07/11/21 07/11/21 07:44 11:32 Glucose POC Glucose 176 H 170 H OUTPATIENT ANTIDIABETIC REGIMEN: * Novolin 70/30: 65 units SQ w/ breakfast & 60 units SQ w/ dinner * Metformin 1000 mg PO BIDM * HbA1c = 7.1% (07/09/21) ASSESSMENT: 07/11 * Patient received total of 77 units of insulin yesterday, of which 50 units were basal insulin * Fasting BSG 142 mg/dL - changed over to NPH this AM for easier transition to home Novolin 70/30, plan to use NPH 25 units BIDM * No change to CF/CR 07/09 * 70 yo M admitted yesterday secondary to third degree heart block. Pharmacy was consulted to assist with inpatient glycemic management. He received his home doses in the AM prior to admission yesterday. No other insulin received inpatient. * Fasting BSG was 130 mg/dL this AM. Patient was NPO so made decision to hold basal insulin. Lunch BSG trended up to 174 mg/dL today. * Patient remains NPO for a PPM placement scheduled for this afternoon. * Given patient will likely be basal deficient, will schedule a one time dose of 60 units Lantus for immediate post-op which is approximately his full daily basal dose given as a load. Can split BID going forward. Novolog tightened based on previous admission data. PLAN FOR INPATIENT GLYCEMIC CONTROL: * Hold outpatient oral diabetes medications * Basal insulin * Changed to NPH 25 units BIDM * Bolus insulin * NovoLog per scale ACHS or Q6hrs while NPO * Goal Range: Low 110 mg/dL - High 140 mg/dL * Correction Factor: 15 mg/dL/unit * Nutritional / Prandial insulin per carb ratio of 1 unit per 5 grams CHO consumed
--- NOTE | 2021-07-11 14:55 | Hospitalist Progress Note ---
Date of Service July 11, 2021 Assessment & Plan (1) Complete heart block: (2) Chest pain: (3) DM type 2 (diabetes mellitus, type 2): (4) Hypertension: (5) ELIZABETH (obstructive sleep apnea): Plan: Per admitting service notes with addendum: This is a 70-year-old male who has significant past medical history of T2DM, HTN, HLD, ELIZABETH on CPAP, chronic HFpEF, COPD, tobacco abuse, diabetic neuropathy, PAD, morbid obesity and depression who presents to ED secondary to shortness of breath and chest tightness prior to arrival. CHB secondary to RCA occlusion Status post permanent pacemaker placement Repeat chest x-ray no pneumothorax no issues at this time CAD s/p CHERIE to RCA Continue dual antiplatelet, Lipitor no cardiac symptoms Generalized Weakness agreeable to transition to Rehab prior to returning home COPD Not in exacerbation DM Insulin sliding scale Pharmacy glycemic control ELIZABETH on CPAP HTN Usually on amlodipine and losartan plan of care discussed with patient in detail and at length all questions answered he is understanding, agreeable, comfortable with the plan of care Dispo agreeable to transition to Rehab prior to returning home Admission and Anticipated Discharge Date Admission Date: July 08, 2021 Subjective Follow-up for complete heart block, etc. Seen resting in bed, comfortable, watching TV states he feels fine overall no chest pain, dyspnea, palpitations, dizziness no other new symptoms agreeable to transition to Rehab prior to returning home Review of Systems Review of Systems: all noted and negative except for above Physical Exam Physical Exam: General- oriented x 3, not in distress, speaks in sentences with no effort or accessory muscle use Eyes- anicteric Neck- no JVD Lungs- clear BS bilaterally, no rales/wheezes Heart- normal rate, regular rhythm; no murmurs PM site: no bleeding, discharge, hematoma Abdomen- normal bowel sounds, nondistended, soft, nontender Extremities- no pretibial edema, no calf tenderness Neuro- alert, oriented x 3; no gross focal neurologic deficits Skin- warm & dry Results & Data Results & Data ([facility]) Vital Signs (Past 12 Hours) Vital Signs Temp Pulse Resp BP Pulse Ox 07/11/21 11:16 37.1 C 94 H 18 118/61 93 07/11/21 09:50 88 07/11/21 08:00 97 H 07/11/21 06:47 36.8 C 94 H 20 156/75 H 94 07/11/21 03:21 36.4 C L 88 20 130/75 95 all noted and reviewed including below
[2021-07-11] MEDS: FLUTICASONE/VILANTEROL 100/25MCG 14 PUFFS/INHALER INH SCH (20:11)
[2021-07-12 06:44] LABS: BUN Creatinine Ratio 20.7 (10-20); Creatinine Clr Calc Pharmacy 125.5 ml/min; Est GFR (African American) 119.7 ml/min; Est GFR (Non-African American) 103.3 ml/min; Phosphorus 3.4 mg/dl (2.5-4.9); Potassium 3.8 mmol/L (3.5-5.1)
[2021-07-12] MEDS ORDERED: NovoLIN-N (NPH) PER UNIT CHARGE SQ SCH (08:00)
[2021-07-12] MEDS: NICOTINE 21 MG/24 HR TDSY TD SCH (08:42)
[2021-07-12] MEDS: ATORVASTATIN 40 MG TAB PO SCH (08:43)
[2021-07-12] MEDS: LOSARTAN POTASSIUM 50 MG TAB PO SCH (08:43)
[2021-07-12] MEDS: CLOPIDOGREL BISULFATE 75 MG TAB PO SCH (08:44)
[2021-07-12] MEDS: FINASTERIDE 5 MG TAB PO SCH (08:44)
[2021-07-12] MEDS: PANTOprazole 40 MG TAB PO SCH (08:44)
[2021-07-12] MEDS: amLODIPine BESYLATE 5 MG TAB PO SCH (08:44)
[2021-07-12] MEDS: METOPROLOL SUCC 25MG EXT REL TAB PO SCH (08:45)
[2021-07-12] MEDS: VENLAFAXINE HCL XR 150 MG CAPXR PO SCH (08:45)
[2021-07-12] MEDS: ASPIRIN 81 MG ECTAB PO SCH (08:45)
[2021-07-12] MEDS: INSULIN ASPART PER UNIT SC SCH ×4 (08:51→20:34)
--- NOTE | 2021-07-12 13:03 | Operative Report (OR) ---
DATE OF PROCEDURE: 07/09/2021. PREOPERATIVE DIAGNOSIS: Complete heart block. POSTOPERATIVE DIAGNOSIS: Complete heart block. PROCEDURE: Biventricular rate responsive permanent pacemaker under fluoroscopic guidance along with the removal of transvenous pacemaker. SURGEON: Tracy Nuñez DO. CRITICAL CARE NURSE SPECIALIST: None. ANESTHESIA: Monitored conscious sedation administered under my supervision by Nikki King. Start time 1444, end time 1609. A total of 5 mg of Versed, 125 mcg of fentanyl. INTRAVENOUS FLUIDS: 70 mL ANTIBIOTICS: 2 grams of Ancef. BLOOD LOSS: 40 mL CONTRAST: 13 mL. INDICATIONS: This is a 70-year-old gentleman with a past medical history for COPD, obstructive sleep apnea, morbid obesity, diabetes, peripheral vascular disease, bifascicular block, microcytic anemia, chronic tobacco use. He presented to [facility] with chest pain and found to have high-degree block, but underwent a cardiac catheterization first, which showed right significant coronary artery disease which he underwent a PCI to this the day prior and at that time, a TVP was inserted; however, he still remains dependent on the TVP and so he was recommended a pacemaker prior to discharge. CONSENT: Consent was obtained prior to the patient going into electrophysiology lab. The patient was informed of the risks, benefits, and alternatives to the procedure. Risks include, but not limited to, sudden cardiac , cardiac arrhythmia, cerebrovascular accident, myocardial infarction, injury to the blood vessels, chamber of the heart and lung, bleeding and infection. The patient understood these risks and agreed to the procedure as planned. Informed consent was obtained. DESCRIPTION OF PROCEDURE: The patient was brought into the electrophysiology lab in fasting state. He was connected to continuous cardiac monitoring. A time-out was performed to ensure patient identity and procedure correctly. He was prepped and draped over the left infraclavicular space in normal surgical standard fashion. Monitored anesthetic care was given throughout the procedure for patient's comfort level. Eugene precautions were maintained throughout the procedure. He received prophylactic antibiotics prior to incision. 10 mL of 1% lidocaine-bupivacaine mixture were given in the left deltopectoral groove. An incision was made in the left deltopectoral groove. Blunt dissection was performed down to the pectoralis muscle within the pectoralis muscle fascia over the pectoralis muscle, a pacemaker pocket was created. Then, a peripheral venogram was performed to identify the axillary vein. Venous axillary access was obtained through a stick without any problems. There were actually two needle sticks, the one in the more lateral stick had a retained guidewire. Then, a guidewire was inserted through the sheath to allow for retained venous access. Sheath was removed and a second guidewire was inserted through the sheath to allow for retained venous access . A 7-[place] sheath was inserted over the retained guidewire through the more lateral lead. The guidewire and dilator were removed. The right ventricular pacing apical lead was advanced into the right ventricular apex under fluoroscopic guidance. There was adequate pacing and sensing thresholds and no diaphragmatic stimulation with high output pacing. The 7-[place] sheath was peeled and the lead was sutured to the pectoralis muscle using 0 silk suture. Then the apical RV lead and the TVP were available for backup pacing in addition to the TVP. Through the more medial stick, a 7-[place] sheath was inserted over the guidewire. Guidewire and dilator removed and the His C315 sheath was advanced over a Glidewire into the right ventricle and the Guidewire and dilator removed. Then, the His bundle recordings were tested with the pacing wire down the His C315 sheath. However, due to him being in complete heart block, I never really saw a good His. However, I had an idea where one was based on my A:V ratios. I marked where I thought the His was when I had the camera in GALEANA 30 on my fluoroscopy screen I came down about 2 cm from this at a line that was turned out to the apex and then came on pacing to see that I had a nice W pace complex in V1, so I then moved the camera in to SLOVENIAN 30 and I gave a series of clockwise turns to start screwing the lead into the septum pausing once in a while to see how my morphology pacing complex change as well as my impedance dropped and an R prime in V1 was developed in the pacing EGM morphology. I gave contrast through the sheath to see that I was well into the septum. I then slit the His C315 sheath under fluoroscopic guidance. I left 7-[place] Citizen sheath in while I positioned the right atrial lead. A second 7-[place] sheath was inserted over the retained guidewire through the more lateral stick. Guidewire and dilator removed. The right atrial lead was then advanced into right atrium and positioned in atrial appendage under fluoroscopic guidance. There was adequate pacing and sensing thresholds and no diaphragmatic stimulation with high output pacing. Of note, I did have to reposition it one time. The 7-[place] sheath was then peeled away and the lead was fixated to pectoralis muscle using 0 silk suture. The 7-[place] sheath around the left bundle lead was then peeled away and the lead was fixated to pectoralis muscle using 0 silk suture. The pacemaker pocket was flushed with copious amounts of vancomycin and saline wash and inspected for hemostasis. Pulse generator was then attached to the leads making sure the pins were in appropriate position, passed set screws, and set screws were all tightened. Pulse generator was then placed in the antibiotic pouch followed then by being placed in the pocket, making sure the leads were lying flat beneath the device and the incision was closed in a 3-layer fashion with 2-0 Vicryl interrupted suture, followed by 3-0 Vicryl interrupted suture, followed by 4-0 Monocryl running stitch and Dermabond was applied followed by Telfa and Tegaderm dressing. After I positioned in the left bundle lead, I then hooked up and remained hooked up to that through my backup alligator pacing and the TVP was extracted under fluoroscopic guidance. EQUIPMENT: 1. Medtronic Araseli RAIL WALKER-P MRI SureScan W1TR02, serial number [id number]. 2. TYRX pouch, reference [id number], lot number [id number]. 3. Right atrial lead, Medtronic 5076-52 cm, serial number [id number]. 4. Right ventricular apical pacing lead was 5076-58 cm, serial number [id number]. 5. The left bundle lead is a Medtronic 3830-69 cm, serial number [id number]. INTRAPROCEDURAL FINDINGS: 1. Right atrial lead, P waves 2.7 millivolts, impedance 505 ohms, threshold 0.6 volts at 0.5 milliseconds. 2. Right ventricular lead, the apical no R waves as the patient is dependent, 1044 ohms, threshold 0.3 volts at 0.4 milliseconds. 3 Left bundle lead, impedance 640 ohms, threshold 1.2 millivolts at 0.4 milliseconds. FINAL MEASUREMENTS THROUGH THE DEVICE. 1. Right atrial lead, P waves 3.3 millivolts, impedance 437 ohms, threshold 0.5 volts at 0.4 milliseconds. 2. Right ventricular apical lead, no R waves, impedance 873 ohms, threshold 0.75 volts at 0.4 milliseconds. 3. Left bundle lead, impedance 494 ohms, threshold is 0.75 volts at 0.4 milliseconds. IMPRESSION: Successful biventricular rate responsive permanent pacemaker under fluoroscopic guidance secondary to complete heart block due to the patient's dislodging his TVP and noncompliance I thought it was the safest to have apical RV backup pacing with the BiV rather than just the left bundle.. PLAN: Transfer patient back to the room. Monitor the patient overnight, 12- lead ECG, chest x-ray recheck the device, and he is not to lift the left elbow or left shoulder for 1 month. He cannot lift more than 10 pounds with left arm for 2 weeks. He is to keep the dressing on and dry until his wound check next week in [facility]. Job ID: [id number] [facility]
--- NOTE | 2021-07-12 13:13 | Pharmacy Report ---
Pharmacy Glycemic Short Note 2 - Date of Service July 12, 2021 - Glycemic Short BSG Results (Last 24 hours): 07/11/21 07/11/21 07/12/21 16:35 20:03 05:37 Glucose 106 H POC Glucose 102 H 104 H 07/12/21 07/12/21 07:38 11:32 Glucose POC Glucose 125 H 118 H OUTPATIENT ANTIDIABETIC REGIMEN: * Novolin 70/30: 65 units SQ w/ breakfast & 60 units SQ w/ dinner * Metformin 1000 mg PO BIDM * HbA1c = 7.1% (07/09/21) ASSESSMENT: 07/12 * Patient's BSGs yesterday were [phone] mg/dL and today have been 125- 118 mg/dL. * Patient received 69 units of insulin yesterday (50 units of basal in form of NPH and 19 units of bolus). * Will decrease basal by 20% since BSGs trending downwards. * Loosen CF/CR 07/11 * Patient received total of 77 units of insulin yesterday, of which 50 units were basal insulin * Fasting BSG 142 mg/dL - changed over to NPH this AM for easier transition to home Novolin 70/30, plan to use NPH 25 units BIDM * No change to CF/CR 07/09 * 70 yo M admitted yesterday secondary to third degree heart block. Pharmacy was consulted to assist with inpatient glycemic management. He received his home doses in the AM prior to admission yesterday. No other insulin received inpatient. * Fasting BSG was 130 mg/dL this AM. Patient was NPO so made decision to hold basal insulin. Lunch BSG trended up to 174 mg/dL today. * Patient remains NPO for a PPM placement scheduled for this afternoon. * Given patient will likely be basal deficient, will schedule a one time dose of 60 units Lantus for immediate post-op which is approximately his full daily basal dose given as a load. Can split BID going forward. Novolog tightened based on previous admission data. PLAN FOR INPATIENT GLYCEMIC CONTROL: * Hold outpatient oral diabetes medications * Basal insulin * Changed to NPH 20 units BIDM * Bolus insulin * NovoLog per scale ACHS or Q6hrs while NPO * Goal Range: Low 110 mg/dL - High 140 mg/dL * Correction Factor: 18 mg/dL/unit * Nutritional / Prandial insulin per carb ratio of 1 unit per 6 grams CHO consumed
[2021-07-12] MEDS: INSULIN HUMAN NPH SQ SCH (17:35)
--- NOTE | 2021-07-12 21:25 | Hospitalist Progress Note ---
Date of Service July 12, 2021 Assessment & Plan (1) Complete heart block: (2) Chest pain: (3) DM type 2 (diabetes mellitus, type 2): (4) Hypertension: (5) ELIZABETH (obstructive sleep apnea): Plan: Per admitting service notes with addendum: This is a 70-year-old male who has significant past medical history of T2DM, HTN, HLD, ELIZABETH on CPAP, chronic HFpEF, COPD, tobacco abuse, diabetic neuropathy, PAD, morbid obesity and depression who presents to ED secondary to shortness of breath and chest tightness prior to arrival. Complete Heart block secondary to RCA occlusion 07/09 Status post permanent pacemaker placement Repeat chest x-ray no pneumothorax no issues at this time CAD 07/08 s/p CHERIE to RCA Continue dual antiplatelet, Lipitor no cardiac symptoms Generalized Weakness agreeable to transition to Rehab prior to returning home awaiting bed availability COPD Not in exacerbation DM Insulin sliding scale Pharmacy glycemic control ELIZABETH on CPAP HTN on amlodipine and losartan plan of care discussed with patient in detail and at length all questions answered he is understanding, agreeable, comfortable with the plan of care [facility] Admission and Anticipated Discharge Date Admission Date: July 08, 2021 Subjective ff up for complete heart block, s/p pacemaker placement, etc seen resting in bed, comfortable states he feels fine overall no chest pain, dyspnea, palpitations, dizziness no other symptoms agreeable to transition to [facility] Review of Systems Review of Systems: all noted and negative except for above Physical Exam Physical Exam: General- oriented x 3, not in distress, speaks in sentences with no effort or accessory muscle use Eyes- anicteric Neck- no JVD Lungs- clear breath sounds bilaterally Heart- normal rate, regular rhythm; no murmurs pacemaker site: no bleeding, discharge, hematoma Abdomen- normal bowel sounds, nondistended, soft, nontender Extremities- no pretibial edema, no calf tenderness Neuro- alert, oriented x 3; no gross focal neurologic deficits Skin- warm & dry Results & Data Results & Data ([facility]) Vital Signs (Past 12 Hours) Vital Signs Temp Pulse Resp BP Pulse Ox 07/12/21 19:00 36.9 C 88 18 127/66 07/12/21 14:56 36.4 C L 79 18 120/71 96 07/12/21 11:19 36.4 C L 94 H 19 148/71 H 97 all noted and reviewed including below
[2021-07-12] MEDS: FLUTICASONE/VILANTEROL 100/25MCG 14 PUFFS/INHALER INH SCH (21:35)
[2021-07-13] MEDS: NICOTINE 21 MG/24 HR TDSY TD SCH (07:31)
[2021-07-13] MEDS: ASPIRIN 81 MG ECTAB PO SCH (07:31)
[2021-07-13] MEDS: ATORVASTATIN 40 MG TAB PO SCH (07:32)
[2021-07-13] MEDS: PANTOprazole 40 MG TAB PO SCH (07:32)
[2021-07-13] MEDS: LOSARTAN POTASSIUM 50 MG TAB PO SCH (07:32)
[2021-07-13] MEDS: amLODIPine BESYLATE 5 MG TAB PO SCH (07:32)
[2021-07-13] MEDS: VENLAFAXINE HCL XR 150 MG CAPXR PO SCH (07:32)
[2021-07-13] MEDS: CLOPIDOGREL BISULFATE 75 MG TAB PO SCH (07:33)
[2021-07-13] MEDS: FINASTERIDE 5 MG TAB PO SCH (07:33)
[2021-07-13] MEDS: METOPROLOL SUCC 25MG EXT REL TAB PO SCH (07:33)
[2021-07-13] MEDS: INSULIN ASPART PER UNIT SC SCH ×4 (08:28→20:44)
[2021-07-13] MEDS: INSULIN HUMAN NPH SQ SCH ×2 (08:29→19:08)
--- NOTE | 2021-07-13 18:56 | Hospitalist Progress Note ---
Date of Service July 13, 2021 Assessment & Plan (1) Complete heart block: Plan: s/p BiV Pacemaker on 07/12. As a result of treatment, initial symptoms of chest tightness and SOB have resolved. Reiterated activity restrictions including not lifting more than 10 lbs on left arm for 2 weeks. Pt states that he will use a Rollating walker, however, PT concerned this may become unbalanced and tip over. Pt is upset and angry. Will work with PT today and see how things go. Also waiting to see what the discharge disposition of his will be. (2) DM type 2 (diabetes mellitus, type 2): Plan: At inpatient goal, cont current insulin regimen per glycemic pharmacist. A1C is 7.1 (3) Hypertension: Plan: Chronic, stable. Cont current amlodipine and losartan. (4) ELIZABETH (obstructive sleep apnea): Plan: chronic, stable, cont CPAP at night (5) Coronary artery disease: Plan: chronic, asymptomatic Received CHERIE to RCA on 07/08 Continue dual antiplatelet, Lipitor (6) Physical deconditioning: Plan: Currently deconditioned and with activity restrictions after pacemaker placement. PT is continuing to recommend SNF. Patient may decide to leave and go home with PT and OT with home health instead. Still awaiting disposition on . (7) DVT prophylaxis: Plan: Lovenox Full Code Dispo-to home with PT/OT for home health despite recommendation for SNF [facility] Admission and Anticipated Discharge Date Admission Date: July 08, 2021 Subjective 70 yo M p/w third degree heart block s/p pacer placement on 07/09 surgical site is doing well -no swelling, redness or pain awaiting placement to SNF but since was denied he is upset and wants to go home. PT was there to see him so they were going to re-evaluate him first. also still hospitalized and being evaluated for safety to return home Review of Systems Review of Systems: All systems reviewed negative except as indicated above Physical Exam Physical Exam: CONSTITUTIONAL: WNWD, vitals as above, generally well- appearing, NAD EYES: normal conjunctivae, no scleral icterus, ENT: external ear and nose normal, MMM NECK: trachea midline, no lymphadenopathy RESPIRATORY: clear to auscultation bilaterally, no crackles, rales or wheezes, normal respiratory effort CARDIOVASCULAR: regular rate and rhythm, S1 and 2 heard without murmurs, gallops or rubs, no JVD, no peripheral edema CHEST: +pacemaker with incision site covered-dressing c/d/i GASTROINTESTINAL: soft, nontender, ND, no guarding MUSCULOSKELETAL: strength 5/5 throughout, head is normocephalic and atraumatic, neck supple, normal palpation of chest wall without tenderness SKIN: warm and dry NEUROLOGIC: CN 2-12 grossly intact, no sensory deficit, normal cognition, normal speech, no tremor PSYCHIATRIC: alert cooperative and oriented to person, place and time. Aggressive and visibly upset saying "F [facility]", etc. Results & Data Results & Data ([facility]) Vital Signs (Past 12 Hours) Vital Signs Temp Pulse Resp BP Pulse Ox 07/13/21 15:34 36.5 C 92 H 17 135/78 97 07/13/21 15:10 86 07/13/21 10:46 36.9 C 88 17 115/69 95 07/13/21 07:47 36.7 C 18 135/76 93 07/13/21 07:04 99 H Medications Administered Current Inpatient Medications Acetaminophen (Acetaminophen 325 Mg Tab) 650 mg PO Q4H PRN PRN Reason: Pain or Fever Stop: 08/07/21 18:07 Last Admin: 07/10/21 20:32 Dose: 650 mg Documented by: Al Hydrox/Mg Hydrox/Simethicone (Aluminum/Magnesium Susp 30 Ml Udc) 15 ml PO Q4H PRN PRN Reason: Dyspepsia Stop: 08/07/21 18:07 Amlodipine Besylate (Amlodipine Besylate 5 Mg Tab) 10 mg PO [facility] Stop: 08/09/21 09:59 Last Admin: 07/13/21 07:32 Dose: 10 mg Documented by: Aspirin (Aspirin 81 Mg Ectab) 81 mg PO [facility] Stop: 08/08/21 08:59 Last Admin: 07/13/21 07:31 Dose: 81 mg Documented by: Atorvastatin Calcium (Atorvastatin 40 Mg Tab) 40 mg PO [facility] Stop: 08/08/21 08:59 Last Admin: 07/13/21 07:32 Dose: 40 mg Documented by: Clopidogrel Bisulfate (Clopidogrel Bisulfate 75 Mg Tab) 75 mg PO [facility] Stop: 08/08/21 08:59 Last Admin: 07/13/21 07:33 Dose: 75 mg Documented by: Dextrose (Dextrose 50% 50 Ml Syringe) 25 - 50 ml IV UD PRN; Protocol PRN Reason: Hypoglycemia Protocol Stop: 08/07/21 18:07 Finasteride ([facility] 5 Mg Tab) [facility] Stop: 08/08/21 08:59 Last Admin: 07/13/21 07:33 Dose: 5 mg Documented by: Fluticasone/Vilanterol (Fluticasone/Vilanterol 100/25mcg 14 Puffs/Inhaler) 1 puffs INH HS [facility] Stop: 08/07/21 20:59 Last Admin: 07/12/21 21:35 Dose: 1 puffs Documented by: Glucagon (Glucagon For Inj 1 Mg Vial) 1 mg SQ UD PRN; Protocol PRN Reason: Hypoglycemia Protocol Stop: 08/07/21 18:07 Glucose (Glucose 10 Tabs/Tube) 4 - 8 tabs PO UD PRN; Protocol PRN Reason: Hypoglycemia Protocol Stop: 08/07/21 18:07 Glucose (Glucose 40% Gel 15 Gm Tube) 15 - 30 gm PO UD PRN; Protocol PRN Reason: Hypoglycemia Protocol Stop: 08/07/21 18:07 Insulin Aspart (Insulin Aspart Per Unit) 0 units SC [facility]; Protocol Stop: 08/07/21 19:59 Last Admin: 07/13/21 17:34 Dose: 5 units Documented by: Insulin Human NPH (Insulin Human Nph) 22 units SQ BIDM [facility] Stop: 08/12/21 16:59 Losartan Potassium (Losartan Potassium 50 Mg Tab) 100 mg PO [facility] Stop: 08/09/21 09:59 Last Admin: 07/13/21 07:32 Dose: 100 mg Documented by: Magnesium Hydroxide (Magnesium Hydroxide Susp 30 Ml Udc) 30 ml PO Q12H PRN PRN Reason: Constipation Stop: 08/07/21 18:07 Metoprolol Succinate (Metoprolol Succ 25mg Ext Rel Tab) [facility] [place]: 08/09/21 08:59 Last Admin: 07/13/21 07:33 Dose: 25 mg Documented by: Miscellaneous (Carbohydrates For Hypoglycemia ) 15 - 30 gm PO UD PRN PRN Reason: Hypoglycemia Protocol Stop: 08/07/21 18:07 Last Admin: 07/12/21 16:34 Dose: 15 gm Documented by: Miscellaneous (Remove Nicoderm Patch) 1 ea N/A DAILY [facility] Stop: 08/09/21 15:59 Last Admin: 07/13/21 07:33 Dose: 1 ea Documented by: Miscellaneous Information (Pharmacy Glycemic Mgmt Consult) 1 ea N/A UD PRN; Protocol PRN Reason: Consult Stop: 08/07/21 18:07 Nicotine (Nicotine 21 Mg/24 Hr Tdsy) 21 mg TD QAM [facility] Stop: 08/08/21 15:59 Last Admin: 07/13/21 07:31 Dose: 21 mg Documented by: Ondansetron HCl (Ondansetron Inj 2 Mg/Ml 2 Ml Vial) 4 mg IV Q6H PRN PRN Reason: Nausea Stop: 08/07/21 18:07 Pantoprazole Sodium (Pantoprazole 40 Mg Tab) 40 mg PO QAM [facility]; Protocol Stop: 08/08/21 08:59 Last Admin: 07/13/21 07:32 Dose: 40 mg Documented by: Polyethylene Glycol (Polyethylene (Miralax) 17 Gm Pack) 17 gm PO DAILY PRN PRN Reason: Constipation Stop: 08/07/21 18:07 Venlafaxine HCl (Venlafaxine Hcl Xr 150 Mg Capxr) 150 mg PO QAM [facility] Stop: 08/08/21 08:59 Last Admin: 07/13/21 07:32 Dose: 150 mg Documented by:
[2021-07-13] MEDS ORDERED: INSULIN HUMAN NPH SQ ONE (19:15)
[2021-07-13] MEDS: FLUTICASONE/VILANTEROL 100/25MCG 14 PUFFS/INHALER INH SCH (20:21)
[2021-07-13] MEDS: ENOXAPARIN INJ 40 MG/0.4 ML SYR SQ SCH (20:21)
[2021-07-14] MEDS: CLOPIDOGREL BISULFATE 75 MG TAB PO SCH (07:30)
[2021-07-14] MEDS: VENLAFAXINE HCL XR 150 MG CAPXR PO SCH (07:30)
[2021-07-14] MEDS: ASPIRIN 81 MG ECTAB PO SCH (07:31)
[2021-07-14] MEDS: NICOTINE 21 MG/24 HR TDSY TD SCH (07:31)
[2021-07-14] MEDS: ATORVASTATIN 40 MG TAB PO SCH (07:31)
[2021-07-14] MEDS: amLODIPine BESYLATE 5 MG TAB PO SCH (07:32)
[2021-07-14] MEDS: METOPROLOL SUCC 25MG EXT REL TAB PO SCH (07:32)
[2021-07-14] MEDS: LOSARTAN POTASSIUM 50 MG TAB PO SCH (07:32)
[2021-07-14] MEDS: PANTOprazole 40 MG TAB PO SCH (07:32)
[2021-07-14] MEDS: FINASTERIDE 5 MG TAB PO SCH (07:35)
[2021-07-14] MEDS ORDERED: INSULIN HUMAN NPH SQ ONE (08:15)
[2021-07-14] MEDS: INSULIN ASPART PER UNIT SC SCH ×4 (09:10→22:12)
--- NOTE | 2021-07-14 15:01 | Pharmacy Report ---
Pharmacy Glycemic Short Note 2 - Date of Service July 14, 2021 - Glycemic Short BSG Results (Last 24 hours): 07/13/21 07/13/21 07/14/21 16:33 20:25 07:32 POC Glucose 98 165 H 181 H 07/14/21 11:51 POC Glucose 174 H OUTPATIENT ANTIDIABETIC REGIMEN: * Novolin 70/30: 65 units SQ w/ breakfast & 60 units SQ w/ dinner * Metformin 1000 mg PO BIDM * HbA1c = 7.1% (07/09/21) ASSESSMENT: 07/14/21: * Etienne received 60 units of insulin yesterday (35 units NPH + 25 units novolog) * Evening dose of NPH was reduced to 15 units last evening based on dinner BSG of 98 mg/dL. Fasting BSG elevated following this change. * Will resume NPH 22 units BID. Trial loosening novolog carb coverage. 07/12 * Patient's BSGs yesterday were [phone] mg/dL and today have been 125- 118 mg/dL. * Patient received 69 units of insulin yesterday (50 units of basal in form of NPH and 19 units of bolus). * Will decrease basal by 20% since BSGs trending downwards. * Loosen CF/CR 07/11 * Patient received total of 77 units of insulin yesterday, of which 50 units were basal insulin * Fasting BSG 142 mg/dL - changed over to NPH this AM for easier transition to home Novolin 70/30, plan to use NPH 25 units BIDM * No change to CF/CR 07/09 * 70 yo M admitted yesterday secondary to third degree heart block. Pharmacy was consulted to assist with inpatient glycemic management. He received his home doses in the AM prior to admission yesterday. No other insulin received inpatient. * Fasting BSG was 130 mg/dL this AM. Patient was NPO so made decision to hold basal insulin. Lunch BSG trended up to 174 mg/dL today. * Patient remains NPO for a PPM placement scheduled for this afternoon. * Given patient will likely be basal deficient, will schedule a one time dose of 60 units Lantus for immediate post-op which is approximately his full daily basal dose given as a load. Can split BID going forward. Novolog tightened based on previous admission data. PLAN FOR INPATIENT GLYCEMIC CONTROL: * Hold outpatient oral diabetes medications * Basal insulin * NPH 22 units BID with meals * Bolus insulin * NovoLog per scale ACHS or Q6hrs while NPO * Goal Range: Low 110 mg/dL - High 140 mg/dL * Correction Factor: 20 mg/dL/unit * Nutritional / Prandial insulin per carb ratio of 1 unit per 7 grams CHO consumed
[2021-07-14] MEDS: INSULIN HUMAN NPH SQ SCH (17:54)
[2021-07-14] MEDS: ENOXAPARIN INJ 40 MG/0.4 ML SYR SQ SCH ×2 (22:11→22:17)
[2021-07-14] MEDS: FLUTICASONE/VILANTEROL 100/25MCG 14 PUFFS/INHALER INH SCH (22:12)
--- NOTE | 2021-07-15 00:47 | Hospitalist Progress Note ---
Date of Service July 15, 2021 Assessment & Plan (1) Complete heart block: Plan: s/p BiV Pacemaker on 07/12. As a result of treatment, initial symptoms of chest tightness and SOB have resolved. Reiterated activity restrictions including not lifting more than 10 lbs on left arm for 2 weeks. Pt states that he will use a Rollating walker, however, PT concerned this may become unbalanced and tip over. Pt declines rehab at this point and wants to go home when he is a little stronger (2) DM type 2 (diabetes mellitus, type 2): Plan: At inpatient goal, cont current insulin regimen per glycemic pharmacist. A1C is 7.1 (3) Hypertension: Plan: Chronic, stable. Cont current amlodipine and losartan. (4) ELIZABETH (obstructive sleep apnea): Plan: chronic, stable, cont CPAP at night (5) Coronary artery disease: Plan: chronic, asymptomatic Received CHERIE to RCA on 07/08 Continue dual antiplatelet, Lipitor (6) Physical deconditioning: Plan: Currently deconditioned and with activity restrictions after pacemaker placement. PT is continuing to recommend SNF. Patient may decide to leave and go home with PT and OT with home health instead. (7) DVT prophylaxis: Plan: Lovenox Full Code Dispo-to home with PT/OT for home health despite recommendation for SNF Kerrie Reilly DO [facility] Hospitalist Admission and Anticipated Discharge Date Admission Date: July 08, 2021 Subjective 70 yo M p/w third degree heart block s/p pacer placement on 07/09 surgical site is doing well -no swelling, redness or pain awaiting placement to SNF but since was denied he is upset and wants to go home. He is weak and would like to stay here a couple of days. denies CP or SOB Review of Systems Review of Systems: All systems reviewed negative except as indicated above Physical Exam Physical Exam: CONSTITUTIONAL: WNWD, vitals as above, generally well- appearing, NAD EYES: normal conjunctivae, no scleral icterus, ENT: external ear and nose normal, MMM NECK: trachea midline, no lymphadenopathy RESPIRATORY: clear to auscultation bilaterally, no crackles, rales or wheezes, normal respiratory effort CARDIOVASCULAR: regular rate and rhythm, S1 and 2 heard without murmurs, gallops or rubs, no JVD, no peripheral edema CHEST: +pacemaker with incision site covered-dressing c/d/i GASTROINTESTINAL: soft, nontender, ND, no guarding MUSCULOSKELETAL: strength 5/5 throughout, head is normocephalic and atraumatic, neck supple, normal palpation of chest wall without tenderness SKIN: warm and dry NEUROLOGIC: CN 2-12 grossly intact, no sensory deficit, normal cognition, normal speech, no tremor PSYCHIATRIC: alert cooperative and oriented to person, place and time. Aggressive and visibly upset saying "F [facility]", etc. Results & Data Results & Data ([facility]) Vital Signs (Past 12 Hours) Vital Signs Temp Pulse Pulse Resp BP BP Pulse Ox 07/14/21 23:14 36.3 C L 89 18 144/80 H 98 07/14/21 19:28 36.7 C 92 H 18 133/74 95 07/14/21 15:19 85 07/14/21 14:44 36.3 C L 66 20 126/68 95 Medications Administered Current Inpatient Medications Acetaminophen (Acetaminophen 325 Mg Tab) 650 mg PO Q4H PRN PRN Reason: Pain or Fever Stop: 08/07/21 18:07 Last Admin: 07/10/21 20:32 Dose: 650 mg Documented by: Al Hydrox/Mg Hydrox/Simethicone (Aluminum/Magnesium Susp 30 Ml Udc) 15 ml PO Q4H PRN PRN Reason: Dyspepsia Stop: 08/07/21 18:07 Amlodipine Besylate (Amlodipine Besylate 5 Mg Tab) 10 mg PO [facility] Stop: 08/09/21 09:59 Last Admin: 07/14/21 07:32 Dose: 10 mg Documented by: Aspirin (Aspirin 81 Mg Ectab) 81 mg PO [facility] Stop: 08/08/21 08:59 Last Admin: 07/14/21 07:31 Dose: 81 mg Documented by: Atorvastatin Calcium (Atorvastatin 40 Mg Tab) 40 mg PO [facility] Stop: 08/08/21 08:59 Last Admin: 07/14/21 07:31 Dose: 40 mg Documented by: Clopidogrel Bisulfate (Clopidogrel Bisulfate 75 Mg Tab) 75 mg PO [facility] Stop: 08/08/21 08:59 Last Admin: 07/14/21 07:30 Dose: 75 mg Documented by: Dextrose (Dextrose 50% 50 Ml Syringe) 25 - 50 ml IV UD PRN; Protocol PRN Reason: Hypoglycemia Protocol Stop: 08/07/21 18:07 Enoxaparin Sodium (Enoxaparin Inj 40 Mg/0.4 Ml Syr) 40 mg SQ [facility] Stop: 08/12/21 20:59 Last Admin: 07/14/21 22:17 Dose: Not Given Documented by: Finasteride (Finasteride 5 Mg Tab) 5 mg PO [facility] Stop: 08/08/21 08:59 Last Admin: 07/14/21 07:35 Dose: 5 mg Documented by: Fluticasone/Vilanterol (Fluticasone/Vilanterol 100/25mcg 14 Puffs/Inhaler) 1 puffs INH [facility] Stop: 08/07/21 20:59 Last Admin: 07/14/21 22:12 Dose: 1 puffs Documented by: Glucagon (Glucagon For Inj 1 Mg Vial) 1 mg SQ UD PRN; Protocol PRN Reason: Hypoglycemia Protocol Stop: 08/07/21 18:07 Glucose (Glucose 10 Tabs/Tube) 4 - 8 tabs PO UD PRN; Protocol PRN Reason: Hypoglycemia Protocol Stop: 08/07/21 18:07 Glucose (Glucose 40% Gel 15 Gm Tube) 15 - 30 gm PO UD PRN; Protocol PRN Reason: Hypoglycemia Protocol Stop: 08/07/21 18:07 Insulin Aspart (Insulin Aspart Per Unit) 0 units SC [facility]; Protocol Stop: 08/07/21 19:59 Last Admin: 07/14/21 22:12 Dose: 2 units Documented by: Insulin Human NPH (Insulin Human Nph) 22 units SQ BIDM [facility] Stop: 08/12/21 16:59 Last Admin: 07/14/21 17:54 Dose: 22 units Documented by: Losartan Potassium (Losartan Potassium 50 Mg Tab) 100 mg PO [facility] Stop: 08/09/21 09:59 Last Admin: 07/14/21 07:32 Dose: 100 mg Documented by: Magnesium Hydroxide (Magnesium Hydroxide Susp 30 Ml Udc) 30 ml PO Q12H PRN PRN Reason: Constipation Stop: 08/07/21 18:07 Metoprolol Succinate (Metoprolol Succ 25mg Ext Rel Tab) 25 mg PO [facility] Stop: 08/09/21 08:59 Last Admin: 07/14/21 07:32 Dose: 25 mg Documented by: Miscellaneous (Carbohydrates For Hypoglycemia ) 15 - 30 gm PO UD PRN PRN Reason: Hypoglycemia Protocol Stop: 08/07/21 18:07 Last Admin: 07/12/21 16:34 Dose: 15 gm Documented by: Miscellaneous (Remove Nicoderm Patch) 1 ea N/A DAILY [facility] Stop: 08/09/21 15:59 Last Admin: 07/14/21 07:33 Dose: 1 ea Documented by: Miscellaneous Information (Pharmacy Glycemic Mgmt Consult) 1 ea N/A UD PRN; Protocol PRN Reason: Consult Stop: 08/07/21 18:07 Nicotine (Nicotine 21 Mg/24 Hr Tdsy) 21 mg TD QAM [facility] Stop: 08/08/21 15:59 Last Admin: 07/14/21 07:31 Dose: 21 mg Documented by: Ondansetron HCl (Ondansetron Inj 2 Mg/Ml 2 Ml Vial) 4 mg IV Q6H PRN PRN Reason: Nausea Stop: 08/07/21 18:07 Pantoprazole Sodium (Pantoprazole 40 Mg Tab) 40 mg PO QAM [facility]; Protocol Stop: 08/08/21 08:59 Last Admin: 07/14/21 07:32 Dose: 40 mg Documented by: Polyethylene Glycol (Polyethylene (Miralax) 17 Gm Pack) 17 gm PO DAILY PRN PRN Reason: Constipation Stop: 08/07/21 18:07 Venlafaxine HCl (Venlafaxine Hcl Xr 150 Mg Capxr) 150 mg PO QAM [facility] Stop: 08/08/21 08:59 Last Admin: 07/14/21 07:30 Dose: 150 mg Documented by:
[2021-07-15] MEDS: PANTOprazole 40 MG TAB PO SCH (08:50)
[2021-07-15] MEDS: VENLAFAXINE HCL XR 150 MG CAPXR PO SCH (08:50)
[2021-07-15] MEDS: FINASTERIDE 5 MG TAB PO SCH (08:51)
[2021-07-15] MEDS: amLODIPine BESYLATE 5 MG TAB PO SCH (08:51)
[2021-07-15] MEDS: METOPROLOL SUCC 25MG EXT REL TAB PO SCH (08:51)
[2021-07-15] MEDS: ASPIRIN 81 MG ECTAB PO SCH (08:51)
[2021-07-15] MEDS: LOSARTAN POTASSIUM 50 MG TAB PO SCH (08:51)
[2021-07-15] MEDS: ATORVASTATIN 40 MG TAB PO SCH (08:52)
[2021-07-15] MEDS: CLOPIDOGREL BISULFATE 75 MG TAB PO SCH (08:52)
[2021-07-15] MEDS: NICOTINE 21 MG/24 HR TDSY TD SCH (08:53)
[2021-07-15] MEDS: INSULIN HUMAN NPH SQ SCH (08:57)
[2021-07-15] MEDS: INSULIN ASPART PER UNIT SC SCH ×2 (09:52→13:12)
--- NOTE | 2021-07-15 10:40 | Hospitalist Progress Note ---
Date of Service July 15, 2021 Assessment & Plan (1) Complete heart block: Plan: s/p BiV Pacemaker on 07/12. As a result of treatment, initial symptoms of chest tightness and SOB have resolved. Reiterated activity restrictions including not lifting more than 10 lbs on left arm for 2 weeks. Pt states that he will use a Rollating walker, however, PT concerned this may become unbalanced and tip over. Pt declines rehab at this point and wants to go home when he is a little stronger (2) DM type 2 (diabetes mellitus, type 2): Plan: At inpatient goal, cont current insulin regimen per glycemic pharmacist. A1C is 7.1 (3) Hypertension: Plan: Chronic, stable. Cont current amlodipine and losartan. (4) ELIZABETH (obstructive sleep apnea): Plan: chronic, stable, cont CPAP at night (5) Coronary artery disease: Plan: chronic, asymptomatic Received CHERIE to RCA on 07/08 Continue dual antiplatelet, Lipitor (6) Physical deconditioning: Plan: Currently deconditioned and with activity restrictions after pacemaker placement. PT is continuing to recommend SNF. Patient may decide to leave and go home with PT and OT with home health instead. (7) DVT prophylaxis: Plan: Lovenox Full Code Dispo-to home with PT/OT for home health despite recommendation for SNF Kerrie Reilly DO [facility] Hospitalist Admission and Anticipated Discharge Date Admission Date: July 08, 2021 Subjective 70 yo M p/w third degree heart block s/p pacer placement on 07/09 surgical site is doing well -no swelling, redness or pain awaiting placement to SNF but since was denied he is upset and wants to go home. He is weak and would like to stay here a couple of days. denies CP or SOB Physical Exam Physical Exam: CONSTITUTIONAL: WNWD, vitals as above, generally well- appearing, NAD EYES: normal conjunctivae, no scleral icterus, ENT: external ear and nose normal, MMM NECK: trachea midline, no lymphadenopathy RESPIRATORY: clear to auscultation bilaterally, no crackles, rales or wheezes, normal respiratory effort CARDIOVASCULAR: regular rate and rhythm, S1 and 2 heard without murmurs, gallops or rubs, no JVD, no peripheral edema CHEST: +pacemaker with incision site covered-dressing c/d/i GASTROINTESTINAL: soft, nontender, ND, no guarding MUSCULOSKELETAL: strength 5/5 throughout, head is normocephalic and atraumatic, neck supple, normal palpation of chest wall without tenderness SKIN: warm and dry NEUROLOGIC: CN 2-12 grossly intact, no sensory deficit, normal cognition, normal speech, no tremor PSYCHIATRIC: alert cooperative and oriented to person, place and time. Aggressive and visibly upset saying "F [facility]", etc. Results & Data Results & Data ([facility]) Vital Signs (Past 12 Hours) Vital Signs Temp Pulse Pulse Resp BP BP Pulse Ox 07/15/21 07:27 77 07/15/21 06:37 36.9 C 87 16 137/69 97 07/15/21 02:31 36.8 C 93 H 16 132/64 93 07/15/21 02:09 93 H 07/14/21 23:14 36.3 C L 89 18 144/80 H 98 Medications Administered Current Inpatient Medications Acetaminophen (Acetaminophen 325 Mg Tab) 650 mg PO Q4H PRN PRN Reason: Pain or Fever Stop: 08/07/21 18:07 Last Admin: 07/10/21 20:32 Dose: 650 mg Documented by: Al Hydrox/Mg Hydrox/Simethicone (Aluminum/Magnesium Susp 30 Ml Udc) 15 ml PO Q4H PRN PRN Reason: Dyspepsia Stop: 08/07/21 18:07 Amlodipine Besylate (Amlodipine Besylate 5 Mg Tab) 10 mg PO [facility] Stop: 08/09/21 09:59 Last Admin: 07/15/21 08:51 Dose: 10 mg Documented by: Aspirin (Aspirin 81 Mg Ectab) 81 mg PO [facility] Stop: 08/08/21 08:59 Last Admin: 07/15/21 08:51 Dose: 81 mg Documented by: Atorvastatin Calcium (Atorvastatin 40 Mg Tab) 40 mg PO [facility] Stop: 08/08/21 08:59 Last Admin: 07/15/21 08:52 Dose: 40 mg Documented by: Clopidogrel Bisulfate (Clopidogrel Bisulfate 75 Mg Tab) 75 mg PO [facility] Stop: 08/08/21 08:59 Last Admin: 07/15/21 08:52 Dose: 75 mg Documented by: Dextrose (Dextrose 50% 50 Ml Syringe) 25 - 50 ml IV UD PRN; Protocol PRN Reason: Hypoglycemia Protocol Stop: 08/07/21 18:07 Enoxaparin Sodium (Enoxaparin Inj 40 Mg/0.4 Ml Syr) 40 mg SQ [facility] Stop: 08/12/21 20:59 Last Admin: 07/14/21 22:17 Dose: Not Given Documented by: Finasteride ([facility] 5 Mg Tab) [facility] Stop: 08/08/21 08:59 Last Admin: 07/15/21 08:51 Dose: 5 mg Documented by: Fluticasone/Vilanterol (Fluticasone/Vilanterol 100/25mcg 14 Puffs/Inhaler) 1 puffs INH [facility] Stop: 08/07/21 20:59 Last Admin: 07/14/21 22:12 Dose: 1 puffs Documented by: Glucagon (Glucagon For Inj 1 Mg Vial) 1 mg SQ UD PRN; Protocol PRN Reason: Hypoglycemia Protocol Stop: 08/07/21 18:07 Glucose (Glucose 10 Tabs/Tube) 4 - 8 tabs PO UD PRN; Protocol PRN Reason: Hypoglycemia Protocol Stop: 08/07/21 18:07 Glucose (Glucose 40% Gel 15 Gm Tube) 15 - 30 gm PO UD PRN; Protocol PRN Reason: Hypoglycemia Protocol Stop: 08/07/21 18:07 Insulin Aspart (Insulin Aspart Per Unit) 0 units SC [facility]; Protocol Stop: 08/07/21 19:59 Last Admin: 07/15/21 09:52 Dose: 9 units Documented by: Insulin Human NPH (Insulin Human Nph) 22 units SQ BIDM [facility] Stop: 08/12/21 16:59 Last Admin: 07/15/21 08:57 Dose: 22 units Documented by: Losartan Potassium (Losartan Potassium 50 Mg Tab) 100 mg PO [facility] Stop: 08/09/21 09:59 Last Admin: 07/15/21 08:51 Dose: 100 mg Documented by: Magnesium Hydroxide (Magnesium Hydroxide Susp 30 Ml Udc) 30 ml PO Q12H PRN PRN Reason: Constipation Stop: 08/07/21 18:07 Metoprolol Succinate (Metoprolol Succ 25mg Ext Rel Tab) 25 mg PO [facility] Stop: 08/09/21 08:59 Last Admin: 07/15/21 08:51 Dose: 25 mg Documented by: Miscellaneous (Carbohydrates For Hypoglycemia ) 15 - 30 gm PO UD PRN PRN Reason: Hypoglycemia Protocol Stop: 08/07/21 18:07 Last Admin: 07/12/21 16:34 Dose: 15 gm Documented by: Miscellaneous (Remove Nicoderm Patch) 1 ea N/A DAILY [facility] Stop: 08/09/21 15:59 Last Admin: 07/15/21 08:54 Dose: 1 ea Documented by: Miscellaneous Information (Pharmacy Glycemic Mgmt Consult) 1 ea N/A UD PRN; Protocol PRN Reason: Consult Stop: 08/07/21 18:07 Nicotine (Nicotine 21 Mg/24 Hr Tdsy) 21 mg TD QAM [facility] Stop: 08/08/21 15:59 Last Admin: 07/15/21 08:53 Dose: 21 mg Documented by: Ondansetron HCl (Ondansetron Inj 2 Mg/Ml 2 Ml Vial) 4 mg IV Q6H PRN PRN Reason: Nausea Stop: 08/07/21 18:07 Pantoprazole Sodium (Pantoprazole 40 Mg Tab) 40 mg PO QAM [facility]; Protocol Stop: 08/08/21 08:59 Last Admin: 07/15/21 08:50 Dose: 40 mg Documented by: Polyethylene Glycol (Polyethylene (Miralax) 17 Gm Pack) 17 gm PO DAILY PRN PRN Reason: Constipation Stop: 08/07/21 18:07 Venlafaxine HCl (Venlafaxine Hcl Xr 150 Mg Capxr) 150 mg PO QAM [facility] Stop: 08/08/21 08:59 Last Admin: 07/15/21 08:50 Dose: 150 mg Documented by:
--- NOTE | 2021-07-15 12:19 | Discharge Summary ---
Date of Service July 15, 2021 Admission HPI Per Admitting Provider This is a 70-year-old male who has significant past medical history of T2DM, HTN, HLD, ELIZABETH on CPAP, chronic HFpEF, COPD, tobacco abuse, diabetic neuropathy, PAD, morbid obesity and depression who presents to ED secondary to shortness of breath and chest tightness prior to arrival. Patient came to ED from home. He reports that he went outside to get in his car when he acutely developed shortness of breath and precordial chest tightness. Patient's is currently in the hospital and therefore he called EMS. Upon EMS arrival patient was found to be bradycardic with heart rate in the 40s. He received a 500 cc fluid bolus as well as 1 mg of atropine. There was no change in his rhythm. Upon arrival to ED he remained bradycardic and EKG revealed complete heart block. He continued to complain of worsening shortness of breath as well as chest tightness. He was hypoxic requiring 6 L of oxygen. Cardiology was consulted and came and evaluated the patient. They are recommending patient undergo emergent cardiac catheterization and possible temporary pacemaker placement. Significance patient was recently hospitalized 05/10-05/19 secondary to COPD exacerbation as well as acute decompensation of HFpEF. He did have echocardiogram done at that time revealed EF 45 to 50%. Also noted was aortic valve sclerosis moderate. Initially in ED he received full dose aspirin. He otherwise denies any recent illness, fever, chills, sweats, lightheadedness, syncope, cough, hemoptysis, URI symptoms, nausea, vomiting, abdominal pain, change in bowel or urinary habits. Chest x-ray in ED did reveal pulmonary edema. Admission Exam Per Admitting Provider Constitutional: WD/WN, pale, dyspenic, vitals as above, sitting up in bed, pleasant, conversing easily Head: Normocephalic, Atraumatic Eyes: PERRL, conjunctivae normal, anicteric sclerae ENMT: external ear and nose normal, oropharynx normal Neck: trachea midline, no thyromegaly normal visual inspection Respiratory: normal respiratory effort, lungs clear to auscultation, no audible wheeze, rales, rhonchi. no accessory muscle use Cardiovascular: bradycardic rate reg rhythm, no murmur, b/l venous stasis changes, no edema Vessels: no JVD or carotid bruit Chest: normal inspection of chest Abdomen: normal bowel sounds, soft, nontender, no hepatosplenomegaly Musculoskeletal: no cyanosis or clubbing, AROM x 4 Skin: no rashes, warm and dry normal turgor Neurologic: PERRL, EOMI, accommodation nl, no face palsy, no dysarthria CN's II-XI intact bilaterally and moves all extremities Psychiatric: A+Ox3, euthymic affect Lymphatic: no cervical or axillary lymphadenopathy : deferred Principal Diagnosis Complete heart block s/p pacemaker placement Physical deconditioning Discharge Exam The patient declined physical exam on day of discharge and instead decided to use curse words and anger with flailing arms to convey his dissatisfaction with the system. He later apologized but a formal physical exam was not completed. He was noted to be sitting on the edge of his bed and moving all extremities equally. He was not having overt breathing difficulties and did not appear to be in any pain. He was mentating clearly. He was reminded of the activity restrictions important in the post-pacemaker setting and verbalized understanding with intent to comply. Discharge Data Allergies Allergy/AdvReac Type Severity Reaction Status Date / Time No Known Allergies Allergy Verified 06/19/21 09:19 Consultations 07/08/21 15:09 ED Decision to Admit Stat 07/08/21 15:15 Consult Cardiology Stat 07/08/21 16:01 Consult Certified Medical Assistant Routine Procedures Performed Operation Date: 07/08/21 16:30 Actual Procedures s Cineradiography w/Routine Exam - Chaka Zayas MD p Cath, Left with Cors and Vent - Chaka Zayas MD s Fraction Flow [place] SGL Ves - Chaka Zayas MD s Ins/RemTemporary Transvenous Pacer - Chaka Zayas MD s Drug Eluting Stent SGl Vessel - Chaka Zayas MD s Ultrasound Vascular Access - Chaka Zayas MD Operation Date: 07/09/21 02:30 Actual Procedures p Temporary Transcutaneous Pacing - Chaka Zayas MD s Cineradiography w/Routine Exam - Chaka Zayas MD p Insert/Replace Temorary Pacemaker - Chaka Zayas MD Operation Date: 07/09/21 13:00 Actual Procedures p Pacer with A/V Leads (Dual) - Tracy M Zazzali, DO Ordered Studies 07/08/21 15:53 CL Cath Imgs for PACS use only Stat 07/09/21 02:27 CL Cath Imgs for PACS use only Routine 07/09/21 07:45 EP Lab Images for PACS ONCE Hospital Course (1) Complete heart block: (2) DM type 2 (diabetes mellitus, type 2): (3) Hypertension: (4) ELIZABETH (obstructive sleep apnea): (5) Coronary artery disease: (6) Physical deconditioning: This is a 70-year-old male who has significant past medical history of T2DM, HTN, HLD, ELIZABETH on CPAP, chronic HFpEF, COPD, tobacco abuse, diabetic neuropathy, PAD, morbid obesity and depression who presented to ED secondary to shortness of breath and chest tightness that began just prior to arrival. Patient came to ED from home. He reported going outside to get in his car when he acutely developed shortness of breath and precordial chest tightness. His was hospitalized and, therefore, he called EMS. Upon EMS arrival patient was found to be bradycardic with heart rate in the 40s. He received a 500 cc fluid bolus as well as 1 mg of atropine. There was no change in his rhythm. Upon arrival to ED he remained bradycardic and EKG revealed complete heart block. He continued to complain of worsening shortness of breath as well as chest tightness. He was hypoxic requiring 6 L of oxygen. Cardiology was consulted and evaluated the patient. Emergent cardiac catheterization and possible temporary pacemaker placement was recommended. Notably, he was recently hospitalized 05/10-05/19 secondary to COPD exacerbation as well as acute decompensation of HFpEF. He did have echocardiogram done at that time revealing EF 45 to 50%. Also noted was moderate aortic valve sclerosis. He received full dose aspirin. Chest x-ray in ED did reveal pulmonary edema. Coronary angiography on 07/08 demonstrated single-vessel significant lesion undergoing drug-eluting stent to the mid right coronary artery. Temporary transvenous pacemaker was placed via femoral vein but dislodged and was reinserted via right IJ on 07/09. He was continued on dual anti-platelet therapy and a permanent Bi-V pacer was placed later on 07/09. He demonstrated significant weakness when evaluated by therapy and DNF was recommended. When his insurance did not approve his for the same SNF he was to go to, he decided to just go home with home health, against the recommendation that he go to a rehabilitation program or SNF. The therapist and staff spoke with him at length about the dangers of going home too early and he verbalized understanding reiterating that he preferred to be home with his . At time of discharge, he was hemodynamically stable and afebrile and was tolerating PO. He was discharged to home in stable condition with close primary care follow-up recommended. Total Time Total Time Spent Total Time Spent (In Minutes): 60 Discharge Plan Discharge Items Patient Disposition: Home - Home Health Services Reason For Visit: COMPLETE HEART BLOCK Discharge Diagnosis: Complete heart block s/p pacemaker placement Physical deconditioning Condition on Discharge: Fair Activity: As commented below Activity Comment: do not lift the left elbow over the left shoulder for 1 month Lifting: No more than 10 pounds Lifting Comment: do not lift more than 10 pounds with the left arm for 2 weeks Bathing: Keep incision dry Bathing Comment: keep dressing on & dry until wound check next week Non-emergency contact: Primary Care Provider and Coding Director Call non-emergency contact if: you have any medication questions, your symptoms worsen, your pain is not controlled, your pain is worsening, your pain is unusual for you, your pain is concerning for you, you have a fever, your temperature is above 101, your wound has increased redness, your wound has increased drainage and your wound pain has increased Follow-up/Referrals: Casimiro Orantes MD [Primary Care Provider] - (Date & Time 07/16/2021 3:00 PM Provider Casimiro Orantes MD [facility] ) Diet: Carb Consistent or DM2 and Heart Healthy Addtl Attending Provider Instructions: device and wound check at [facility] next week Addtl Drug Safety Scientist Provider Instructions: Please take all medications as instructed on medication list below. Please follow-up with your primary are provider in one week of discharge. As it is recommended that you go to rehab and you have declined, having you operate a motor vehicle with your level of physical deconditioning and post- operative state is a concern. No driving until seen by your primary care provider. Please do not lift the left elbow or left shoulder for 1 month. You may not lift more than 10 pounds with left arm for 2 weeks. Please keep the dressing on and dry until his wound check next week in [facility]. It was a pleasure taking care of you! Please call if you have any questions or problems. You can reach a [facility] hospitalist on duty at [facility] 24 hours a day by calling [phone]. Take care of yourself. Kerrie Reilly, DO [facility] Hospitalist Pending Studies at Discharge: No Stand-Alone Forms: My [facility] Medications and DC Order Prescriptions: New metoprolol succinate 25 mg Tablet Extended Release 24 Hr 25 mg PO QAM Qty: 30 RF: 0 Continued aspirin [Adult Low Dose Aspirin] 81 mg tablet,delayed release (DR/EC) 81 mg PO QAM RF: 0 cholecalciferol (vitamin D3) 1,000 unit capsule 5,000 units PO QAM RF: 0 venlafaxine [Effexor XR] 150 mg capsule,extended release 24hr 150 mg PO QAM RF: 0 clopidogrel 75 mg tablet 75 mg PO QAM RF: 0 omeprazole 40 mg capsule,delayed release(DR/EC) 40 mg PO QAM RF: 0 metformin 500 mg tablet extended release 24 hr 1,000 mg PO BIDM RF: 0 finasteride [Proscar] 5 mg Tablet 5 mg PO QAM RF: 0 atorvastatin 40 mg Tablet 40 mg PO QAM RF: 0 losartan 100 mg Tablet 100 mg PO QAM RF: 0 acetaminophen [Tylenol] 325 mg Tablet 650 mg PO Q6 PRN (Reason: Pain) RF: 0 levalbuterol HCl 1.25 mg/0.5 mL Solution For Nebulization 1.25 mg NEB Q2H PRN (Reason: shortness of breath or wheezing) Qty: 30 RF: 2 furosemide 40 mg Tablet 40 mg PO QAM 30 Days Qty: 30 RF: 2 nicotine [Nicoderm CQ] 21 mg/24 hr Patch 24 Hour 21 mg transdermal QAM Qty: 7 RF: 0 ferrous sulfate 325 mg (65 mg iron) tablet 325 mg PO BID Qty: 60 RF: 2 Novolin 70/30 U-100 Insulin 100 unit/mL (70-30) suspension See Rx Instructions .ROUTE .COMPLEX RF: 0 amlodipine [Norvasc] 5 mg tablet 10 mg PO QAM RF: 0 potassium chloride 20 mEq tablet,ER particles/crystals 20 meq PO BID RF: 0 Breo Ellipta 100-25 mcg/dose blister with device 1 puff inhalation HS RF: 0 Discharge Orders: Discharge Order (Routine); Ordered 07/15/21 Ordered By: Kerrie Enriquez/Other Patient Handouts: Managing Type 2 Diabetes Admission Data Admit Date/Time: 07/08/21 15:47 Attending Provider: Kerrie Reilly Admit Provider: Adriano Burt Primary Care Provider: Csaimiro Orantes Other Interventions: Discharge Summary Assessment (RN) Last Done: 07/15/21 14:11
== END 2021-07-15 14:38 | disposition home health service (06) | DRG 243 ==
LOC: ED 14:43 → SUATTDRO 15:47 → OR 16:05 → SUATTDRO 16:06 → 1E 16:06 → 2N 07-10 16:01
PROC: CLB.TTP (2021-07-09 02:30)

== ENCOUNTER 2023-11-27 22:42 | Inpatient (IN) ==
[2023-11-27 23:50] LABS: Basophils # (auto) 0.04 K/uL (0.00-0.20); Basophils % (auto) 0.3 %; Eosinophils # (auto) 0.03 K/uL (0.00-0.50); Eosinophils % (auto) 0.2 %; Hematocrit (blood only) 45.5 % (42.0-52.0); Immature Granulocytes # (auto) 0.07 K/uL (0.01-0.20); Immature Granulocytes % (auto) 0.5 %; Lymphocytes # (auto) 1.22 K/uL (1.20-3.40); Lymphocytes % (auto) 8.6 %; Mean Corpuscular Hemoglobin 26.5 pg (25.0-34.0); Mean Corpuscular Volume 80.5 fL (80.0-100.0); Mean Platelet Volume 9.5 fL (9.4-12.4); Monocytes # (auto) 1.18 K/uL (0.11-0.59); Monocytes % (auto) 8.3 %; Neutrophils # (auto) 11.64 K/uL (1.40-6.50); Neutrophils % (auto) 82.1 %; Platelet Count 285 K/uL (130-400); RDW Coefficient of Variation 13.9 % (11.5-14.5); RDW Standard Deviation 40.6 fL (36.4-46.3); Red Blood Count 5.65 M/uL (4.70-6.10); White Blood Count 14.18 K/ul (4.8-10.8)
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
[2023-11-28 00:03] LABS: Albumin Globulin Ratio 1.3 (0.9-2); Albumin Level 3.8 gm/dl (3.4-5.0); BUN Creatinine Ratio 23.1 (10-20); Bilirubin,Total 0.9 mg/dl (0.2-1.0); Calcium 9.6 mg/dl (8.6-10.3); Est GFR (African American) 68.4 ml/min; Potassium 4.6 mmol/L (3.5-5.1); Total Protein 6.8 gm/dl (6.0-8.3)
[2023-11-28 00:17] LABS: Thyroid Stimulating Hormone 1.046 uIu/ml (0.300-4.500)
[2023-11-28] MEDS: SODIUM CHLORIDE 0.9% 500 ML IV ONE (00:36)
[2023-11-28 00:53] LABS: Troponin I High Sensitivity 39.9 pg/ml (0-20)
[2023-11-28] MEDS: METOPROLOL SUCC 25MG EXT REL TAB PO STA (01:25)
[2023-11-28 01:37] LABS: Magnesium 1.5 mg/dl (1.7-2.4)
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
[2023-11-28] MEDS ORDERED: PROMETHAZINE 6.25 MG/50.25 ML BAG IV PRN (01:54)
[2023-11-28] MEDS ORDERED: LEVALBUTEROL 1.25 MG/3 ML NEB INH PRN (02:11)
[2023-11-28] MEDS: MAGNESIUM SULFATE / D5W 1 GM/100 ML BAG IV SCH (02:12)
[2023-11-28] MEDS: INSULIN ASPART PER UNIT CHARGE SC SCH (05:53)
[2023-11-28 06:24] LABS: Basophils # (auto) 0.05 K/uL (0.00-0.20); Basophils % (auto) 0.4 %; Eosinophils # (auto) 0.16 K/uL (0.00-0.50); Eosinophils % (auto) 1.3 %; Hematocrit (blood only) 42.4 % (42.0-52.0); Immature Granulocytes # (auto) 0.05 K/uL (0.01-0.20); Immature Granulocytes % (auto) 0.4 %; Lymphocytes # (auto) 1.53 K/uL (1.20-3.40); Mean Corpuscular Hemoglobin 26.9 pg (25.0-34.0); Mean Corpuscular Volume 81.5 fL (80.0-100.0); Mean Platelet Volume 9.7 fL (9.4-12.4); Monocytes % (auto) 10.2 %; Neutrophils # (auto) 9.61 K/uL (1.40-6.50); Neutrophils % (auto) 75.7 %; Platelet Count 261 K/uL (130-400); RDW Coefficient of Variation 13.8 % (11.5-14.5)
[2023-11-28] MEDS: PANTOprazole 40 MG TAB PO SCH (06:32)
[2023-11-28 06:38] LABS: BUN Creatinine Ratio 26.8 (10-20); Calcium 9.2 mg/dl (8.6-10.3); Creatinine Clr Calc Pharmacy 66.5 ml/min; Est GFR (African American) 89.4 ml/min; Est GFR (Non-African American) 77.1 ml/min; Magnesium 2.1 mg/dl (1.7-2.4); Potassium 4.2 mmol/L (3.5-5.1)
[2023-11-28 06:45] LABS: Troponin I High Sensitivity 36.5 pg/ml (0-20)
[2023-11-28 06:55] LABS: Appearance Urine Turbid (Clear); Bilirubin Urine 1+ (Negative); Blood Urine 2+ (Negative); Color Urine Yellow; Glucose Urine UA Negative (Negative); Ketones Urine 2+ (Negative); Leukocyte Esterase Urine 3+ (Negative); Nitrite Urine Negative (Negative); Protein Urine 2+ (Negative); Specific Gravity Urine 1.025 (1.000-1.030); Urobilinogen Urine Negative (Negative); pH Urine 5.5 (4.5-7.5)
--- NOTE | 2023-11-28 07:08 | XRay Report ---
XR chest 1V portable CLINICAL HISTORY: weakness COMPARISON STUDY: Chest radiograph and left rib series November 25, 2023. FINDINGS: Left subclavian pacer is in place. Cardiomediastinal silhouette is stable. No pneumothorax or pleural effusion is present. There is no consolidation. No evidence for pulmonary edema. The left ninth and 10th rib fractures shown on chest radiograph of November 25, 2023 are not evident on this exam. IMPRESSION: No acute cardiopulmonary findings. ACT 112: Negative or not required by law. Electronically signed by: Morgan Beckett M.D. 11/28/2023 7:07 AM
[2023-11-28 07:11] LABS: Bacteria Urine 1+ (None Seen); Epithelial Cell Urine 0-2 /hpf (0-2); WBC Urine >50 /hpf (0-5)
--- OUTSIDE RECORDS SUMMARY | 2023-11-28 07:24 | External Medical Summary | Summary of Care ---
Author Name Unknown Organization [facility] Address [address] [place] [address] Phone [phone] Care Team Providers Care Wood Tank Erector Name Role Phone KimLili finnegan Marcelina STEWART Primary Care Provider Reason for Visit * Reason Onset Date Comments Appointment 11/27/2023 Encounter Details Date Type Department Care Team (Late st Contact Info) Description 11/27/2023 Telephone [facility] [place] [address] [place] [phone] Kimberlyn Nolasco, ELIZABETH [address] [place] [address] Appointment (/) Allergies No known active allergiesdocumented as of this encounter (statuses as of 11/27/2023) Medications Medication Sig Dispensed Refills Start Date End Date Status Aspirin 81 MG TabletIndications:he art health Take 1 Tablet by mouth in the morning. Active Blood Glucose Monitoring Suppl (ONETOUCH VERIO) w/Device KITIndications:Type 2 diabetes mellitus with hemoglobin A1c goal of less than 8.5% (HCC) Use up to 4 times a day E11.9 1 Kit 03/27/2017 Active ONETOUCH DELICA LANCETS 33G MISCIndications:Type 2 diabetes mellitus with hemoglobin A1c goal of less than 8.5% (HCC) Check blood sugars 1-2 times a day E11.9 100 Each 5 03/27/2017 Active Cholecalciferol (VITAMIN D3) 1000 units CAPSIndications:supp lement Take 1 Capsule by mouth in the morning. Active CPAP 14 cm every night at bedtime . Active ProAir HFA 108 (90 Base) MCG/ACT Inhalation Aerosol SolutionIndications: COPD, group D, by GOLD 2017 classification ([facility]) Inhale 2 Puffs by mouth every 4 hours as needed for Shortness of Breath or Wheezing. 54 g 1 02/24/2022 Active Commode BedsideIndications:A cquired leg deformity,Urothelial carcinoma ([facility]),Chronic diastolic heart failure ([facility]) Provide 1 bedside commode 1 Each 09/20/2022 Active Insulin Pen Needle 32G X 5 MMIndications:Type 2 diabetes mellitus with hemoglobin A1c goal of less than 7.0% ([facility]) Use to inject insulin 3 times daily 300 Each 3 10/24/2022 Active Ferrous Sulfate 325 (65 Fe) MG Oral Tablet (FeroSul) Take 1 Tablet by mouth in the morning and 1 Tablet before bedtime. Active amLODIPine Besylate 10 MG Oral Tablet (Norvasc)Indications :Hypertension goal BP (blood pressure) < 140/90 Take 1 Tablet by mouth in the morning. 100 Tablet 3 04/20/2023 Active Atorvastatin Calcium 40 MG Oral Tablet (Lipitor)Indications :Type 2 diabetes mellitus with hemoglobin A1c goal of less than 7.0% ([facility]) Take 1 Tablet by mouth in the morning. 100 Tablet 3 04/20/2023 Active Fluticasone-Salmeter ol 250-50 MCG/ACT Inhalation Aerosol Powder Breath Activated (Advair Diskus)Indications:C OPD, group D, by GOLD 2017 classification ([facility]) Inhale 1 Puff by mouth in the morning and 1 Puff before bedtime. 180 Each 04/20/2023 Active Furosemide 40 MG Oral Tablet (Lasix)Indications:C oronary artery disease involving [place] coronary artery of [place] heart without angina pectoris TAKE ONE TABLET BY MOUTH EVERY MORNING 90 Tablet 3 06/19/2023 5 Active Depend Real Fit/Brief/Men/L-XLIn dications:Risk and functional assessment,Urge incontinence,Maligna nt neoplasm of overlapping sites of bladder (HCC),Urothelial carcinoma (HCC),Acquired leg deformity Use as directed. Please provide XL brief to be changed 4 times a day. 120 Each 5 06/19/2023 Active Losartan Potassium 100 MG Oral Tablet (Cozaar)Indications: HTN, goal below 130/80 Take 1 Tablet by mouth in the morning. 100 Tablet 2 06/21/2023 Active Potassium Chloride Jen ER 20 MEQ Oral Tablet Extended ReleaseIndications:H [place], goal below 130/80 Take 1 Tablet by mouth in the morning and 1 Tablet before bedtime. 200 Tablet 2 06/21/2023 Active Clopidogrel Bisulfate 75 MG Oral Tablet (pLAVix)Indications: PAD (peripheral artery disease) ([facility]) TAKE ONE TABLET BY MOUTH EVERY DAY 90 Tablet 3 06/26/2023 5 Active Omeprazole 40 MG Oral Capsule Delayed Release (PriLOSEC)Indication s:GERD (gastroesophageal reflux disease),Acute bacterial conjunctivitis of both eyes TAKE ONE CAPSULE BY MOUTH EVERY DAY ONE HOUR BEFORE THE FIRST MEAL OF THE DAY 90 Capsule 3 06/26/2023 5 Active Finasteride 5 MG Oral Tablet (Proscar)Indications :BPH without obstruction/lower urinary tract symptoms TAKE ONE TABLET BY MOUTH EVERY DAY 90 Tablet 3 06/26/2023 5 Active metFORMIN HCl ER 500 MG Oral Tablet Extended Release 24 Hour (Glucophage XR)Indications:Type 2 diabetes mellitus with hemoglobin A1c goal of less than 8.5% ([facility]) TAKE TWO TABLETS BY MOUTH EVERY MORNING WITH BREAKFAST AND TAKE TWO TABLETS BY MOUTH EVERY EVENING WITH DINNER 360 Tablet 3 06/26/2023 5 Active Diclofenac Sodium 1 % External Gel (Voltaren) Apply topically to affected area 2 times a day. 150 g 3 07/05/2023 Active Venlafaxine HCl ER 37.5 MG Oral Capsule Extended Release 24 Hour (Effexor XR)Indications:Panic disorder,Moderate episode of recurrent major depressive disorder ([facility]) Take 1 Capsule by mouth in the morning. Do not cut, crush or chew, add to 150mg dose. 90 Capsule 1 07/21/2023 Active NovoLOG FlexPen 100 UNIT/ML Subcutaneous Solution Pen-injector (insulin aspart) Inject 20 units with meals. Skip Novolog if no food. Up to 60 units daily as directed by pharmacist 60 mL 2 07/27/2023 Active Tresiba FlexTouch 200 UNIT/ML Subcutaneous Solution Pen-injector (Insulin Degludec) Inject 44 Units under the skin at bedtime. 45 mL 3 07/27/2023 Active Trospium Chloride ER 60 MG Oral Capsule Extended Release 24 Hour (Sanctura ER) Take 1 Capsule by mouth in the morning. 90 Capsule 2 08/07/2023 Active FreeStyle Yen 2 Sensor Use as directed. 08/15/2023 Active Metoprolol Succinate ER 25 MG Oral Tablet Extended Release 24 Hour (toPROL XL)Indications:Coron belem artery disease involving che[place]nak coronary artery of [place] heart without angina pectoris Take 1.5 Tablets by mouth in the morning and 1.5 Tablets before bedtime. 270 Tablet 3 09/18/2023 Active Pregabalin 25 MG Oral Capsule (Lyrica)Indications: Diabetic peripheral neuropathy (HCC),Acquired leg deformity Take one capsule by mouth in the morning and one capsule before bedtime. 180 Capsule 1 09/20/2023 Active B-12 1000 MCG Oral Tablet Take 1 tablet by mouth in the morning. 100 Tablet 3 09/20/2023 Active Mirabegron ER 50 MG Oral Tablet Extended Release 24 Hour (Myrbetriq) Take 1 Tablet by mouth in the morning. 90 Tablet 3 10/03/2023 Active Sulfamethoxazole-Tri methoprim 800-160 MG Oral Tablet (Bactrim DS) Take 1 Tablet by mouth in the morning and 1 Tablet before bedtime. Use as directed.. 10 Tablet 10/13/2023 Active Additional Information Patient not taking.Reported on 11/20/2023 Phenazopyridine HCl 200 MG Oral Tablet (Pyridium) Take 1 Tablet by mouth 3 times a day as needed for bladder spasms. 30 Tablet 10/13/2023 Active Additional Information Patient not taking.Reported on 11/21/2023 oxyCODONE-Acetaminop hen 5-325 MG Oral Tablet (Percocet) Take 1 Tablet by mouth every 8 hours as needed for Pain, Severe. 12 Tablet 10/13/2023 Active Additional Information Patient not taking.Reported on 11/21/2023 Tamsulosin HCl 0.4 MG Oral Capsule (Flomax) TAKE ONE CAPSULE BY MOUTH EVERY DAY IN THE MORNING 90 Capsule 1 10/20/2023 Active Venlafaxine HCl ER 150 MG Oral Capsule Extended Release 24 Hour (Effexor XR)Indications:Panic disorder TAKE ONE CAPSULE BY MOUTH EVERY DAY DO NOT CRUSH, CUT OR CHEW 100 Capsule 2 11/19/2023 5 Active documented as of this encounter (statuses as of 11/27/2023) Active Problems Problem Noted Date Diagnosed Date Malignant neoplasm of overlapping sites of bladd er 11/21/2023 Hypertensive heart disease with heart failure Urothelial carcinoma 03/31/2023 Overview: 12/2021 -Office cystoscopy demonstrating papillary bladder masses. 02/2022 - TURBT All areas demonstrate high-grade carcinoma with no evidence of invasion. 04/2022-05/2022 Six weeks of intravesical BCG 06/2022 -TURBT Low grade noninvasive, papillary urothelial malignancy. 08/2022 - Cysto small recurrent tumors 09/2022 -resected ,Pathology demonstrates no clear malignancy, inflammation and atypia. 04/2023 - cystoscopy, urethral dilation, cold cup bladder biopsy, Bugbee fulguration. Path-Papillary urothelial carcinoma, noninvasive Last Assessment & Plan: Continue urology f/u Chronic dysuria and incontinence HTN, goal below 130/80 03/31/2023 Moderate episode of recurrent major depressive d isorder 03/31/2023 Cellulitis of left lower extremity 06/20/2022 Last Assessment & Plan: Lower extremities appear cellulitic. Especially the left. -Keflex 500 mg three times daily x7 days -follow-up in two weeks Bladder tumor 05/06/2022 Last Assessment & Plan: Finished last chemo treatment 06/17 -following with urology Atrioventricular block, complete 03/22/2022 Panic disorder 03/22/2022 Difficult airway 03/17/2022 Overview: 03/17/2022: Difficult placement of size 5 and 4 LMA. Difficult Intubation, I did not visualize the cords at all with a Mac 4, but I was able to intubate. I would use a [place] Scope in the future. Supraventricular tachycardia 10/01/2021 BPH with obstruction/lower urinary tract symptom s 09/21/2021 Last Assessment & Plan: Symptoms progressive -following with Urology -continue finasteride, Flomax, tropsium, azo Recurrent UTI 09/21/2021 Cyst of kidney, acquired 09/21/2021 Urge incontinence 09/21/2021 Erectile dysfunction due to diseases classified elsewhere 09/21/2021 DM type 2 with diabetic peripheral neuropathy Last Assessment & Plan: "RED FLAG" Diabetic symptoms: Excessive Thirst, Confusion, and Vision Changes Goal HgbA1c <7 Diabetic Complications Vascular (examples: PVD, PAD, CAD, CVA) Neurologic (example: Peripheral Neuropathy) Renal (example: CKD, Proteinuria, Dialysis) Medication Regimen Metformin Basal/Long Acting Insulin Bolus/Short Acting Insulin DM Secondary Prevention NATALIA Inhibitor / ARB Moderate-High Intensity Statin Additional Comments Needs new [place] Labsstyle yen sensor Recommend increase frequency of glucose checks, record readings and insulin use Update a1c CAD (coronary artery disease) 07/16/2021 Last Assessment & Plan: Stable. No angina. -continue plavix, atorvastatin, metoprolol, losartan H/O coronary angioplasty 07/16/2021 Pacemaker 07/16/2021 Chronic diastolic heart failure 07/02/2021 Last Assessment & Plan: Current Status: "Stable" for patient / At or near baseline Degree of Condition Awareness: Demonstrates very good awareness of condition but not disease course and/or prognosis "RED FLAG" HF Symptoms: o Abdominal Bloating (Examples: "I can't wear certain pants", "My belly feels hard", "I look ") o Increased dyspnea on exertion (Example: "I can't walk to the kitchen or up the stairs") Current Heart Failure Classifications: o With ordinary activity such as doing housework, yard work or shopping ([employer] CLASS II) Diagnostic Review: Recent Labs Units 07/19/22 1355 04/05/22 1444 03/03/22 1519 02/25/22 1558 LEFT VENTRICULAR EJECTION FRACTION % -- -- 45 -- BNP (NT-PRO-BNP) - [facility] pg/mL -- -- -- 570* ESTIMATED GLOMERULAR FILTRATION RATE - [facility] mL/min >90 < > -- >90 HGB - [facility] g/dL 13.4* -- -- 14.4 < > = values in this interval not displayed. Medication Regimen: o Beta Darcie Therapy: Metoprolol Succinate (ER) o NATALIA Inhibitor/ARB Therapy: Losartan o Diuretic therapy: Lasix Self - Management Plan o Double dose of Furosemide for 3 days Exacerbation Plan o BMP o Pro-BNP o CXR Gastroesophageal reflux disease without esophagi tis 03/20/2019 Last Assessment & Plan: Stable. Continue omeprazole Severe obesity with body mas s index (BMI) of 35.0 to 39.9 with serious comorbidity 12/19/2018 COPD, group D, by GOLD 2017 classification 08/06 Overview: Per COPD GOLD Classification Last Assessment & Plan: Current Status : "Stable" for patient / At or near baseline Degree of Condition Awareness: Demonstrates very good awareness of condition but not disease course and/or prognosis "RED FLAG" COPD symptoms: o Increased dyspnea on exertion ("I can't walk to the kitchen or up the stairs without coughing and wheezing", "My chest feels tight any time I move") o Increased shortness of breath at rest ("I struggle to breathe even when watching TV", "I have to wear or turn up my oxygen just when I'm sitting on the couch") o Cough ("I get a different kind of cough than what I' have every day") Medication Regimen o Other: breo, albuterol Self-Management plan o Prednisone tapering dose Rx o High frequency nebulizer treatments every 4-6 hours around the clock Exacerbation plan o Solumedrol 40mg IM/IV Lung nodule 05/16/2018 Type 2 diabetes mellitus wit h diabetic peripheral angiopathy without gangrene, with long-term current use of insulin 05/04/2018 ELIZABETH on CPAP 02/27/2009 Overview: AHI 55.2 on sleep study 2019 Last Assessment & Plan: Continue CPAP DYSLIPIDEMIA, GOAL LDL BELOW 100 02/05/2009 Overview: Per Lipid Taxonomy. ADVANCE DIRECTIVE INFORMATION 11/07/2005 Overview: Information given to patient. Family history of colon cancer 05/12/2005 Overview: Colonoscopy 01/31/06--hyperplastic polyps and adenomatous--repeat 5 years Type 2 diabetes mellitus wit h hemoglobin A1c goal of less than 7.0% 06/14/2000 Overview: Resolved per Duplicate Protocol #2. 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 documented as of this encounter (statuses as of 11/27/2023) Resolved Problems Problem Noted Date Diagnosed Date Resolved Date Diabetes mellitus 03/22/2022 08/09/2023 Overview: Duplicate Diabetes mellitus with perip heral vascular disease 03/22/2022 08/09/2023 Overview: Duplicate Last Assessment & Plan: Current Status: Slow or gradual progression Degree of Condition Awareness: Demonstrates very good awareness of condition but not disease course and/or prognosis "RED FLAG" Diabetic symptoms: o none Goal HgbA1c o <7 Diabetic Complications o Vascular (examples: PVD, PAD, CAD, CVA) Medication Regimen o Metformin o Bolus/Short Acting Insulin DM Secondary Prevention o NATALIA Inhibitor / ARB o Moderate-High Intensity Statin o Aspirin Varicose veins of left lower extremity with ulcer of ankle (CODE) 06/08/2021 03/22/2022 Recurrent major depressive disorder 06/08/2021 08/09/2023 Overview: Duplicate Last Assessment & Plan: Stable on Effexor Major depressive disorder, r ecurrent, unspecified 09/13/2019 08/09/2023 Overview: More specific dx on prob list Last Assessment & Plan: Continue venlafaxine Other chronic osteomyelitis, right tibia and fibula 03/20/2019 07/15/2020 Major depressive disorder, s buffy episode, unspecified 03/20/2019 06/04/2021 Panic disorder 03/20/2019 06/08/2021 Diabetic peripheral neuropathy 03/20/2019 08/09/2023 Overview: Duplicate Type 2 diabetes mellitus wit h diabetic neuropathy 11/16/2018 06/20/2019 Overview: More specific condition on Problem List Stasis ulcer of ankle, left 11/16/2018 03/20/2019 Encounter for long-term (current) insulin use 11/08/19 18 09/17/2018 Diabetes mellitus with perip heral artery disease 11/07/2017 09/17/2018 Diabetes mellitus with skin ulcer 11/07/2017 09/13/2019 Ischemic ulcer of ankle 05/15/201706/28 Chronic ulcer of left lower extremity 04/06/2017 05/15/2017 PAD (peripheral artery disease) 12/09/2016 08/09/2023 Overview: DM combo code on prob list Atherosclerosis of [place] ar jameson of left lower extremity with intermittent claudication 07/05/2016 05/15/2017 HTN, goal below 130/80 05/04/201509/06 Overview: Per HTN Protocol #27. COPD, mild 12/08/2011 08/08/2018 Overview: Per COPD GOLD Classification HTN, GOAL BELOW 140/80 10/17/201106/02 Overview: Per HTN Protocol #27. Acute bronchitis, complicated 11/26/2010 08/15/2011 HTN, GOAL BELOW 130/80 03/25/200910/19 Overview: Per HTN Taxonomy. COPD, severity to be determined 01/22/2003 06/12/2014 Dyslipidemia, goal to be determined 01/22/2003 02/05/2009 Overview: Per Lipid Taxonomy. Panic disorder 05/08/2000 05/11/2018 Palpitations 05/08/2000 05/19/2010 HTN, goal below 140/90 12/03/199903/25 Overview: Per HTN Taxonomy. Type 2 diabetes mellitus wit h hemoglobin A1c goal of less than 7.0% 12/25/2008 Overview: Per Diabetes Taxonomy. ICD-10 update of inactive term OBESITY, UNSPECIFIED 010 Overview: Per Obesity Taxonomy Smoker unmotivated to quit 0 05/15/2017 documented as of this encounter (statuses as of 11/27/2023) Immunizations Name Administration Dates Next Due COVID-19 mRNA, LNP-s, No Pre serve, 2-Dose Series ([employer]) 05/27/2021,05/14/2020,04/23/2020 Covid-19, Mrna, Lnp-s, Pf, B ivalent, 30 Mcg, IM, 12 yrs and above (Pfizer) 11/16/2021 Diptheria/Tetanus (Adult) 06/14/2016 Influenza Vaccine, Live, Int ranasal, Trivalent (Flumist) 12/11/2018 PPD 05/19/2021 Pneumococcal Conjugate Vacc, 13 Valent (Prevnar) 02/15/2016 Pneumococcal Polysaccharide PPV23 (Pneumovax) 02/17/2017 Season Influenza, Quad, PF, Adjuvanted, 65+ Yrs, IM (FLUAD) 12/23/2019 Seasonal Influenza, High Dos e, Trivalent, PF, IM (Fluzone HD) 11/20/2023,09/27/2018 Seasonal Influenza, PF, 6 M & above, IM , (FluLaval or Fluzone) 11/07/2017 Seasonal Influenza, Quadriva lent Hd (Fluzone Hd) 11/25/2022,11/09/2021,12/08/2020 Seasonal Influenza, Quadriva lent, No Preserve, IM 11/23/2016,02/15/2016 Seasonal Influenza, Trivalen t, (IIV3), with Preserv, (Fluzone) 11/06/2014,10/25/2013,12/28/2012,11/06,12/21/2010,12/22/2009,04/13/2009 ,12/24/2007,03/09/2007,12/22/2005 TD - Tetanus/Diptheria (ADULT) 05/12/2005 TD, Preservative Free 05/12/2005 TDAP (age 10 and older)(Boostrix) 08/15/2011 Varicella Zoster Vaccine (Adult) 08/15/2011 Zoster Vaccine Recombinant (Shingrix) 09/06/2021 ,11/07/2017 documented as of this encounter Social History Tobacco Use Types Packs/Day Years Used Date Smoking Tobacco: Every Day Cigarettes 2 57 Passive Smoke Exposure: Never Smokeless Tobacco: Never Comments:11/25/22 currently smoking 1.5 ppd. -1 ppd smoke 09/13/23 Alcohol Use Standard Drinks/Week Comments No 0 (1 standard drink = 0.6 oz pur e alcohol) PHQ-2 Answer Date Recorded PHQ Adult Total Score 0 04/20/2023 Hunger Vital Sign Answer Date Recorded Within the past 12 months, y ou worried that your food would run out before you got the money to buy more. Never true 08/08/19 24 Within the past 12 months, t he food you bought just didn't last and you didn't have money to get more. Never true 08/08/2023 Childcare Answer Date Recorded Do you feel overwhelmed with taking care of a child, family member or friend? No 08/08/2023 Does your family need help f inding childcare? (Household - for ages 0-17 years) Not on file 08/08/2023 Clothing Answer Date Recorded Have you been unable to get clothing when it was really needed? No 08/08/2023 Is your family able to get c lothes or diapers when needed? (Household - for ages 0-17 years) Not on file 08/08/2023 Personal Safety Answer Date Recorded Do you feel unsafe or have concerns for your saf ety? No 08/08/2023 Do you have concerns for you r family's safety? (Household - for ages 0-17 years) Not on file 08/08/2023 Utilities Answer Date Recorded Do you have trouble paying y our heating, water, or electric bill? No 08/08/2023 Is your family able to pay t he heat, water, or electric bill? (Household - for ages 0-17 years) Not on file 08/08/2023 Does your family have access to good internet? (Household - for ages 0-17 years) Not on file 08/08/2023 Employment Status Answer Date Recorded Are you unemployed or without regular income? No 08/08/2023 Does the household have a re gular source of income? (Household - for ages 0-17 years) Not on file 08/08/2023 Social Connections Answer Date Recorded How often do you feel lonely or isolated from th ose around you? Never 08/08/2023 Financial Resource Strain Answer Date R ecorded Do you have any trouble payi ng for your medications, or do you think you might in the future? Yes 08/08/2023 Does your family have troubl e paying for medicine? (Household - for ages 0-17 years) Not on file 08/08/2023 Transportation Needs Answer Date Record ed READ ONLY Do you have troubl e getting a ride to medical visits or work? Never True 08/08/2023 Does your family have a hard time getting a ride to doctors visits? (Household - for ages 0-17 years) Not on file 08/08/2023 Has lack of transportation k ept you from medical appointments, meetings, work, or from getting things needed for daily living? Check all that apply. (Adult - for ages 18 years and over) Not on file 08/08/2023 Do you (or your family) have trouble finding or paying for a ride (transportation)? (Household - for ages 0-17 years) Not on file 08/08/2023 Housing Stability Answer Date Recorded Do you currently live in a s helter or have no steady place to sleep at night? No 08/08/2023 READ ONLY Do you think you a re at risk of becoming homeless? Yes 08/08/2023 Does your family worry about paying for your home or becoming homeless? (Household - for ages 0-17 years) Not on file 0 08/08/2023 Are you homeless or worried that you might be in the future? (Adult - for ages 18 years and over) Not on file Are you (or your family) yahaira eless or worried that you might be in the future? (Household - for ages 0-17 years) Not on file Food Insecurity Answer Date Recorded Do you need food for this week? No 08/08/2023 Are you able to get enough f ood for your family? (Household - for ages 0-17 years) Not on file 08/08/2023 Does your family need food t his week? (Household - for ages 0-17 years) Not on file 08/08/2023 Do you always have enough fo od for your family? (Household - for ages 0-17 years) Not on file 08/08/2023 Sex and Gender Information Value Date Recorded Sex Assigned at Male 09/06/2021 1:00 PM EDT Gender Identity Male 09/06/2021 1:00 PM EDT Sexual Orientation Straight 09/06/2021 1: 00 PM EDT Job Start Date Occupation Industry Not on file Not on file Not on file documented as of this encounter Functional Status Functional Status Response Date of Assess ment Are you deaf or do you have serious difficulty h earing? No 11/13/2018 Are you blind or do you have serious difficulty seeing, even when wearing glasses? No 11/13/2018 Do you have serious difficul ty walking or climbing stairs? (5 years old or older) Yes 11/13/2018 Do you have difficulty dress ing or bathing? (5 years old or older) No 11/13/2018 Because of a physical, menta l, or emotional condition, do you have difficulty doing errands alone such as visiting a doctor s office or shopping? (15 years old or older) Yes 11/14/19 19 Cognitive Status Response Date of Assessm ent Because of a physical, menta l, or emotional condition, do you have serious difficulty concentrating, remembering, or making decisions? (5 years old or older) No 11/13/2018 documented as of this encounter Miscellaneous Notes * Telephone Encounter - Kimberlyn Nolasco OSA - 11/27/2023 2:03 PM EDT TT request from Juliet Perez to send CHW for well visit to see if eating, taking meds, etc while inhospital until Mon. I called and he was agreeable to tomorrow visit with Violet around 1030 documented in this encounter Plan of Treatment Upcoming Encounters Date Type Department Care Team (Latest Contact Info) Description 11/28/2023 10:30 AM EDT Home Visit [facility]ination [facility] [address] [place] [address] Chrissie Lazo, [facility] [employer] [address] [place] [address] 12/04/2023 2:00 PM EDT Office Visit Family Practice [address] [place] [address] [address] [place] [phone] College, Pharmacist [address] [address] 12/05/2023 12:00 PM EDT Home Visit Care at Home [address] [place] [address] Elin Biswas PA-C [address] [place] [address] 12/12/2023 4:00 PM EDT Home Visit [facility], [facility] [address] [facility] [place] [address] Allie Escobedo RN [facility] [address] 01/10/2024 10:00 AM EST Office Visit Family Practice [address] [place] [address] [address] [place] [address] Lili Arizmendi DO [address] [place] [address] 01/15/2024 3:30 PM EST Nurse Only Urology, [facility] [address] [facility] [place] [address] Nurse Ihsan Urology [facility] [facility] [place] [address] 02/02/2024 1:27 PM EST Hospital Encounter OR [facility], Operating Room, [facility] - 4th Floor [address] [place] [address] [place] [address] Morgan Braun MD 27 [place] [address] 02/02/2024 1:27 PM EST - 02/02/2024 2:40 PM EST Surgery OR [facility], Operating Room, [facility] - 4th Floor [address] [facility] [place] [address] Morgan Braun MD 27 [place] [id number] CYSTOURETHROSCOPY WITH FULGURATION MEDIUM BLADDER TUMOR 02/08/2024 11:00 AM EST Nurse Only Urology, [facility] [address] [facility] Nurse Urology [facility] 132 [facility] [place] [address] 03/04/2024 3:00 PM EST Office Visit Urology, [facility] 132 [facility] [place] [address] Morgan Braun MD 27 [place] [id number] Scheduled Procedures Name Priority Associated Diagnoses Date/Ti me CYSTOURETHROSCOPY WITH FULGURATION MEDIUM BLADDER TUMOR Bladder tumor Malignant neoplasm of overlapping sites of bladder (HCC) 02/02/2024 1:27 PM EST BLADDER INSTILLATION OF ANTICARCINOGENIC AGENT Bladder tumor Malignant neoplasm of overlapping sites of bladder (HCC) 02/02/2024 1:27 PM EST COLONOSCOPY FLEXIBLE PROXIMA L DIAGNOSTIC Recall History of colon polyps Health Maintenance Due Date Last Done Comments Cologuard 08/12/1995 Fecal Occult Blood Test 08/12/1995 Sigmoidoscopy 08/12/1995 DISCUSS TOBACCO CESSATION (REFER TO SMARTSET #3291) 07/02/2022 07/02/2021 Adult Wellness Visit 09/28/2023 09/27/2022 COVID-19 Vaccine ( season) 2023 11/16/2021, 05/27/2021, 05/14/2020, Additional history exists HbA1c 03/20/2024 09/18/2023, 03/31, 12/20/2022, Additional history exists Diabetic Eye Exam 04/18/2024 04/18/2023, , 05/19/2022, Additional history exists Albumin/Creatinine Ratio 04/20/2024 024, 04/14/2022, 06/08/2021, Additional history exists Depression Monitoring 04/20/2024 04/20/2023 B-12 09/17/2024 09/18/2023, 06/28, 06/08/2021, Additional history exists GFR 09/17/2024 09/18/2023, 03/31, 12/20/2022, Additional history exists Diabetic Foot Exam 09/20/2024 09/21/2023, 0 07/19/2022, 09/06/2021, Additional history exists O2 ASSESSMENT COMPLETED IN PAST YEAR FOR COPD 10/12/2024 10/13/2023 Colonoscopy 04/23/2026 04/23/2021, 07/0 04/2016, 08/29/2016, Additional history exists Colorectal Cancer Screening 04/23/2026 DTap/Tdap Vaccines (3 - Td or Tdap) 06/14/2026 06/14/2016, 08/15/2011, 05/12/2005, Additional history exists Pneumococcal Vaccine: 65+ Years Completed 02/17/2017, 02/15/2016, 12/24/2002 RETIRED - COLONOSCOPY-EVERY 5 YRS AGES 18-100 Discontinued 04/23/2021, 08/29/2016, 08/29/2016, Additional history exists Zoster Vaccines Completed 09/06/2021, 10/28, 08/15/2011 Alpha-1 Antitrypsin Completed 09/24/2021 AAA Screening Completed 03/24/2023, 04/0 04/2022, 11/11/2021, Additional history exists Influenza Vaccine (FLU shot) Completed 11/20/2023, 11/25/2022, 11/09/2021, Additional history exists HPV (Gardasil) Vaccine Aged Out No lo nger eligible based on patient's age to complete this topic Hepatitis B Vaccine Aged Out No longe r eligible based on patient's age to complete this topic MENINGOCOCCAL (MENACTRA/MENVEO) Aged Out No longer eligible based on patient's age to complete this topic documented as of this encounter Medical Devices Implanted Type Area Injection Maintenance Technician Device Identifier Shelf Expiration Date Model / Serial / Lot Stent Peripheral 8 Diam 150x40 - [id number] Implanted:Qty: 1 on 06/19/2017 by Elie Oconnor MD at OR [facility] Left: Iliac [employer] : VASCULAR 02/10/2020 [id number] / / [id number] Graft Stent Viab [id number] - [id number] - [id number] Implanted:Qty: 1 on 06/19/2017 by Elie Oconnor MD at OR [facility] Left: [employer] 12/26/2019 [id number] / [id number] / Graft Stent Viab [id number] - [id number] - [id number] Implanted:Qty: 1 on 06/19/2017 by Elie Oconnor MD at OR [facility] Left: [employer] 08/19/2019 [id number] / [id number] / Graft Stent Viab [id number] - [id number] Implanted:Qty: 1 on 11/13/2018 by Elie Oconnor MD at OR [facility] Left: SFA [employer] [id number] 09/08/2021 [id number] / / LOT NA documented as of this encounter Advance Directives Documents on File Type Date Recorded Patient Chief Specialist Leed Expl anation POLST 12/08/2021 [place] OR [place] FOR [facility]-SUSTAINING TREAT[place] DEPT OF HEALTH * Full Code (Latest Code Status on File) Date Activated Date Inactivated Comments 10/13/2023 11:31 AM 10/13/2023 6:30 PM This order reflects the patients wishes and were consensually agreed upon. Question Answer Comments Discussion of Advance Directives occurred with: Patient * Full Code Date Activated Date Inactivated Comments 10/13/2023 9:00 AM 10/13/2023 11:31 AM This order reflects the patients wishes and were consensually agreed upon. Question Answer Comments Discussion of Advance Directives occurred with: Patient * Full Code Date Activated Date Inactivated Comments 05/11/2023 2:22 PM 05/11/2023 7:54 PM This order r eflects the patients wishes and were consensually agreed upon. Question Answer Comments Discussion of Advance Directives occurred with: Patient * Full Code Date Activated Date Inactivated Comments 05/11/2023 11:53 AM 05/11/2023 2:22 PM This order reflects the patients wishes and were consensually agreed upon. Question Answer Comments Discussion of Advance Directives occurred with: Patient * Full Code Date Activated Date Inactivated Comments 09/29/2022 8:49 AM 09/29/2022 5:43 PM This order ref lects the patients wishes and were consensually agreed upon. Question Answer Comments Discussion of Advance Directives occurred with: Patient Care Teams Wood Tank Erector Relationship Specialty Start Date End Date Lili Arizmendi DO [address] [place] [address], [place] [address] PCP - General Family Medicine 09/18/23 documented as of this encounter
--- OUTSIDE RECORDS SUMMARY | 2023-11-28 07:24 | External Medical Summary | Summary of Care ---
Author Name Unknown Organization [facility] Address [address] [place] [facility] [place] [address] Phone [phone] Care Team Providers Care Printer Assistant Name Role Phone Kyleigh Lili Diaz DO Primary Care Provider Reason for Visit * Reason Onset Date Comments [facility]: Maintenance 11/27/2023 Encounter Details Date Type Department Care Team (Late st Contact Info) Description 11/27/2023 Telephone [facility], [facility] [address] [facility] [place] [address] Susana Perez, RICHELLE [address] [facility] [place] [id number] [facility]: Maintenance Allergies No known active allergiesdocumented as of this encounter (statuses as of 11/27/2023) Medications Medication Sig Dispensed Refills Start Date End Date Status Aspirin 81 MG TabletIndications:he Can'tWait Take 1 Tablet by mouth in the [...] COPD, group D, by GOLD 2017 classification ([facility]) Inhale 2 Puffs by mouth every 4 hours as needed for Shortness of Breath or Wheezing. 54 g 1 02/24/2022 Active Commode BedsideIndications:A cquired leg deformity,Urothelial carcinoma ([facility]),Chronic diastolic heart failure ([facility]) Provide 1 bedside commode 1 Each 09/20/2022 Active Insulin Pen Needle 32G X 5 MMIndications:Type 2 diabetes mellitus with hemoglobin A1c goal of less than 7.0% ([facility]) Use to inject insulin 3 times daily [...] hemoglobin A1c goal of less than 7.0% ([facility]) Take 1 Tablet by mouth in the morning. 100 Tablet 3 04/20/2023 Active Fluticasone-Salmeter ol 250-50 MCG/ACT Inhalation Aerosol Powder Breath Activated (Advair Diskus)Indications:C OPD, group D, by GOLD 2017 classification ([facility]) Inhale 1 Puff by mouth in the morning and 1 Puff before bedtime. 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 TAKE ONE TABLET [...] Oral Tablet (pLAVix)Indications: PAD (peripheral artery disease) ([facility]) TAKE ONE TABLET BY MOUTH EVERY DAY 90 Tablet 3 06/26/2023 Active Omeprazole 40 MG Oral Capsule Delayed Release (PriLOSEC)Indication s:GERD (gastroesophageal reflux disease),Acute bacterial conjunctivitis of both eyes TAKE ONE CAPSULE BY MOUTH EVERY DAY ONE HOUR BEFORE THE FIRST MEAL OF THE DAY 90 Capsule 3 06/26/2023 Active Finasteride 5 MG Oral Tablet (Proscar)Indications :BPH without obstruction/lower urinary tract symptoms TAKE ONE TABLET BY MOUTH EVERY DAY 90 Tablet 3 06/26/2023 Active metFORMIN HCl ER 500 MG Oral Tablet Extended Release 24 Hour (Glucophage XR)Indications:Type 2 diabetes mellitus with hemoglobin A1c goal of less than 8.5% ([facility]) TAKE TWO TABLETS BY MOUTH EVERY MORNING WITH BREAKFAST AND TAKE TWO TABLETS BY MOUTH EVERY EVENING WITH DINNER 360 Tablet 3 06/26/2023 Active Diclofenac Sodium 1 % External Gel (Voltaren) Apply topically to affected area 2 times a day. 150 g 3 07/05/2023 Active Venlafaxine HCl ER 37.5 MG Oral Capsule Extended Release 24 Hour (Effexor XR)Indications:Panic disorder,Moderate episode of recurrent major depressive disorder ([facility]) Take 1 Capsule by mouth in the [...] Hour (toPROL XL)Indications:Coron belem artery disease involving kake coronary artery of kake heart without angina pectoris Take 1.5 Tablets [...] able to intubate. I would use a Hammond Scope in the future. Supraventricular tachycardia 10/01/2021 [...] Moderate-High Intensity Statin Additional Comments Needs new [employer] yen sensor Recommend increase frequency of glucose [...] 03/20/2019 Encounter for long-term (current) insulin use 11/08/1909/17/2018 Diabetes mellitus with perip heral artery disease 11/07/2017 09/17/2018 Diabetes mellitus with skin ulcer 11/07/2017 09/13/2019 Ischemic ulcer of ankle 05/15/201706/28 Chronic ulcer of left lower extremity 04/06/2017 05/15/2017 PAD (peripheral artery disease) 12/09/2016 08/09/2023 Overview: DM combo code on prob list Atherosclerosis of kake ar jameson of left lower extremity with [...] 05/11/2018 Palpitations 05/08/2000 05/19/2010 HTN, goal below 140/12/03/199903/25 Overview: Per HTN Taxonomy. Type 2 diabetes mellitus wit h hemoglobin A1c goal of less than 7.0% 12/25/2008 Overview: Per Diabetes Taxonomy. ICD-10 update of inactive term OBESITY, UNSPECIFIED 010 Overview: Per Obesity Taxonomy Smoker unmotivated to quit 0 05/15/2017 documented as of this encounter (statuses as of 11/27/2023) Immunizations Name Administration Dates Next Due COVID-19 mRNA, LNP-s, No Pre serve, 2-Dose Series (Dtime) 05/27/2021,05/14/2020,04/23/2020 Covid-19, Mrna, Lnp-s, Pf, B ivalent, 30 Mcg, IM, 12 yrs and above (Dtime) 11/16/2021 Diptheria/Tetanus (Adult) 06/14/2016 Influenza Vaccine, Live, [...] encounter Miscellaneous Notes * Telephone Encounter - Susana Perez RN - 11/27/2023 1:52 PM EDT Phone call from Viry, hospice case manager at [facility] Patient's is a patient there, was supposed to be going home today but INR is too high, need toget it down before discharge. Expect her to go home Monday She is concerned about her , Etienne. Seems depressed, not eating, not sure if he is taking medications. Asking if somebody can go to check on him and make sure he is OK Advised I will try to get a CHW out to see him in next 24 hrs TT message sent to [facility] mill order scheduler Referral placed Susana Perez, RN, BSN grooming salon managerManager Revenue [phone] option #1 documented in this encounter Plan of Treatment Upcoming Encounters Date Type Department Care Team (Latest Contact Info) Description 11/28/2023 10:30 AM EDT Home Visit Care Coordination and Integration [address] [place] [address] Chrissie [facility] [address] [place] [address] 12/04/2023 2:00 PM EDT Office Visit Family Practice 65 [facility] [address] [place] [address] College, Pharmacist [address] [place] [address] 12/05/2023 12:00 PM EDT Home Visit Care at Home [address] [place] [address] Elin Biswas PA-C [address] [place] [address] 12/12/2023 4:00 PM EDT Home Visit [facility], [facility] 132 [facility] [place] [address] Allie Escobedo, RN 132 [facility] [place] [address] 01/10/2024 10:00 AM EST Office Visit Family Practice [address] [facility] [address] [place] [address] Lili Arizmendi DO [address] [place] [address] 01/15/2024 3:30 PM EST [facility] 132 [facility] [place] [address] Nurse Ihsan Urology J[place] [address] [place] [address] 02/02/2024 1:27 PM EST Hospital Encounter OR [facility], Operating Room, [facility] - 4th Floor [address] [place] [address] Morgan Braun MD 27 [place] [address] 02/02/2024 1:27 PM EST - 02/02/2024 2:40 PM EST Surgery OR [facility], Operating Room, [facility] - 4th Floor [address] [place] [address] Morgan Braun MD 27 [place] [address] CYSTOURETHROSCOPY WITH FULGURATION MEDIUM BLADDER TUMOR 02/08/2024 11:00 AM EST Nurse Only Urology, [facility] [address] [facility] [place] [address] Nurse Ihsan Urology [facility] [address] [place] [address] 03/04/2024 3:00 PM EST Office Visit Urology, [facility] [address] [facility] [place] [address] Morgan Braun MD 27 [place] [address] Scheduled Procedures Name Priority Associated Diagnoses Date/Ti nd CYSTOURETHROSCOPY WITH FULGURATION MEDIUM BLADDER TUMOR Bladder [...] 08/12/1995 DISCUSS TOBACCO CESSATION (REFER TO SMARTSET #1544) 07/02/2022 07/02/2021 Adult Wellness Visit 09/28/2023 09/27/2022 [...] this encounter Medical Devices Implanted Type Area Thermite Bomb Loader Device Identifier Shelf Expiration Date Model / Serial / Lot Stent Peripheral 8 Diam 150x40 - [id number] Implanted:Qty: 1 on 06/19/2017 by [place] [facility] [place]: Iliac [employer] : VASCULAR 02/10/2020 [id number] / / [id number] Graft Stent Viab [id number] - [id number] - [id number] Implanted:Qty: 1 on 06/19/2017 by Elie Oconnor MD [place] [facility] Left: [employer] 12/26/2019 [id number] / [id number] / Graft Stent Viab [id number] - [id number] - [id number] Implanted:Qty: 1 on 06/19/2017 by Elie Oconnor MD [place] [facility] Left: [employer] 08/19/2019 [id number] / [id number] / Graft Stent Viab [id number] - [id number] Implanted:Qty: 1 on 11/13/2018 by Elie Oconnor MD [place] [facility] Left: [employer] [id number] 09/08/2021 [id number] / / LOT NA documented as of this encounter Advance Directives Documents on File Type Date Recorded Patient Blower Blast Furnace Expl anation POLST 12/08/2021 [place] OR [facility] FOR LIFE-SUSTAINING TREATMENT [place] DEPT OF HEALTH * Full Code (Latest [...] Advance Directives occurred with: Patient Care Teams Printer Assistant Relationship Specialty Start Date End Date Lili Arizmendi DO [address] [place] [address] PCP - General Family Medicine 09/18/23 documented as of this encounter
--- OUTSIDE RECORDS SUMMARY | 2023-11-28 07:25 | External Medical Summary | Summary of Care ---
Author Name Unknown Organization [facility] Address [address] [place] [address] Phone [phone] Care Team Providers Care Diesel Locomotive Firer/Fireman Name Role Phone Lili Arizmendi DO Primary Care Provider [phone] Reason for Visit * Reason Comments Dosage Adjustment In Person (Anticoag Cl inic) Diabetes Follow-Up Encounter Details Date Type Department Care Team (Late st Contact Info) Description 11/20/2023 3:00 PM EDT Office Visit Family Practice [facility] [address] [place] [address] Webb, Pharmacist [address] [address] Type 2 diabetes mellitus with hemoglobin A1c goal of less than 7.0% ([facility])* Allergies No known active allergiesdocumented as of [...] COPD, group D, by GOLD 2017 classification ([facility]) Inhale 2 Puffs by mouth every 4 hours as needed for Shortness of Breath or Wheezing. 54 g 1 02/24/2022 Active Commode BedsideIndications:A cquired leg deformity,Urothelial carcinoma ([facility]),Chronic diastolic heart failure ([facility]) Provide 1 bedside commode 1 Each 09/20/2022 Active Insulin Pen Needle 32G X 5 MMIndications:Type 2 diabetes mellitus with hemoglobin A1c goal of less than 7.0% ([facility]) Use to inject insulin 3 times daily [...] hemoglobin A1c goal of less than 7.0% ([facility]) Take 1 Tablet by mouth in the morning. 100 Tablet 04/20/2023 Active Fluticasone-Salmeter ol 250-50 MCG/ACT Inhalation Aerosol Powder Breath Activated (Advair Diskus)Indications:C OPD, group D, by GOLD 2017 classification ([facility]) Inhale 1 Puff by mouth in the morning and 1 Puff before bedtime. 180 Each 04/20/2023 Active Furosemide 40 MG Oral Tablet (Lasix)Indications:C oronary artery disease involving alutiiq coronary artery of alutiiq heart without angina pectoris TAKE ONE TABLET BY MOUTH EVERY MORNING 90 Tablet 06/19/2023 Active Depend Real Fit/Brief/Men/L-XLIn dications:Risk and functional [...] Oral Tablet (pLAVix)Indications: PAD (peripheral artery disease) ([facility]) TAKE ONE TABLET BY MOUTH EVERY DAY [...] hemoglobin A1c goal of less than 8.5% ([facility]) TAKE TWO TABLETS BY MOUTH EVERY MORNING [...] disorder,Moderate episode of recurrent major depressive disorder ([facility]) Take 1 Capsule by mouth in the [...] Hour (toPROL XL)Indications:Coron belem artery disease involving alutiiq coronary artery of alutiiq heart without angina pectoris Take 1.5 Tablets [...] CUT OR CHEW 100 Capsule 2 11/19/2023 Active documented as of this encounter (statuses [...] able to intubate. I would use a Friendly Scope in the future. Supraventricular tachycardia 10/01/2021 [...] Moderate-High Intensity Statin Additional Comments Needs new [employer] yen sensor Recommend increase frequency of glucose [...] combo code on prob list Atherosclerosis of alutiiq ar jameson of left lower extremity with [...] mRNA, LNP-s, No Pre serve, 2-Dose Series ([employer]) 05/27/2021,05/14/2020,04/23/2020 Covid-19, Mrna, Lnp-s, Pf, B ivalent, 30 Mcg, IM, 12 yrs and above ([employer]) 11/16/2021 Diptheria/Tetanus (Adult) 06/14/2016 Influenza Vaccine, Live, [...] No 11/13/2018 documented as of this encounter Progress Notes * Aimee Huitron RPh - 11/27/2023 8:09 AM EDT Agree with plan as documented. Aimee Leon, Pharm D, BCACP Clinical Pharmacist [facility] 11/27/2023, 8:09 AM * Pauly Love RP - 11/20/2023 1:59 PM EDT [facility] - Diabetes Management Progress Note Etienne Braun, identified by name and date of , is a 73 year old male being seen for diabetes management/education. Patient presents for return diabetic visit. Upon presentation, pt refused help with pushing his wheelchair and insisted to walk to the exam room. Walked himself using the wheelchair/walker 3/[address] and requested help with pushing him to the exam room. Pushed him in his wheelchair/walker to the exam room for the last 1[address]. DIABETES: Current diabetic medications: Tresiba 44 units daily at bedtime (blue and green pen) Novolog 20 units with bowl of cereal (or whatever he has for first meal) and with supper (orange and blue pen) Metformin ER 500mg - 2 tablets twice daily Medication Injection Site: Abdomen Lifestyle: Diet: Not improved. Glucose Review/SMBG: Readings obtained from patient device Hypoglycemia: Does your blood sugar go below 70 mg/dL? No Hyperglycemia symptoms present: Did not report any during visit. Recent Labs Units 09/18/23 1157 04/20/23 1501 12/20/22 1636 HEMOGLOBIN A1C - [facility] % 6.8* 8.3* 7.5* Recent Labs Units 09/18/23 1157 04/20/23 1501 12/20/22 1636 ESTIMATED GLOMERULAR FILTRATION RATE - [facility] mL/min >90 >90 >90 CREATININE - [facility] mg/dL 0.9 0.8 0.8 HYPERTENSION: Patient on ACEi/ARB: yes BP Readings from Last 3 Encounters: 11/20/23 104/58 11/17/23 116/64 10/26/23 92/56 Blood pressure at goal: yes HYPERLIPIDEMIA: Recent Labs Units 04/20/23 1501 07/19/22 1355 01/31/22 1223 LDL CHOLESTEROL (CALCULATED) - [facility] mg/dL 66 74 56 Does patient have clinical ASCVD? Yes, is patient LDL less than 55 mg/dL? No: Optimize statin therapy - could consider intensify statin therapy in the future visit HEALTH MAINTENANCE REVIEW: Health Maintenance Due Topic Date Due DISCUSS TOBACCO CESSATION (REFER TO SMARTSET #1457) 07/02/2022 Adult Wellness Visit 09/28/2023 Influenza Vaccine (FLU shot) (1) 10/29/2023 COVID-19 Vaccine ( season) 2023 ASSESSMENT & PLAN: Contacts Contact Date/Time Type Contact Phone/Fax 11/13/2023 05:15 AM EDT Vendor (Outgoing) Etienne Braun [phone] 11/17/2023 05:11 AM EDT Vendor (Outgoing) Cj Brauny Maame [phone] 11/19/2023 05:14 AM EDT Vendor (Outgoing) Etienne Braun [phone] Called Etienne's phone number around 8:25 this morning. Sent to voicemail - left voicemail and reminded him to bring his insulin pens and glucometer with him at this PM's visit. Call Nataly's phone number immediately after, and was able to let her know that. From glucometer: 7 day avg 391; 14 day avg 419 Pre am Pre Lunch Pre pm HS 274 331 455 357 527 265 204 453 492 444 486 581 372 483 465 262 353 206 172 171 119 158 289 126 Pre AM meal Pre Lunch Pre PM meal Bedtime Average 346 265 297 368 High 581 265 372 492 Low 119 265 204 126 -Pt did bring his Tresiba and Novolog pens, glucometer, and blood sugar log book. Numbers above aretaken from the log book and glucometer -Diet has not improved. Pt reports not eating anything at all during the day. Upon inquiry, pt stated that he eats ice cream and candy bars throughout the day instead of eating regular meals. He reported that he does eat dinner from time to time, and they are usually the meals on wheels meals. He stated he likes pepper steak a lot. He also stated that he likes green beans that come from the mealson wheels. He stated that Nataly would help him pick out the carrots that he does not like for all the meals. He also stated that he would like to before Nataly. He said he's done with surgeries, and he will cancel consultation appointments. Educated pt on healthy diet and urged pt to decrease ice cream and candy bar intake. Encouraged pt to eat more protein like the pepper steak. Pt confirmed understanding and agreed. -Upon inquiry, pt identified the Tresiba and Novolog pens and stated that he does take 44 units of Tresiba at bedtime and 20 units of Novolog twice daily in the morning and at night after dinner. Upon inquiry, patient stated that he was skipping some Novolog doses, but insisted that he has taken Tresiba without missing any. He also reported he has taken 20 units of Novolog this morning. -Upon inquiry, pt stated that he has not missed any metformin doses and has no side effect or any concern with metformin. -When asked about how many insulin pens does he have at home, pt stated that he has about 2-3 for each of Tresiba and Novolog pens. He confirmed that the pens are in the fridge. He did yell "I pay $45 for each of them, and they are too expensive" while shouting curse words. -Plans to focus on diet changes as discussed above and increase supper Novolog to 22 units with supper everyday. Wrote "Tresiba (green) 44 units at bedtime" on a piece of paper and taped on the Tresiba pen and "Novolog (orange) 20 units in the morning + 22 units with dinner" on a piece of paper andtaped on the Novolog pen. Went over the dosing again with the labeled pens with pt, and pt confirmed understanding. No diagnosis found. BG Readings - Blood sugars uncontrolled. See above. Medications - Reviewed current regimen, patient is not adherent to regimen. See above. Diet, Exercise, Lifestyle - No significant lifestyle changes since last visit. Discussed with patient see above. Patient is agreeable to SMBG 2 time(s) daily. Patient aware to contact clinic if any hypoglycemia before next visit. MEDICATION CHANGES: yes, see below; preferred pharmacy: [facility] Diabetic Medications: Tresiba 44 units daily at bedtime (blue and green pen) Novolog 20 units in the morning with food + 22 units with supper Metformin ER 500mg - 2 tablets twice daily HEALTH MAINTENANCE INTERVENTIONS: Labs: Up to Date Immunizations: Pt is indicated for flu, covid, Prevnar 20, RSV - discussed per nursing Foot Exam: Up to Date Eye Exam: Up to Date Annual Wellness Visit: assess with nursing FOLLOW UP: Return to clinic in 2 weeks 12/04/2023 I spent a total of 40-54 minutes (exact time 54 mins) on the date of service in preparation, delivery, and documentation of the care provided to Etienne Braun excluding any time spent in the performance of separately billed services. Pauly Love RPh Clinical Pharmacist - Securities Sales Associate [facility] 11/20/2023, 1:59 PM documented in this encounter Plan of Treatment Upcoming Encounters Date Type Department Care Team (Late st Contact Info) Description 12/04/2023 2:00 PM EDT Office Visit Family Practice 65 [facility] [address] [place] [address] College, Pharmacist [address] [place] [address] 12/05/2023 12:00 PM EDT Home Visit Care at Home [address] [place] [address] Elin Biswas PA-C [address] [place] [address] 12/12/2023 4:00 PM EDT [facility] Visit [facility] [address] [place] [address] Allie Escobedo, RN [address] [place] [address] 01/10/2024 10:00 AM EST Office Visit Family Practice 65 [facility] [address] [place] [address] Lili Arizmendi DO [address] [place] [address] 01/15/2024 3:30 PM EST Nurse Only Urology, [facility] [address] [place] [address] Champagne, Nurse Urology Jordana [address] [place] [phone] 02/02/2024 1:27 PM EST Hospital Encounter OR [facility], Operating Room, [facility] - 4th Floor [address] [place] [phone] Morgan Braun MD [address] [place] [phone] 02/02/2024 1:27 PM EST - 02/02/2024 2:40 PM EST Surgery OR [facility], Operating Room, [facility] - 4th Floor [address] [place] [phone] Morgan Braun MD [address] [place] [phone] CYSTOURETHROSCOPY WITH FULGURATION MEDIUM BLADDER TUMOR 02/08/2024 11:00 AM EST Nurse Only Urology, [facility] [address] [place] [address] Nurse Ihsan Urology Jordana [address] [place] [phone] 03/04/2024 3:00 PM EST Office Visit Urology, [facility] [address] [place] [address] Morgan Braun MD [address] [place] [phone] Scheduled Procedures Name Priority Associated Diagnoses Date/Ti [...] 08/12/1995 DISCUSS TOBACCO CESSATION (REFER TO SMARTSET #1191) 07/02/2022 07/02/2021 Adult Wellness Visit 09/28/2023 09/27/2022 [...] Antitrypsin Completed 09/24/2021 AAA Screening Completed 03/24/2023, 040 04/2022, 11/11/2021, Additional history exists Influenza Vaccine [...] this encounter Medical Devices Implanted Type Area Credit Card Interviewer Device Identifier Shelf Expiration Date Model / Serial / Lot Stent Peripheral 8 Diam [id number] - [id number] Implanted:Qty: 1 on 06/19/2017 by Elie Ocon[place] [facility] [place]: Iliac [employer] : VASCULAR 02/10/2020 [id number] / / [id number] Graft Stent Viab [id number] - [id number] - [id number] Implanted:Qty: 1 on 06/19/2017 by Elie Oconnor MD [place] [facility] [place]: [employer] 12/26/2019 [id number] / [id number] / Graft Stent Viab [id number] - [id number] - [id number] Implanted:Qty: 1 on 06/19/2017 by Elie Oconnor MD [place] [facility] [place]: [employer] 08/19/2019 [id number] / [id number] / Graft Stent Viab [id number] - [id number] Implanted:Qty: 1 on 11/13/2018 by Elie Oconnor MD [place] [facility] [place]: [employer] [id number] 09/08/2021 [id number] / / LOT NA documented as of this encounter Visit Diagnoses Diagnosis Type 2 diabetes mellitus with hemoglobin A1c goal of less than 7.0% (HCC)- Primary Malignant neoplasm of overlapping sites of bladder (HCC)- Primary Malignant neoplasm of other specified sites of bladder Bladder tumor Neoplasm of unspecified nature of bladder Bladder tumor Neoplasm of unspecified nature of bladder Malignant neoplasm of overlapping sites of bladder (HCC) Malignant neoplasm of other specified sites of bladder documented in this encounter Advance Directives Documents on File Type Date Recorded Patient Habitat Management Coordinator Expl anation POLST 12/08/2021 [place] [facility] FOR LIFE-SUSTAINING TREATMENT [place] DEPT OF HEALTH * Full Code (Latest [...] Advance Directives occurred with: Patient Care Teams Diesel Locomotive Firer/Fireman Relationship Specialty Start Date End Date Lili Arizmendi DO [address] [place] [address] PCP - General Family Medicine 09/18/23 documented as of this encounter
[2023-11-28] MEDS: METOPROLOL TARTRATE 25 MG TAB PO STA (07:49)
[2023-11-28] MEDS: ASPIRIN 81 MG ECTAB PO SCH (07:57)
[2023-11-28] MEDS: FINASTERIDE 5 MG TAB PO SCH (07:57)
[2023-11-28] MEDS: ATORVASTATIN 40 MG TAB PO SCH (07:57)
[2023-11-28] MEDS: amLODIPine BESYLATE 5 MG TAB PO SCH (07:58)
[2023-11-28] MEDS: CHOLECALCIFEROL 125 MCG (5,000 UNITS) TAB PO SCH (07:58)
[2023-11-28] MEDS: VENLAFAXINE HCL XR 150 MG CAPXR PO SCH (07:58)
[2023-11-28] MEDS: LOSARTAN POTASSIUM 50 MG TAB PO SCH (07:58)
[2023-11-28] MEDS: hydrOXYzine HCl 10 MG TAB PO PRN (07:58)
[2023-11-28] MEDS: CLOPIDOGREL BISULFATE 75 MG TAB PO SCH (07:58)
[2023-11-28] MEDS: ENOXAPARIN INJ 40 MG/0.4 ML SYR SQ SCH (07:59)
--- NOTE | 2023-11-28 09:33 | Communication Note ---
Date of Service: November 28, 2023 Patient seen and examined Reports unable to take care of himself at home and that is currently hospitalized Reports only left sided lower chest pain with movt/deep breath. Has tenderness in the area. On room air XR chest from 11/24 showed nondisplaced left 9th and 10th rib. XR chest today did not show any acute cardiopulm findings PT/OT CM for placement Other plans as detailed in H/P this AM
[2023-11-28] MEDS: LANTUS PER UNIT CHARGE SQ SCH (09:43)
[2023-11-28] MEDS: LIDOCAINE 5% 1 PATCH TD SCH (10:39)
--- NOTE | 2023-11-28 10:55 | Electrocardiogram Report ---
Test Reason : Blood Pressure : */* mmHG Vent. Rate : 107 BPM Atrial Rate : 107 BPM P-R Int : 130 ms QRS Dur : 148 ms QT Int : 406 ms P-R-T Axes : 37 -27 68 degrees QTcB Int : 542 ms Atrial-sensed ventricular-paced rhythm Abnormal ECG When compared with ECG of 11-Nov-2023 00:36, Vent. rate has increased by 22 bpm Confirmed by Mickey Jacinto ([id number]) on 11/28/2023 10:55:31 AM Referred By: REFERRED SELF Confirmed By: Mickey Jacinto
[2023-11-28] MEDS: FLUTICASONE/VILANTEROL 100/25MCG 14 PUFFS/INHALER INH SCH (21:10)
[2023-11-29 07:14] LABS: BUN Creatinine Ratio 22.9 (10-20); Calcium 9.1 mg/dl (8.6-10.3); Creatinine Clr Calc Pharmacy 61.4 ml/min; Est GFR (African American) 81.2 ml/min; Est GFR (Non-African American) 70.1 ml/min; Magnesium 1.5 mg/dl (1.7-2.4); Potassium 4.1 mmol/L (3.5-5.1)
[2023-11-29 07:15] LABS: Hemoglobin 13.6 g/dl (14.0-18.0); Mean Corpuscular Hemoglobin 27.1 pg (25.0-34.0); Mean Corpuscular Volume 79.7 fL (80.0-100.0); Mean Platelet Volume 9.9 fL (9.4-12.4); Platelet Count 250 K/uL (130-400); RDW Coefficient of Variation 13.9 % (11.5-14.5); RDW Standard Deviation 40.2 fL (36.4-46.3); Red Blood Count 5.02 M/uL (4.70-6.10); White Blood Count 8.74 K/ul (4.8-10.8)
[2023-11-29] MEDS: METOPROLOL SUCC 25MG EXT REL TAB PO SCH (08:10)
[2023-11-29] MEDS ORDERED: METOPROLOL SUCC 25MG EXT REL TAB PO SCH (09:00)
[2023-11-29] MEDS: MAGNESIUM SULFATE / D5W 1 GM/100 ML BAG IV SCH (09:20)
[2023-11-29] MEDS ORDERED: INFLUENZA VACC TS2024-25(65y+)/PF (IIV3) 0.5mL Syr IM ONE (09:54)
[2023-11-29] MEDS: MAGNESIUM OXIDE 400 MG TAB PO SCH (10:47)
--- NOTE | 2023-11-29 14:36 | Hospitalist Progress Note ---
Date of Service November 29, 2023 Assessment & Plan (1) Asymptomatic hypertensive urgency: Plan Pt is a 73yoM with PMHx significant fo chronic systolic heart failure (EF 45%, TTE 2023), CAD status post stent, PAF, complete heart block status post PPM, mild MR, PVD status post surgery, COPD, ELIZABETH on CPAP, difficult intubation as per records, recurrent bladder status post surgery/Mitomycin-C, GERD, DM2 insulin requiring, chronic anemia (baseline hemoglobin 12-13), mood disorder, recent traumatic rib fractures, ongoing tobacco abuse presenting with inability to care for himself at home. Was also noted to have asymptomatic uncontrolled hypertension that has since resolved. Uncontrolled hypertension BP was elevated on admission Continue amlodipine 10mg daily, losartan 100mg daily and Metoprolol succinate 25mg daily Currently controlled Continue to monitor Hypomagnesemia Replete as needed Functional disability PT/OT Complex case management consult hx CAD status post stent chronic systolic heart failure (EF 45%, TTE 2023) Troponin elevation PAF, complete heart block status post PPM PVD status post surgery Pt with chronic trop elevation EKG noting paced rhythm not on anticoagulation secondary to bleeding risks as per outpatient documentation EF 45%, TTE 2023 mild MR PVD status post surgery Continue home meds- metoprolol, plavix, aspirin, atorvastatin, lasix DM2 insulin requiring well-controlled as of recent hemoglobin A1c of 6.04 September 2023 Basal/bolus insulin per protocol chronic anemia hemoglobin better than baseline likely secondary to hemoconcentration Continue to monitor Continue home supplement recent traumatic left rib fractures noted on imaging pain control prn incentive spirometer ongoing tobacco abuse Nicotine patch as needed Diet: DMII/HH DVT prophylaxis. Lovenox subcu Dispo: PT/OT recommending SNF. Med/surg while awaiting placement. Admission and Anticipated Discharge Date Admission Date: November 28, 2023 Subjective Patient was seen sitting up in bed eating lunch. Alert and oriented x 1. Denied acute concerns Review of Systems Review of Systems: All systems reviewed & are unremarkable except as noted in Subjective Physical Exam Physical Exam: General: Alert, orientedx1. No acute distress Skin: left lower extremity with open abrasion and surrounding erythema Psych: Appropriate mood and affect Neuro: AAOx1 HEENT: NC/AT CV: RRR Resp: Breath sounds clear bilaterally, no increased effort of breathing Abdomen: Soft, nontender Extremities: No edema in lower extremities bilaterally. Results & Data Results & Data Vital Signs (Past 12 Hours) Vital Signs Temp Pulse Pulse Resp BP Pulse Ox O2 Del Method 11/29/23 11:12 37.0 C 96 H 16 120/66 92 Room Air 11/29/23 07:36 36.6 C 94 H 16 149/72 H 96 Room Air 11/29/23 07:19 90 11/29/23 03:55 37.0 C 90 20 148/74 H 93 Room Air
[2023-11-29] MEDS: DOXYCYCLINE HYCLATE 100 MG CAP PO SCH (21:15)
[2023-11-30] MEDS: oxyCODONE HCL IR 5 MG TAB (IMMEDIATE RELEASE) PO PRN (04:25)
[2023-11-30 07:06] LABS: Hematocrit (blood only) 39.9 % (42.0-52.0); Hemoglobin 13.2 g/dl (14.0-18.0); Mean Corpuscular Hemoglobin 26.7 pg (25.0-34.0); Mean Corpuscular Hgb Conc 33.1 g/dL (32.0-36.0); Mean Corpuscular Volume 80.6 fL (80.0-100.0); Mean Platelet Volume 9.4 fL (9.4-12.4); Platelet Count 229 K/uL (130-400); RDW Coefficient of Variation 13.7 % (11.5-14.5); RDW Standard Deviation 39.9 fL (36.4-46.3); Red Blood Count 4.95 M/uL (4.70-6.10); White Blood Count 9.18 K/ul (4.8-10.8)
[2023-11-30 07:22] LABS: BUN Creatinine Ratio 20.4 (10-20); Calcium 9.2 mg/dl (8.6-10.3); Creatinine Clr Calc Pharmacy 59.7 ml/min; Magnesium 1.6 mg/dl (1.7-2.4); Phosphorus 3.5 mg/dl (2.5-4.9); Potassium 4.3 mmol/L (3.5-5.1)
[2023-11-30] MEDS: INFLUENZA VACC TS2024-25(65y+)/PF (IIV3) 0.5mL Syr IM ONE (08:35)
[2023-11-30] MEDS: FUROSEMIDE 40 MG TAB PO SCH (09:08)
[2023-11-30] MEDS: MAGNESIUM SULFATE / D5W 1 GM/100 ML BAG IV SCH (09:28)
--- NOTE | 2023-11-30 13:59 | Hospitalist Progress Note ---
Date of Service November 30, 2023 Assessment & Plan (1) Asymptomatic hypertensive urgency: Plan Pt is a 73yoM with PMHx significant fo chronic systolic heart failure (EF 45%, TTE 2023), CAD status post stent, PAF, complete heart block status post PPM, mild MR, PVD status post surgery, COPD, ELIZABETH on CPAP, difficult intubation as per records, recurrent bladder status post surgery/Mitomycin-C, GERD, DM2 insulin requiring, chronic anemia (baseline hemoglobin 12-13), mood disorder, recent traumatic rib fractures, ongoing tobacco abuse presenting with inability to care for himself at home. Was also noted to have asymptomatic uncontrolled hypertension that has since resolved. Uncontrolled hypertension BP was elevated on admission Continue amlodipine 10mg daily, losartan 100mg daily and Metoprolol succinate 25mg daily Currently controlled Continue to monitor LLE Cellulitis on doxycycline Wound culture ordered Hypomagnesemia Replete as needed Functional disability PT/OT Complex case management consult hx CAD status post stent chronic systolic heart failure (EF 45%, TTE 2023) Troponin elevation PAF, complete heart block status post PPM PVD status post surgery Pt with chronic trop elevation EKG noting paced rhythm not on anticoagulation secondary to bleeding risks as per outpatient documentation EF 45%, TTE 2023 mild MR PVD status post surgery Continue home meds- metoprolol, plavix, aspirin, atorvastatin, lasix DM2 insulin requiring well-controlled as of recent hemoglobin A1c of 6.04 September 2023 Basal/bolus insulin per protocol chronic anemia hemoglobin better than baseline likely secondary to hemoconcentration Continue to monitor Continue home supplement recent traumatic left rib fractures noted on imaging pain control prn incentive spirometer ongoing tobacco abuse Nicotine patch as needed Diet: DMII/HH DVT prophylaxis. Lovenox subcu Dispo: PT/OT recommending SNF. Med/surg while awaiting placement. Admission and Anticipated Discharge Date Admission Date: November 30, 2023 Subjective Patient was seen laying in bed. Review of Systems Review of Systems: All systems reviewed & are unremarkable except as noted in Subjective Physical Exam Physical Exam: General: No acute distress Skin: left lower extremity with open abrasion and surrounding erythema Psych: Appropriate mood and affect Neuro: AAOx1 HEENT: NC/AT CV: RRR Resp: Breath sounds clear bilaterally, no increased effort of breathing Abdomen: Soft, nontender Extremities: No edema in lower extremities bilaterally. Results & Data Results & Data Vital Signs (Past 12 Hours) Vital Signs Temp Pulse Resp BP O2 Del Method 11/30/23 08:08 36.4 C L 82 18 132/69 11/30/23 08:00 Room Air
[2023-11-30] MEDS: ACETAMINOPHEN 325 MG TAB PO PRN (17:03)
[2023-12-01 06:51] LABS: Hematocrit (blood only) 38.8 % (42.0-52.0); Hemoglobin 12.9 g/dl (14.0-18.0); Mean Corpuscular Hemoglobin 26.8 pg (25.0-34.0); Mean Corpuscular Hgb Conc 33.2 g/dL (32.0-36.0); Mean Corpuscular Volume 80.5 fL (80.0-100.0); Mean Platelet Volume 9.6 fL (9.4-12.4); Platelet Count 223 K/uL (130-400); RDW Coefficient of Variation 13.7 % (11.5-14.5); RDW Standard Deviation 39.9 fL (36.4-46.3); Red Blood Count 4.82 M/uL (4.70-6.10); White Blood Count 9.95 K/ul (4.8-10.8)
[2023-12-01 07:14] LABS: BUN Creatinine Ratio 19.2 (10-20); Calcium 9.1 mg/dl (8.6-10.3); Creatinine Clr Calc Pharmacy 59.6 ml/min; Magnesium 1.5 mg/dl (1.7-2.4); Phosphorus 3.2 mg/dl (2.5-4.9); Potassium 4.3 mmol/L (3.5-5.1)
[2023-12-01] MEDS: MAGNESIUM SULFATE / D5W 1 GM/100 ML BAG IV SCH (09:20)
--- NOTE | 2023-12-01 13:05 | Hospitalist Progress Note ---
Date of Service December 01, 2023 Assessment & Plan (1) Asymptomatic hypertensive urgency: Plan Pt is a 73yoM with PMHx significant fo chronic systolic heart failure (EF 45%, TTE 2023), CAD status post stent, PAF, complete heart block status post PPM, mild MR, PVD status post surgery, COPD, ELIZABETH on CPAP, difficult intubation as per records, recurrent bladder status post surgery/Mitomycin-C, GERD, DM2 insulin requiring, chronic anemia (baseline hemoglobin 12-13), mood disorder, recent traumatic rib fractures, ongoing tobacco abuse presenting with inability to care for himself at home. Was also noted to have asymptomatic uncontrolled hypertension that has since resolved. Uncontrolled hypertension BP was elevated on admission Continue amlodipine 10mg daily, losartan 100mg daily and Metoprolol succinate 25mg daily Currently controlled Continue to monitor LLE Cellulitis on doxycycline Wound culture ordered Wound care nurse consulted Candiduria UA on admission with noted yeast Urine Cx grew maria ines Repeat UA ordered Will treat with fluconazole 200mg daily for 2 weeks while awaiting repeat results. Hypomagnesemia Replete as needed Functional disability PT/OT Complex case management consult hx CAD status post stent chronic systolic heart failure (EF 45%, TTE 2023) Troponin elevation PAF, complete heart block status post PPM PVD status post surgery Pt with chronic trop elevation EKG noting paced rhythm not on anticoagulation secondary to bleeding risks as per outpatient documentation EF 45%, TTE 2023 mild MR PVD status post surgery Continue home meds- metoprolol, plavix, aspirin, atorvastatin, lasix DM2 insulin requiring well-controlled as of recent hemoglobin A1c of 6.04 September 2023 Basal/bolus insulin per protocol chronic anemia hemoglobin better than baseline likely secondary to hemoconcentration Continue to monitor Continue home supplement recent traumatic left rib fractures noted on imaging pain control prn incentive spirometer ongoing tobacco abuse Nicotine patch as needed Diet: DMII/HH DVT prophylaxis. Lovenox subcu Dispo: PT/OT recommending SNF. Med/surg while awaiting placement. Admission and Anticipated Discharge Date Admission Date: November 30, 2023 Subjective patient was seen sitting in bed. Denied acute concerns. Did state when his lower extremities were being examined "do not touch my feet without let me know" Review of Systems Review of Systems: All systems reviewed & are unremarkable except as noted in Subjective Physical Exam Physical Exam: General: No acute distress Skin: left lower extremity with covered abrasion and surrounding erythema Psych: Appropriate mood and affect Neuro: AAOx1 HEENT: NC/AT CV: RRR Resp: Breath sounds clear bilaterally, no increased effort of breathing Abdomen: Soft, nontender Extremities: No edema in lower extremities bilaterally. Results & Data Results & Data Vital Signs (Past 12 Hours) Vital Signs Temp Pulse Resp BP Pulse Ox O2 Del Method 12/01/23 09:53 Room Air 12/01/23 08:00 36.8 C 90 18 138/69 91 Room Air
[2023-12-01 16:39] LABS: Appearance Urine Turbid (Clear); Bacteria Urine Automated None Seen (None Seen); Bilirubin Urine Negative (Negative); Blood Urine 1+ (Negative); Color Urine Dark Yellow; Epithelial Cell Urine Auto 0-2 /hpf (0-2); Glucose Urine UA Negative (Negative); Ketones Urine Negative (Negative); Leukocyte Esterase Urine 3+ (Negative); Nitrite Urine Negative (Negative); Protein Urine Trace (Negative); RBC Urine Automated 0-2 /hpf (0-2); Specific Gravity Urine 1.017 (1.000-1.030); Urobilinogen Urine Negative (Negative); WBC Urine Automated >50 /hpf (0-5); pH Urine 5.5 (4.5-7.5)
[2023-12-01] MEDS: FLUCONAZOLE 100 MG TAB PO SCH (17:32)
--- NOTE | 2023-12-02 00:43 | Communication Note ---
Date of Service: December 02, 2023 Notified by RN of abnormal UA. Patient had low-grade fever earlier. Patient without abdominal or flank pain complaints. UA WBC esterase AP Complicated UTI, no sepsis for now Urine CS, Cefepime
[2023-12-02] MEDS: CEFEPIME 2000MG 2,000 MG/20 ML SYR IV SCH (01:12)
[2023-12-02] MEDS: LANTUS PER UNIT CHARGE SQ SCH (08:52)
[2023-12-02 09:29] LABS: Hematocrit (blood only) 39.2 % (42.0-52.0); Hemoglobin 13.1 g/dl (14.0-18.0); Mean Corpuscular Hemoglobin 26.9 pg (25.0-34.0); Mean Corpuscular Hgb Conc 33.4 g/dL (32.0-36.0); Mean Corpuscular Volume 80.5 fL (80.0-100.0); Mean Platelet Volume 9.5 fL (9.4-12.4); Platelet Count 221 K/uL (130-400); RDW Coefficient of Variation 13.7 % (11.5-14.5); RDW Standard Deviation 39.9 fL (36.4-46.3); Red Blood Count 4.87 M/uL (4.70-6.10); White Blood Count 9.54 K/ul (4.8-10.8)
[2023-12-02 09:40] LABS: BUN Creatinine Ratio 23.2 (10-20); Calcium 9.2 mg/dl (8.6-10.3); Creatinine Clr Calc Pharmacy 65.3 ml/min; Magnesium 1.5 mg/dl (1.7-2.4); Phosphorus 3.3 mg/dl (2.5-4.9); Potassium 4.3 mmol/L (3.5-5.1)
--- NOTE | 2023-12-02 11:40 | Hospitalist Progress Note ---
Date of Service December 02, 2023 Assessment & Plan (1) Asymptomatic hypertensive urgency: Plan Pt is a 73yoM with PMHx significant fo chronic systolic heart failure (EF 45%, TTE 2023), CAD status post stent, PAF, complete heart block status post PPM, mild MR, PVD status post surgery, COPD, ELIZABETH on CPAP, difficult intubation as per records, recurrent bladder status post surgery/Mitomycin-C, GERD, DM2 insulin requiring, chronic anemia (baseline hemoglobin 12-13), mood disorder, recent traumatic rib fractures, ongoing tobacco abuse presenting with inability to care for himself at home. Was also noted to have asymptomatic uncontrolled hypertension that has since resolved. Pt is currently awaiting placement at [facility]. Stable for discharge Uncontrolled hypertension BP was elevated on admission Continue amlodipine 10mg daily, losartan 100mg daily and Metoprolol succinate 25mg daily Currently controlled Continue to monitor LLE Cellulitis on doxycycline Wound culture ordered Wound care nurse consulted Candiduria UA on admission with noted yeast Urine Cx grew maria ines Repeat UA ordered- suggestive of infection, repeat culture pending Will treat with fluconazole 200mg daily for 2 weeks while awaiting repeat results. Also started on IV Cefepime Hypomagnesemia Replete as needed Functional disability PT/OT Complex case management consult hx CAD status post stent chronic systolic heart failure (EF 45%, TTE 2023) Troponin elevation PAF, complete heart block status post PPM PVD status post surgery Pt with chronic trop elevation EKG noting paced rhythm not on anticoagulation secondary to bleeding risks as per outpatient documentation EF 45%, TTE 2023 mild MR PVD status post surgery Continue home meds- metoprolol, plavix, aspirin, atorvastatin, lasix DM2 insulin requiring well-controlled as of recent hemoglobin A1c of 6.04 September 2023 Basal/bolus insulin per protocol chronic anemia hemoglobin better than baseline likely secondary to hemoconcentration Continue to monitor Continue home supplement recent traumatic left rib fractures noted on imaging pain control prn incentive spirometer ongoing tobacco abuse Nicotine patch as needed Diet: DMII/HH DVT prophylaxis. Lovenox subcu Dispo: PT/OT recommending SNF. Med/surg while awaiting placement. Admission and Anticipated Discharge Date Admission Date: November 30, 2023 Subjective Etienne was seen laying in bed, states he wants to go home. Otherwise denies acute concerns Review of Systems Review of Systems: All systems reviewed & are unremarkable except as noted in Subjective Physical Exam Physical Exam: General: No acute distress Skin: left lower extremity with covered abrasion and surrounding erythema Psych: Appropriate mood and affect Neuro: AAOx1 HEENT: NC/AT CV: RRR Resp: Breath sounds clear bilaterally, no increased effort of breathing Abdomen: Soft, nontender Extremities: No edema in lower extremities bilaterally. Results & Data Results & Data Vital Signs (Past 12 Hours) Vital Signs Temp Pulse Resp BP Pulse Ox O2 Del Method 12/02/23 08:25 Room Air 12/02/23 08:06 36.6 C 83 20 155/71 H 93 Room Air 12/02/23 00:16 36.6 C
[2023-12-02] MEDS: MAGNESIUM SULFATE / D5W 1 GM/100 ML BAG IV SCH (17:16)
[2023-12-03 06:31] LABS: Basophils # (auto) 0.07 K/uL (0.00-0.20); Basophils % (auto) 0.7 %; Eosinophils # (auto) 0.25 K/uL (0.00-0.50); Eosinophils % (auto) 2.7 %; Hematocrit (blood only) 37.2 % (42.0-52.0); Hemoglobin 12.7 g/dl (14.0-18.0); Immature Granulocytes # (auto) 0.05 K/uL (0.01-0.20); Immature Granulocytes % (auto) 0.5 %; Mean Corpuscular Hemoglobin 27.1 pg (25.0-34.0); Mean Corpuscular Hgb Conc 34.1 g/dL (32.0-36.0); Mean Corpuscular Volume 79.5 fL (80.0-100.0); Mean Platelet Volume 9.8 fL (9.4-12.4); Monocytes # (auto) 0.95 K/uL (0.11-0.59); Monocytes % (auto) 10.1 %; Neutrophils # (auto) 6.51 K/uL (1.40-6.50); Platelet Count 224 K/uL (130-400); RDW Coefficient of Variation 13.6 % (11.5-14.5); RDW Standard Deviation 39.4 fL (36.4-46.3); Red Blood Count 4.68 M/uL (4.70-6.10); White Blood Count 9.43 K/ul (4.8-10.8)
[2023-12-03 06:49] LABS: BUN Creatinine Ratio 30.9 (10-20); Calcium 9.2 mg/dl (8.6-10.3); Creatinine Clr Calc Pharmacy 66.1 ml/min; Magnesium 1.7 mg/dl (1.7-2.4); Phosphorus 3.2 mg/dl (2.5-4.9); Potassium 4.3 mmol/L (3.5-5.1)
--- NOTE | 2023-12-03 12:55 | Hospitalist Progress Note ---
Date of Service December 03, 2023 Assessment & Plan (1) Asymptomatic hypertensive urgency: Plan Pt is a 73yoM with PMHx significant fo chronic systolic heart failure (EF 45%, TTE 2023), CAD status post stent, PAF, complete heart block status post PPM, mild MR, PVD status post surgery, COPD, ELIZABETH on CPAP, difficult intubation as per records, recurrent bladder status post surgery/Mitomycin-C, GERD, DM2 insulin requiring, chronic anemia (baseline hemoglobin 12-13), mood disorder, recent traumatic rib fractures, ongoing tobacco abuse presenting with inability to care for himself at home. Was also noted to have asymptomatic uncontrolled hypertension that has since resolved. Pt is currently awaiting placement at [facility]. Stable for discharge Uncontrolled hypertension BP was elevated on admission Continue amlodipine 10mg daily, losartan 100mg daily and Metoprolol succinate 25mg daily Currently controlled Continue to monitor LLE Cellulitis on doxycycline Wound culture ordered Wound care nurse consulted Candiduria UA on admission with noted yeast Urine Cx grew maria ines Repeat UA ordered- suggestive of infection, repeat culture no growth to date Will treat with fluconazole 200mg daily for 2 weeks while awaiting repeat results. continue IV Cefepime or po alternative for 5 days Hypomagnesemia Replete as needed Functional disability PT/OT Complex case management consult hx CAD status post stent chronic systolic heart failure (EF 45%, TTE 2023) Troponin elevation PAF, complete heart block status post PPM PVD status post surgery Pt with chronic trop elevation EKG noting paced rhythm not on anticoagulation secondary to bleeding risks as per outpatient docum entation EF 45%, TTE 2023 mild MR PVD status post surgery Continue home meds- metoprolol, plavix, aspirin, atorvastatin, lasix DM2 insulin requiring well-controlled as of recent hemoglobin A1c of 6.04 September 2023 Basal/bolus insulin per protocol chronic anemia hemoglobin better than baseline likely secondary to hemoconcentration Continue to monitor Continue home supplement recent traumatic left rib fractures noted on imaging pain control prn incentive spirometer ongoing tobacco abuse Nicotine patch as needed Diet: DMII/HH DVT prophylaxis. Lovenox subcu Dispo: PT/OT recommending SNF. Med/surg while awaiting placement. Admission and Anticipated Discharge Date Admission Date: November 30, 2023 Willow Clifton was seen laying in bed. states he feels he is getting weaker. Otherwise denies acute concerns Review of Systems Review of Systems: All systems reviewed & are unremarkable except as noted in Subjective Physical Exam Physical Exam: General: No acute distress Skin: left lower extremity with covered abrasion and surrounding erythema Psych: Appropriate mood and affect Neuro: AAOx1 HEENT: NC/AT CV: RRR Resp: Breath sounds clear bilaterally, no increased effort of breathing Abdomen: Soft, nontender Extremities: No edema in lower extremities bilaterally. Results & Data Results & Data Vital Signs (Past 12 Hours) Vital Signs Temp Pulse Resp BP Pulse Ox O2 Del Method 12/03/23 07:36 37.0 C 84 18 152/73 H 97 Room Air 12/03/23 07:22 Room Air 12/03/23 01:03 36.7 C 87 16 150/65 H 94 Room Air
[2023-12-04 08:08] LABS: Basophils # (auto) 0.08 K/uL (0.00-0.20); Basophils % (auto) 0.9 %; Eosinophils # (auto) 0.38 K/uL (0.00-0.50); Eosinophils % (auto) 4.4 %; Hematocrit (blood only) 36.5 % (42.0-52.0); Hemoglobin 12.3 g/dl (14.0-18.0); Immature Granulocytes # (auto) 0.04 K/uL (0.01-0.20); Immature Granulocytes % (auto) 0.5 %; Lymphocytes # (auto) 1.51 K/uL (1.20-3.40); Lymphocytes % (auto) 17.6 %; Mean Corpuscular Hemoglobin 27.1 pg (25.0-34.0); Mean Corpuscular Hgb Conc 33.7 g/dL (32.0-36.0); Mean Corpuscular Volume 80.4 fL (80.0-100.0); Mean Platelet Volume 9.9 fL (9.4-12.4); Monocytes # (auto) 0.95 K/uL (0.11-0.59); Monocytes % (auto) 11.1 %; Neutrophils % (auto) 65.5 %; Platelet Count 234 K/uL (130-400); RDW Coefficient of Variation 13.6 % (11.5-14.5); RDW Standard Deviation 39.7 fL (36.4-46.3); Red Blood Count 4.54 M/uL (4.70-6.10); White Blood Count 8.56 K/ul (4.8-10.8)
[2023-12-04 08:31] LABS: Calcium 9.2 mg/dl (8.6-10.3); Magnesium 1.3 mg/dl (1.7-2.4); Potassium 4.2 mmol/L (3.5-5.1)
[2023-12-04 08:36] LABS: BUN Creatinine Ratio 29.4 (10-20); Creatinine Clr Calc Pharmacy 73.1 ml/min; Phosphorus 3.1 mg/dl (2.5-4.9)
[2023-12-04] MEDS: NICOTINE 14 MG/24 HR PATCH TD SCH (14:05)
--- NOTE | 2023-12-04 14:07 | Hospitalist Progress Note ---
Date of Service December 04, 2023 Assessment & Plan (1) Asymptomatic hypertensive urgency: Plan Pt is a 73yoM with PMHx significant fo chronic systolic heart failure (EF 45%, TTE 2023), CAD status post stent, PAF, complete heart block status post PPM, mild MR, PVD status post surgery, COPD, ELIZABETH on CPAP, difficult intubation as per records, recurrent bladder status post surgery/Mitomycin-C, GERD, DM2 insulin requiring, chronic anemia (baseline hemoglobin 12-13), mood disorder, recent traumatic rib fractures, ongoing tobacco abuse presenting with inability to care for himself at home. Was also noted to have asymptomatic uncontrolled hypertension that has since resolved. Pt is currently awaiting placement. Stable for discharge Uncontrolled hypertension BP was elevated on admission Continue amlodipine 10mg daily, losartan 100mg daily and Metoprolol succinate 25mg daily Currently controlled Continue to monitor LLE Cellulitis on doxycycline Wound culture ordered Wound care nurse consulted Candiduria UA on admission with noted yeast Urine Cx grew maria ines Repeat UA ordered- suggestive of infection, repeat culture no growth to date Will treat with fluconazole 200mg daily for 2 weeks while awaiting repeat results. continue IV Cefepime or po alternative for 5 days Hypomagnesemia Replete as needed Functional disability PT/OT Complex case management consult hx CAD status post stent chronic systolic heart failure (EF 45%, TTE 2023) Troponin elevation PAF, complete heart block status post PPM PVD status post surgery Pt with chronic trop elevation EKG noting paced rhythm not on anticoagulation secondary to bleeding risks as per outpatient documentation EF 45%, TTE 2023 mild MR PVD status post surgery Continue home meds- metoprolol, plavix, aspirin, atorvastatin, lasix DM2 insulin requiring well-controlled as of recent hemoglobin A1c of 6.04 September 2023 Basal/bolus insulin per protocol chronic anemia hemoglobin better than baseline likely secondary to hemoconcentration Continue to monitor Continue home supplement recent traumatic left rib fractures noted on imaging pain control prn incentive spirometer ongoing tobacco abuse Nicotine patch as needed Diet: DMII/HH DVT prophylaxis. Lovenox subcu Dispo: PT/OT recommending SNF. Med/surg while awaiting placement. Admission and Anticipated Discharge Date Admission Date: November 30, 2023 Subjective Patient was seen laying in bed. States he wants to go home. Denied acute concerns otherwise. Per case management states she is still unable to care for him at home. Case management has not heard back yet from [facility]. agreeable to referrals to [facility]. Review of Systems Review of Systems: All systems reviewed & are unremarkable except as noted in Subjective Physical Exam Physical Exam: General: No acute distress Skin: left lower extremity with covered abrasion and surrounding erythema Psych: Appropriate mood and affect Neuro: AAOx1 HEENT: NC/AT CV: RRR Resp: Breath sounds clear bilaterally, no increased effort of breathing Abdomen: Soft, nontender Extremities: No edema in lower extremities bilaterally. Results & Data Results & Data Vital Signs (Past 12 Hours) Vital Signs Temp Pulse Resp BP Pulse Ox O2 Del Method 12/04/23 08:10 36.5 C 74 16 150/74 H 93 Room Air 12/04/23 07:40 Room Air
[2023-12-04] MEDS: POLYETHYLENE (MIRALAX) 17 GM PACK PO PRN (15:29)
[2023-12-04] MEDS: DOCUSATE SODIUM 100 MG CAP PO SCH (19:46)
[2023-12-05 06:54] LABS: Basophils # (auto) 0.07 K/uL (0.00-0.20); Basophils % (auto) 0.9 %; Eosinophils # (auto) 0.32 K/uL (0.00-0.50); Eosinophils % (auto) 4.2 %; Hematocrit (blood only) 35.8 % (42.0-52.0); Hemoglobin 11.7 g/dl (14.0-18.0); Immature Granulocytes # (auto) 0.04 K/uL (0.01-0.20); Immature Granulocytes % (auto) 0.5 %; Lymphocytes # (auto) 1.33 K/uL (1.20-3.40); Lymphocytes % (auto) 17.4 %; Mean Corpuscular Hemoglobin 26.2 pg (25.0-34.0); Mean Corpuscular Hgb Conc 32.7 g/dL (32.0-36.0); Mean Corpuscular Volume 80.3 fL (80.0-100.0); Mean Platelet Volume 9.7 fL (9.4-12.4); Monocytes # (auto) 0.77 K/uL (0.11-0.59); Monocytes % (auto) 10.1 %; Neutrophils % (auto) 66.9 %; Platelet Count 228 K/uL (130-400); RDW Coefficient of Variation 13.5 % (11.5-14.5); RDW Standard Deviation 39.3 fL (36.4-46.3); Red Blood Count 4.46 M/uL (4.70-6.10); White Blood Count 7.63 K/ul (4.8-10.8)
[2023-12-05 07:12] LABS: BUN Creatinine Ratio 29.3 (10-20); Calcium 9.2 mg/dl (8.6-10.3); Creatinine Clr Calc Pharmacy 75.7 ml/min; Magnesium 1.2 mg/dl (1.7-2.4); Potassium 3.9 mmol/L (3.5-5.1)
--- NOTE | 2023-12-05 12:54 | Hospitalist Progress Note ---
Date of Service December 05, 2023 Assessment & Plan (1) Asymptomatic hypertensive urgency: Plan Pt is a 73yoM with PMHx significant fo chronic systolic heart failure (EF 45%, TTE 2023), CAD status post stent, PAF, complete heart block status post PPM, mild MR, PVD status post surgery, COPD, ELIZABETH on CPAP, difficult intubation as per records, recurrent bladder status post surgery/Mitomycin-C, GERD, DM2 insulin requiring, chronic anemia (baseline hemoglobin 12-13), mood disorder, recent traumatic rib fractures, ongoing tobacco abuse presenting with inability to care for himself at home. Was also noted to have asymptomatic uncontrolled hypertension that has since resolved. Pt is currently awaiting placement. Stable for discharge Uncontrolled hypertension BP was elevated on admission Continue amlodipine 10mg daily, losartan 100mg daily and Metoprolol succinate 25mg daily Currently controlled Continue to monitor Candiduria Complicated Urinary tract infection UA on admission with noted yeast Urine Cx grew maria ines Repeat UA ordered- suggestive of infection, repeat culture no growth to date IV cefepime switched to po cefdinir to complete 5 days of treatment Treated with po fluconazole 200mg daily for 5 days. Discontinued as repeat urine culture with no fungal growth. Was likely contaminant. LLE Cellulitis Wound culture never cultured Wound care nurse consulted, appreciate care. Picture in chart Completed doxycycline course of 5/5 days Hypomagnesemia Replete as needed Functional disability PT/OT Complex case management consult hx CAD status post stent chronic systolic heart failure (EF 45%, TTE 2023) Troponin elevation PAF, complete heart block status post PPM PVD status post surgery Pt with chronic trop elevation EKG noting paced rhythm not on anticoagulation secondary to bleeding risks as per outpatient documentation EF 45%, TTE 2023 mild MR PVD status post surgery Continue home meds- metoprolol, plavix, aspirin, atorvastatin, lasix DM2 insulin requiring well-controlled as of recent hemoglobin A1c of 6.04 September 2023 Basal/bolus insulin per protocol chronic anemia hemoglobin better than baseline likely secondary to hemoconcentration Continue to monitor Continue home supplement recent traumatic left rib fractures noted on imaging pain control prn incentive spirometer ongoing tobacco abuse Nicotine patch as needed Diet: DMII/HH DVT prophylaxis. Lovenox subcu Dispo: PT/OT recommending SNF. Med/surg while awaiting placement. Admission and Anticipated Discharge Date Admission Date: November 30, 2023 Physical Exam Physical Exam: General: No acute distress Skin: left lower extremity with covered abrasion and surrounding erythema Psych: Appropriate mood and affect Neuro: AAOx1 HEENT: NC/AT CV: RRR Resp: Breath sounds clear bilaterally, no increased effort of breathing Abdomen: Soft, nontender Extremities: No edema in lower extremities bilaterally. Results & Data Results & Data Vital Signs (Past 12 Hours) Vital Signs Temp Pulse Resp BP Pulse Ox O2 Del Method 12/05/23 07:59 36.6 C 75 18 148/73 H 94 Room Air
[2023-12-05] MEDS: CEFDINIR 300 MG CAP PO SCH (19:30)
[2023-12-06 09:14] LABS: Hematocrit (blood only) 35.1 % (42.0-52.0); Hemoglobin 11.8 g/dl (14.0-18.0); Mean Corpuscular Hemoglobin 26.8 pg (25.0-34.0); Mean Corpuscular Hgb Conc 33.6 g/dL (32.0-36.0); Mean Corpuscular Volume 79.8 fL (80.0-100.0); Mean Platelet Volume 9.7 fL (9.4-12.4); Platelet Count 238 K/uL (130-400); RDW Coefficient of Variation 13.5 % (11.5-14.5); RDW Standard Deviation 38.9 fL (36.4-46.3); White Blood Count 7.91 K/ul (4.8-10.8)
[2023-12-06 09:30] LABS: BUN Creatinine Ratio 30.3 (10-20); Calcium 9.3 mg/dl (8.6-10.3); Creatinine Clr Calc Pharmacy 81.7 ml/min; Potassium 3.9 mmol/L (3.5-5.1)
--- NOTE | 2023-12-06 14:22 | Hospitalist Progress Note ---
Date of Service December 06, 2023 Assessment & Plan (1) Asymptomatic hypertensive urgency: Plan Pt is a 73yoM with PMHx significant fo chronic systolic heart failure (EF 45%, TTE 2023), CAD status post stent, PAF, complete heart block status post PPM, mild MR, PVD status post surgery, COPD, ELIZABETH on CPAP, difficult intubation as per records, recurrent bladder status post surgery/Mitomycin-C, GERD, DM2 insulin requiring, chronic anemia (baseline hemoglobin 12-13), mood disorder, recent traumatic rib fractures, ongoing tobacco abuse presenting with inability to care for himself at home. Was also noted to have asymptomatic uncontrolled hypertension that has since resolved. Uncontrolled hypertension BP was elevated on admission Continue amlodipine 10mg daily, losartan 100mg daily and Metoprolol succinate 25mg daily Currently controlled Continue to monitor Candiduria Complicated Urinary tract infection UA on admission with noted yeast Urine Cx grew maria ines Repeat UA ordered- suggestive of infection, repeat culture no growth to date IV cefepime switched to po cefdinir to complete 5 days of treatment Treated with po fluconazole 200mg daily for 5 days. Discontinued as repeat urine culture with no fungal growth. Was likely contaminant. [facility] Cellulitis Wound care nurse consulted, appreciate care. Picture in chart Completed doxycycline course of 5/5 days Hypomagnesemia Replete as needed Functional disability PT/OT Complex case management consult hx CAD status post stent chronic systolic heart failure (EF 45%, TTE 2023) Troponin elevation PAF, complete heart block status post PPM PVD status post surgery Pt with chronic trop elevation EKG noting paced rhythm not on anticoagulation secondary to bleeding risks as per outpatient documentation EF 45%, TTE 2023 mild MR PVD status post surgery Continue home meds- metoprolol, plavix, aspirin, atorvastatin, lasix DM2 insulin requiring well-controlled as of recent hemoglobin A1c of 6.04 September 2023 Basal/bolus insulin per protocol chronic anemia hemoglobin better than baseline likely secondary to hemoconcentration Continue to monitor Continue home supplement recent traumatic left rib fractures noted on imaging pain control prn incentive spirometer ongoing tobacco abuse Nicotine patch as needed Diet: DMII/HH DVT prophylaxis. Lovenox subcu Dispo: PT/OT recommending SNF. Med/surg while awaiting placement. Please note the above document was generated using voice recognition software. It may contain grammatical, syntax or spelling errors. Any formal questions or concerns about the content, text or information contained within the body of this dictation should be directly addressed to the provider for clarification Admission and Anticipated Discharge Date Admission Date: November 30, 2023 Subjective Patient seen and examined at bedside. Comfortable; not in distress. Denies fever, chills, chest pain, shortness of breath, abdominal pain or urinary symptoms. No significant overnight events Review of Systems Review of Systems: All systems reviewed & are unremarkable except as noted in Subjective Physical Exam Physical Exam: General: No acute distress Skin: left lower extremity with covered abrasion and surrounding erythema Psych: Appropriate mood and affect Neuro: AAOx1 HEENT: NC/AT CV: RRR Resp: Breath sounds clear bilaterally, no increased effort of breathing Abdomen: Soft, nontender Extremities: No edema in lower extremities bilaterally. Results & Data Results & Data Vital Signs (Past 12 Hours) Vital Signs Temp Pulse Resp BP Pulse Ox O2 Del Method 12/06/23 07:35 Room Air 12/06/23 07:27 36.7 C 76 16 128/65 95 Room Air
[2023-12-07] MEDS: MICONAZOLE NITRATE POWDER 85 GM EXT PRN (05:40)
--- NOTE | 2023-12-07 14:06 | Hospitalist Progress Note ---
Date of Service December 07, 2023 Assessment & Plan (1) Asymptomatic hypertensive urgency: Plan Pt is a 73yoM with PMHx significant fo chronic systolic heart failure (EF 45%, TTE 2023), CAD status post stent, PAF, complete heart block status post PPM, mild MR, PVD status post surgery, COPD, ELIZABETH on CPAP, difficult intubation as per records, recurrent bladder status post surgery/Mitomycin-C, GERD, DM2 insulin requiring, chronic anemia (baseline hemoglobin 12-13), mood disorder, recent traumatic rib fractures, ongoing tobacco abuse presenting with inability to care for himself at home. Was also noted to have asymptomatic uncontrolled hypertension that has since resolved. Uncontrolled hypertension BP was elevated on admission Continue amlodipine 5mg daily, losartan 100mg daily and Metoprolol succinate 25mg daily Currently controlled Continue to monitor Candiduria Complicated Urinary tract infection UA on admission with noted yeast Urine Cx grew maria ines Repeat UA ordered- suggestive of infection, repeat culture no growth to date IV cefepime switched to po cefdinir to complete 5 days of treatment Treated with po fluconazole 200mg daily for 5 days. Discontinued as repeat urine culture with no fungal growth. Was likely contaminant. [facility] Cellulitis Wound care nurse consulted, appreciate care. Picture in chart Completed doxycycline course of 5/5 days Hypomagnesemia Replete as needed Functional disability PT/OT Complex case management consult hx CAD status post stent chronic systolic heart failure (EF 45%, TTE 2023) Troponin elevation PAF, complete heart block status post PPM PVD status post surgery Pt with chronic trop elevation EKG noting paced rhythm not on anticoagulation secondary to bleeding risks as per outpatient documentation EF 45%, TTE 2023 mild MR PVD status post surgery Continue home meds- metoprolol, plavix, aspirin, atorvastatin, lasix DM2 insulin requiring well-controlled as of recent hemoglobin A1c of 6.04 September 2023 Basal/bolus insulin per protocol chronic anemia Continue to monitor Continue home supplement recent traumatic left rib fractures noted on imaging pain control prn incentive spirometer ongoing tobacco abuse Nicotine patch as needed Diet: DMII/HH DVT prophylaxis. Lovenox subcu Dispo: PT/OT recommending SNF. Med/surg while awaiting placement. Please note the above document was generated using voice recognition software. It may contain grammatical, syntax or spelling errors. Any formal questions or concerns about the content, text or information contained within the body of this dictation should be directly addressed to the provider for clarification Admission and Anticipated Discharge Date Admission Date: November 30, 2023 Subjective Patient seen and examined at bedside. Comfortable; not in distress. Denies fever, chills, chest pain, shortness of breath, abdominal pain or urinary symptoms. No significant overnight events Review of Systems Review of Systems: All systems reviewed & are unremarkable except as noted in Subjective Physical Exam Physical Exam: Constitutional: AO X 3; not in any distress Respiratory: normal respiratory effort, lungs clear to auscultation, no wheeze, rales, rhonchi. Normal insp/exp effort, no accessory muscle use Cardiovascular: RRR, no murmur, no edema Vessels: no JVD or carotid bruit Chest: normal inspection of chest Abdomen: normal bowel sounds, soft, nontender, no hepatosplenomegaly Musculoskeletal: no cyanosis or clubbing, extremities motor strength 5/5 Skin: no rashes, warm and dry normal turgor Neurologic: PERRL, EOMI, accommodation nl, no face palsy, no dysarthria CN's II- XI intact bilaterally and moves all extremities Psychiatric: A+Ox3, euthymic affect Results & Data Results & Data Vital Signs (Past 12 Hours) Vital Signs Temp Pulse Resp BP Pulse Ox O2 Del Method 12/07/23 09:54 Room Air 12/07/23 07:14 36.8 C 79 17 127/71 92 Room Air
[2023-12-08] MEDS: amLODIPine BESYLATE 5 MG TAB PO SCH (07:52)
--- NOTE | 2023-12-08 13:58 | Hospitalist Progress Note ---
Date of Service December 08, 2023 Assessment & Plan (1) Asymptomatic hypertensive urgency: Plan Pt is a 73yoM with PMHx significant fo chronic systolic heart failure (EF 45%, TTE 2023), CAD status post stent, PAF, complete heart block status post PPM, mild MR, PVD status post surgery, COPD, ELIZABETH on CPAP, difficult intubation as per records, recurrent bladder status post surgery/Mitomycin-C, GERD, DM2 insulin requiring, chronic anemia (baseline hemoglobin 12-13), mood disorder, recent traumatic rib fractures, ongoing tobacco abuse presenting with inability to care for himself at home. Was also noted to have asymptomatic uncontrolled hypertension that has since resolved. Uncontrolled hypertension BP was elevated on admission Continue amlodipine 5mg daily, losartan 50mg daily and Metoprolol succinate 25mg daily Currently controlled; dose slightly decreased as patient's blood pressure was noted to be on lower side. Continue to monitor Candiduria Complicated Urinary tract infection UA on admission with noted yeast Repeat UA ordered- suggestive of infection, repeat culture no growth to date IV cefepime switched to po cefdinir to complete 5 days of treatment Treated with po fluconazole 200mg daily for 5 days. E Cellulitis Wound care nurse consulted, appreciate care. Picture in chart Completed doxycycline course of 5/5 days Hypomagnesemia Replete as needed Functional disability PT/OT Complex case management consult hx CAD status post stent chronic systolic heart failure (EF 45%, TTE 2023) Troponin elevation PAF, complete heart block status post PPM PVD status post surgery Pt with chronic trop elevation EKG noting paced rhythm not on anticoagulation secondary to bleeding risks as per outpatient documentation EF 45%, TTE 2023 mild MR PVD status post surgery Continue home meds- metoprolol, plavix, aspirin, atorvastatin, lasix DM2 insulin requiring well-controlled as of recent hemoglobin A1c of 6.04 September 2023 Basal/bolus insulin per protocol chronic anemia Continue to monitor Continue home supplement recent traumatic left rib fractures noted on imaging pain control prn incentive spirometer ongoing tobacco abuse Nicotine patch as needed Diet: DMII/HH DVT prophylaxis. Lovenox subcu Dispo: PT/OT recommending SNF. Med/surg while awaiting placement. Please note the above document was generated using voice recognition software. It may contain grammatical, syntax or spelling errors. Any formal questions or concerns about the content, text or information contained within the body of this dictation should be directly addressed to the provider for clarification Admission and Anticipated Discharge Date Admission Date: November 30, 2023 Subjective Patient seen and examined at bedside He is sitting up on the bed; not in distress Denies fever, chills, chest pain, shortness of breath or abdominal pain No significant events overnight Review of Systems Review of Systems: All systems reviewed & are unremarkable except as noted in Subjective Physical Exam Physical Exam: Constitutional: AO X 3; not in any distress Respiratory: normal respiratory effort, lungs clear to auscultation, no wheeze, rales, rhonchi. Normal insp/exp effort, no accessory muscle use Cardiovascular: RRR, no murmur, no edema Vessels: no JVD or carotid bruit Chest: normal inspection of chest Abdomen: normal bowel sounds, soft, nontender, no hepatosplenomegaly Musculoskeletal: no cyanosis or clubbing, extremities motor strength 5/5 Skin: no rashes, warm and dry normal turgor Neurologic: PERRL, EOMI, accommodation nl, no face palsy, no dysarthria CN's II- XI intact bilaterally and moves all extremities Psychiatric: A+Ox3, euthymic affect Results & Data Results & Data Vital Signs (Past 12 Hours) Vital Signs Temp Pulse Resp BP Pulse Ox O2 Del Method 12/08/23 08:06 36.9 C 74 16 125/56 L 94 Room Air 12/08/23 07:50 Room Air
[2023-12-09 07:14] LABS: Basophils # (auto) 0.07 K/uL (0.00-0.20); Basophils % (auto) 0.8 %; Eosinophils # (auto) 0.21 K/uL (0.00-0.50); Eosinophils % (auto) 2.4 %; Hematocrit (blood only) 35.4 % (42.0-52.0); Hemoglobin 12.2 g/dl (14.0-18.0); Immature Granulocytes # (auto) 0.04 K/uL (0.01-0.20); Immature Granulocytes % (auto) 0.5 %; Lymphocytes # (auto) 1.42 K/uL (1.20-3.40); Lymphocytes % (auto) 16.3 %; Mean Corpuscular Hemoglobin 27.6 pg (25.0-34.0); Mean Corpuscular Hgb Conc 34.5 g/dL (32.0-36.0); Mean Corpuscular Volume 80.1 fL (80.0-100.0); Mean Platelet Volume 9.9 fL (9.4-12.4); Monocytes # (auto) 0.59 K/uL (0.11-0.59); Monocytes % (auto) 6.8 %; Neutrophils # (auto) 6.39 K/uL (1.40-6.50); Neutrophils % (auto) 73.2 %; Platelet Count 248 K/uL (130-400); RDW Coefficient of Variation 13.9 % (11.5-14.5); RDW Standard Deviation 40.1 fL (36.4-46.3); Red Blood Count 4.42 M/uL (4.70-6.10); White Blood Count 8.72 K/ul (4.8-10.8)
[2023-12-09 07:44] LABS: BUN Creatinine Ratio 28.8 (10-20); Calcium 9.4 mg/dl (8.6-10.3); Creatinine Clr Calc Pharmacy 85.1 ml/min; Potassium 4.1 mmol/L (3.5-5.1)
[2023-12-09] MEDS: LOSARTAN POTASSIUM 50 MG TAB PO SCH (09:20)
--- NOTE | 2023-12-09 13:45 | Hospitalist Progress Note ---
Date of Service December 09, 2023 Assessment & Plan (1) Asymptomatic hypertensive urgency: Plan Pt is a 73yoM with PMHx significant fo chronic systolic heart failure (EF 45%, TTE 2023), CAD status post stent, PAF, complete heart block status post PPM, mild MR, PVD status post surgery, COPD, ELIZABETH on CPAP, difficult intubation as per records, recurrent bladder status post surgery/Mitomycin-C, GERD, DM2 insulin requiring, chronic anemia (baseline hemoglobin 12-13), mood disorder, recent traumatic rib fractures, ongoing tobacco abuse presenting with inability to care for himself at home. Was also noted to have asymptomatic uncontrolled hypertension that has since resolved. Uncontrolled hypertension BP was elevated on admission Continue amlodipine 5mg daily, losartan 50mg daily and Metoprolol succinate 25mg daily Currently controlled; dose slightly decreased as patient's blood pressure was noted to be on lower side. Continue to monitor Candiduria Complicated Urinary tract infection- ruled out UA on admission with noted yeast Repeat UA ordered- suggestive of infection, repeat culture no growth to date IV cefepime switched to po cefdinir to complete 5 days of treatment Treated with po fluconazole 200mg daily for 5 days. E Cellulitis Wound care nurse consulted, appreciate care. Picture in chart Completed doxycycline course of 5/5 days Hypomagnesemia Replete as needed Functional disability PT/OT Complex case management consult hx CAD status post stent chronic systolic heart failure (EF 45%, TTE 2023) Troponin elevation PAF, complete heart block status post PPM PVD status post surgery Pt with chronic trop elevation EKG noting paced rhythm not on anticoagulation secondary to bleeding risks as per outpatient documentation EF 45%, TTE 2023 mild MR PVD status post surgery Continue home meds- metoprolol, plavix, aspirin, atorvastatin, lasix DM2 insulin requiring well-controlled as of recent hemoglobin A1c of 6.04 September 2023 Basal/bolus insulin per protocol chronic anemia Continue to monitor Continue home supplement recent traumatic left rib fractures noted on imaging pain control prn incentive spirometer ongoing tobacco abuse Nicotine patch as needed Diet: DMII/HH DVT prophylaxis. Lovenox subcu Dispo: PT/OT recommending SNF. Med/surg while awaiting placement. Please note the above document was generated using voice recognition software. It may contain grammatical, syntax or spelling errors. Any formal questions or concerns about the content, text or information contained within the body of this dictation should be directly addressed to the provider for clarification Admission and Anticipated Discharge Date Admission Date: November 30, 2023 Subjective Patient seen and examined at bedside. Comfortable; not in distress. Denies fever, chills, chest pain, shortness of breath, abdominal pain or urinary symptoms. No significant overnight events Review of Systems Review of Systems: All systems reviewed & are unremarkable except as noted in Subjective Physical Exam Physical Exam: Constitutional: AO X 3; not in any distress Respiratory: normal respiratory effort, lungs clear to auscultation, no wheeze, rales, rhonchi. Normal insp/exp effort, no accessory muscle use Cardiovascular: RRR, no murmur, no edema Vessels: no JVD or carotid bruit Chest: normal inspection of chest Abdomen: normal bowel sounds, soft, nontender, no hepatosplenomegaly Musculoskeletal: no cyanosis or clubbing, extremities motor strength 5/5 Skin: no rashes, warm and dry normal turgor Neurologic: PERRL, EOMI, accommodation nl, no face palsy, no dysarthria CN's II- XI intact bilaterally and moves all extremities Psychiatric: A+Ox3, euthymic affect Results & Data Results & Data Vital Signs (Past 12 Hours) Vital Signs Temp Pulse Resp BP Pulse Ox O2 Del Method 12/09/23 07:22 36.7 C 73 18 126/70 93 Room Air
[2023-12-10] MEDS: MAGNESIUM HYDROXIDE SUSP 30 ML UDC PO ONE (09:47)
[2023-12-10] MEDS: bisacodyL 10 MG SUPP PR STA (10:19)
[2023-12-10] MEDS ORDERED: PHARMACY GLYCEMIC MGMT CONSULT PRN (13:20)
--- NOTE | 2023-12-10 13:22 | Hospitalist Progress Note ---
Date of Service December 10, 2023 Assessment & Plan (1) Asymptomatic hypertensive urgency: Plan Pt is a 73yoM with PMHx significant fo chronic systolic heart failure (EF 45%, TTE 2023), CAD status post stent, PAF, complete heart block status post PPM, mild MR, PVD status post surgery, COPD, ELIZABETH on CPAP, difficult intubation as per records, recurrent bladder status post surgery/Mitomycin-C, GERD, DM2 insulin requiring, chronic anemia (baseline hemoglobin 12-13), mood disorder, recent traumatic rib fractures, ongoing tobacco abuse presenting with inability to care for himself at home. Was also noted to have asymptomatic uncontrolled hypertension that has since resolved. Uncontrolled hypertension BP was elevated on admission Continue amlodipine 5mg daily, losartan 50mg daily and Metoprolol succinate 25mg daily Currently controlled; dose slightly decreased as patient's blood pressure was noted to be on lower side. Continue to monitor Candiduria Complicated Urinary tract infection- ruled out UA on admission with noted yeast Repeat UA ordered- suggestive of infection, repeat culture no growth to date IV cefepime switched to po cefdinir to complete 5 days of treatment Treated with po fluconazole 200mg daily for 5 days. E Cellulitis Wound care nurse consulted, appreciate care. Picture in chart Completed doxycycline course of 5/5 days Hypomagnesemia Replete as needed Functional disability PT/OT Complex case management consult hx CAD status post stent chronic systolic heart failure (EF 45%, TTE 2023) Troponin elevation PAF, complete heart block status post PPM PVD status post surgery Pt with chronic trop elevation EKG noting paced rhythm not on anticoagulation secondary to bleeding risks as per outpatient documentation EF 45%, TTE 2023 mild MR PVD status post surgery Continue home meds- metoprolol, plavix, aspirin, atorvastatin, lasix DM2 insulin requiring well-controlled as of recent hemoglobin A1c of 6.04 September 2023 Basal/bolus insulin per protocol chronic anemia Continue to monitor Continue home supplement recent traumatic left rib fractures noted on imaging pain control prn incentive spirometer ongoing tobacco abuse Nicotine patch as needed Constipation: stared on scheduled bowel regimen. Monitor Diet: DMII/HH DVT prophylaxis. Lovenox subcu Dispo: PT/OT recommending SNF. Med/surg while awaiting placement. Please note the above document was generated using voice recognition software. It may contain grammatical, syntax or spelling errors. Any formal questions or concerns about the content, text or information contained within the body of this dictation should be directly addressed to the provider for clarification Admission and Anticipated Discharge Date Admission Date: November 30, 2023 Subjective Patient seen and examined at bedside. He reports constipation; denies abdominal pain or discomfort. No significant events overnight Review of Systems Review of Systems: All systems reviewed & are unremarkable except as noted in Subjective Physical Exam Physical Exam: Constitutional: AO X 3; not in any distress Respiratory: normal respiratory effort, lungs clear to auscultation, no wheeze, rales, rhonchi. Normal insp/exp effort, no accessory muscle use Cardiovascular: RRR, no murmur, no edema Vessels: no JVD or carotid bruit Chest: normal inspection of chest Abdomen: normal bowel sounds, soft, nontender, no hepatosplenomegaly Musculoskeletal: no cyanosis or clubbing, extremities motor strength 5/5 Skin: no rashes, warm and dry normal turgor Neurologic: PERRL, EOMI, accommodation nl, no face palsy, no dysarthria CN's II- XI intact bilaterally and moves all extremities Psychiatric: A+Ox3, euthymic affect Results & Data Results & Data Vital Signs (Past 12 Hours) Vital Signs Temp Pulse Pulse Resp BP Pulse Ox O2 Del Method 12/10/23 11:55 37.0 C 78 86 17 140/60 95 Room Air 12/10/23 08:00 36.7 C 58 L 62 20 156/66 H 94 Room Air
[2023-12-10] MEDS: LANTUS PER UNIT CHARGE SQ ONE (13:46)
[2023-12-10] MEDS: INSULIN ASPART PER UNIT CHARGE SC ONE (13:47)
--- NOTE | 2023-12-10 14:04 | Pharmacy Report ---
Pharmacy Glycemic Short Note 2 - Date of Service December 10, 2023 - Glycemic Short BSG Results (Last 24 hours): 12/09/23 12/09/23 12/10/23 16:40 20:52 07:42 POC Glucose 177 H 208 H 203 H 12/10/23 12/10/23 12/10/23 11:42 11:46 13:09 POC Glucose 306 H* 328 H* 316 H* 12/10/23 13:20 POC Glucose 315 H* OUTPATIENT ANTIDIABETIC REGIMEN: * Novolin 70/30 - 60 units SC w/ breakfast, 65 units SC w/ dinner * Metformin 1 g PO BIDM HbA1c: ordered for 12/11/23 ASSESSMENT: * GM is a 73 year old male originally admitted on 11/30/23 w/ hypertensive urgency * Pharmacy now consulted for glycemic management on 12/10/23 due to hyperglycemia * Patient currently receiving significantly reduced insulin dosing compared to outpatient * Will increase basal and tighten Novolog today * Diet ordered PLAN FOR INPATIENT GLYCEMIC CONTROL: * Hold outpatient oral diabetes medications * Basal insulin * Lantus 10 units SC this AM * Lantus 20 units SC x 1 at lunchtime * Consider switch to NPH insulin in AM w/ breakfast * Bolus insulin * NovoLog per scale ACHS or Q6hrs while NPO * Goal Range: Low 110 mg/dL - High 140 mg/dL * Correction Factor: 20 mg/dL/unit * Nutritional / Prandial insulin per carb ratio of 1 unit per 7 grams CHO consumed
[2023-12-10] MEDS: POLYETHYLENE (MIRALAX) 17 GM PACK PO SCH (20:21)
[2023-12-10] MEDS: MAGNESIUM HYDROXIDE SUSP 30 ML UDC PO SCH (20:21)
[2023-12-10] MEDS: LANTUS PER UNIT CHARGE SC SCH (21:05)
[2023-12-11] MEDS: INSULIN ASPART PER UNIT CHARGE SC SCH (00:04)
[2023-12-11 07:50] LABS: Estimated Average Glucose 174 mg/dl; Hemoglobin A1C 7.7 % (4.5-5.6)
[2023-12-11] MEDS: LANTUS PER UNIT CHARGE SC SCH (08:15)
--- NOTE | 2023-12-11 08:46 | Pharmacy Report ---
Pharmacy Glycemic Short Note 2 - Date of Service December 11, 2023 - Glycemic Short BSG Results (Last 24 hours): 12/10/23 12/10/23 12/10/23 11:42 11:46 13:09 POC Glucose 306 H* 328 H* 316 H* 12/10/23 12/10/23 12/10/23 13:20 16:25 20:32 POC Glucose 315 H* 208 H 152 H 12/11/23 12/11/23 00:01 07:12 POC Glucose 85 159 H OUTPATIENT ANTIDIABETIC REGIMEN: * Novolin 70/30 - 60 units SC w/ breakfast, 65 units SC w/ dinner * Metformin 1 g PO BIDM HbA1c: 7.7% on 12/11/23 ASSESSMENT: 12/10 * Pt received 74 units of insulin yesterday * 30 units of glargine * 44 units of aspart * BSGs have trended down nicely, will continue tightened carb ratio * Pt awaiting d/c to rehab 12/09 * GM is a 73 year old male originally admitted on 11/30/23 w/ hypertensive urgency * Pharmacy now consulted for glycemic management on 12/10/23 due to hyperglycemia * Patient currently receiving significantly reduced insulin dosing compared to outpatient * Will increase basal and tighten Novolog today * Diet ordered PLAN FOR INPATIENT GLYCEMIC CONTROL: * Hold outpatient diabetes medications * Basal insulin * Lantus 30 units SQ daily * Bolus insulin * NovoLog per scale ACHS or Q6hrs while NPO * Goal Range: Low 110 mg/dL - High 140 mg/dL * Correction Factor: 20 mg/dL/unit * Nutritional / Prandial insulin per carb ratio of 1 unit per 7 grams CHO consumed
--- NOTE | 2023-12-11 13:41 | Hospitalist Progress Note ---
Date of Service December 11, 2023 Assessment & Plan (1) Asymptomatic hypertensive urgency: Plan Pt is a 73yoM with PMHx significant fo chronic systolic heart failure (EF 45%, TTE 2023), CAD status post stent, PAF, complete heart block status post PPM, mild MR, PVD status post surgery, COPD, ELIZAEBTH on CPAP, difficult intubation as per records, recurrent bladder status post surgery/Mitomycin-C, GERD, DM2 insulin requiring, chronic anemia (baseline hemoglobin 12-13), mood disorder, recent traumatic rib fractures, ongoing tobacco abuse presenting with inability to care for himself at home. Was also noted to have asymptomatic uncontrolled hypertension that has since resolved. Uncontrolled hypertension BP was elevated on admission Continue amlodipine 5mg daily, losartan 50mg daily and Metoprolol succinate 25mg daily Currently controlled; Continue to monitor Candiduria Complicated Urinary tract infection- ruled out UA on admission with noted yeast Repeat UA ordered- suggestive of infection, repeat culture no growth to date IV cefepime switched to po cefdinir to complete 5 days of treatment Treated with po fluconazole 200mg daily for 5 days. JASON Cellulitis Wound care nurse consulted, appreciate care. Picture in chart Completed doxycycline course of 5/5 days Hypomagnesemia Replete as needed Functional disability PT/OT Complex case management consult hx CAD status post stent chronic systolic heart failure (EF 45%, TTE 2023) Troponin elevation PAF, complete heart block status post PPM PVD status post surgery Pt with chronic trop elevation EKG noting paced rhythm not on anticoagulation secondary to bleeding risks as per outpatient documentation EF 45%, TTE 2023 mild MR PVD status post surgery Continue home meds- metoprolol, plavix, aspirin, atorvastatin, lasix DM2 insulin requiring well-controlled as of recent hemoglobin A1c of 6.04 September 2023 Basal/bolus insulin per protocol chronic anemia Continue to monitor Continue home supplement recent traumatic left rib fractures noted on imaging pain control prn incentive spirometer ongoing tobacco abuse Nicotine patch as needed Constipation: stared on scheduled bowel regimen. Monitor Diet: DMII/HH DVT prophylaxis. Lovenox subcu Dispo: PT/OT recommending SNF. Med/surg while awaiting placement. Please note the above document was generated using voice recognition software. It may contain grammatical, syntax or spelling errors. Any formal questions or concerns about the content, text or information contained within the body of this dictation should be directly addressed to the provider for clarification Admission and Anticipated Discharge Date Admission Date: November 30, 2023 Subjective Reports multiple bowel movement overnight with resolution of constipation No significant events overnight Reports frustration being in the hospital Review of Systems Review of Systems: All systems reviewed & are unremarkable except as noted in Subjective Physical Exam Physical Exam: Constitutional: AO X 3; not in any distress Respiratory: normal respiratory effort, lungs clear to auscultation, no wheeze, rales, rhonchi. Normal insp/exp effort, no accessory muscle use Cardiovascular: RRR, no murmur, no edema Vessels: no JVD or carotid bruit Chest: normal inspection of chest Abdomen: normal bowel sounds, soft, nontender, no hepatosplenomegaly Musculoskeletal: no cyanosis or clubbing, extremities motor strength 5/5 Skin: no rashes, warm and dry normal turgor Neurologic: PERRL, EOMI, accommodation nl, no face palsy, no dysarthria CN's II- XI intact bilaterally and moves all extremities Psychiatric: A+Ox3, euthymic affect Results & Data Results & Data Vital Signs (Past 12 Hours) Vital Signs Temp Pulse Resp BP Pulse Ox O2 Del Method 12/11/23 07:30 Room Air 12/11/23 07:19 36.6 C 77 16 137/67 97 Room Air
[2023-12-12] MEDS: LANTUS PER UNIT CHARGE SC SCH (08:29)
[2023-12-12] MEDS ORDERED: CARBOHYDRATES FOR HYPOGLYCEMIA PO PRN (08:30)
[2023-12-12] MEDS ORDERED: GLUCOSE 40% GEL 15 GM TUBE PO PRN (08:30)
[2023-12-12] MEDS ORDERED: GLUCAGON FOR INJ 1 MG VIAL SQ PRN (08:30)
[2023-12-12] MEDS ORDERED: DEXTROSE 50% 50 ML SYRINGE IV PRN (08:30)
[2023-12-12] MEDS ORDERED: GLUCOSE 10 TAB/TUBE PO PRN (08:30)
[2023-12-12] MEDS ORDERED: LANTUS PER UNIT CHARGE SC SCH (09:00)
--- NOTE | 2023-12-12 13:46 | Hospitalist Progress Note ---
Date of Service December 12, 2023 Assessment & Plan (1) Asymptomatic hypertensive urgency: Plan Pt is a 73yoM with PMHx significant fo chronic systolic heart failure (EF 45%, TTE 2023), CAD status post stent, PAF, complete heart block status post PPM, mild MR, PVD status post surgery, COPD, ELIZABETH on CPAP, difficult intubation as per records, recurrent bladder status post surgery/Mitomycin-C, GERD, DM2 insulin requiring, chronic anemia (baseline hemoglobin 12-13), mood disorder, recent traumatic rib fractures, ongoing tobacco abuse presenting with inability to care for himself at home. Was also noted to have asymptomatic uncontrolled hypertension that has since resolved. Uncontrolled hypertension BP was elevated on admission Continue amlodipine 5mg daily, losartan 50mg BID and Metoprolol succinate 25mg daily Currently controlled; Continue to monitor Candiduria Complicated Urinary tract infection- ruled out UA on admission with noted yeast Repeat UA ordered- suggestive of infection, repeat culture no growth to date LLE Cellulitis Wound care nurse consulted, appreciate care. Picture in chart Completed doxycycline course of 5/5 days Functional disability PT/OT Complex case management consult hx CAD status post stent chronic systolic heart failure (EF 45%, TTE 2023) Troponin elevation PAF, complete heart block status post PPM PVD status post surgery Pt with chronic trop elevation EKG noting paced rhythm not on anticoagulation secondary to bleeding risks as per outpatient do cumentation EF 45%, TTE 2023 mild MR PVD status post surgery Continue home meds- metoprolol, plavix, aspirin, atorvastatin, lasix DM2 insulin requiring well-controlled as of recent hemoglobin A1c of 6.04 September 2023 Basal/bolus insulin per protocol chronic anemia Continue to monitor Continue home supplement recent traumatic left rib fractures noted on imaging pain control prn incentive spirometer ongoing tobacco abuse Nicotine patch as needed Constipation: stared on scheduled bowel regimen. Monitor Diet: DMII/HH DVT prophylaxis. Lovenox subcu Dispo: PT/OT recommending SNF. Med/surg while awaiting placement. Please note the above document was generated using voice recognition software. It may contain grammatical, syntax or spelling errors. Any formal questions or concerns about the content, text or information contained within the body of this dictation should be directly addressed to the provider for clarification Admission and Anticipated Discharge Date Admission Date: November 30, 2023 Subjective Patient seen and examined at bedside. Comfortable; not in distress. Denies fever, chills, chest pain, shortness of breath, abdominal pain or urinary symptoms. No significant overnight events Review of Systems Review of Systems: All systems reviewed & are unremarkable except as noted in Subjective Physical Exam Physical Exam: Constitutional: AO X 3; not in any distress Respiratory: normal respiratory effort, lungs clear to auscultation, no wheeze, rales, rhonchi. Normal insp/exp effort, no accessory muscle use Cardiovascular: RRR, no murmur, no edema Vessels: no JVD or carotid bruit Chest: normal inspection of chest Abdomen: normal bowel sounds, soft, nontender, no hepatosplenomegaly Musculoskeletal: no cyanosis or clubbing, extremities motor strength 5/5 Skin: no rashes, warm and dry normal turgor Neurologic: PERRL, EOMI, accommodation nl, no face palsy, no dysarthria CN's II- XI intact bilaterally and moves all extremities Psychiatric: A+Ox3, euthymic affect Results & Data Results & Data Vital Signs (Past 12 Hours) Vital Signs Temp Pulse Resp BP Pulse Ox O2 Del Method 12/12/23 07:45 36.4 C L 80 16 170/71 H 96 Room Air
--- NOTE | 2023-12-12 14:24 | Pharmacy Report ---
Pharmacy Glycemic Short Note 2 - Date of Service December 12, 2023 - Glycemic Short BSG Results (Last 24 hours): 12/11/23 12/11/23 12/12/23 16:26 20:26 07:33 POC Glucose 71 119 H 177 H 12/12/23 11:24 POC Glucose 269 H OUTPATIENT ANTIDIABETIC REGIMEN: * Novolin 70/30 - 60 units SC w/ breakfast, 65 units SC w/ dinner * Metformin 1 g PO BIDM HbA1c: 7.7% on 12/11/23 ASSESSMENT: 12/10 * Pt received 68 units of insulin yesterday * 30 units of glargine * 38 units of aspart * BSGs peaked at lunch time yesterday (>300), pt was corrected and was brought down to 71 for evening. BSG spiked around lunch today again, but was not >300. * Will increase tomorrow's glargine to 35 units * Pt awaiting d/c to rehab 12/10 * Pt received 74 units of insulin yesterday * 30 units of glargine * 44 units of aspart * BSGs have trended down nicely, will continue tightened carb ratio * Pt awaiting d/c to rehab 12/09 * GM is a 73 year old male originally admitted on 11/30/23 w/ hypertensive ur gency * Pharmacy now consulted for glycemic management on 12/10/23 due to hyperglycemia * Patient currently receiving significantly reduced insulin dosing compared to outpatient * Will increase basal and tighten Novolog today * Diet ordered PLAN FOR INPATIENT GLYCEMIC CONTROL: * Hold outpatient diabetes medications * Basal insulin * Increase Lantus 35 units SQ daily * Bolus insulin * NovoLog per scale ACHS or Q6hrs while NPO * Goal Range: Low 110 mg/dL - High 140 mg/dL * Correction Factor: 20 mg/dL/unit * Nutritional / Prandial insulin per carb ratio of 1 unit per 5 grams CHO consumed
[2023-12-12] MEDS: LOSARTAN POTASSIUM 50 MG TAB PO SCH (20:25)
[2023-12-13 07:14] VITALS: RESP 16; TEMP 98.6; O2SAT 95
--- NOTE | 2023-12-13 12:32 | Pharmacy Report ---
Pharmacy Glycemic Short Note 2 - Date of Service December 13, 2023 - Glycemic Short BSG Results (Last 24 hours): 12/12/23 12/12/23 12/13/23 16:24 20:21 07:32 POC Glucose 150 H 170 H 168 H 12/13/23 12/13/23 11:29 11:32 POC Glucose 211 H 195 H OUTPATIENT ANTIDIABETIC REGIMEN: * Novolin 70/30 - 60 units SC w/ breakfast, 65 units SC w/ dinner * Metformin 1 g PO BIDM HbA1c: 7.7% on 12/11/23 ASSESSMENT: 12/12 * Pt received 65 units of insulin yesterday * 30 units of glargine * 35 units of aspart * BSGs much better today: 168 AM and 195 before lunch * Continue current plan * Pt awaiting d/c to rehab 12/11 * Pt received 68 units of insulin yesterday * 30 units of glargine * 38 units of aspart * BSGs peaked at lunch time yesterday (>300), pt was corrected and was brought d own to 71 for evening. BSG spiked around lunch today again, but was not >300. * Will increase tomorrow's glargine to 35 units * Pt awaiting d/c to rehab 12/10 * Pt received 74 units of insulin yesterday * 30 units of glargine * 44 units of aspart * BSGs have trended down nicely, will continue tightened carb ratio * Pt awaiting d/c to rehab 12/09 * GM is a 73 year old male originally admitted on 11/30/23 w/ hypertensive urgency * Pharmacy now consulted for glycemic management on 12/10/23 due to hyperglycemia * Patient currently receiving significantly reduced insulin dosing compared to outpatient * Will increase basal and tighten Novolog today * Diet ordered PLAN FOR INPATIENT GLYCEMIC CONTROL: * Hold outpatient diabetes medications * Basal insulin * Lantus 35 units SQ daily * Bolus insulin * NovoLog per scale ACHS or Q6hrs while NPO * Goal Range: Low 110 mg/dL - High 140 mg/dL * Correction Factor: 20 mg/dL/unit * Nutritional / Prandial insulin per carb ratio of 1 unit per 5 grams CHO consumed
--- NOTE | 2023-12-13 12:38 | Hospitalist Progress Note ---
Date of Service December 13, 2023 Assessment & Plan (1) Asymptomatic hypertensive urgency: Plan per admitting service notes with addendum: Pt is a 73yoM with PMHx significant fo chronic systolic heart failure (EF 45%, TTE 2023), CAD status post stent, PAF, complete heart block status post PPM, mild MR, PVD status post surgery, COPD, ELIZABETH on CPAP, difficult intubation as per records, recurrent bladder status post surgery/Mitomycin-C, GERD, DM2 insulin requiring, chronic anemia (baseline hemoglobin 12-13), mood disorder, recent traumatic rib fractures, ongoing tobacco abuse presenting with inability to care for himself at home. Was also noted to have asymptomatic uncontrolled hypertension that has since resolved. Uncontrolled hypertension BP was elevated on admission Continue amlodipine 5mg daily, losartan 50mg BID and Metoprolol succinate 25mg daily Currently controlled 12/12 Continue to monitor daily Candiduria Complicated Urinary tract infection- ruled out UA on admission with noted yeast Repeat UA ordered- suggestive of infection, repeat culture no growth to date no urinary symptoms upon discharge LLE Cellulitis Wound care nurse consulted, appreciate care. Picture in chart Completed doxycycline course of 5/5 days monitor Functional disability PT/OT Complex case management consult- transition to SNF History of CAD status post stent chronic systolic heart failure (EF 45%, TTE 2023) Troponin elevation PAF, complete heart block status post PPM PVD status post surgery Pt with chronic trop elevation EKG noting paced rhythm not on anticoagulation secondary to bleeding risks as per outpatient documentation EF 45%, TTE 2023 mild MR PVD status post surgery Continue home meds- metoprolol, plavix, aspirin, atorvastatin, lasix DM2 usually on Metformin + Novolin 70/30 well-controlled as of recent hemoglobin A1c of 6.04 September 2023 -- currently on Glargine and Novolog continue for now Chronic anemia Continue to monitor Continue home supplement Recent traumatic left rib fractures noted on imaging pain control prn incentive spirometer Ongoing tobacco abuse Nicotine patch Constipation: stared on scheduled bowel regimen. Monitor Diet: DMII/HH DVT prophylaxis. Lovenox subcu Dispo: transition to SNF ff up with PCP in 1-2 weeks Admission and Anticipated Discharge Date Admission Date: November 30, 2023 Subjective Follow-up for hypertension, etc. Seen resting in bedside chair, comfortable, good spirits States he feels much better overall Feels fine overall, denies chest pain, headache, dizziness, shortness of breath Ambulating in the halls with no problems No other new symptoms States he is ready for discharge today Review of Systems Review of Systems: all noted and negative except for above Physical Exam Physical Exam: General- oriented x 3, not in distress, speaks in sentences with no effort or accessory muscle use Eyes- anicteric Neck- no JVD Lungs- clear breath sounds bilaterally, no rales/wheezes Heart- normal rate, regular rhythm; no murmurs Abdomen- normal bowel sounds, nondistended, soft, nontender Extremities- no pretibial edema, no calf tenderness Neuro- alert, oriented x 3; no gross focal neurologic deficits Skin- warm & dry Results & Data Results & Data Vital Signs (Past 12 Hours) Vital Signs Temp Pulse Resp BP Pulse Ox O2 Del Method 12/13/23 07:30 Room Air 12/13/23 07:08 37.0 C 80 16 156/68 H 95 Room Air all noted and reviewed including below
--- NOTE | 2023-12-13 12:42 | Discharge Summary ---
Discharge Summary Date of Service December 13, 2023 Principal Dx & Hospital Course #1 = Principal Diagnosis (1) Asymptomatic hypertensive urgency: Plan per admitting service notes with addendum: Pt is a 73yoM with PMHx significant fo chronic systolic heart failure (EF 45%, TTE 2023), CAD status post stent, PAF, complete heart block status post PPM, mild MR, PVD status post surgery, COPD, ELIZABETH on CPAP, difficult intubation as per records, recurrent bladder status post surgery/Mitomycin-C, GERD, DM2 insulin requiring, chronic anemia (baseline hemoglobin 12-13), mood disorder, recent traumatic rib fractures, ongoing tobacco abuse presenting with inability to care for himself at home. Was also noted to have asymptomatic uncontrolled hypertension that has since resolved. Uncontrolled hypertension BP was elevated on admission Continue amlodipine 5mg daily, losartan 50mg BID and Metoprolol succinate 25mg daily Currently controlled 12/12 Continue to monitor daily Candiduria Complicated Urinary tract infection- ruled out UA on admission with noted yeast Repeat UA ordered- suggestive of infection, repeat culture no growth to date no urinary symptoms upon discharge LLE Cellulitis Wound care nurse consulted, appreciate care. Picture in chart Completed doxycycline course of 5/5 days monitor Functional disability PT/OT Complex case management consult- transition to SNF History of CAD status post stent chronic systolic heart failure (EF 45%, TTE 2023) Troponin elevation PAF, complete heart block status post PPM PVD status post surgery Pt with chronic trop elevation EKG noting paced rhythm not on anticoagulation secondary to bleeding risks as per outpatient documentation EF 45%, TTE 2023 mild MR PVD status post surgery Continue home meds- metoprolol, plavix, aspirin, atorvastatin, lasix DM2 usually on Metformin + Novolin 70/30 well-controlled as of recent hemoglobin A1c of 6.04 September 2023 -- currently on Glargine and Novolog continue for now Chronic anemia Continue to monitor Continue home supplement Recent traumatic left rib fractures noted on imaging pain control prn incentive spirometer Ongoing tobacco abuse Nicotine patch Constipation: stared on scheduled bowel regimen. Monitor Diet: DMII/HH DVT prophylaxis. Lovenox subcu Dispo: transition to SNF ff up with PCP in 1-2 weeks Notes For Next Care Provider Medication Changes From Visit Please refer to medical reconciliation Admission HPI Per Admitting Provider History obtained from patient and records. Medical history significant fo chronic systolic heart failure (EF 45%, TTE 2023), CAD status post stent, PAF, complete heart block status post PPM, mild MR, PVD status post surgery, COPD, ELIZABETH on CPAP, difficult intubation as per records, recurrent bladder status post surgery/Mitomycin-C, GERD, DM2 insulin requiring, chronic anemia (baseline hemoglobin 12-13), mood disorder, recent traumatic rib fractures, ongoing tobacco abuse. Last confinement June 2021 for complete heart block status post PPM. Recent ER visit 3 days ago for left-sided rib pain secondary to fall. Multiple left-sided rib fractures on imaging. Patient discharged home. Patient unable to care for self since return to home. Did not feel safe. Patient unhappy about being currently confined at the hospital. Denies suicidality. Usual left-sided chest pain from rib fractures. Denies headache, unusual SOB, or abdominal pain. EMS called to patient's home. Patient home in disarray and covered with cat litter/feces. Patient brought to ER for evaluation. SBP 160s upon arrival at the ER. 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 Admission Exam Per Admitting Provider GENERAL: Comfortable, unkempt, no respiratory distress SKIN: Pallor, warm HEENT: Alopecia, pale palpebral conjunctivae, no ptosis, dry buccal mucosa NECK : Supple, no tenderness CHEST : Decreased breath sounds, no tenderness HEART : Tachycardic, no obvious murmurs ABDOMEN: Some distention, nontender EXTREMITIES : No LE swelling/tenderness, no other conspicuous deformities noted NEUROLOGIC : Coherent, no facial asymmetry, no other gross focality Discharge Exam General- oriented x 3, not in distress, speaks in sentences with no effort or accessory muscle use Eyes- anicteric Neck- no JVD Lungs- clear breath sounds bilaterally, no rales/wheezes Heart- normal rate, regular rhythm; no murmurs Abdomen- normal bowel sounds, nondistended, soft, nontender Extremities- no pretibial edema, no calf tenderness Neuro- alert, oriented x 3; no gross focal neurologic deficits Skin- warm & dry Updated Medication List Medication Instructions Recorded Confirmed Type aspirin 81 mg tablet,delayed 81 mg PO QAM 10/26/17 11/27/23 History release (Adult Low Dose Aspirin) cholecalciferol (vitamin D3) 25 5,000 units PO QAM 10/26/17 11/27/23 History mcg (1,000 unit) capsule venlafaxine 150 mg 150 mg PO QAM 10/26/17 11/27/23 History capsule,extended release 24 hr (Effexor XR) clopidogrel 75 mg tablet 75 mg PO QAM 07/16/18 11/27/23 History metformin 500 mg tablet,extended 1,000 mg PO BIDM 07/16/18 11/27/23 History release 24 hr omeprazole 40 mg capsule,delayed 40 mg PO QAM 07/16/18 11/27/23 History release finasteride 5 mg tablet (Proscar) 5 mg PO QAM 10/05/18 11/27/23 History atorvastatin 40 mg tablet 40 mg PO QAM 04/14/21 11/27/23 History losartan 100 mg tablet 100 mg PO QAM 04/14/21 11/27/23 History acetaminophen 325 mg tablet 650 mg PO Q6 PRN Pain 05/10/21 11/27/23 History (Tylenol) ferrous sulfate 325 mg (65 mg 325 mg PO BID #60 tabs 05/19/21 11/27/23 Rx iron) tablet furosemide 40 mg tablet 40 mg PO QAM 30 days #30 tabs 05/19/21 11/27/23 Rx levalbuterol HCl 1.25 mg/0.5 mL 1.25 mg (0.5 mL) NEB Q2H PRN 05/19/21 11/27/23 Rx solution for nebulization shortness of breath or wheezing #30 ea nicotine 21 mg/24 hr daily 21 mg transdermal QAM #7 ea 05/19/21 11/27/23 Rx transdermal patch (Nicoderm CQ) amlodipine 5 mg tablet (Norvasc) 10 mg PO QAM 06/19/21 11/27/23 History fluticasone furoate 100 1 puff inhalation HS 06/19/21 11/27/23 History mcg-vilanterol 25 mcg/dose inhalation powder (Breo Ellipta) insulin human U-100 NPH-regulr See Rx Instructions .Route .COMPLEX 06/19/21 11/27/23 History 70-30 mix 100 unit/mL subcutaneous susp (Novolin 70/30 U-100 Insulin) potassium chloride 20 mEq 20 meq PO BID 06/19/21 11/27/23 History tablet,extended release(part/cryst) metoprolol succinate 25 mg 25 mg PO QAM #30 tabs 07/15/21 11/27/23 Rx tablet,extended release 24 hr lidocaine 5 % topical patch 1 patch topical DAILY PRN pain #15 11/25/23 11/27/23 Rx (Lidoderm) ea oxycodone 5 mg tablet 5 mg PO Q8H PRN pain #6 tabs 11/25/23 11/27/23 Rx docusate sodium 100 mg capsule 100 mg PO BID #60 caps 12/13/23 Rx enoxaparin 40 mg/0.4 mL 40 mg (0.4 mL) subcut QAM 30 days 12/13/23 Rx subcutaneous syringe (Lovenox) #12 mL insulin aspart U-100 100 unit/mL 1 unit (0.01 mL) SC ACHS #10 mL 12/13/23 Rx subcutaneous solution (Novolog U-100 Insulin aspart) insulin glargine 100 unit/mL 35 unit (0.35 mL) SC DAILY 30 days 12/13/23 Rx subcutaneous solution (Lantus #10.5 mL U-100 Insulin) magnesium hydroxide 400 mg/5 mL 30 ml PO BID 30 days #1,800 mL 12/13/23 Rx oral suspension (Milk of Magnesia) magnesium oxide 400 mg (241.3 mg 400 mg PO BID 30 days #60 tabs 12/13/23 Rx magnesium) tablet nicotine 7 mg/24 hr daily 1 patch transdermal QAM 14 days 12/13/23 Rx transdermal patch #14 ea polyethylene glycol 3350 17 gram 17 g PO BID 30 days #30 ea 12/13/23 Rx oral powder packet (Miralax) Hospital Stay Data Consultations 11/28/23 01:08 ED Decision to Admit Stat Discharge Instructions Given to Patient (Per Discharging Provider) NovoLog insulin sliding scale: --Goal BSG Range: Low 110mg/dL, High 140mg/dL --Correction Factor: 20 mg/dL/unit --Carbohydrate ratio = 5 g/unit --BSGs ACHS if eating, q6h if npo Please refer to accompanying hospital discharge summary for full details. Total Time Total Time Spent Total Time Spent (In Minutes): 45 minutes
[2023-12-13 13:12] VITALS: BP 131/60; PULSE 78
== END 2023-12-13 14:13 | DRG 603 ==
LOC: 2N 22:42 → ED 22:42 → SUATTDRO 11-28 01:45 → 2N 11-28 03:46 → SUATTDRO 11-30 08:14 → 3W 12-03 21:08